=== PATIENT | female | born 1945 | race Caucasian/White ===

== ENCOUNTER 2019-10-30 11:49 | Outpatient (CLI) | payer MEDICARE, OTHER, SELFPAY ==
--- NOTE | 2019-10-30 11:59 | CT_ITS ---
WS: [id number] CT CHEST WITHOUT INTRAVENOUS CONTRAST HISTORY: MASS, LUNG TECHNIQUE: Contiguous 5 mm axial imaging performed on the thorax. Coronal and sagittal reformats are submitted. All CT scans at [facility] use at least one of these dose optimization techniq ues: automated exposure control; mA and/or kV adjustment per patient size (includes targeted exams wh ere dose is matched to clinical indication); or iterative reconstruction. CONTRAST: None DLP: 623.52 mGycm COMPARISON: 08/28/2018 and 01/02/2018 Lungs and central airway: Hyperinflated lungs with emphysema. Benign scattered calcified granulomata. Spiculated nodule in the LEFT lower lobe seen on the prior examination has resolved. No new pulmonar y nodules. No pneumonia. Pleura: Pleural-based smooth nodule with obtuse angles along the RIGHT lateral chest wall measures 2. 5 cm in diameter and is stable. Heart and pericardium: Normal size heart. No pericardial effusion. Mediastinum and lore: Benign, stable mediastinal and hilar lymph nodes. The largest lymph nodes measu re 1 cm. Vessels: Atherosclerosis aorta with no aneurysmal dilatation. No coronary artery calcifications are i dentified. Chest wall and lower neck: Bilateral breast implants. Upper abdomen: Noncontrast evaluation of the upper abdominal organs is negative for any acute process . Osseous structures: New since 08/28/2018 is an osteoporotic compression fracture involving T11 by 40% . Stable L1 compression fracture. Mild concave deformity of T8. CT/CT chest wo con [id number] IMPRESSION: 1. Chronic emphysema with stable benign pleural based nodule RIGHT thorax. 2. Previously described spiculated nodule in the LEFT lower lobe has resolved. 3. Stable osteoporotic compression fractures at T12 and L1.
[2019-10-30 12:27] LABS: Blood Urea Nitrogen 10 mg/dL (8-23)
== END 2019-10-30 11:50 | disposition home or self-care (01) ==
LOC: RADWPI 11:59
PROVIDERS: Family Provider Family Medicine; PCP Family Medicine; Visit Provider Family Medicine
DX: J43.9 Emphysema, unspecified (principal); M48.54XA Collapsed vertebra, not elsewhere classified, thoracic region, initial encounter for fracture; M48.56XA Collapsed vertebra, not elsewhere classified, lumbar region, initial encounter for fracture; R91.8 Other nonspecific abnormal finding of lung field; R91.1 Solitary pulmonary nodule
CPT/HCPCS: 71250; 82565; 84520

== ENCOUNTER 2021-04-19 10:06 | Outpatient (CLI) | payer MEDICARE, OTHER, SELFPAY ==
--- NOTE | 2021-04-19 10:18 | XR_ITS ---
WS: [id number] LUMBAR SPINE TECHNIQUE: 3 views of the lumbar spine CLINICAL INFORMATION: BACK PAIN, MUSCLE SPASM COMPARISON: FINDINGS: Five inu-dfy-hejtniy lumbar vertebral bodies. Osteopenia. Disc space narrowing worse L5-S1. Slight re trolisthesis L2 on L3. Chronic anterior wedging at T11-L1 with focal kyphosis at this level. Aortic c alcification. Advanced facet arthropathy L5-S1. IMPRESSION: 1. Osteopenia with disc space narrowing worse L5-S1. 2. Slight retrolisthesis L2 on L3. 3. Chronic compression deformities T11-L1 with focal kyphosis at this level.
--- NOTE | 2021-04-19 10:18 | XR_ITS ---
WS: [id number] THORACIC SPINE TECHNIQUE: 3 views of the thoracic spine CLINICAL INFORMATION: BACK PAIN, MUSCLE SPASM COMPARISON: CT chest October 30, 2019 FINDINGS: Osteopenia. Thoracolumbar curve convex left in the thoracic spine. Advanced thoracolumbar kyphosis wi th chronic compression deformities at the thoracolumbar junction. This is slightly progressed at T12 compared to the CT October 30, 2019. Stable appearing chronic compression with anterior wedging at T1 1 and L1. Hyperinflation with chronic emphysematous changes. XR/XR thoracic spine 3V* [id number] IMPRESSION: 1. Thoracolumbar scoliosis and kyphosis. 2. Osteopenia. 3. Focal kyphosis with chronic compression deformities at T11-L1. T12 compress ion has progressed since October 30, 2019 with approximately 30-40% compression . 4. No other significant changes.
== END 2021-04-19 10:07 | disposition home or self-care (01) ==
PROVIDERS: PCP Family Medicine; Visit Provider Family Medicine
DX: M62.838 Other muscle spasm (principal); M40.295 Other kyphosis, thoracolumbar region; M85.88 Other specified disorders of bone density and structure, other site; S22.089A Unspecified fracture of T11-T12 vertebra, initial encounter for closed fracture; X58.XXXA Exposure to other specified factors, initial encounter
CPT/HCPCS: 72072; 72100

== ENCOUNTER 2021-06-30 11:27 | Outpatient (CLI) | payer MEDICARE, OTHER, SELFPAY ==
[2021-06-30 12:00] VITALS: BP 150/76; PULSE 75; RESP 16; TEMP 36.5; O2SAT 95; BMI 20.3
[2021-06-30 13:07] VITALS: BP 152/78; PULSE 68; RESP 18; O2SAT 97
[2021-06-30 14:07] VITALS: BP 159/86; PULSE 68; RESP 18; TEMP 36.7; O2SAT 98
--- NOTE | 2021-07-05 18:59 | PC.SOCIAL ---
10-1, 1500 antibody infusion follow up call: symptoms prior to infusion: body aches, tired, couldn't hardly move patient reports she is much better now.
== END 2021-06-30 11:28 | disposition home or self-care (01) ==
LOC: OPS 11:35
PROVIDERS: PCP Family Medicine; Visit Provider Family Medicine
DX: U07.1 COVID-19 (principal)
CPT/HCPCS: 96365

== ENCOUNTER 2021-07-05 14:05 | Emergency (ER) | payer MEDICARE, OTHER, SELFPAY ==
[2021-07-05 14:58] VITALS: BP 145/84; PULSE 79; RESP 18; TEMP 36.8; O2SAT 95; BMI 21.4
--- NOTE | 2021-07-05 15:12 | ED_ITS ---
HPI - General Adult General: Chief complaint: General Medical Stated complaint: HERE FOR IV FLUIDS P/DR DUCKWORTH Time Seen by Provider: 07/05/21 15:12 History of Present Illness: HPI narrative: Ms. Miller is a 75-year-old lady with history of hypertension who presents to the emergency department after being referred for IV fluids. The patient is alert and oriented however does not specify much and history other than not feeling good . Per report patient tested positive for COVID-19. Symptom onset was approximately 7 or 8 days prior. She received outpatient monoclonal antibody infusion. Her symptoms have continued to worsen. She denies specific focality of symptoms however just as now moderate to severe intensity generalized malaise. It is unclear if there are any specific exacerbating or relieving factors. History is otherwise limited by patient participation. Review of Systems General: Reports: 10 or more systems reviewed and unremarkable except in HPI and below [facility] ED PFSH: Medical History (Updated 07/07/21 @ 02:56 by Taisha Frias MD) DVT (deep venous thrombosis) Hypertension Social History Smoking and tobacco status: former smoker Physical Exam Narrative: EXAM NARRATIVE: GENERAL/CONSTITUTIONAL -mildly ill-appearing. No acute distress. Eyes - no conjunctival injection or scleral icterus ENMT - Atraumatic external nose and ears. Dry mucous membranes NECK - supple. trachea midline CARDIOVASCULAR - regular rate and rhythm. RESPIRATORY -clear to auscultation bilaterally. No retractions or accessory muscle use. ABDOMEN/GI - Nontender. Nondistended. MSK - Extremities without obvious deformity or tenderness to palpation SKIN - Warm, Dry NEURO - alert and appropriately oriented. Moves all extremities equally. Course ED course: - Patient was seen and evaluated by me at bedside - Patient placed on cardiac monitors, IV access obtained - Initial evaluation notable for limited history, nontoxic appearance. - Labs and imaging were ordered - Prior to completion of ED evaluation the patient left AGAINST MEDICAL ADVICE - She declined to remain for discussion of laboratory or imaging studies up to this point. - For review of labs and imaging after patient departure: Mild leukopenia, evidence of dehydration with hyponatremia, hyper chloride EMEA, and hypokalemia, minimally elevated anion gap. Renal function is preserved. Procalcitonin negative. Initial rapid Covid negative however PCR sent given symptom onset date. Chest x-ray without lobar consolidation or evidence of superimposed bacterial process. CT scan with age indeterminate findings, as best as I can tell based on provided history there is no acute neurologic changes appreciated by the patient nor was there obvious change noted on physical exam. Vital Signs: Vital signs: Vital Signs Temperature 98.3 F 07/05/21 14:58 Pulse Rate 85 07/05/21 15:44 Respiratory Rate 16 07/05/21 15:44 Blood Pressure 153/77 07/05/21 15:44 Pulse Oximetry 91 07/05/21 15:44 [facility] - General Adult Medical Records: Attestation: I reviewed the patient's medical records. Lab Data: Attestation: I reviewed the patient's lab results. Labs: Lab Results 07/05/21 07/05/21 07/05/21 16:10 16:10 16:16 WBC 3.4 10^3/uL L 10^ 3/uL (4.0-10.0) RBC 4.39 10^6/uL 10^6 /uL (4.1-5.3) Hgb 13.6 g/dL g/dL (11.5-15.3) Hct 39.5 % % (37.0-47.0) MCV 90.0 fl fl (81-99) MCH 31.0 pg pg (28.0-34.0) MCHC 34.4 g/dL g/dL (30.0-36.0) RDW 12.8 % % (12.1-15.1) Plt Count 348 10^3/cmm 10^3 /cmm (130-400) MPV 8.8 fL fL (7.4-10.4) Neut % (Auto) 53.7 % % Lymph % (Auto) 33.6 % % [place] % (Auto) 11.8 % % Eos % (Auto) 0.3 % % Baso % (Auto) 0.3 % % Neut # (Auto) 1.82 10^3/uL 10^3 /uL (1.8-7.7) Lymph # (Auto) 1.1 10^3/uL 10^3/ uL (0.8-4.8) [place] # (Auto) 0.4 10^3/uL 10^3/ uL (0.2-0.9) Eos # (Auto) 0.0 10^3/uL 10^3/ uL (0.0-0.8) Baso # (Auto) 0.0 10^3/uL 10^3/ uL (0.0-0.1) Nucleated RBC % (a uto) 0 % % Nucleated RBCs # 0.0 /100WBC /100W BC Specimen Type Sample Site ABG pH ABG pCO2 ABG pO2 ABG HCO3 ABG Base Excess Panda Test Hematocrit O2 Delivery Device FiO2 [employer] Infrastructure Consultant ID Sodium Potassium Chloride Carbon Dioxide Anion Gap BUN Creatinine GFR Calculation Glucose Calculated Osmolal ity Lactic Acid Calcium Total Bilirubin AST ALT Alkaline Phosphata se Troponin T Baselin e C-Reactive Protein NT-Pro-B Natriuret Pep Total Protein Albumin Globulin Procalcitonin Nasal/Oral COVID-1 9 PCR Detected H SARS-CoV-2 Ag (Rap id) Negative (Negative) 07/05/21 07/05/21 07/05/21 16:16 16:16 16:16 WBC RBC Hgb Hct MCV MCH MCHC RDW Plt Count MPV Neut % (Auto) Lymph % (Auto) [place] % (Auto) Eos % (Auto) Baso % (Auto) Neut # (Auto) Lymph # (Auto) [place] # (Auto) Eos # (Auto) Baso # (Auto) Nucleated RBC % (a uto) Nucleated RBCs # Specimen Type Sample Site ABG pH ABG pCO2 ABG pO2 ABG HCO3 ABG Base Excess Panda Test Hematocrit O2 Delivery Device FiO2 [employer] Infrastructure Consultant ID Sodium 124 mmol/L L mmol /L (136-145) Potassium 3.2 mmol/L L mmol /L (3.5-5.1) Chloride 82 mmol/L L mmol/ L (98-107) Carbon Dioxide 26 mmol/L mmol/L (22-29) Anion Gap 19.2 H (5-19) BUN 11 mg/dL mg/dL (8-23) Creatinine 0.5 mg/dL mg/dL (0.5-0.9) GFR Calculation Not Reportable Glucose 99 mg/dL mg/dL (65-115) Calculated Osmolal ity 257 mOsm/kg L mOs m/kg (285-295) Lactic Acid 1.1 mmol/L mmol/L (0.5-2.2) Calcium 9.0 mg/dL mg/dL (8.5-10.5) Total Bilirubin 0.3 mg/dL mg/dL (0.15-1.2) AST 16 U/L U/L (0-32) ALT 12 U/L U/L (0-33) Alkaline Phosphata se 60 IU/L IU/L (35-105) Troponin T Baselin e 37 ng/L H ng/L (0-10) C-Reactive Protein 5.4 mg/L H mg/L (0.0-4.9) NT-Pro-B Natriuret Pep 435 pg/mL pg/mL (0-450) Total Protein 6.7 g/dL g/dL (6.6-8.7) Albumin 3.9 g/dL g/dL (3.5-5.2) Globulin 2.8 g/dL g/dL (1.3-4.6) Procalcitonin 0.09 ng/mL ng/mL (0-0.5) Nasal/Oral COVID-1 9 PCR SARS-CoV-2 Ag (Rap id) 07/05/21 16:20 WBC RBC Hgb Hct MCV MCH MCHC RDW Plt Count MPV Neut % (Auto) Lymph % (Auto) [place] % (Auto) Eos % (Auto) Baso % (Auto) Neut # (Auto) Lymph # (Auto) [place] # (Auto) Eos # (Auto) Baso # (Auto) Nucleated RBC % (a uto) Nucleated RBCs # Specimen Type Arterial Sample Site Brachial, left ABG pH 7.46 H (7.35-7.45) ABG pCO2 42.5 mmHg mmHg (35-45) ABG pO2 37.9 mmHg L* mmHg (80.0-100.0) ABG HCO3 29.9 mmol/L H mmo l/L (22-26) ABG Base Excess 5.4 mmol/L H mmol /L (-2.0-2.0) Panda Test Pos Hematocrit 38.9 % % (37-47) O2 Delivery Device Room air FiO2 21.0 % % Microsoft Infrastructure Consultant ID Cak Sodium Potassium Chloride Carbon Dioxide Anion Gap BUN Creatinine GFR Calculation Glucose Calculated Osmolal ity Lactic Acid Calcium Total Bilirubin AST ALT Alkaline Phosphata se Troponin T Baselin e C-Reactive Protein NT-Pro-B Natriuret Pep Total Protein Albumin Globulin Procalcitonin Nasal/Oral COVID-1 9 PCR SARS-CoV-2 Ag (Rap id) EKG Data^: EKG 1: Attestation: I personally reviewed and interpreted this EKG as follows: EKG interpretation date: 07/05/21 EKG interpretation time: 16:43 Interpretation: Twelve-lead EKG shows a regular rhythm at a rate of 87. ME interval 166, QRS duration 101, QTc 485. Normal axis. Interpretation: Sinus rhythm. Frequent PVCs. Computer generated interpretation: Chest X-Ray 07/05/21 15:48 IMPRESSION: No acute chest abnormality identified. Head CT 07/05/21 15:48 IMPRESSION: 1. Small age-indeterminate lacunar infarcts within/adjacent to the right basal ganglia. Consider MRI to assess acuity if clinically warranted. 2. Msfn-lh-daacsmmg senescent changes as above. 3. No acute intracranial hemorrhage. Radiation Dose CTDIVOL = (mGy): DLP = 869.04 (mGy-cm) Discharge Plan Discharge Patient Disposition: Left Against Medical Advice Prescriptions: No Action Anoro Ellipta 62.5-25 mcg/actuation Blister With Device 1 inh INHALATION QAM RF: 0 hydrocodone-acetaminophen [[place]] 5-325 mg Tablet 1 tab PO Q4H MDD 4 tabs PRN (Reason: Pain) RF: 0 diltiazem HCl 120 mg Capsule,Extended Release 24 Hr 120 mg PO QAM RF: 0 lisinopril 5 mg Tablet 5 mg PO QAM RF: 0 sertraline 50 mg Tablet 50 mg PO QAM RF: 0 nortriptyline 50 mg Capsule 50 - 150 mg PO BEDTIME PRN (Reason: Sleep) RF: 0 Eliquis 5 mg Tablet 5 mg PO BID RF: 0 Combivent Respimat 20-100 mcg/actuation Mist 1 puff INHALATION QID RF: 0 baclofen 5 mg Tablet 5 mg PO TID PRN (Reason: Pain) RF: 0 Tylenol Ex Str Rapid Release 500 mg Tablet 500 mg PO Q4H PRN (Reason: Pain) RF: 0 albuterol sulfate 90 mcg/actuation HFA aerosol inhaler 4 - 6 puff INHALATION Q4H PRN (Reason: Shortness Of Breath) RF: 0 Referrals: Jeffrey Duckworth, [Primary Care Provider] - Coding Level of Care Code ED Sales Counselor for Chg Patrick
[2021-07-05 15:44] VITALS: BP 153/77; PULSE 85; RESP 16; O2SAT 91
--- NOTE | 2021-07-05 15:48 | ECG_ITS ---
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: : 1945 Requested By: Cipriano Vazquez Order Number: [id number] Reading MD: ANTONIETA PADILLA Measurements Intervals [place] Rate: 87 P: 61 NV: 166 QRS: 43 QRSD: 101 T: 55 QT: 401 QTc: 485 Interpretive Statements SINUS RHYTHM WITH FREQUENT VENTRICULAR PREMATURE COMPLEXES POSSIBLE LEFT ATRIAL ENLARGEMENT [-0.1mV P-WAVE IN V1/V2] ABNORMAL RHYTHM ECG Compared to ECG 09/30/2018 10:53:40 Ventricular premature complex(es) now present Electronically Signed On 07-05-2021 20:19:06 CDT by ANTONIETA PADILLA [email or web address]
--- NOTE | 2021-07-05 15:48 | XR_ITS ---
WS: [id number] XR chest 1V portable [id number] REASON FOR EXAM: covid FINDINGS: The chest is unchanged compared to the previous examination of 05/23/2019. Moderate tortuosity and ectasia of the thoracic aorta. Normal heart size. Extrapleural mass projecting over the right upper lung laterally again noted. Calcified granulomatous disease in both hemithoraces. No acute pulmonary parenchymal or pleural disease noted. XR/XR chest 1V portable [id number] IMPRESSION: No acute chest abnormality identified.
--- NOTE | 2021-07-05 15:48 | CTR_ITS ---
PROCEDURE INFORMATION: Exam: CT Head Without Contrast Exam date and time: 07/05/2021 3:48 PM Age: 75 years old Clinical indication: Altered mental status/memory loss. TECHNIQUE: Imaging protocol: Computed tomography of the head without contrast. Radiation optimization: All CT scans at this facility use at least one of these dose optimization techniques: automated exposure control; mA and/or kV adjustment per patient size (includes targeted exams where dose is matched to clinical indication); or iterative reconstruction. COMPARISON: CT head wo con* [id number] 08/13/2018 1:20 PM RADIATION DOSE METRICS: Total DLP (mGy-cm): 869.04 FINDINGS: Brain: No acute intracranial hemorrhage. No mass, mass effect or midline shift.. There is no evidence of acute large vessel infarct.. There is moderate patchy subcortical and periventricular hypodensity, most commonly associated with small vessel ischemic disease of indeterminate age. Small age-indeterminate lacunar infarcts within/adjacent to the right basal ganglia. The posterior fossa is grossly unremarkable; however, it is partially obscurred by beam hardening artifact. Cerebral ventricles: The ventricles are prominent, compatible with mild parenchymal volume loss. Paranasal sinuses: The visualized paranasal sinuses are clear. Mastoid air cells: No mastoid effusion. Orbital cavity: The visualized orbits are unremarkable. Bones/joints: No acute fracture is seen. CT/CT head wo con* [id number] IMPRESSION: 1. Small age-indeterminate lacunar infarcts within/adjacent to the right basal ganglia. Consider MRI to assess acuity if clinically warranted. 2. Jgts-fl-vkivkufb senescent changes as above. 3. No acute intracranial hemorrhage. Radiation Dose CTDIVOL = (mGy): DLP = 869.04 (mGy-cm)
[2021-07-05 16:30] LABS: Basophils % 0.3 %; Eosinophils % 0.3 %; Hematocrit 39.5 % (37.0-47.0); Hemoglobin 13.6 g/dL (11.5-15.3); Lymphocytes # 1.1 10^3/uL (0.8-4.8); Lymphocytes % 33.6 %; Mean Corpuscular HGB Conc 34.4 g/dL (30.0-36.0); Mean Platelet Volume 8.8 fL (7.4-10.4); Monocytes # 0.4 10^3/uL (0.2-0.9); Monocytes % 11.8 %; Neutrophils # 1.82 10^3/uL (1.8-7.7); Neutrophils % 53.7 %; Nucleated Red Blood Cells % 0 %; Platelet Count 348 10^3/cmm (130-400); Red Blood Count 4.39 10^6/uL (4.1-5.3); Red Cell Distribution Width 12.8 % (12.1-15.1); White Blood Count 3.4 10^3/uL (4.0-10.0)
[2021-07-05 16:31] LABS: ABG PCO2 42.5 mmHg (35-45); ABG PH Result 7.46 (7.35-7.45); Arterial Blood Gas Hematocrit 38.9 % (37-47); Base Excess ABG 5.4 mmol/L (-2.0-2.0); Blood Gas Allen Test Pos; Blood Gas Operator Identificat CAK; Blood Gas Sample Site Brachial, left; Blood Gas Sample Type Arterial; HCO3 ABG 29.9 mmol/L (22-26); Oxygen Device ROOM AIR; PO2 ABG 37.9 mmHg (80.0-100.0)
[2021-07-05 17:02] LABS: Lactic Sepsis W/Reflex 1.1 mmol/L (0.5-2.2)
[2021-07-05 17:11] LABS: Troponin(5th) Baseline 37 ng/L (0-10)
[2021-07-05 17:12] LABS: NT Pro B Type Natriuretic Pept 435 pg/mL (0-450); Procalcitonin 0.09 ng/mL (0-0.5)
[2021-07-05 17:26] LABS: Alanine Aminotransferase 12 U/L (0-33); Albumin Level 3.9 g/dL (3.5-5.2); Alkaline Phosphatase 60 IU/L (35-105); Anion Gap 19.2 (5-19); Aspartate Amino Transferase 16 U/L (0-32); Blood Urea Nitrogen 11 mg/dL (8-23); C Reactive Protein 5.4 mg/L (0.0-4.9); Carbon Dioxide 26 mmol/L (22-29); Chloride 82 mmol/L (98-107); Globulin 2.8 g/dL (1.3-4.6); Glucose 99 mg/dL (65-115); Osmolality Calculated 257 mOsm/kg (285-295); Potassium 3.2 mmol/L (3.5-5.1); Sodium 124 mmol/L (136-145); Total Bilirubin 0.3 mg/dL (0.15-1.2); Total Protein 6.7 g/dL (6.6-8.7)
[2021-07-05 20:56] LABS: SARS Covid-2 Antigen Negative (Negative)
[2021-07-06 20:07] LABS: Coronavirus Test Green County Detected
== END 2021-07-05 17:48 | disposition left against medical advice (07) ==
PROVIDERS: Emergency Medicine; Emergency Provider Emergency Medicine; PCP Family Medicine
DX: U07.1 COVID-19 (principal); Z53.21 Procedure and treatment not carried out due to patient leaving prior to being seen by health care provider; Z79.01 Long term (current) use of anticoagulants
CPT/HCPCS: 36600; 70450; 71045; 80053; 82803; 83605; 83880; 84145; 84484; 85025; 86140; 87426; 87635; 93005; 99283

== ENCOUNTER 2021-07-06 16:02 | Inpatient (IN) | payer MEDICARE, OTHER, SELFPAY ==
[2021-07-06 17:06] VITALS: BP 129/64; PULSE 91; RESP 16; TEMP 36.7; O2SAT 95; BMI 21.4
[2021-07-06 18:00] VITALS: BP 144/81; PULSE 80; RESP 18; O2SAT 96
--- NOTE | 2021-07-06 18:00 | PC.NURSE ---
pt talking with family on phone and stated feeling much better, just getting checked out . Pt smiling
--- NOTE | 2021-07-06 20:03 | XRR_ITS ---
PROCEDURE INFORMATION: Exam: XR Chest Exam date and time: 07/06/2021 8:03 PM Age: 75 years old Clinical indication: Other: Weak; Prior surgery; Surgery type: Breast aug; Patient HX: Covid+; Additional info: [place] TECHNIQUE: Imaging protocol: XR of the chest. Views: 1 view. COMPARISON: 1. CR XR chest 1V portable [id number] 07/05/2021 4:[address] chest wo con [id number] 10/30/2019 12:21:[address] chest wo con [id number] 08/28/2018 3:33:48 PM FINDINGS: Lungs: Emphysema. Hyperinflated lungs. Negative for airspace consolidation. Redemonstration of a smoothly marginated nodule in the lateral right upper lobe with no convincing changes from comparison imaging. Pleural spaces: Unremarkable. No pleural effusion. No pneumothorax. Heart/Mediastinum: Unremarkable. No cardiomegaly. Bones/joints: Unremarkable. XR/XR chest 1V portable [id number] IMPRESSION: No focal acute pulmonary disease. Radiation Dose CTDIVOL = (mGy): DLP = (mGy-cm)
--- NOTE | 2021-07-06 20:04 | ED_ITS ---
Documented by User: CONNER Cheung 07/06/21 23:38 HPI - COVID General: Chief Complaint: COVID symptoms Stated Complaint: COVID +: GEN MALAISE Time Seen by Provider: 07/06/21 19:59 Triage information: No fever, cough or shortness of breath . Exposure to COVID + person last 14 days History of Present Illness: HPI Narrative: 75-year-old female comes in for weakness and feeling of malaise. Patient reports being ill since last Monday, approximately 7 to 8 days. Patient appears mildly unwell. Patient appears in no acute distress. Patient is quiet and responds appropriately to questions. Family had been concerned due to patient's increasing weakness and confusion for the last 2 days. COVID Results: SARS-CoV-2 Antigen (Rapid) Negative (Negative) 07/05/21 16:10 07/05/21 Nasal/Oral Coronavirus 2019 PCR Detected H 07/05/21 16:10 07/05/21 Review of Systems General: Reports: 10 or more systems reviewed and unremarkable except in HPI and below Const: Reports: malaise [facility] ED PFSH: Medical History (Updated 07/07/21 @ 02:56 by Taisha Frias MD) DVT (deep venous thrombosis) Hypertension Social History Smoking and tobacco status: former smoker Physical Exam Const: COMMON NORMALS: no acute distress and patient oriented x3 GENERAL APPEARANCE: cooperative HENMT: COMMON NORMALS: normocephalic and Normal external nose present HEAD & SCALP: normal to inspection and normocephalic NOSE: Normal external nose present MOUTH: Normal oral and palatal mucosa present Eye: GENERAL EYE: appearance normal, both eyes and all related structures Neck/C-Spine: COMMON NORMALS: full ROM Lymph: LYMPHATIC: no lymphadenopathy noted Chest: COMMONS NORMALS: normal inspection of the chest Resp: COMMON NORMALS: normal respiratory effort EFFORT & INSPECTION: Yes able to speak in complete sentences AUSCULTATION: diminished lung sounds Cardio: COMMON NORMALS: regular rate and regular rhythm RATE: regular rate RHYTHM: regular rhythm GI: COMMON NORMALS: non-tender Back/Pelvis: COMMON NORMALS: thoracic and lumbar spine normal to inspection Extremity: COMMON NORMALS: normal to inspection Neuro: COMMON NORMALS: patient oriented x3 and moves all extremities Psych: COMMON NORMALS: mental status grossly normal and cooperative Skin: COMMON NORMALS: no rashes or lesions noted GENERAL SKIN EXAM: no rashes or lesions noted Course ED course: 1909, discussed patient with Dr. Burt who had seen her last night. Patient had wanted to go home before labs were completed. He recommended we recheck labs and consider IV fluids. 1929, talk with patient's daughter who reports that patient got monoclonal antibodies 1 week ago. She was evaluated in the ER yesterday due to some confusion. Patient did not want to stay and requested to go home early. Labs from yesterday noted some irregularities in her chemistries and they recommended that she come back today for further evaluation. Patient's daughter states that she seems to be better today. We will continue with the repeat labs give her 1 L of IV fluids and plan for further evaluation and treatment after labs. 2319, discussed with Dr. Ann regarding patient's decline and sodium to 122. He recommended we talk to the hospitalist Dr. Frias for admission for dehydration and hyponatremia. After discussion with Dr. Frias she agreed to plan at this time for observation status for IV fluids and repeat labs. Vital Signs: Vital signs: Vital Signs Temperature 97.6 F 07/09/21 07:59 Pulse Rate 84 07/09/21 13:59 Respiratory Rate 18 07/09/21 13:59 Blood Pressure 175/84 07/09/21 08:40 Pulse Oximetry 91 07/09/21 13:59 MDM - COVID MDM Narrative: Medical decision making narrative: Patient was brought in by family for concerns increased weakness. Patient had been evaluated in the ER yesterday with labs and x-rays. Patient has been ill with COVID-19 since Monday of last week. Patient did receive monoclonal antibodies last week. Family was concerned due to her increased weakness yesterday. Labs showed that patient had a decline in her sodium to 124 and their physician recommended that she return to the ER for further evaluation. Patient's labs today showed that her sodium had dropped 122 and her chloride 0.84. Chest x-ray did not show any abnormality. Appears mildly unwell. Differential diagnosis includes dehydration, hyponatremia, COVID-19 infection. Concern for dehydration and hyponatremia patient needs admission for IV fluid replacement and repeat labs. Lab Data: Labs: Lab Results 07/06/21 07/06/2107/06/21 21:30 21:30 22:45 WBC 4.1 10^3/uL 10^3/ uL (4.0-10.0) RBC 3.64 10^6/uL L 10 ^6/uL (4.1-5.3) Hgb 11.5 g/dL g/dL (11.5-15.3) Hct 33.5 % L % (37.0-47.0) MCV 92.0 fl fl (81-99) MCH 31.6 pg pg (28.0-34.0) MCHC 34.3 g/dL g/dL (30.0-36.0) RDW 12.9 % % (12.1-15.1) Plt Count 274 10^3/cmm 10^3 /cmm (130-400) MPV 10.3 fL fL (7.4-10.4) Neut % (Auto) 44.0 % % Lymph % (Auto) 44.3 % % [place] % (Auto) 10.0 % % Eos % (Auto) 0.5 % % Baso % (Auto) 0.2 % % Neut # (Auto) 1.81 10^3/uL 10^3 /uL (1.8-7.7) Lymph # (Auto) 1.8 10^3/uL 10^3/ uL (0.8-4.8) [place] # (Auto) 0.4 10^3/uL 10^3/ uL (0.2-0.9) Eos # (Auto) 0.0 10^3/uL 10^3/ uL (0.0-0.8) Baso # (Auto) 0.0 10^3/uL 10^3/ uL (0.0-0.1) Nucleated RBC % (a uto) 0 % % Nucleated RBCs # 0.0 /100WBC /100W BC D-Dimer Sodium Cancelled 122 mmol/L L mmol /L (136-145) Potassium Cancelled 3.4 mmol/L L mmol /L (3.5-5.1) Chloride Cancelled 84 mmol/L L mmol/ L (98-107) Carbon Dioxide Cancelled 29 mmol/L mmol/L (22-29) Anion Gap Cancelled 12.4 (5-19) BUN Cancelled 10 mg/dL mg/dL (8-23) Creatinine Cancelled 0.4 mg/dL L mg/dL (0.5-0.9) GFR Calculation Cancelled Not Reportable Glucose Cancelled 91 mg/dL mg/dL (65-115) Calculated Osmolal ity Cancelled 253 mOsm/kg L mOs m/kg (285-295) Calcium Cancelled 8.8 mg/dL mg/dL (8.5-10.5) Total Bilirubin Cancelled 0.4 mg/dL mg/dL (0.15-1.2) AST Cancelled 17 U/L U/L (0-32) ALT Cancelled 11 U/L U/L (0-33) Alkaline Phosphata se Cancelled 50 IU/L IU/L (35-105) Troponin T Gen 5 n g/L C-Reactive Protein Cancelled 2.6 mg/L mg/L (0.0-4.9) NT-Pro-B Natriuret Pep Total Protein Cancelled 6.2 g/dL L g/dL (6.6-8.7) Albumin Cancelled 3.6 g/dL g/dL (3.5-5.2) Globulin Cancelled 2.6 g/dL g/dL (1.3-4.6) Triglycerides Cholesterol LDL Cholesterol, C alc Total VLDL Cholest jeanmarie HDL Cholesterol Cholesterol/HDL Ra karin TSH Random Cortisol Urine Color Urine Appearance Urine pH Ur Specific Gravit y Urine Protein Urine Glucose (UA) Urine Ketones Urine Blood Urine Nitrate Urine Bilirubin Urine Urobilinogen Ur Leukocyte Amy ase Urine RBC Urine WBC Ur Squamous Epith Cells Amorphous Sediment Urine Bacteria Urine Osmolality Ur Random Sodium Ur Random Potassiu m Ur Random Chloride 3 07/06/21 07/06/21 07/07/21 22:45 22:45 00:07 WBC RBC Hgb Hct MCV MCH MCHC RDW Plt Count MPV Neut % (Auto) Lymph % (Auto) [place] % (Auto) Eos % (Auto) Baso % (Auto) Neut # (Auto) Lymph # (Auto) [place] # (Auto) Eos # (Auto) Baso # (Auto) Nucleated RBC % (a uto) Nucleated RBCs # D-Dimer <= 0.27 ug/mIFEU ug/mIFEU (0-0.59) Sodium Potassium Chloride Carbon Dioxide Anion Gap BUN Creatinine GFR Calculation Glucose Calculated Osmolal ity Calcium Total Bilirubin AST ALT Alkaline Phosphata se Troponin T Gen 5 n g/L 33 ng/L H ng/L (0-10) C-Reactive Protein NT-Pro-B Natriuret Pep Total Protein Albumin Globulin Triglycerides Cholesterol LDL Cholesterol, C alc Total VLDL Cholest jeanmarie HDL Cholesterol Cholesterol/HDL Ra karin TSH Random Cortisol Urine Color Straw (Yellow) Urine Appearance Clear (CLEAR) Urine pH 6 (5-7) Ur Specific Gravit y 1.005 (1.005-1.030) Urine Protein Neg (Negative) Urine Glucose (UA) Norm (Normal) Urine Ketones Negative (Negative) Urine Blood Neg (Negative) Urine Nitrate Negative (Negative) Urine Bilirubin Neg (Negative) Urine Urobilinogen Norm mg/dL mg/dL (Negative) Ur Leukocyte Amy ase 1+ H (Negative) Urine RBC None /hpf /hpf (0-2) Urine WBC 25-40 /hpf H /hpf (0-5) Ur Squamous Epith Cells 0-4 /hpf H /hpf (0-5) Amorphous Sediment Not Reportable Urine Bacteria 2+ /hpf H /hpf (NONE) Urine Osmolality Ur Random Sodium Ur Random Potassiu m Ur Random Chloride 07/07/21 07/07/21 07/07/21 05:30 05:30 05:30 WBC RBC Hgb Hct MCV MCH MCHC RDW Plt Count MPV Neut % (Auto) Lymph % (Auto) [place] % (Auto) Eos % (Auto) Baso % (Auto) Neut # (Auto) Lymph # (Auto) [place] # (Auto) Eos # (Auto) Baso # (Auto) Nucleated RBC % (a uto) Nucleated RBCs # D-Dimer Sodium 123 mmol/L L mmol /L Cancelled (136-145) Potassium 3.1 mmol/L L mmol /L Cancelled (3.5-5.1) Chloride 88 mmol/L L mmol/ L Cancelled (98-107) Carbon Dioxide 27 mmol/L mmol/L Cancelled (22-29) Anion Gap 11.1 Cancelled (5-19) BUN 8 mg/dL mg/dL Cancelled (8-23) Creatinine 0.4 mg/dL L mg/dL Cancelled (0.5-0.9) GFR Calculation Not Reportable Cancelled Glucose 89 mg/dL mg/dL Cancelled (65-115) Calculated Osmolal ity 254 mOsm/kg L mOs m/kg Cancelled (285-295) Calcium 8.1 mg/dL L mg/dL Cancelled (8.5-10.5) Total Bilirubin 0.4 mg/dL mg/dL (0.15-1.2) AST 13 U/L U/L (0-32) ALT 10 U/L U/L (0-33) Alkaline Phosphata se 46 IU/L IU/L (35-105) Troponin T Gen 5 n g/L C-Reactive Protein 2.0 mg/L mg/L (0.0-4.9) NT-Pro-B Natriuret Pep 470 pg/mL H pg/mL (0-450) Total Protein 5.4 g/dL L g/dL (6.6-8.7) Albumin 3.2 g/dL L g/dL (3.5-5.2) Globulin 2.2 g/dL g/dL (1.3-4.6) Triglycerides 82 mg/dL mg/dL (0-150) Cholesterol 210 mg/dL H mg/dL (0-200) LDL Cholesterol, C alc 129 mg/dL mg/dL (50-129) Total VLDL Cholest jeanmarie 16 mg/dL mg/dL (0-30) HDL Cholesterol 65 mg/dL mg/dL (60-100) Cholesterol/HDL Ra karin 3.23 mg/dL mg/dL (0.0-4.40) TSH 3.96 uIU/mL uIU/m L (0.27-4.20) Random Cortisol 9.24 ug/dL ug/dL (2.47-19.5) Urine Color Urine Appearance Urine pH Ur Specific Gravit y Urine Protein Urine Glucose (UA) Urine Ketones Urine Blood Urine Nitrate Urine Bilirubin Urine Urobilinogen Ur Leukocyte Amy ase Urine RBC Urine WBC Ur Squamous Epith Cells Amorphous Sediment Urine Bacteria Urine Osmolality Ur Random Sodium Ur Random Potassiu m Ur Random Chloride 07/07/21 07/07/21 08:11 08:11 WBC RBC Hgb Hct MCV MCH MCHC RDW Plt Count MPV Neut % (Auto) Lymph % (Auto) [place] % (Auto) Eos % (Auto) Baso % (Auto) Neut # (Auto) Lymph # (Auto) [place] # (Auto) Eos # (Auto) Baso # (Auto) Nucleated RBC % (a uto) Nucleated RBCs # D-Dimer Sodium Potassium Chloride Carbon Dioxide Anion Gap BUN Creatinine GFR Calculation Glucose Calculated Osmolal ity Calcium Total Bilirubin AST ALT Alkaline Phosphata se Troponin T Gen 5 n g/L C-Reactive Protein NT-Pro-B Natriuret Pep Total Protein Albumin Globulin Triglycerides Cholesterol LDL Cholesterol, C alc Total VLDL Cholest jeanmarie HDL Cholesterol Cholesterol/HDL Ra karin TSH Random Cortisol Urine Color Urine Appearance Urine pH Ur Specific Gravit y Urine Protein Urine Glucose (UA) Urine Ketones Urine Blood Urine Nitrate Urine Bilirubin Urine Urobilinogen Ur Leukocyte Amy ase Urine RBC Urine WBC Ur Squamous Epith Cells Amorphous Sediment Urine Bacteria Urine Osmolality 211 mOsm/kg mOsm/ kg (50-1200) Ur Random Sodium 53 mmol/L mmol/L Ur Random Potassiu m 13 mmol/L mmol/L Ur Random Chloride 51 mmol/L mmol/L COVID Results: SARS-CoV-2 Antigen (Rapid) Negative (Negative) 07/05/21 16:10 07/05/21 Nasal/Oral Coronavirus 2019 PCR Detected H 07/05/21 16:10 07/05/21 Discharge Plan Discharge Patient Disposition: Placed in Observation Admit Provider: Taisha Frias Clinical Impression: Acute hyponatremia, Dehydration Discharge Diet: Regular Discharge Activity: Resume usual activity Coding Level of Care Code ED Guest Attendant for Chg Fwd Exam Comprehensive Documented by User: Phil Ann MD 07/09/21 20:23 HPI - COVID General: Chief Complaint: COVID symptoms Stated Complaint: COVID +: GEN MALAISE Time Seen by Provider: 07/06/21 19:59 COVID Results: SARS-CoV-2 Antigen (Rapid) Negative (Negative) 07/05/21 16:10 07/05/21 Nasal/Oral Coronavirus 2019 PCR Detected H 07/05/21 16:10 07/05/21 [facility] ED PFSH: Medical History (Updated 07/07/21 @ 02:56 by Taisha Frias MD) DVT (deep venous thrombosis) Hypertension Social History Smoking and tobacco status: former smoker Course Vital Signs: Vital signs: Vital Signs Temperature 97.6 F 07/09/21 07:59 Pulse Rate 84 07/09/21 13:59 Respiratory Rate 18 07/09/21 13:59 Blood Pressure 175/84 07/09/21 08:40 Pulse Oximetry 91 07/09/21 13:59 MDM - COVID Lab Data: Labs: Lab Results 07/06/21 07/06/21 07/06/21 21:30 21:30 22:45 WBC 4.1 10^3/uL 10^3/ uL (4.0-10.0) RBC 3.64 10^6/uL L 10 ^6/uL (4.1-5.3) Hgb 11.5 g/dL g/dL (11.5-15.3) Hct 33.5 % L % (37.0-47.0) MCV 92.0 fl fl (81-99) MCH 31.6 pg pg (28.0-34.0) MCHC 34.3 g/dL g/dL (30.0-36.0) RDW 12.9 % % (12.1-15.1) Plt Count 274 10^3/cmm 10^3 /cmm (130-400) MPV 10.3 fL fL (7.4-10.4) Neut % (Auto) 44.0 % % Lymph % (Auto) 44.3 % % [place] % (Auto) 10.0 % % Eos % (Auto) 0.5 % % Baso % (Auto) 0.2 % % Neut # (Auto) 1.81 10^3/uL 10^3 /uL (1.8-7.7) Lymph # (Auto) 1.8 10^3/uL 10^3/ uL (0.8-4.8) [place] # (Auto) 0.4 10^3/uL 10^3/ uL (0.2-0.9) Eos # (Auto) 0.0 10^3/uL 10^3/ uL (0.0-0.8) Baso # (Auto) 0.0 10^3/uL 10^3/ uL (0.0-0.1) Nucleated RBC % (a uto) 0 % % Nucleated RBCs # 0.0 /100WBC /100W BC D-Dimer Sodium Cancelled 122 mmol/L L mmol /L (136-145) Potassium Cancelled 3.4 mmol/L L mmol /L (3.5-5.1) Chloride Cancelled 84 mmol/L L mmol/ L (98-107) Carbon Dioxide Cancelled 29 mmol/L mmol/L (22-29) Anion Gap Cancelled 12.4 (5-19) BUN Cancelled 10 mg/dL mg/dL (8-23) Creatinine Cancelled 0.4 mg/dL L mg/dL (0.5-0.9) GFR Calculation Cancelled Not Reportable Glucose Cancelled 91 mg/dL mg/dL (65-115) Calculated Osmolal ity Cancelled 253 mOsm/kg L mOs m/kg (285-295) Calcium Cancelled 8.8 mg/dL mg/dL (8.5-10.5) Total Bilirubin Cancelled 0.4 mg/dL mg/dL (0.15-1.2) AST Cancelled 17 U/L U/L (0-32) ALT Cancelled 11 U/L U/L (0-33) Alkaline Phosphata se Cancelled 50 IU/L IU/L (35-105) Troponin T Gen 5 n g/L C-Reactive Protein Cancelled 2.6 mg/L mg/L (0.0-4.9) NT-Pro-B Natriuret Pep Total Protein Cancelled 6.2 g/dL L g/dL (6.6-8.7) Albumin Cancelled 3.6 g/dL g/dL (3.5-5.2) Globulin Cancelled 2.6 g/dL g/dL (1.3-4.6) Triglycerides Cholesterol LDL Cholesterol, C alc Total VLDL Cholest jeanmarie HDL Cholesterol Cholesterol/HDL Ra karin TSH Random Cortisol Urine Color Urine Appearance Urine pH Ur Specific Gravit y Urine Protein Urine Glucose (UA) Urine Ketones Urine Blood Urine Nitrate Urine Bilirubin Urine Urobilinogen Ur Leukocyte Amy ase Urine RBC Urine WBC Ur Squamous Epith Cells Amorphous Sediment Urine Bacteria Urine Osmolality Ur Random Sodium Ur Random Potass[place] m Ur Random Chloride 07/06/21 07/06/21 07/07/21 22:45 22:45 00:07 WBC RBC Hgb Hct MCV MCH MCHC RDW Plt Count MPV Neut % (Auto) Lymph % (Auto) [place] % (Auto) Eos % (Auto) Baso % (Auto) Neut # (Auto) Lymph # (Auto) [place] # (Auto) Eos # (Auto) Baso # (Auto) Nucleated RBC % (a uto) Nucleated RBCs # D-Dimer <= 0.27 ug/mIFEU ug/mIFEU (0-0.59) Sodium Potassium Chloride Carbon Dioxide Anion Gap BUN Creatinine GFR Calculation Glucose Calculated Osmolal ity Calcium Total Bilirubin AST ALT Alkaline Phosphata se Troponin T Gen 5 n g/L 33 ng/L H ng/L (0-10) C-Reactive Protein NT-Pro-B Natriuret Pep Total Protein Albumin Globulin Triglycerides Cholesterol LDL Cholesterol, C alc Total VLDL Cholest jeanmarie HDL Cholesterol Cholesterol/HDL Ra karin TSH Random Cortisol Urine Color Straw (Yellow) Urine Appearance Clear (CLEAR) Urine pH 6 (5-7) Ur Specific Gravit y 1.005 (1.005-1.030) Urine Protein Neg (Negative) Urine Glucose (UA) Norm (Normal) Urine Ketones Negative (Negative) Urine Blood Neg (Negative) Urine Nitrate Negative (Negative) Urine Bilirubin Neg (Negative) Urine Urobilinogen Norm mg/dL mg/dL (Negative) Ur Leukocyte Amy ase 1+ H (Negative) Urine RBC None /hpf /hpf (0-2) Urine WBC 25-40 /hpf H /hpf (0-5) Ur Squamous Epith Cells 0-4 /hpf H /hpf (0-5) Amorphous Sediment Not Reportable Urine Bacteria 2+ /hpf H /hpf (NONE) Urine Osmolality Ur Random Sodium Ur Random Potass[place] m Ur Random Chloride 07/07/21 07/07/21 07/07/21 05:30 05:30 05:30 WBC RBC Hgb Hct MCV MCH MCHC RDW Plt Count MPV Neut % (Auto) Lymph % (Auto) [place] % (Auto) Eos % (Auto) Baso % (Auto) Neut # (Auto) Lymph # (Auto) [place] # (Auto) Eos # (Auto) Baso # (Auto) Nucleated RBC % (a uto) Nucleated RBCs # D-Dimer Sodium 123 mmol/L L mmol /L Cancelled (136-145) Potassium 3.1 mmol/L L mmol /L Cancelled (3.5-5.1) Chloride 88 mmol/L L mmol/ L Cancelled (98-107) Carbon Dioxide 27 mmol/L mmol/L Cancelled (22-29) Anion Gap 11.1 Cancelled (5-19) BUN 8 mg/dL mg/dL Cancelled (8-23) Creatinine 0.4 mg/dL L mg/dL Cancelled (0.5-0.9) GFR Calculation Not Reportable Cancelled Glucose 89 mg/dL mg/dL Cancelled (65-115) Calculated Osmolal ity 254 mOsm/kg L mOs m/kg Cancelled (285-295) Calcium 8.1 mg/dL L mg/dL Cancelled (8.5-10.5) Total Bilirubin 0.4 mg/dL mg/dL (0.15-1.2) AST 13 U/L U/L (0-32) ALT 10 U/L U/L (0-33) Alkaline Phosphata se 46 IU/L IU/L (35-105) Troponin T Gen 5 n g/L C-Reactive Protein 2.0 mg/L mg/L (0.0-4.9) NT-Pro-B Natriuret Pep 470 pg/mL H pg/mL (0-450) Total Protein 5.4 g/dL L g/dL (6.6-8.7) Albumin 3.2 g/dL L g/dL (3.5-5.2) Globulin 2.2 g/dL g/dL (1.3-4.6) Triglycerides 82 mg/dL mg/dL (0-150) Cholesterol 210 mg/dL H mg/dL (0-200) LDL Cholesterol, C alc 129 mg/dL mg/dL (50-129) Total VLDL Cholest jeanmarie 16 mg/dL mg/dL (0-30) HDL Cholesterol 65 mg/dL mg/dL (60-100) Cholesterol/HDL Ra karin 3.23 mg/dL mg/dL (0.0-4.40) TSH 3.96 uIU/mL uIU/m L (0.27-4.20) Random Cortisol 9.24 ug/dL ug/dL (2.47-19.5) Urine Color Urine Appearance Urine pH Ur Specific Gravit y Urine Protein Urine Glucose (UA) Urine Ketones Urine Blood Urine Nitrate Urine Bilirubin Urine Urobilinogen Ur Leukocyte Amy ase Urine RBC Urine WBC Ur Squamous Epith Cells Amorphous Sediment Urine Bacteria Urine Osmolality Ur Random Sodium Ur Random Potass[place] m Ur Random Chloride 07/07/21 07/07/21 08:11 08:11 WBC RBC Hgb Hct MCV MCH MCHC RDW Plt Count MPV Neut % (Auto) Lymph % (Auto) [place] % (Auto) Eos % (Auto) Baso % (Auto) Neut # (Auto) Lymph # (Auto) [place] # (Auto) Eos # (Auto) Baso # (Auto) Nucleated RBC % (a uto) Nucleated RBCs # D-Dimer Sodium Potassium Chloride Carbon Dioxide Anion Gap BUN Creatinine GFR Calculation Glucose Calculated Osmolal ity Calcium Total Bilirubin AST ALT Alkaline Phosphata se Troponin T Gen 5 n g/L C-Reactive Protein NT-Pro-B Natriuret Pep Total Protein Albumin Globulin Triglycerides Cholesterol LDL Cholesterol, C alc Total VLDL Cholest jeanmarie HDL Cholesterol Cholesterol/HDL Ra karin TSH Random Cortisol Urine Color Urine Appearance Urine pH Ur Specific Gravit y Urine Protein Urine Glucose (UA) Urine Ketones Urine Blood Urine Nitrate Urine Bilirubin Urine Urobilinogen Ur Leukocyte Amy ase Urine RBC Urine WBC Ur Squamous Epith Cells Amorphous Sediment Urine Bacteria Urine Osmolality 211 mOsm/kg mOsm/ kg (50-1200) Ur Random Sodium 53 mmol/L mmol/L Ur Random Potassiu m 13 mmol/L mmol/L Ur Random Chloride 51 mmol/L mmol/L COVID Results: SARS-CoV-2 Antigen (Rapid) Negative (Negative) 07/05/21 16:10 07/05/21 Nasal/Oral Coronavirus 2019 PCR Detected H 07/05/21 16:10 07/05/21 Discharge Plan Discharge Patient Disposition: Placed in Observation Admit Provider: Taisha Frias Clinical Impression: Acute hyponatremia, Dehydration Discharge Diet: Regular Discharge Activity: Resume usual activity Coding Level of Care Code ED Guest Attendant for Chg Fwd Exam Comprehensive
[2021-07-06] MEDS: sodium chloride 0.9% 1,000 ML 999 ML IV (21:30)
[2021-07-06 21:36] VITALS: O2SAT 96
[2021-07-06 21:42] VITALS: BP 135/75; PULSE 82; RESP 16; O2SAT 96
--- NOTE | 2021-07-06 21:44 | PC.NURSE ---
Unable to provide urine specimen; will retry after fluids infuse.
[2021-07-06 22:08] LABS: Basophils % 0.2 %; Eosinophils % 0.5 %; Hematocrit 33.5 % (37.0-47.0); Hemoglobin 11.5 g/dL (11.5-15.3); Lymphocytes # 1.8 10^3/uL (0.8-4.8); Lymphocytes % 44.3 %; Mean Corpuscular HGB Conc 34.3 g/dL (30.0-36.0); Mean Corpuscular Hemoglobin 31.6 pg (28.0-34.0); Mean Platelet Volume 10.3 fL (7.4-10.4); Monocytes # 0.4 10^3/uL (0.2-0.9); Neutrophils # 1.81 10^3/uL (1.8-7.7); Nucleated Red Blood Cells % 0 %; Red Blood Count 3.64 10^6/uL (4.1-5.3); Red Cell Distribution Width 12.9 % (12.1-15.1); White Blood Count 4.1 10^3/uL (4.0-10.0)
[2021-07-06 22:10] LABS: Platelet Count 274 10^3/cmm (130-400)
[2021-07-06] MEDS: ondansetron 4 MG Tablet PO (22:33)
--- NOTE | 2021-07-06 22:48 | PC.NURSE ---
Given ice cream, crackers and cheese; ok per provider Ese. Repositioned for comfort.
--- NOTE | 2021-07-06 22:53 | PC.NURSE ---
Pt's brought her heating pad from home; this RN gave it to pt and assisted with placing it across her belly for comfort. Pt asking for sleeping pills, states I left mine at home, so I need something to help me sleep. Provider notified.
[2021-07-06 23:17] LABS: Alanine Aminotransferase 11 U/L (0-33); Albumin Level 3.6 g/dL (3.5-5.2); Alkaline Phosphatase 50 IU/L (35-105); Anion Gap 12.4 (5-19); Aspartate Amino Transferase 17 U/L (0-32); Blood Urea Nitrogen 10 mg/dL (8-23); C Reactive Protein 2.6 mg/L (0.0-4.9); Calcium 8.8 mg/dL (8.5-10.5); Carbon Dioxide 29 mmol/L (22-29); Chloride 84 mmol/L (98-107); Globulin 2.6 g/dL (1.3-4.6); Glucose 91 mg/dL (65-115); Osmolality Calculated 253 mOsm/kg (285-295); Potassium 3.4 mmol/L (3.5-5.1); Sodium 122 mmol/L (136-145); Total Bilirubin 0.4 mg/dL (0.15-1.2); Total Protein 6.2 g/dL (6.6-8.7)
[2021-07-06 23:18] VITALS: BP 159/78; PULSE 88; RESP 16; O2SAT 96
--- NOTE | 2021-07-06 23:59 | PC.NURSE ---
Called daughter Ariella at pt's request to update on plan to admit pt overnight.
[2021-07-07] VITALS (13 sets, daily range): BP systolic 118–178; BP diastolic 68–83; PULSE 81–99; RESP 14–18; TEMP 36.4–37.1; O2SAT 90–95; BMI 21.4
[2021-07-07 00:08] LABS: Troponin T (5th) Once 33 ng/L (0-10)
[2021-07-07 00:27] LABS: Add Urine Microscopic? YES; Bilirubin Urine Neg (Negative); Blood Urine Neg (Negative); Glucose Urine UA Norm (Normal); Ketones Urine Negative (Negative); Leukocyte Esterase Urine 1+ (Negative); Nitrate Urine Negative (Negative); Protein Urine Neg (Negative); Specific Gravity, Urine 1.005 (1.005-1.030); Urine Appearance Clear (CLEAR); Urine Color Straw (Yellow); Urobilinogen Urine Norm (Negative); pH Urine 6 (5-7)
[2021-07-07 00:33] LABS: Add Urine Culture? Yes; Bacteria Urine 2+ /hpf; Squamous Epithelial Cell Urine 0-4 /hpf (0-5); WBC Urine 25-40 /hpf (0-5)
--- NOTE | 2021-07-07 01:05 | PC.NURSE ---
Repositioned for comfort; denies further needs at this time.
--- NOTE | 2021-07-07 01:26 | ECG_ITS ---
[facility] Test Date: 2021-07-07 Pat Name: Eleni Miller Department: Room: 268 Gender: Female Delivery Consultant: : [id number] Requested By: Taisha Frias Order Number: [id number] Reading MD: Gloria Keenan M.D. Measurements Intervals [place] Rate: 85 P: 88 [place]: 167 QRS: 80 QRSD: 93 T: 81 QT: 367 QTc: 437 Interpretive Statements SINUS RHYTHM WITH OCCASIONAL VENTRICULAR PREMATURE COMPLEXES Compared to ECG 07/05/2021 16:41:44 No significant changes Electronically Signed On 07-07-2021 23:01:02 CDT by Gloria Keenan M.D. [email or web address]
[2021-07-07 01:43] LABS: D Dimer <= 0.27 ug/mIFEU (0-0.59)
[2021-07-07] MEDS: nortriptyline 10 mg Capsule PO (01:54)
--- NOTE | 2021-07-07 02:39 | PM.HP ---
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 Patient has been stable from a respiratory standpoint, states that her cough appears to be improving at this point, denies any dyspnea, saturation has been ranging between 96 to 99% at home. Chest x-ray today does not show any infiltrates. CRP is at 5. She presents to the ER today because of generalized weakness which was progressive over the past week, states she feels somewhat better over the last 24 hours. She had originally presented to the ER on July 05, 2021 but elected to return home. Was brought by family today due to noted concerns of weakness and some confusion at home. At the time of my assessment right now patient is alert awake and oriented x3. Her sodium was noted to be 122, down from 124 yesterday. Review of prior numbers dating back to 2014 show patient has had previous episode of hyponatremia with sodium down to 118 at that time. However in 2018 and 2019, sodium numbers noted to be 1 33-1 37. 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 These were changed to seroquel and nortryptylline. Keppra is no longer noted on her medication list. Review of Systems General: Reports: 10 or more systems reviewed and unremarkable except in HPI and below Const: Denies: fever(s), chills or body aches Eyes: Denies: change in vision, blurry vision or photophobia ENMT: Reports: hoarseness; Denies: throat pain, enlarged tonsils, odynophagia or nasal congestion Card: Denies: chest pain, palpitations, irregular heart rhythm, edema, swelling of feet/ankles, lightheadedness, pre-syncope, dyspnea on exertion or orthopnea Resp: Denies: dyspnea, productive cough, non-productive cough, wheezing, stridor, pain on inspiration, change in phlegm color, hemoptysis or chest congestion GI: Denies: abdominal pain, nausea, vomiting, hematemesis, coffee ground emesis, dysphagia, heartburn, diarrhea, constipation, GI cramping, change in stool character, hematochezia or melena : Denies: flank pain, difficulty voiding, dysuria, urinary frequency, urinary urgency, urinary hesitancy or hematuria Musc: Denies: neck pain, back pain, extremity pain, joint swelling, joint warmth or deformity Neuro: Denies: headache(s), numbness in extremities, weakness in extremities, sensory changes, difficulty walking, frequent falls, dizziness, vertigo, behavioral changes, Slurred speech present or seizure-like activity Psych: Denies: anxiety, depression, suicidal ideation or homicidal ideation Endo: Denies: polyuria, polydipsia, tired all the time, cold intolerance or hot flashes Fabian/Lymph: Denies: easy bruising or easy bleeding Medications/Allergies Home Medications Medication Instructions Recorded Confirmed Last Taken Type azithromycin 250 mg tablet See Rx Instructions PO .COMPLEX #6 06/12/20 06/12/20 Unknown Rx tab prednisone 20 mg tablet See Rx Instructions PO DAILY #10 06/12/20 06/12/20 Unknown Rx tab albuterol See Rx Instructions .ROUTE 07/06/21 07/06/21 Unknown History .COMPLEX PRN apixaban [Eliquis] 5 mg PO BID 07/06/21 07/06/21 Unknown History baclofen 5 mg PO TID PRN 07/06/21 07/06/21 Unknown History diltiazem HCl 120 mg PO DAILY 07/06/21 07/06/21 Unknown History hydrocodone-acetaminophen [[place]] 1 tab PO Q6H PRN 07/06/21 07/06/21 Unknown History ipratropium-albuterol [Combivent 1 puff INHALATION Q6H 07/06/21 07/06/21 Unknown History Respimat] lisinopril 5 mg PO DAILY 07/06/21 07/06/21 Unknown History nortriptyline 50 mg PO DAILY 07/06/21 07/06/21 Unknown History sertraline 50 mg PO DAILY 07/06/21 07/06/21 Unknown History umeclidinium-vilanterol [Anoro 1 inh INHALATION DAILY 07/06/21 07/06/21 Unknown History Ellipta] Allergies Allergy/AdvReac Type Severity Reaction Status Date / Time No Known Allergies Allergy Verified 06/12/20 16:55 PFSH Acute PFSH: Medical History (Updated 07/07/21 @ 02:56 by Taisha Frias MD) DVT (deep venous thrombosis) Hypertension Social History Smoking and tobacco status: former smoker Vitals/I&O/Wt Last Vital Signs Temp 97.7 F 07/07/21 02:30 Pulse 99 07/07/21 02:30 Resp 18 07/07/21 02:30 BP 173/73 07/07/21 02:30 Pulse Ox 93 07/07/21 02:30 07/06/21 07/06/21 07/07/21 14:59 22:59 06:59 Intake Total 1000 / 1000 Balance 1000 / 1000 Weight last 48 hrs Weight 58.513 kg Physical Exam Narrative: EXAM NARRATIVE: General: No acute distress, AO x3 HEENT: PERRLA, pupils bilaterally equal and reactive Chest: Normal vesicular breath sounds, no added sounds, equal good air entry bilaterally CVS: S1-S2 regular, no murmurs, no tachycardia, no gallops, no rubs Abdomen: Soft, nontender, no organomegaly, bowel sounds present Neuro: No focal deficits, no facial deformity, AO x3 Extremities: no edema, clubbing or cyanosis Data : 07/06/21 21:30 07/06/21 22:45 A&P Assessment and plan (1) Acute hyponatremia: Patient reports poor po intake over the past week along with associated nausea, likely related to her acute viral illness. Status: Acute (2) Dehydration: Status: Acute (3) COVID-19: Status: Acute (4) Hypertension: Status: Acute Qualifiers: Hypertension type: primary hypertension Qualified Code(s): I10 - Essential (primary) hypertension Additional A&P Information Patient reports poor po intake over the past week along with associated nausea, likely related to her acute viral illness. This is likely contributing to dehydration and hyponatremia check urine lytes, urine osm, serum osm IVF NS @ 75cc/hr, recheck Na at 4 am Alternate possibilities include SIADH which may be related to SSRI. 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
[2021-07-07] MEDS: acetaminophen 325 mg Tablet 650 MG PO ×2 (03:01→20:00)
[2021-07-07] MEDS: ondansetron 2 mg/ML SDV 2 mL 4 MG IVP ×2 (03:02→11:02)
[2021-07-07] MEDS: lisinopril 5 mg Tablet PO ×2 (03:21→08:07)
[2021-07-07] MEDS: sodium chloride 0.9% 1,000 ML 75 ML IV ×2 (03:21→14:58)
[2021-07-07 06:07] LABS: Alanine Aminotransferase 10 U/L (0-33); Albumin Level 3.2 g/dL (3.5-5.2); Alkaline Phosphatase 46 IU/L (35-105); Anion Gap 11.1 (5-19); Aspartate Amino Transferase 13 U/L (0-32); Blood Urea Nitrogen 8 mg/dL (8-23); Calcium 8.1 mg/dL (8.5-10.5); Carbon Dioxide 27 mmol/L (22-29); Chloride 88 mmol/L (98-107); Globulin 2.2 g/dL (1.3-4.6); Glucose 89 mg/dL (65-115); Osmolality Calculated 254 mOsm/kg (285-295); Potassium 3.1 mmol/L (3.5-5.1); Sodium 123 mmol/L (136-145); Total Bilirubin 0.4 mg/dL (0.15-1.2); Total Protein 5.4 g/dL (6.6-8.7)
[2021-07-07 06:24] LABS: Cortisol Random 9.24 ug/dL (2.47-19.5); Thyroid Stimulating Hormone 3.96 uIU/mL (0.27-4.20)
[2021-07-07] MEDS: dilTIAZem ER (24HR) 120 mg Capsule PO (08:07)
[2021-07-07] MEDS: pantoprazole DR 40 mg Tablet PO (08:07)
[2021-07-07] MEDS: apixaban 5 mg Tablet PO ×2 (08:07→18:05)
[2021-07-07 08:41] LABS: Potassium, Radom Urine 13 mmol/L; Urine Random Chloride 51 mmol/L; Urine Random Sodium 53 mmol/L
[2021-07-07] MEDS: ipratropium-albuterol 3 mL Neb INHALATION (09:25)
[2021-07-07] MEDS: potassium chloride ER 20 mEq Tablet 80 MEQ PO (10:13)
--- NOTE | 2021-07-07 10:54 | PC.PHAR ---
pt states she takes care of her own medications-pt states the medications entered are the only medications she is taking
[2021-07-07] MEDS: losartan 50 mg Tablet PO (12:31)
[2021-07-07] MEDS: sodium chloride 1 gm Tablet PO ×2 (12:31→14:56)
[2021-07-07 12:41] LABS: Chol HDL Ratio 3.23 mg/dL (0.0-4.40); HDL Cholesterol 65 mg/dL (60-100); LDL Cholesterol Calculated 129 mg/dL (50-129); Triglycerides 82 mg/dL (0-150); VLDL Cholestrol Calculation 16 mg/dL (0-30)
[2021-07-07 13:04] LABS: NT Pro B Type Natriuretic Pept 470 pg/mL (0-450)
[2021-07-07 13:05] LABS: Cholesterol 210 mg/dL (0-200)
--- NOTE | 2021-07-07 13:54 | P.PN_ITS ---
Subjective Subjective: Interval history: Admitted overnight. On examination sitting comfortably in bed, drowsy but able to have complete conversation, AO x3. Complaining of mild nausea but no vomiting. Denies any shortness of breath or headache or myalgias currently. Has remained hemodynamically stable and on room air. Vitals/I&O/Wt Last Vital Signs Temp 97.9 F 07/07/21 12:00 Pulse 95 07/07/21 12:00 Resp 18 07/07/21 12:00 BP 118/68 07/07/21 12:31 Pulse Ox 93 07/07/21 12:00 07/06/21 07/07/21 07/07/21 22:59 06:59 14:59 Intake Total 1000 / 1000 120 / 120 Output Total 450 / 450 Balance 1000 / 1000 -330 / -330 Weight last 48 hrs Weight 58.513 kg Weight 58.513 kg Physical Exam Narrative: EXAM NARRATIVE: General: No acute distress, AO x3, dehydrated, drowsy HEENT: PERRLA, pupils bilaterally equal and reactive Chest: Normal vesicular breath sounds, no added sounds, equal good air entry bilaterally CVS: S1-S2 regular, no murmurs, no tachycardia, no gallops, no rubs Abdomen: Soft, nontender, no organomegaly, bowel sounds present Neuro: No focal deficits, no facial deformity, AO x3, power 5/5 in all limbs Data : 07/06/21 21:30 07/07/21 05:30 A&P Assessment and plan (1) Acute hyponatremia: Patient reports poor po intake over the past week along with associated nausea, likely related to her acute viral illness. 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 Continue sertraline at 25 mg daily, nortriptyline at 75 mg at bedtime. Urine studies appreciated. Plasma osmolality low, urine sodium 53, urine osmolality pending. Continue with IV hydration at 75 cc/h. Start on salt tablets 1 g 3 times daily. BMP every 6 hours. TSH, cortisol levels appreciated. Check lipid panel, A1c. Check urine Legionella. COVID-19: Mild disease. Post monoclonal antibody infusion 1 week ago. Currently on room air. No need for remdesivir or dexamethasone. Monitor inflammatory markers including CRP. UTI: UA positive leukoesterase with mildly elevated WBC. No dysuria. Continue with IV ceftriaxone. Will de-escalate as per culture results. Hypertension: Goal blood pressure less than 140/90 mmHg. Blood pressure elevated. Continue with home dose of Cardizem. Change lisinopril to losartan 50 mg daily for better blood pressure control. Hyperkalemia: 80 mg oral potassium. We will monitor potassium levels. History of pulmonary embolism: Continue with Eliquis. Currently on room air. Full code. Regular diet. Protonix for PUD prophylaxis. Eliquis will help with DVT prophylaxis. Attestations Medical Necessity Statement*: Eleni Miller is being changed to inpatient status as stay will now exceed 2 midnights. Ongoing hospital care is necessary for acute hyponatremia requiring IV hydration, UTI, COVID-19 Time Spent in Patient Care: Greater than 35 minutes (>than 50% of time spent in counselling and/or direct pt care on unit) . 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
[2021-07-07] MEDS: cefTRIAXone 1,000 MG in sodium chloride 0.9% (plus) 50 ML 100 MG IV (14:56)
[2021-07-07] MEDS: ferrous gluconate 324 mg Tablet PO (18:05)
[2021-07-07 18:17] LABS: Anion Gap 11.5 (5-19); Blood Urea Nitrogen 8 mg/dL (8-23); Calcium 8.1 mg/dL (8.5-10.5); Carbon Dioxide 27 mmol/L (22-29); Chloride 96 mmol/L (98-107); Glucose 84 mg/dL (65-115); Osmolality Calculated 268 mOsm/kg (285-295); Potassium 4.5 mmol/L (3.5-5.1); Sodium 130 mmol/L (136-145)
[2021-07-07] MEDS: nortriptyline 25 mg Capsule 50 MG PO (20:00)
[2021-07-07 23:41] LABS: Anion Gap 13.9 (5-19); Blood Urea Nitrogen 9 mg/dL (8-23); Calcium 8.3 mg/dL (8.5-10.5); Carbon Dioxide 23 mmol/L (22-29); Chloride 93 mmol/L (98-107); Glucose 85 mg/dL (65-115); Osmolality Calculated 260 mOsm/kg (285-295); Potassium 3.9 mmol/L (3.5-5.1); Sodium 126 mmol/L (136-145)
--- NOTE | 2021-07-08 00:35 | PC.NURSE ---
Patients lab results showed that the patients sodium levels had dropped from 130 down to 126. Notified physician of the lab values and that the patients fluids and Salt tab had been discontinued. Physician said to do a CMP with morning labs and if the sodium came back any lower than 126 to restart the salt tab. Patient is resting in bed. JOSE Caballero
[2021-07-08 03:48] LABS: Basophils % 0.5 %; Eosinophils % 0.5 %; Hematocrit 34.1 % (37.0-47.0); Hemoglobin 10.7 g/dL (11.5-15.3); Mean Corpuscular HGB Conc 31.4 g/dL (30.0-36.0); Mean Corpuscular Hemoglobin 31.5 pg (28.0-34.0); Mean Corpuscular Volume 100.3 fl (81-99); Mean Platelet Volume 8.6 fL (7.4-10.4); Monocytes # 0.6 10^3/uL (0.2-0.9); Monocytes % 13.2 %; Neutrophils # 1.72 10^3/uL (1.8-7.7); Neutrophils % 39.1 %; Nucleated Red Blood Cells % 0 %; Platelet Count 295 10^3/cmm (130-400); Red Cell Distribution Width 13.2 % (12.1-15.1); White Blood Count 4.4 10^3/uL (4.0-10.0)
[2021-07-08 04:00] VITALS: BP 149/78; PULSE 84; RESP 18; TEMP 36.6; O2SAT 98
[2021-07-08 04:16] LABS: Alanine Aminotransferase 7 U/L (0-33); Alkaline Phosphatase 43 IU/L (35-105); Anion Gap 13.8 (5-19); Aspartate Amino Transferase 14 U/L (0-32); Blood Urea Nitrogen 8 mg/dL (8-23); Calcium 8.3 mg/dL (8.5-10.5); Carbon Dioxide 21 mmol/L (22-29); Chloride 95 mmol/L (98-107); Globulin 2.2 g/dL (1.3-4.6); Glucose 71 mg/dL (65-115); Osmolality Calculated 259 mOsm/kg (285-295); Potassium 3.8 mmol/L (3.5-5.1); Sodium 126 mmol/L (136-145); Total Bilirubin 0.3 mg/dL (0.15-1.2); Total Protein 5.2 g/dL (6.6-8.7)
[2021-07-08 04:30] LABS: C Reactive Protein 1.5 mg/L (0.0-4.9)
[2021-07-08] MEDS: sertraline 50 mg Tablet 25 MG PO (06:16)
[2021-07-08 07:35] VITALS: BP 155/79; PULSE 84; RESP 18; TEMP 36.4; O2SAT 99
[2021-07-08] MEDS: sodium chloride 1 gm Tablet PO ×3 (07:56→20:02)
[2021-07-08] MEDS: ferrous gluconate 324 mg Tablet PO ×2 (07:56→17:15)
[2021-07-08 08:00] VITALS: BP 155/79
[2021-07-08] MEDS: apixaban 5 mg Tablet PO ×2 (08:00→17:15)
[2021-07-08] MEDS: pantoprazole DR 40 mg Tablet PO (08:00)
[2021-07-08] MEDS: losartan 50 mg Tablet PO (08:00)
[2021-07-08] MEDS: dilTIAZem ER (24HR) 120 mg Capsule PO (08:00)
[2021-07-08 10:51] LABS: Blood Urea Nitrogen 7 mg/dL (8-23); Calcium 8.4 mg/dL (8.5-10.5); Carbon Dioxide 21 mmol/L (22-29); Chloride 92 mmol/L (98-107); Glucose 91 mg/dL (65-115); Osmolality Calculated 256 mOsm/kg (285-295); Sodium 124 mmol/L (136-145)
[2021-07-08 10:54] LABS: Anion Gap 15.2 (5-19); Potassium 4.2 mmol/L (3.5-5.1)
[2021-07-08 12:00] VITALS: BP 163/87; PULSE 92; RESP 18; TEMP 36.9; O2SAT 94
[2021-07-08] MEDS: cefTRIAXone 1,000 MG in sodium chloride 0.9% (plus) 50 ML 100 MG IV (14:21)
[2021-07-08 14:46] LABS: Osmolality Urine 211 mOsm/kg (50-1200)
[2021-07-08 15:11] VITALS: BP 162/87; PULSE 93; RESP 18; TEMP 36.8; O2SAT 97
--- NOTE | 2021-07-08 15:12 | P.PN_ITS ---
Subjective Subjective: Interval history: In last 24 hours patient sodium level had improved to 130 yesterday evening at which fluid was discontinued and salt tablets were decreased to twice daily. Overnight sodium has remained at 126 and currently today morning 124. Patient states he is feeling a lot better. Denies nausea vomiting, headache. States no more dizziness. States weakness has im proved. Wondering when can go home. Vitals/I&O/Wt Last Vital Signs Temp 98.5 F 07/08/21 12:00 Pulse 92 07/08/21 12:00 Resp 18 07/08/21 12:00 BP 163/87 07/08/21 12:00 Pulse Ox 94 07/08/21 12:00 07/08/21 07/08/21 07/08/21 06:59 14:59 22:59 Intake Total 50 / 2551.25 480 / 480 Output Total 250 / 1050 Balance -200 / 1501.25 480 / 480 Weight last 48 hrs Weight 58.513 kg Weight 58.513 kg Physical Exam Narrative: EXAM NARRATIVE: General: No acute distress, AO x3, dehydrated, HEENT: PERRLA, pupils bilaterally equal and reactive Chest: Normal vesicular breath sounds, no added sounds, equal good air entry bilaterally CVS: S1-S2 regular, no murmurs, no tachycardia, no gallops, no rubs Abdomen: Soft, nontender, no organomegaly, bowel sounds present Neuro: No focal deficits, no facial deformity, AO x3, power 5/5 in all limbs Data : 07/08/21 03:24 07/08/21 10:05 Micro: Microbiology 07/07/21 00:07 Urine Culture - Preliminary Urine,Clean Catch Gram Negative Rods 07/07/21 11:33 Legionella Urinary Antigen - Final Unknown Source A&P Assessment and plan (1) Acute hyponatremia: Patient reports poor po intake over the past week along with associated nausea, likely related to her acute viral illness. 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 Continue sertraline at 25 mg daily, nortriptyline at 75 mg at bedtime. Urine studies appreciated. Plasma osmolality low, urine sodium 53, urine osmolality pending. Normal saline at 50 cc/h. Salt tablets 1 g 3 times a day. Repeat BMP in evening. COVID-19: Mild disease. Post monoclonal antibody infusion 1 week ago. Currently on room air. No need for remdesivir or dexamethasone. Monitor inflammatory markers including CRP. UTI: Urine culture positive for gram-negative rods. Continue with IV ceftriaxone. Will de-escalate as per culture results. Hypertension: Goal blood pressure less than 140/90 mmHg. Blood pressure elevated. Continue with home dose of Cardizem. Increase losartan to 100 mg daily. Hypokalemia: Resolved History of pulmonary embolism: Continue with Eliquis. Currently on room air. Full code. Regular diet. Protonix for PUD prophylaxis. Eliquis will help with DVT prophylaxis. Discharge planning: Discussed in detail with patient and patient's daughter over the phone. Discussed if the sodium levels improve or is stable tomorrow can plan to discharge. Patient's daughter agreeable. Attestations Medical Necessity Statement*: Requires further hospitalization for management of hyponatremia secondary to SIADH, COVID-19, UTI Time Spent in Patient Care: Greater than 35 minutes (>than 50% of time spent in counselling and/or direct pt care on unit) . 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
[2021-07-08 20:00] VITALS: BP 145/70; PULSE 89; RESP 16; TEMP 36.6; O2SAT 93
[2021-07-08] MEDS: nortriptyline 25 mg Capsule 50 MG PO (20:02)
[2021-07-08 20:40] LABS: Blood Urea Nitrogen 7 mg/dL (8-23); Calcium 8.1 mg/dL (8.5-10.5); Carbon Dioxide 23 mmol/L (22-29); Chloride 91 mmol/L (98-107); Glucose 78 mg/dL (65-115); Osmolality Calculated 257 mOsm/kg (285-295); Sodium 125 mmol/L (136-145)
[2021-07-08 20:42] LABS: Anion Gap 14.5 (5-19); Potassium 3.5 mmol/L (3.5-5.1)
[2021-07-09] VITALS (7 sets, daily range): BP systolic 160–187; BP diastolic 77–89; PULSE 79–96; RESP 14–18; TEMP 36.4–36.8; O2SAT 91–92
[2021-07-09] MEDS: acetaminophen 325 mg Tablet 650 MG PO (05:44)
[2021-07-09] MEDS: sertraline 50 mg Tablet 25 MG PO (05:45)
[2021-07-09 06:50] LABS: Basophils % 0.3 %; Eosinophils # 0.1 10^3/uL (0.0-0.8); Hematocrit 35.2 % (37.0-47.0); Lymphocytes # 1.6 10^3/uL (0.8-4.8); Mean Corpuscular HGB Conc 34.1 g/dL (30.0-36.0); Mean Corpuscular Hemoglobin 31.4 pg (28.0-34.0); Mean Corpuscular Volume 92.1 fl (81-99); Mean Platelet Volume 8.8 fL (7.4-10.4); Monocytes # 0.6 10^3/uL (0.2-0.9); Monocytes % 14.5 %; Neutrophils # 1.76 10^3/uL (1.8-7.7); Neutrophils % 43.9 %; Nucleated Red Blood Cells % 0 %; Platelet Count 352 10^3/cmm (130-400); Red Blood Count 3.82 10^6/uL (4.1-5.3); Red Cell Distribution Width 13.1 % (12.1-15.1)
[2021-07-09 07:09] LABS: Alanine Aminotransferase 12 U/L (0-33); Albumin Level 3.7 g/dL (3.5-5.2); Alkaline Phosphatase 51 IU/L (35-105); Anion Gap 11.5 (5-19); Aspartate Amino Transferase 19 U/L (0-32); Blood Urea Nitrogen 6 mg/dL (8-23); Calcium 8.2 mg/dL (8.5-10.5); Carbon Dioxide 28 mmol/L (22-29); Chloride 92 mmol/L (98-107); Globulin 2.2 g/dL (1.3-4.6); Glucose 87 mg/dL (65-115); Osmolality Calculated 263 mOsm/kg (285-295); Potassium 3.5 mmol/L (3.5-5.1); Sodium 128 mmol/L (136-145); Total Bilirubin 0.3 mg/dL (0.15-1.2); Total Protein 5.9 g/dL (6.6-8.7)
[2021-07-09] MEDS: pantoprazole DR 40 mg Tablet PO (08:39)
[2021-07-09] MEDS: sodium chloride 1 gm Tablet PO (08:39)
[2021-07-09] MEDS: dilTIAZem ER (24HR) 120 mg Capsule PO (08:39)
[2021-07-09] MEDS: ferrous gluconate 324 mg Tablet PO (08:39)
[2021-07-09] MEDS: losartan 50 mg Tablet 100 MG PO (08:40)
[2021-07-09] MEDS: apixaban 5 mg Tablet PO (08:40)
[2021-07-09] MEDS: sodium chloride 0.9% 1,000 ML 50 ML IV (08:40)
--- NOTE | 2021-07-09 11:53 | PM.DCS ---
Discharge Providers Date of Admission: 07/07/21 16:00 Date of Discharge: July 09, 2021 Attending Provider at Admission: Taisha Frias MD Attending Provider at Discharge: Glenn Muñoz MD Primary Care Provider: Jeffrey Waite DO Diagnoses at Discharge Discharge Diagnosis (1) Acute hyponatremia: Status: Acute (2) Dehydration: Status: Acute (3) COVID-19: Status: Acute (4) Hypertension: Status: Acute Qualifiers: Hypertension type: primary hypertension Qualified Code(s): I10 - Essential (primary) hypertension Reason for Visit Reason for Visit: COVID +: [facility] Hospital Course Eleni Miller is a 75 year old female with a 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 Patient has been stable from a respiratory standpoint, states that her cough appears to be improving at this point, denies any dyspnea, saturation has been ranging between 96 to 99% at home. Chest x-ray today does not show any infiltrates. CRP is at 5. She presents to the ER today because of generalized weakness which was progressive over the past week, states she feels somewhat better over the last 24 hours. She had originally presented to the ER on July 05, 2021 but elected to return home. Was brought by family today due to noted concerns of weakness and some confusion at home. At the time of my assessment right now patient is alert awake and oriented x3. Her sodium was noted to be 122, down from 124 yesterday. Review of prior numbers dating back to 2014 show patient has had previous episode of hyponatremia with sodium down to 118 at that time. However in 2018 and 2018, sodium numbers noted to be 1 33-1 37. 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 These were changed to seroquel and nortryptylline. Keppra is no longer noted on her medication list. Patient was admitted to the hospital for further management of hyponatremia. On admission patient was dehydrated he was started on IV fluid hydration. Sodium correction on admission was lagging so was started on oral salt supplements. Patient responded well to the treatment. She has remained on room air without any difficulty with breathing during hospitalization. Her mentation improved. During hospitalization she was found to have elevated blood pressure for which her antihypertensives were adjusted. She is been discharged in hemodynamically stable condition with advised to follow-up with her primary care provider in 3 days for repeat BMP. She is advised to take at least 1500 cc of liquid daily out of which one third should be Gatorade. She has been discharged on oral salt tablets twice daily. She is advised to take regular diet. Physical Exam Narrative: EXAM NARRATIVE: General: No acute distress, AO x3 HEENT: PERRLA, pupils bilaterally equal and reactive Chest: Normal vesicular breath sounds, no added sounds, equal good air entry bilaterally CVS: S1-S2 regular, no murmurs, no tachycardia, no gallops, no rubs Abdomen: Soft, nontender, no organomegaly, bowel sounds present Neuro: No focal deficits, no facial deformity, AO x3, power 5/5 in all limbs Discharge Data Data Completed and Pending: Completed Studies During Hospitalization Category Date Time Status XR chest 1V yeimy ble [id number] Stat Exams 07/06/21 20:03 Completed Pending at discharge Category Date Time Status C Reactive Protei n Q48H Lab 07/10/21 04:00 Ordered Urine Culture Sta t Lab 07/07/21 00:07 Results Labs from last 24 hours 07/09/21 07/09/21 07/08/21 06:30 06:30 20:01 WBC 4.0 RBC 3.82 L Hgb 12.0 Hct 35.2 L MCV 92.1 D MCH 31.4 MCHC 34.1 D RDW 13.1 Plt Count 352 MPV 8.8 Neut % (Auto) 43.9 Lymph % (Auto) 39.0 [place] % (Auto) 14.5 Eos % (Auto) 2.0 Baso % (Auto) 0.3 Neut # (Auto) 1.76 L Lymph # (Auto) 1.6 [place] # (Auto) 0.6 Eos # (Auto) 0.1 Baso # (Auto) 0.0 Nucleated RBC % (a uto) 0 Nucleated RBCs # 0.0 Sodium 128 L 125 L Potassium 3.5 3.5 Chloride 92 L 91 L Carbon Dioxide 28 23 Anion Gap 11.5 14.5 BUN 6 L 7 L Creatinine 0.4 L 0.4 L GFR Calculation Not Reportable Not Reportable Glucose 87 78 Calculated Osmolal ity 263 L 257 L Calcium 8.2 L 8.1 L Total Bilirubin 0.3 AST 19 ALT 12 Alkaline Phosphata se 51 Total Protein 5.9 L Albumin 3.7 Globulin 2.2 Urine Osmolality 07/07/21 08:11 WBC RBC Hgb Hct MCV MCH MCHC RDW Plt Count MPV Neut % (Auto) Lymph % (Auto) [place] % (Auto) Eos % (Auto) Baso % (Auto) Neut # (Auto) Lymph # (Auto) [place] # (Auto) Eos # (Auto) Baso # (Auto) Nucleated RBC % (a uto) Nucleated RBCs # Sodium Potassium Chloride Carbon Dioxide Anion Gap BUN Creatinine GFR Calculation Glucose Calculated Osmolal ity Calcium Total Bilirubin AST ALT Alkaline Phosphata se Total Protein Albumin Globulin Urine Osmolality 211 Addt'l Data from Hospital Stay: Laboratory Results WBC 4.0 10^3/uL (4.0- 10.0) 07/09/21 06:30 RBC 3.82 10^6/uL (4.1 -5.3) L 07/09/21 06:30 Hgb 12.0 g/dL (11.5-1 5.3) 07/09/21 06:30 Hct 35.2 % (37.0-47.0 ) L 07/09/21 06:30 MCV 92.1 fl (81-99) D 07/09/21 06:30 MCH 31.4 pg (28.0-34. 0) 07/09/21 06:30 MCHC 34.1 g/dL (30.0-3 6.0) D 07/09/21 06:30 RDW 13.1 % (12.1-15.1 ) 07/09/21 06:30 Plt Count 352 10^3/cmm (130 -400) 07/09/21 06:30 MPV 8.8 fL (7.4-10.4) 07/09/21 06:30 Neut % (Auto) 43.9 % 07/09/21 06:30 Lymph % (Auto) 39.0 % 07/09/21 06:30 [place] % (Auto) 14.5 % 07/09/21 06:30 Eos % (Auto) 2.0 % 07/09/21 06:30 Baso % (Auto) 0.3 % 07/09/21 06:30 Neut # (Auto) 1.76 10^3/uL (1.8 -7.7) L 07/09/21 06:30 Lymph # (Auto) 1.6 10^3/uL (0.8- 4.8) 07/09/21 06:30 [place] # (Auto) 0.6 10^3/uL (0.2- 0.9) 07/09/21 06:30 Eos # (Auto) 0.1 10^3/uL (0.0- 0.8) 07/09/21 06:30 Baso # (Auto) 0.0 10^3/uL (0.0- 0.1) 07/09/21 06:30 Nucleated RBC % (a uto) 0 % 07/09/21 06:30 Nucleated RBCs # 0.0 /100WBC 07/09/21 06:30 D-Dimer <= 0.27 ug/mIFEU (0-0.59) 07/06/21 22:45 Sodium 128 mmol/L (136-1 45) L 07/09/21 06:30 Potassium 3.5 mmol/L (3.5-5 .1) 07/09/21 06:30 Chloride 92 mmol/L (98-107 ) L 07/09/21 06:30 Carbon Dioxide 28 mmol/L (22-29) 07/09/21 06:30 Anion Gap 11.5 (5-19) 07/09/21 06:30 BUN 6 mg/dL (8-23) L 07/09/21 06:30 Creatinine 0.4 mg/dL (0.5-0. 9) L 07/09/21 06:30 GFR Calculation Not Reportable 07/09/21 06:30 Glucose 87 mg/dL (65-115) 07/09/21 06:30 Calculated Osmolal ity 263 mOsm/kg (285- 295) L 07/09/21 06:30 Calcium 8.2 mg/dL (8.5-10 .5) L 07/09/21 06:30 Total Bilirubin 0.3 mg/dL (0.15-1 .2) 07/09/21 06:30 AST 19 U/L (0-32) 07/09/21 06:30 ALT 12 U/L (0-33) 07/09/21 06:30 Alkaline Phosphata se 51 IU/L (35-105) 07/09/21 06:30 Troponin T Gen 5 n g/L 33 ng/L (0-10) H 07/06/21 22:45 C-Reactive Protein 1.5 mg/L (0.0-4.9 ) 07/08/21 03:24 NT-Pro-B Natriuret Pep 470 pg/mL (0-450) H 07/07/21 05:30 Total Protein 5.9 g/dL (6.6-8.7 ) L 07/09/21 06:30 Albumin 3.7 g/dL (3.5-5.2 ) 07/09/21 06:30 Globulin 2.2 g/dL (1.3-4.6 ) 07/09/21 06:30 Triglycerides 82 mg/dL (0-150) 07/07/21 05:30 Cholesterol 210 mg/dL (0-200) H 07/07/21 05:30 LDL Cholesterol, C alc 129 mg/dL (50-129 ) 07/07/21 05:30 Total VLDL Cholest jeanmarie 16 mg/dL (0-30) 07/07/21 05:30 HDL Cholesterol 65 mg/dL (60-100) 07/07/21 05:30 Cholesterol/HDL Ra karin 3.23 mg/dL (0.0-4 .40) 07/07/21 05:30 TSH 3.96 uIU/mL (0.27 -4.20) 07/07/21 05:30 Random Cortisol 9.24 ug/dL (2.47- 19.5) 07/07/21 05:30 Urine Color Straw (Yellow) 07/07/21 00:07 Urine Appearance Clear (CLEAR) 07/07/21 00:07 Urine pH 6 (5-7) 07/07/21 00:07 Ur Specific Gravit y 1.005 (1.005-1.0 30) 07/07/21 00:07 Urine Protein Neg (Negative) 07/07/21 00:07 Urine Glucose (UA) Norm (Normal) 07/07/21 00:07 Urine Ketones Negative (Negati ve) 07/07/21 00:07 Urine Blood Neg (Negative) 07/07/21 00:07 Urine Nitrate Negative (Negati ve) 07/07/21 00:07 Urine Bilirubin Neg (Negative) 07/07/21 00:07 Urine Urobilinogen Norm mg/dL (Negat jorge) 07/07/21 00:07 Ur Leukocyte Amy ase 1+ (Negative) H 07/07/21 00:07 Urine RBC None /hpf (0-2) 07/07/21 00:07 Urine WBC 25-40 /hpf (0-5) H 07/07/21 00:07 Ur Squamous Epith Cells 0-4 /hpf (0-5) H 07/07/21 00:07 Amorphous Sediment Not Reportable 07/07/21 00:07 Urine Bacteria 2+ /hpf (NONE) H 07/07/21 00:07 Urine Osmolality 211 mOsm/kg (50-1 200) 07/07/21 08:11 Ur Random Sodium 53 mmol/L 07/07/21 08:11 Ur Random Potassiu m 13 mmol/L 07/07/21 08:11 Ur Random Chloride 51 mmol/L 07/07/21 08:11 Impressions Chest X-Ray 07/06/21 20:03 IMPRESSION: No focal acute pulmonary disease. Radiation Dose CTDIVOL = (mGy): DLP = (mGy-cm) Microbiology 07/07/21 00:07 Urine,Clean Catch Urine Culture - Preliminary Gram Negative Rods 07/07/21 11:33 Unknown Source Legionella Urinary Antigen - Final Vitals: Last Vital Signs Temp 97.6 F 07/09/21 07:59 Pulse 84 07/09/21 09:20 Resp 18 07/09/21 09:20 BP 175/84 07/09/21 08:40 Pulse Ox 91 07/09/21 09:20 Discharge Plan Discharge Patient Disposition: Home Condition: Stable Prescriptions: New ferrous gluconate 324 mg (37.5 mg iron) Tablet 324 mg PO BIDWM Qty: 60 RF: 0 losartan 50 mg Tablet 100 mg PO DAILY 30 Days Qty: 60 RF: 0 sodium chloride 1 gram Tablet 1 g PO BID Qty: 30 RF: 0 levofloxacin 500 mg tablet 500 mg PO Q24H 3 Days Qty: 3 RF: 0 Continued Anoro Ellipta 62.5-25 mcg/actuation Blister With Device 1 inh INHALATION QAM RF: 0 hydrocodone-acetaminophen [[place]] 5-325 mg Tablet 1 tab PO Q4H MDD 4 tabs PRN (Reason: Pain) RF: 0 diltiazem HCl 120 mg Capsule,Extended Release 24 Hr 120 mg PO QAM RF: 0 Eliquis 5 mg Tablet 5 mg PO BID RF: 0 Combivent Respimat 20-100 mcg/actuation Mist 1 puff INHALATION QID RF: 0 baclofen 5 mg Tablet 5 mg PO TID PRN (Reason: Pain) RF: 0 Tylenol Ex Str Rapid Release 500 mg Tablet 500 mg PO Q4H PRN (Reason: Pain) RF: 0 albuterol sulfate 90 mcg/actuation HFA aerosol inhaler 4 - 6 puff INHALATION Q4H PRN (Reason: Shortness Of Breath) RF: 0 Changed nortriptyline 50 mg Capsule 50 mg PO BEDTIME PRN (Reason: Sleep) Qty: 0 RF: 0 sertraline 50 mg Tablet 25 mg PO QAM Qty: 0 RF: 0 Discontinued lisinopril 5 mg Tablet 5 mg PO QAM RF: 0 Discharge Orders: Discharge Order (Routine); Ordered 07/09/21 Ordered By: Glenn Muñoz Referrals: Jeffrey Waite DO [Primary Care Provider] - 1-3 days Discharge Diet: Regular Discharge Activity: Resume usual activity Patient Instructions: Opioid Safety Activity Restrictions/Additional Instructions: Please take regular diet. Please take up to 1500 cc of liquid daily out of which at least one third should be Gatorade to replace sodium. Intake salt tablets 1 g twice daily. Please follow-up with your primary care provider on coming Monday for repeat BMP. Dose of nortriptyline has been changed to 50 mg at bedtime, sertraline has been changed to 25 mg daily. Lisinopril has been stopped and changed to losartan. Please take levofloxacin for 3 more days to finish a course of antibiotics for UTI. Discharge Attestations Time Spent in Discharge Care*: greater than 30 min Specific Discharge Activities: educating patient, educating and/or supporting family/caregiver, discussing with family caseworker/social workers/dc planners, documenting/other paperwork and evaluating patient/reviewing data Status at Discharge: Cognitive status at discharge: cognitively intact, Behavioral status at discharge: cooperative, Functional status at discharge: independent ambulation Overall status at discharge: patient is back to baseline Quality Metrics Clinical Quality Measures During this hospital stay, did patient experience: None Coding Level of Care Code Acute Chg FW DC note Diagnoses Acute hyponatremia E87.1 Dehydration E86.0 COVID-19 U07.1 Hypertension I10 Hypertension type: primary hypertension
--- NOTE | 2021-07-14 10:55 | PC.SOCIAL ---
discharge follow up call made, spoke with patient. patient c/o fatigue but feeling much better. patient is taking new medications as prescribed. patient is following a regular diet and taking in 1500 ml of fluids with 1/3 being gatorade for sodium replacement. patient had follow up appointment with pcp on 07-12 with labs drawn at this time. patient finished her course of levofloxacin yesterday. patient is aware of lisinopril being discontinued and nortriptyline and sertraline changes. discussed with patient her quarantine end date would be 07-20.
== END 2021-07-09 13:45 | disposition home or self-care (01) | DRG 643 ==
LOC: ER 07-07 00:25 → MEDSURG 07-07 01:24
PROVIDERS: Admitting Provider Student in an Organized Health Care Education/Training Program; Emergency Provider Nurse Practitioner Family; PCP Family Medicine; Visit Provider Student in an Organized Health Care Education/Training Program
DX: E22.2 Syndrome of inappropriate secretion of antidiuretic hormone (principal); U07.1 COVID-19; N39.0 Urinary tract infection, site not specified; Z86.718 Personal history of other venous thrombosis and embolism; I10 Essential (primary) hypertension; Z87.891 Personal history of nicotine dependence; E86.0 Dehydration; T43.015A Adverse effect of tricyclic antidepressants, initial encounter; T43.3X5A Adverse effect of phenothiazine antipsychotics and neuroleptics, initial encounter; E87.5 Hyperkalemia; Z79.891 Long term (current) use of opiate analgesic; Z79.01 Long term (current) use of anticoagulants
CPT/HCPCS: 36415; 36600; 70450; 71045; 80048; 80053; 80061; 81001; 82436; 82533; 82803; 83605; 83880; 83935; 84133; 84145; 84300; 84443; 84484; 85025; 85378; 86140; 87077; 87086; 87186; 87426; 87449; 87635; 93005; 94640; 96360; 99283; 99285; G0378; J0696; J2405; J7030; Q0162

== ENCOUNTER 2021-10-04 14:42 | Outpatient (CLI) | payer MEDICARE, OTHER, SELFPAY ==
--- NOTE | 2021-10-04 14:47 | XR_ITS ---
WS: [id number] PROCEDURE: XR chest 2V* [id number] CLINICAL INFORMATION: COPD,ACUTE EXACERBATION COMPARISON: July 06, 2021 FINDINGS: Heart: Normal cardiac silhouette. Lungs: Lungs are clear. No consolidation or pleural fluid. No acute pulmonary infiltrates. Hyperinfla tion. Pleural based nodule right upper lobe measuring 2.6 cm is unchanged. Bones: Thoracolumbar scoliosis with focal kyphosis in the lower lumbar spine. Chronic appearing compr ession deformity with vertebral plana configuration at the thoracolumbar junction. Compression fractu res at the thoracolumbar junction appear progressed compared to the CT October 30, 2019. This can be further evaluated with thoracic and lumbar CT. XR/XR chest 2V* [id number] IMPRESSION: 1. Hyperinflation with chronic emphysematous changes. No acute pulmonary infil trates. 2. Stable pleural-based nodule right upper lobe measuring 2.6 cm. 3. Chronic appearing compression deformities with vertebral plana configuratio n at the thoracolumbar junction. Compression fractures at the thoracolumbar john ction appear progressed compared to the CT October 30, 2019. Recommend correlat ion with back pain. This can be further evaluated with thoracic and lumbar CT.
== END 2021-10-04 14:43 | disposition home or self-care (01) ==
PROVIDERS: PCP Family Medicine; Visit Provider Clinical Nurse Specialist Adult Health
DX: J44.9 Chronic obstructive pulmonary disease, unspecified (principal); R91.1 Solitary pulmonary nodule; S22.009A Unspecified fracture of unspecified thoracic vertebra, initial encounter for closed fracture; X58.XXXA Exposure to other specified factors, initial encounter
CPT/HCPCS: 71046

== ENCOUNTER → 2022-02-23 13:59 | Outpatient (BNVA) | payer MEDICARE, OTHER, SELFPAY | PROVIDERS: PCP Family Medicine; Visit Provider Clinical Nurse Specialist Adult Health | DX: R42 Dizziness and giddiness (principal) | CPT/HCPCS: 80048; 83735 ==

== ENCOUNTER 2022-02-24 11:48 | Emergency (ER) | payer MEDICARE, OTHER, SELFPAY ==
[2022-02-24 11:55] VITALS: BP 129/75; PULSE 76; RESP 18; TEMP 36.4; O2SAT 97
--- NOTE | 2022-02-24 12:02 | ECG_ITS ---
[facility] Test Date: 2022-02-24 Pat Name: Eleni Miller Department: Room: Gender: Female [employer]: : [id number] Requested By: Vikash Salas Order Number: [id number] Espinoza MD: Juan Henderson M.D. Measurements Intervals [place] Rate: 73 P: 72 AK: 191 QRS: 56 QRSD: 109 T: 67 QT: 392 QTc: 432 Interpretive Statements SINUS RHYTHM Compared to ECG 07/07/2021 02:27:15 Ventricular premature complex(es) no longer present Electronically Signed On 02-24-2022 22:25:00 CDT by Juan Henderson M.D. [id number]
--- NOTE | 2022-02-24 12:02 | XR_ITS ---
WS: [id number] Exam: XR chest 1V portable [id number] Date/Time of Exam: 02/24/2022 12:16 PM Reason For Exam: dizziness Comparison 10/04/2021. The lungs are hyperinflated and clear. Again noted is a pleural-based nodule in the upper lobe of the right lung stable in appearance since last exam. Normal cardiomediastinal silhouette. Bony structure s are intact. Monitoring leads superimpose the chest. No pleural effusions. XR/XR chest 1V portable [id number] IMPRESSION: 1. Pulmonary hyperinflation which may represent obstructive lung disease. No ac herman cardiopulmonary process noted. 2. Pleural-based density seen in the upper lobe of the right lung unchanged sin ce the prior study.
[2022-02-24 12:23] LABS: Basophils % 0.3 %; Eosinophils % 0.6 %; Hematocrit 41.6 % (37.0-47.0); Hemoglobin 13.8 g/dL (11.5-15.3); Lymphocytes # 1.1 10^3/uL (0.8-4.8); Mean Corpuscular HGB Conc 33.2 g/dL (30.0-36.0); Mean Corpuscular Hemoglobin 30.6 pg (28.0-34.0); Mean Corpuscular Volume 92.2 fl (81-99); Mean Platelet Volume 8.7 fL (7.4-10.4); Monocytes # 0.5 10^3/uL (0.2-0.9); Neutrophils # 1.63 10^3/uL (1.8-7.7); Neutrophils % 50.8 %; Nucleated Red Blood Cells % 0 %; Platelet Count 308 10^3/cmm (130-400); Red Blood Count 4.51 10^6/uL (4.1-5.3); Red Cell Distribution Width 12.1 % (12.1-15.1); White Blood Count 3.2 10^3/uL (4.0-10.0)
--- NOTE | 2022-02-24 12:26 | ED_ITS ---
HPI - General Adult General: Chief complaint: General Medical Stated complaint: Dr. Donahue sent for an evaluation/ Low sodium Time Seen by Provider: 02/24/22 12:02 History of Present Illness: Patient is a 76-year-old female comes to the ED for evaluation of low sodium. Patient was sent by Dr. Fine because she had labs done yesterday and they came back showing hyponatremia. He told her to come to the ED to be evaluated today. Patient's only complaint is feeling a little bit of dizziness when she is up and moving around. She says over the past couple days she was taking a laxative which could be the cause of her sodium levels and dizziness. She has had low sodium in the past and says when that occurred last time she was on a laxative as well. Denies any fevers, shortness of breath, chest pain, abdominal pain, nausea/vomiting, bladder or bowel symptoms. Associated symptoms: Deny chest pain, dyspnea, headache(s), nausea, rash, palp itations or vomiting Review of Systems Const: Denies: fever(s), chills or fatigue Eyes: Denies: change in vision or eye discomfort ENMT: Denies: throat pain, odynophagia, nasal discharge or nasal congestion Card: Denies: chest pain, palpitations, edema, swelling of feet/ankles, dyspnea on exertion or orthopnea Resp: Denies: dyspnea, productive cough or non-productive cough GI: Denies: abdominal pain, nausea, vomiting, diarrhea, constipation or hematochezia : Denies: flank pain, dysuria or hematuria Musc: Denies: neck pain, back pain or extremity swelling Skin/Breast: Denies: rash or new lesions Neuro: Reports: dizziness (Mild dizziness); Denies: headache(s), numbness in extremities or weakness in extremities PFSH ED PFSH: Medical History DVT (deep venous thrombosis) Hypertension No pertinent family history Social History Smoking and tobacco status: former smoker Physical Exam Const: COMMON NORMALS: patient oriented x3 and alert GENERAL APPEARANCE: cooperative HENMT: COMMON NORMALS: normocephalic HEAD & SCALP: normocephalic MOUTH: Normal oral and palatal mucosa present THROAT: posterior oropharynx normal and uvula midline Neck/C-Spine: COMMON NORMALS: supple GENERAL: Yes normal visual inspection Resp: COMMON NORMALS: normal respiratory effort, No retractions, No use of accessory muscles and clear to auscultation bilaterally AUSCULTATION: clear to auscultation bilaterally Cardio: COMMON NORMALS: regular rate, regular rhythm, S1 normal heart sound present, S2 normal heart sound present, No gallops present (Cardio), No clicks present (Cardio), No murmurs present (Cardio) and Peripheral pulses 2+ throughout RATE: regular rate RHYTHM: regular rhythm HEART SOUNDS: S1 normal heart sound present and S2 normal heart sound present PERIPHERAL PULSES: Peripheral pulses 2+ throughout GI: COMMON NORMALS: Normal to inspection, nondistended, normoactive bowel sounds present, Soft to palpation, non-tender and no masses PALPATION: Yes Soft to palpation : COMMON NORMALS: Yes no CVA tenderness BLADDER/KIDNEY EXAM: Yes no CVA tenderness Back/Pelvis: COMMON NORMALS: no CVA tenderness Extremity: COMMON NORMALS: normal to inspection and no pedal edema Neuro: COMMON NORMALS: patient oriented x3 and moves all extremities SENSORIUM/ORIENTATION: Yes alert Skin: GENERAL SKIN EXAM: dry skin Course Vital Signs: Vital signs: Vital Signs Temperature 97.6 F 02/24/22 11:55 Pulse Rate 73 02/24/22 15:15 Respiratory Rate 16 02/24/22 15:15 Blood Pressure 154/72 02/24/22 15:15 Pulse Oximetry 94 02/24/22 15:15 [facility] General Adult Medical Decision Making Patient is a 76-year-old female that is sent here to the ED by her primary care physician for evaluation after low sodium lab yesterday. Patient says her doctor told her her sodium was 124. She reports having a little bit of dizziness when she gets up and moves around but denies any other symptoms. Patient did take some laxatives over the past couple days to help with bowel movements. Vitals are stable and patient appears nontoxic in no acute distress or pain. The rest of exam is benign. Her sodium level here in the ED was 124 which after looking back on her history over the past 7 months appears to be about her baseline sodium level. Rest of her labs were unremarkable. Troponin negative. EKG showed normal sinus rhythm with no ST segment elevation or depression seen. Chest x-ray showed no acute findings. Patient was given half a liter of IV normal saline while here in the ED. I discussed this case with Dr. Mason here in the ED and he did not think she needed admission to the hospital and thought she was stable for discharge home given this seems to be her baseline sodium level. Patient was diagnosed with hyponatremia and was discharged home. She was told to follow-up with her PCP within the next 3 days for reevaluation and to recheck sodium lab. Return to ED precautions given. Patient understood and agreed with plan. Lab Data I reviewed the patient's lab results. : 02/24/22 12:12 02/24/22 12:12 Radiology Impressions Chest X-Ray 02/24/22 12:02 IMPRESSION: 1. Pulmonary hyperinflation which may represent obstructive lung disease. No acute cardiopulmonary process noted. 2. Pleural-based density seen in the upper lobe of the right lung unchanged since the prior study. Laboratory Results WBC 3.2 10^3/uL (4.0-10.0) L 02/24/22 12:12 RBC 4.51 10^6/uL (4.1-5.3) 02/24/22 12:12 Hgb 13.8 g/dL (11.5-15.3) 02/24/22 12:12 Hct 41.6 % (37.0-47.0) 02/24/22 12:12 MCV 92.2 fl (81-99) 02/24/22 12:12 MCH 30.6 pg (28.0-34.0) 02/24/22 12:12 MCHC 33.2 g/dL (30.0-36.0) 02/24/22 12:12 RDW 12.1 % (12.1-15.1) 02/24/22 12:12 Plt Count 308 10^3/cmm (130-400) 02/24/22 12:12 MPV 8.7 fL (7.4-10.4) 02/24/22 12:12 Neut % (Auto) 50.8 % 02/24/22 12:12 Lymph % (Auto) 34.0 % 02/24/22 12:12 Campbell % (Auto) 14.0 % 02/24/22 12:12 Eos % (Auto) 0.6 % 02/24/22 12:12 Baso % (Auto) 0.3 % 02/24/22 12:12 Neut # (Auto) 1.63 10^3/uL (1.8-7.7) L 02/24/22 12:12 Lymph # (Auto) 1.1 10^3/uL (0.8-4.8) 02/24/22 12:12 Campbell # (Auto) 0.5 10^3/uL (0.2-0.9) 02/24/22 12:12 Eos # (Auto) 0.0 10^3/uL (0.0-0.8) 02/24/22 12:12 Baso # (Auto) 0.0 10^3/uL (0.0-0.1) 02/24/22 12:12 Nucleated RBC % (auto) 0 % 02/24/22 12:12 Nucleated RBCs # 0.0 /100WBC 02/24/22 12:12 PT 14.10 SECONDS (12.1-14.9) 02/24/22 13:10 INR 1.06 (0.8-1.2) 02/24/22 13:10 APTT 35.2 SECONDS (23.9-36.7) 02/24/22 13:10 Sodium 124 mmol/L (136-145) L 02/24/22 12:12 Potassium 4.5 mmol/L (3.5-5.1) 02/24/22 12:12 Chloride 85 mmol/L (98-107) L 02/24/22 12:12 Carbon Dioxide 25 mmol/L (22-29) 02/24/22 12:12 Anion Gap 18.5 (5-19) 02/24/22 12:12 BUN 17 mg/dL (8-23) 02/24/22 12:12 Creatinine 1.0 mg/dL (0.5-0.9) H 02/24/22 12:12 GFR Calculation Not Reportable 02/24/22 12:12 Glucose 87 mg/dL (65-115) 02/24/22 12:12 Calculated Osmolality 259 mOsm/kg (285-295) L 02/24/22 12:12 Calcium 9.3 mg/dL (8.5-10.5) 02/24/22 12:12 Total Bilirubin 0.3 mg/dL (0.15-1.2) 02/24/22 12:12 AST 23 U/L (0-32) 02/24/22 12:12 ALT 12 U/L (0-33) 02/24/22 12:12 Alkaline Phosphatase 67 IU/L (35-105) 02/24/22 12:12 Troponin T Baseline 37 ng/L (0-10) H 02/24/22 12:12 Troponin T 120 Minute 26.83 ng/L (0-10) H 02/24/22 14:32 Delta Troponin T -10.17 ABS# (0-10) L 02/24/22 14:32 Total Protein 7.8 g/dL (6.6-8.7) 02/24/22 12:12 Albumin 4.8 g/dL (3.5-5.2) 02/24/22 12:12 Globulin 3.0 g/dL (1.3-4.6) 02/24/22 12:12 EKG Data EKG 1: EKG interpretation date: 02/24/22 Interpretation: Normal sinus rhythm, 73 bpm, no ST segment elevation or depression seen. Computer generated interpretation: Chest X-Ray 02/24/22 12:02 IMPRESSION: 1. Pulmonary hyperinflation which may represent obstructive lung disease. No acute cardiopulmonary process noted. 2. Pleural-based density seen in the upper lobe of the right lung unchanged since the prior study. Discharge Plan Discharge Patient Disposition: Home Clinical Impression: Hyponatremia Condition: Stable Prescriptions: No Action Anoro Ellipta 62.5-25 mcg/actuation Blister With Device 1 inh INHALATION QAM 0RF hydrocodone-acetaminophen 5-325 mg Tablet 1 tab PO Q4H MDD 4 tabs PRN (Reason: Pain) 0RF diltiazem HCl 120 mg Capsule,Extended Release 24 Hr 120 mg PO QAM 0RF Eliquis 5 mg Tablet 5 mg PO BID 0RF Combivent Respimat 20-100 mcg/actuation Mist 1 puff INHALATION QID 0RF baclofen 5 mg Tablet 5 mg PO TID PRN (Reason: Pain) 0RF acetaminophen 500 mg Tablet 500 mg PO Q4H PRN (Reason: Pain) 0RF albuterol sulfate 90 mcg/actuation HFA aerosol inhaler 1 - 2 puff INHALATION Q4H PRN (Reason: Shortness Of Breath) 0RF ferrous gluconate 324 mg (37.5 mg iron) Tablet 324 mg PO BIDWM Qty: 60 0RF sertraline 50 mg Tablet 25 mg PO QAM Qty: 0 0RF nortriptyline 50 mg Capsule 50 mg PO BEDTIME PRN (Reason: Sleep) Qty: 0 0RF losartan 100 mg Tablet 100 mg PO DAILY 0RF Discharge Orders: Discharge ED (Routine); Ordered 02/24/22 Ordered By: Vikash Salas Referrals: Jeffrey Waite, [Primary Care Provider] - Discharge Diet: Regular Discharge Activity: Increase activity as tolerated Activity Restrictions/Additional Instructions: Follow-up with medical provider as directed in the next 2 to 3 days for reevaluation and to have your sodium levels rechecked. Continue taking all home medications as previously prescribed. Return to the ER or your medical provider if condition worsens. Please read and understand discharge instructions. Thank you for choosing [facility] for your healthcare needs today. Please realize this is an emergency room and that we are providing you with a medical screening exam and this may not be complete and all inclusive of all the testing and or work up that you may need to determine your ailment or severity of your illness. It is very important that you follow up as instructed or that you return to the Emergency Department should you have concerns or if your condition changes or worsens in any way. Coding Level of Care Code ED Blending Operator for Jami Nguyen Exam Comprehensive
[2022-02-24 12:29] VITALS: BP 131/67; PULSE 74; RESP 16; O2SAT 98
[2022-02-24 12:46] LABS: Troponin(5th) Baseline 37 ng/L (0-10)
[2022-02-24 13:11] LABS: Albumin Level 4.8 g/dL (3.5-5.2); Alkaline Phosphatase 67 IU/L (35-105); Blood Urea Nitrogen 17 mg/dL (8-23); Calcium 9.3 mg/dL (8.5-10.5); Carbon Dioxide 25 mmol/L (22-29); Chloride 85 mmol/L (98-107); Glucose 87 mg/dL (65-115); Osmolality Calculated 259 mOsm/kg (285-295); Sodium 124 mmol/L (136-145); Total Protein 7.8 g/dL (6.6-8.7)
[2022-02-24 13:12] LABS: Alanine Aminotransferase 12 U/L (0-33); Anion Gap 18.5 (5-19); Potassium 4.5 mmol/L (3.5-5.1); Total Bilirubin 0.3 mg/dL (0.15-1.2)
[2022-02-24 13:13] LABS: Aspartate Amino Transferase 23 U/L (0-32)
[2022-02-24 13:26] LABS: INR 1.06 (0.8-1.2); Partial Thromboplastin Time 35.2 SECONDS (23.9-36.7)
[2022-02-24] MEDS: sodium chloride 0.9% 500 ML 999 ML IV (14:00)
--- NOTE | 2022-02-24 14:02 | ECG_ITS ---
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 Measurements Intervals [place] Rate: 71 P: 71 TX: 183 QRS: 49 QRSD: 108 T: 64 QT: 400 QTc: 437 Interpretive Statements SINUS RHYTHM Compared to ECG 02/24/2022 12:16:54 No significant changes Electronically Signed On 02-24-2022 22:27:29 CDT by Juan Henderson M.D. [id number]
[2022-02-24 14:29] VITALS: PULSE 74; RESP 19; O2SAT 92
--- NOTE | 2022-02-24 15:12 | PC.NURSE ---
PT placed on continuous NIBP, SpO2, and CM
[2022-02-24 15:15] VITALS: BP 154/72; PULSE 73; RESP 16; O2SAT 94
[2022-02-24 15:34] LABS: Troponin 5 2HR 26.83 ng/L (0-10)
== END 2022-02-24 16:00 | disposition home or self-care (01) ==
PROVIDERS: Emergency Provider Physician Assistant; PCP Family Medicine
DX: E87.1 Hypo-osmolality and hyponatremia (principal); I10 Essential (primary) hypertension; Z86.718 Personal history of other venous thrombosis and embolism; Z79.01 Long term (current) use of anticoagulants
CPT/HCPCS: 71045; 80053; 84484; 85025; 85610; 85730; 93005; 99284; J7040

== ENCOUNTER → 2022-03-01 12:18 | Outpatient (BNVA) | payer MEDICARE, OTHER, SELFPAY | PROVIDERS: PCP Family Medicine; Visit Provider Family Medicine | DX: E87.1 Hypo-osmolality and hyponatremia (principal) | CPT/HCPCS: 80048 ==

== ENCOUNTER 2022-03-10 17:32 | Outpatient (CLI) | payer MEDICARE, OTHER, SELFPAY | END 2022-03-10 17:33 | disposition home or self-care (01) | LOC: LAB 17:36 | PROVIDERS: PCP Family Medicine; Visit Provider Family Medicine | DX: E87.1 Hypo-osmolality and hyponatremia (principal) | CPT/HCPCS: 80048 ==

== ENCOUNTER → 2022-03-24 16:40 | Outpatient (BNVA) | payer MEDICARE, OTHER, SELFPAY | PROVIDERS: PCP Family Medicine; Visit Provider Nurse Practitioner Family | DX: E87.1 Hypo-osmolality and hyponatremia (principal); M54.9 Dorsalgia, unspecified | CPT/HCPCS: 80048 ==

== ENCOUNTER → 2022-04-25 13:43 | Outpatient (BNVA) | payer MEDICARE, OTHER, SELFPAY | PROVIDERS: PCP Family Medicine; Visit Provider Family Medicine | DX: E87.1 Hypo-osmolality and hyponatremia (principal) | CPT/HCPCS: 80048 ==

== ENCOUNTER 2022-06-09 15:35 | Outpatient (CLI) | payer MEDICARE, OTHER, SELFPAY ==
--- NOTE | 2022-06-09 15:59 | XR_ITS ---
WS: [id number] Right ankle, 2 views, 06/09/2022 Clinical Data: ankle pain Comparison: Left ankle, 05/05/2022. Findings: There is soft tissue swelling over the lateral malleolus. No fractures or dislocations are seen. The ankle mortise is intact. The talus and calcaneus are unremarkable. There is minimal vascular calcific ation. XR/XR ankle RT 2V [id number] Impression: Soft tissue swelling over lateral malleolus.
== END 2022-06-09 15:36 | disposition home or self-care (01) ==
LOC: RAD 15:36
PROVIDERS: PCP Family Medicine; Visit Provider Family Medicine
DX: M25.571 Pain in right ankle and joints of right foot (principal); M79.89 Other specified soft tissue disorders
CPT/HCPCS: 73600

== ENCOUNTER 2023-01-30 11:28 | Inpatient (IN) | payer MEDICARE, OTHER, SELFPAY ==
[2023-01-30] VITALS (115 sets, daily range): BP systolic 89–138; BP diastolic 45–91; PULSE 61–94; RESP 12–31; TEMP 36.6–37.3; O2SAT 87–100
--- NOTE | 2023-01-30 11:55 | ECG_ITS ---
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 Measurements Intervals [place] Rate: 92 P: 63 NV: 186 QRS: 54 QRSD: 106 T: 58 QT: 342 QTc: 423 Interpretive Statements SINUS RHYTHM WITH OCCASIONAL VENTRICULAR PREMATURE COMPLEXES POSSIBLE LEFT ATRIAL ENLARGEMENT [-0.1mV P-WAVE IN V1/V2] Compared to ECG 02/24/2022 14:10:32 Ventricular premature complex(es) now present Electronically Signed On 01-31-2023 7:03:12 CDT by Gloria Keenan M.D. [id number]
--- NOTE | 2023-01-30 11:55 | XRR_ITS ---
PROCEDURE INFORMATION: Exam: XR Chest Exam date and time: 01/30/2023 1:30 PM Age: 77 years old Clinical indication: Device placement; Ett placement (vent status); Cough and dyspnea; Patient HX: Dyspnea ett placement central line placement; Additional info: Dyspnea/cough TECHNIQUE: Imaging protocol: Radiologic exam of the chest. Views: 1 view. COMPARISON: OT XR chest 1V portable [id number] 02/24/2022 12:19 PM FINDINGS: Tubes, catheters and devices: Endotracheal catheter is seen, with tip of the catheter just below the level of the heads of the clavicle and approximally 6 cm above the level of the gera appearing in good position. A right subclavian central venous catheter is seen with tip of the catheter at the expected level of the cavoatrial junction. Overlying external densities, otherwise. Lungs: Chronic pleural-based density upper right lung unchanged with prior exam. Interval new patchy infiltrate with atelectasis mid to lower right lung in relation to prior exam. Small amount of vascular crowding versus atelectasis lower left lung. Pleural spaces: Unremarkable. No pleural effusion. No pneumothorax. Heart/Mediastinum: Normal sized cardiac silhouette. Bones/joints: Chronic bony changes within the spine. XR/XR chest 1V portable [id number] IMPRESSION: 1. Endotracheal catheter and right subclavian central venous catheter appear in good position as noted above. 2. Chronic pleural-based density upper right lung with prior exam. 3. Interval new mild patchy infiltrate with atelectasis mid to lower right lung from previous exam, likely pneumonia and for follow-up. Small amount of vascular crowding versus atelectasis lower left lung. 4. No pneumothorax is seen.
--- NOTE | 2023-01-30 11:57 | W.ED.SOB ---
HPI - SOB/Dyspnea General: Chief Complaint: Shortness of Breath/Dyspnea Stated Complaint: SOB Time Seen by Provider: 01/30/23 11:54 Source: patient Mode of arrival: ambulatory History of Present Illness: HPI Narrative: 77-year-old female presents emergency room lethargic with respiratory distress. She states she has not been feeling well for the last 3 days progressively worsening she was on a course of prednisone and spot not been helped. She has some chest discomfort and tightness moderately productive cough she has been using inhalers with no relief. He denies fever sweats or chills. MD elicited complaint: shortness of breath and cough Pertinent past history: COPD Onset (ago): day(s) (3) Timing: constant Severity: moderate Exacerbating factors: nothing Relieving factors: nothing Known history of: COPD Associated symptoms: Deny abdominal pain, chest congestion, chest pain, cough, diaphoresis, dizziness, extremity pain, fever(s), hemoptysis, lightheadedness, myalgias, nausea, orthopnea, palpitations, paresthesias, polydipsia, polyuria, rash, sense of impending doom, syncope or vomiting Treatment prior to arrival: none Review of Systems Const: Denies: fever(s), chills, fatigue, malaise or diaphoresis ENMT: Denies: throat pain, ear or mastoid pain, nasal discharge or nasal congestion Card: Denies: chest pain, palpitations, lightheadedness, syncope or orthopnea Resp: Reports: dyspnea, non-productive cough and wheezing; Denies: hemoptysis or chest congestion GI: Denies: abdominal pain, nausea or vomiting : Denies: flank pain, difficulty voiding, dysuria, urinary frequency or urinary urgency Musc: Denies: extremity pain Skin/Breast: Denies: rash or pruritus Neuro: Denies: dizziness Endo: Denies: polyuria or polydipsia PFSH ED PFSH: Medical History (Updated 01/30/23 @ 16:20 by Megan Tom MD) Chronic back pain Compressed spine fracture COPD (chronic obstructive pulmonary disease) COVID-19 07/2021 DVT (deep venous thrombosis) on eliquis History of meningitis 2006, hospitalized ~2 months, had pneumonia. staph infection, intubated Hypertension SIADH (syndrome of inappropriate ADH production) Surgical History (Updated 05/01/23 @ 14:34 by Megan Tom MD) History of breast augmentation History of facelift History of tonsillectomy History of total abdominal hysterectomy and bilateral salpingo-oophorectomy Family History (Updated 01/30/23 @ 14:34 by Megan Tom MD) Father Cancer lung cancer Other Stroke Social History (Updated 01/30/23 @ 16:03 by Megan Tom MD) Smoking and tobacco status: former smoker Alcohol intake: current Alcohol intake frequency: holidays/special occasions only Household members: spouse Marital status: Physical Exam Const: GENERAL APPEARANCE: cooperative, comfortable and lethargic ORIENTATION/CONSCIOUSNESS: Yes awake and Yes lethargic HENMT: COMMON NORMALS: normocephalic, atraumatic and hearing grossly normal bilaterally HEAD & SCALP: normocephalic and atraumatic Resp: AUSCULTATION: wheezes and diminished lung sounds Cardio: COMMON NORMALS: regular rate, regular rhythm and No murmurs present (Cardio) RATE: regular rate RHYTHM: regular rhythm GI: COMMON NORMALS: Soft to palpation and No hepatosplenomegaly present AUSCULTATION: Yes normoactive bowel sounds PALPATION: Yes Soft to palpation, No Tenderness to palpation present (GI), No Guarding due to palpation present (GI) and Yes No hepatosplenomegaly present Extremity: COMMON NORMALS: normal to inspection, capillary refill normal, no clubbing, cyanosis or edema, no calf tenderness and no pedal edema Neuro: SENSORIUM/ORIENTATION: Yes lethargic Skin: COMMON NORMALS: no rashes or lesions noted GENERAL SKIN EXAM: no rashes or lesions noted Procedures Central Line Placement Right SC: Time Out Performed: Yes Patient Placed on Monitor/Pulse Ox: Yes MD Prep: mask, gown and gloves Central Line Prep: Chlorhexidine scrub Ultrasound Used for Placement: Yes Central Line Lumen Inserted: triple Post Procedure: sutured in place, good blood return, all ports aspirated, flushed, capped and sterile dressing applied Post Procedure X-Ray: tip of catheter in good position and no pneumothorax seen Patient Tolerated Procedure: well Complications: none Intubation sedative: Etomidate Mg Given: 20 paralytic: Succinylcholine Mg Given: 100 Laryngoscope: fiber optic video scope Assist Device Used: fiber optic device ET Tube Size: 8.5 ET Tube Uncuffed: No Tube Secured Depth (cm): 21 Tube Secured Location: teeth Tube Placement Confirmation: visualized tube passing through cords, equal breath sounds bilaterally, no breath sounds over epigastrium and confirmation by capnometry Patient Tolerated Procedure: well Intubation Complications: none Course Vital Signs: Vital signs: Vital Signs Temperature 97.8 F 01/30/23 15:02 Pulse Rate 76 01/30/23 16:05 Respiratory Rate 18 01/30/23 16:05 Blood Pressure 94/62 01/30/23 16:05 Pulse Oximetry 100 01/30/23 16:05 Oxygen Delivery Me thod Mechanical Ventil ation 01/30/23 15:02 Fraction of Inspir ed Oxygen 40 01/30/23 16:06 MDM - SOB/Dyspnea Medical Decision Making Shortly after arrival replacing the BiPAP patient with respiratory arrest and became apneic and pulseless she had a brief period of chest compression and had ROSC. We are able to begin bag valve mask ventilating the patient and then RSI the patient. She responded well. She was started on IV sedation. Blood pressure became hypotensive she was given fluid boluses and started on Levophed. There does appear to be a pneumonia on her chest x-ray. Central line was placed for vascular access for medications. Discussed with hospitalist orders written Medical Records I reviewed the patient's medical records. Lab Data I reviewed the patient's lab results. 01/30/23 13:15 01/30/23 13:15 Labs/Radiology: Radiology Impressions Chest X-Ray 01/30/23 13:57 IMPRESSION: OG tube appears in good position at the expected level of the mid stomach within the left abdomen. Laboratory Results WBC 12.3 10^3/uL (4.0-10.0) H 01/30/23 13:15 RBC 3.20 10^6/uL (4.1-5.3) L 01/30/23 13:15 Hgb 9.6 g/dL (11.5-15.3) L 01/30/23 13:15 Hct 30.6 % (37.0-47.0) L 01/30/23 13:15 MCV 95.6 fl (81-99) 01/30/23 13:15 MCH 30.0 pg (28.0-34.0) 01/30/23 13:15 MCHC 31.4 g/dL (30.0-36.0) 01/30/23 13:15 RDW 12.7 % (12.1-15.1) 01/30/23 13:15 Plt Count 319 10^3/cmm (130-400) 01/30/23 13:15 MPV 9.0 fL (7.4-10.4) 01/30/23 13:15 Neut % (Auto) 75.2 % 01/30/23 13:15 Lymph % (Auto) 4.4 % 01/30/23 13:15 [place] % (Auto) 17.5 % 01/30/23 13:15 Eos % (Auto) 0.2 % 01/30/23 13:15 Baso % (Auto) 0.2 % 01/30/23 13:15 Neut # (Auto) 9.22 10^3/uL (1.8-7.7) H 01/30/23 13:15 Lymph # (Auto) 0.5 10^3/uL (0.8-4.8) L 01/30/23 13:15 [place] # (Auto) 2.2 10^3/uL (0.2-0.9) H 01/30/23 13:15 Eos # (Auto) 0.0 10^3/uL (0.0-0.8) 01/30/23 13:15 Baso # (Auto) 0.0 10^3/uL (0.0-0.1) 01/30/23 13:15 Nucleated RBC % (auto) 0 % 01/30/23 13:15 Nucleated RBCs # 0.0 /100WBC 01/30/23 13:15 PT 18.80 SECONDS (12.1-14.9) H 01/30/23 13:15 INR 1.52 (0.8-1.2) H 01/30/23 13:15 APTT 34.4 SECONDS (23.9-36.7) 01/30/23 13:15 D-Dimer 2.43 ug/mIFEU (0-0.59) H 01/30/23 13:15 Specimen Type Arterial 01/30/23 15:25 Sample Site Radial, left 01/30/23 15:25 ABG pH 7.34 (7.35-7.45) L 01/30/23 15:25 ABG pCO2 42.1 mmHg (35-45) 01/30/23 15:25 ABG pO2 61.9 mmHg (80.0-100.0) L 01/30/23 15:25 ABG HCO3 22.7 mmol/L (22-26) 01/30/23 15:25 ABG O2 Saturation 92.6 01/30/23 15:25 ABG Base Excess -2.9 mmol/L (-2.0-2.0) L 01/30/23 15:25 Panda Test Pos 01/30/23 15:25 A-a O2 Gradient 12.8 mmHg (5-10) H 01/30/23 15:25 Hematocrit 30.2 % (37-47) L 01/30/23 15:25 Hgb O2 Saturation 90.5 % (95-100) L 01/30/23 15:25 Carboxyhemoglobin 1.3 %THgb (0.4-20.1) 01/30/23 15:25 Methemoglobin 0.9 % (0.4-1.5) 01/30/23 15:25 Total Hemoglobin 9.9 g/dL (12-16) L 01/30/23 15:25 Sodium 133.0 mmol/L (131-143) 01/30/23 15:25 Potassium 3.8 mmol/L (3.5-5.0) 01/30/23 15:25 Glucose 118.0 mg/dL (70-115) H 01/30/23 15:25 Ionized Calcium 1.1 mmol/L (1.1-1.4) 01/30/23 15:25 O2 Delivery Device Vent 01/30/23 15:25 O2 Liters/Min 2.0 % 01/30/23 12:14 FiO2 30.0 % 01/30/23 15:25 Tidal Volume 0.45 01/30/23 15:25 PEEP 10.0 cmH20 01/30/23 15:25 Meteorology Faculty Member ID Gd 01/30/23 15:25 Sodium 128 mmol/L (136-145) L 01/30/23 13:15 Potassium 4.1 mmol/L (3.5-5.1) 01/30/23 13:15 Chloride 93 mmol/L (98-107) L 01/30/23 13:15 Carbon Dioxide 25 mmol/L (22-29) 01/30/23 13:15 Anion Gap 14.1 (5-19) 01/30/23 13:15 BUN 22 mg/dL (8-23) 01/30/23 13:15 Creatinine 1.1 mg/dL (0.5-0.9) H 01/30/23 13:15 GFR Calculation Not Reportable 01/30/23 13:15 Glucose 115 mg/dL (65-115) 01/30/23 13:15 Calculated Osmolality 270 mOsm/kg (285-295) L 01/30/23 13:15 Calcium 8.4 mg/dL (8.5-10.5) L 01/30/23 13:15 Total Bilirubin 0.4 mg/dL (0.15-1.2) 01/30/23 13:15 AST 33 U/L (0-32) H 01/30/23 13:15 ALT 18 U/L (0-33) 01/30/23 13:15 Alkaline Phosphatase 61 U/L (35-105) 01/30/23 13:15 Troponin T Baseline 60 ng/L (0-10) H 01/30/23 13:15 Troponin T 120 Minute 42.27 ng/L (0-10) H 01/30/23 15:30 Delta Troponin T -17.73 ABS# (0-10) L 01/30/23 15:30 NT-Pro-B Natriuret Pep 1700 pg/mL (0-450) H 01/30/23 13:15 Total Protein 6.6 g/dL (6.6-8.7) 01/30/23 13:15 Albumin 3.6 g/dL (3.5-5.2) 01/30/23 13:15 Globulin 3.0 g/dL (1.3-4.6) 01/30/23 13:15 Urine Color Yellow (Yellow) 01/30/23 14:11 Urine Appearance Hazy (CLEAR) A 01/30/23 14:11 Urine pH 5 (5-7) 01/30/23 14:11 Ur Specific [place] 1.015 (1.005-1.030) 01/30/23 14:11 Urine Protein 3+ (Negative) H 01/30/23 14:11 Urine Glucose (UA) Norm (Normal) 01/30/23 14:11 Urine Ketones Negative (Negative) 01/30/23 14:11 Urine Blood 3+ (Negative) H 01/30/23 14:11 Urine Nitrate Negative (Negative) 01/30/23 14:11 Urine Bilirubin Neg (Negative) 01/30/23 14:11 Urine Urobilinogen Norm mg/dL (Negative) 01/30/23 14:11 Ur Leukocyte Esterase Negative (Negative) 01/30/23 14:11 Urine RBC 5-10 /hpf (0-2) H 01/30/23 14:11 Urine WBC 0-4 /hpf (0-5) H 01/30/23 14:11 Ur Squamous Epith Cells 0-4 /hpf (0-5) H 01/30/23 14:11 Amorphous Sediment 2+ /hpf 01/30/23 14:11 Urine Bacteria Trace /hpf (NONE) 01/30/23 14:11 Hyaline Casts 0-4 /lpf H 01/30/23 14:11 Fine Granular Casts 5-10 /lpf H 01/30/23 14:11 Coarse Granular Casts 0-4 /lpf H 01/30/23 14:11 Ur Random Sodium 42 mmol/L 01/30/23 14:11 Urine Creatinine 109 mg/dL (28-217) 01/30/23 14:11 Critical Care Time Critical Care Time: Critical Care Time: Yes Total Critical Care Time: 45 Attestation: The high probability of a clinically significant, sudden or life threatening deterioration of the patient's cardiovascular respiratory system(s) required my full and direct attention, intervention and personal management. The critical care time is as shown. This time is in addition to time spent performing any reported procedures but includes the following: [x] Data and vital sign review and interpretation [x] Patient assessment, examination and intervention [x] Documentation [x] Medication orders and management Discharge Plan Discharge Patient Disposition: Admitted As Inpatient Admit Provider: Megan Tom Clinical Impression: Acute on chronic respiratory failure with hypoxia and hypercapnia, COPD (chronic obstructive pulmonary disease), Hyponatremia, Pneumonia, COPD exacerbation Condition: Stable Coding Level of Care Code ED Pourer Bull Ladle for Jami Nguyen
[2023-01-30] MEDS: ipratropium-albuterol 3 mL Neb INHALATION ×3 (12:04→20:05)
[2023-01-30 12:25] LABS: ABG PCO2 57.2 mmHg (35-45); ABG PH Result 7.27 (7.35-7.45); Alveolar-Arterial Oxygen Gradi 3.3 mmHg (5-10); Arterial Blood Gas Hematocrit 33.7 % (37-47); Base Excess ABG -1.2 mmol/L (-2.0-2.0); Blood Gas Operator Identificat glc; Blood Gas Sample Site Brachial, right; Blood Gas Sample Type Arterial; Carboxyhemoglobin 0.9 %THgb (0.4-20.1); HCO3 ABG 26.4 mmol/L (22-26); HGB O2 Sat 96.2 % (95-100); Ionized Calcium Level - ABG 1.2 mmol/L (1.1-1.4); Methemoglobin 0.5 % (0.4-1.5); Oxygen Device NC; Oxygen Saturation ABG 97.6
--- NOTE | 2023-01-30 13:24 | ECG_ITS ---
[facility] Test Date: 2023-01-30 Pat Name: Eleni Miller Department: Room: Gender: Female Eeo Officer: : 1945 Requested By: Ramone Madrigal Order Number: [id number] Olga MD: Gloria Keenan M.D. Measurements Intervals [place] Rate: 84 P: 68 PA: 191 QRS: 73 QRSD: 109 T: 74 QT: 374 QTc: 445 Interpretive Statements SINUS RHYTHM WITH OCCASIONAL VENTRICULAR PREMATURE COMPLEXES POSSIBLE LEFT ATRIAL ENLARGEMENT [-0.1mV P-WAVE IN V1/V2] MINIMAL ST DEPRESSION [0.025+ mV ST DEPRESSION] Compared to ECG 01/30/2023 12:21:29 ST (T wave) deviation now present Electronically Signed On 01-31-2023 7:03:56 CDT by Gloria Keenan M.D. [id number] f
[2023-01-30 13:33] LABS: Basophils % 0.2 %; Eosinophils % 0.2 %; Hematocrit 30.6 % (37.0-47.0); Hemoglobin 9.6 g/dL (11.5-15.3); Lymphocytes # 0.5 10^3/uL (0.8-4.8); Lymphocytes % 4.4 %; Mean Corpuscular HGB Conc 31.4 g/dL (30.0-36.0); Mean Corpuscular Volume 95.6 fl (81-99); Monocytes # 2.2 10^3/uL (0.2-0.9); Monocytes % 17.5 %; Neutrophils # 9.22 10^3/uL (1.8-7.7); Neutrophils % 75.2 %; Nucleated Red Blood Cells % 0 %; Platelet Count 319 10^3/cmm (130-400); Red Cell Distribution Width 12.7 % (12.1-15.1); White Blood Count 12.3 10^3/uL (4.0-10.0)
[2023-01-30 13:54] LABS: ABG PCO2 58.9 mmHg (35-45); ABG PH Result 7.22 (7.35-7.45); Arterial Blood Gas Hematocrit 30.5 % (37-47); Blood Gas Allen Test Pos; Blood Gas Operator Identificat GD; Blood Gas Sample Site Radial, left; Blood Gas Sample Type Arterial; HCO3 ABG 24.1 mmol/L (22-26); Oxygen Device VENT
[2023-01-30 13:56] LABS: Alanine Aminotransferase 18 U/L (0-33); Albumin Level 3.6 g/dL (3.5-5.2); Alkaline Phosphatase 61 U/L (35-105); Anion Gap 14.1 (5-19); Aspartate Amino Transferase 33 U/L (0-32); Blood Urea Nitrogen 22 mg/dL (8-23); Calcium 8.4 mg/dL (8.5-10.5); Carbon Dioxide 25 mmol/L (22-29); Chloride 93 mmol/L (98-107); Glucose 115 mg/dL (65-115); Osmolality Calculated 270 mOsm/kg (285-295); Potassium 4.1 mmol/L (3.5-5.1); Sodium 128 mmol/L (136-145); Total Bilirubin 0.4 mg/dL (0.15-1.2); Total Protein 6.6 g/dL (6.6-8.7)
--- NOTE | 2023-01-30 13:57 | XRR_ITS ---
PROCEDURE INFORMATION: Exam: XR Chest Exam date and time: 01/30/2023 2:04 PM Age: 77 years old Clinical indication: Device placement; Other: Og tube placement TECHNIQUE: Imaging protocol: Radiologic exam of the chest. Views: 1 view. COMPARISON: CR XR chest 1V portable [id number] 01/30/2023 1:30 PM FINDINGS: Tubes, catheters and devices: Enteric tube is seen, with tip of the catheter at the expected level of the mid stomach within the left abdomen in good position. Endotracheal catheter appears in good position approximally alf between the heads of the clavicles and gera. Right subclavian central venous catheter appears in good position at the cavoatrial junction. Lungs: Mild patchy infiltrate is seen mid to lower right lung and pleural-based density upper right lung, as noted with earlier exam. Pleural spaces: Unremarkable. No pleural effusion. No pneumothorax. Heart/Mediastinum: Cardiac size is within normal limits. Bones/joints: No acute findings. XR/XR chest 1V portable [id number] IMPRESSION: OG tube appears in good position at the expected level of the mid stomach within the left abdomen.
--- NOTE | 2023-01-30 14:14 | PC.PHAR ---
REMOVED ELIQUIS 5 MG BID FROM PTS MED LIST- LAST FILLED 12/2021 30DS BY SNEHA
[2023-01-30 14:17] LABS: Troponin(5th) Baseline 60 ng/L (0-10)
--- NOTE | 2023-01-30 14:18 | P.HP_ITS ---
Providers/Chief Complaint Admitting Physician: Megan Tom MD Primary Care Provider: Jeffrey Waite DO Chief Complaint: SOB History of Present Illness Eleni Miller is a 77 year old female who presented to the emergency room with chief complaint of difficulty breathing. She has a known history of COPD. Former smoker. Not on home oxygen. She started having difficulty breathing at the end of last week with increased cough and chest congestion. On Monday she was feeling much worse and was subsequently seen at the walk-in clinic, where she was given steroids and azithromycin. On Monday she seemed to be feeling better but today she was feeling worse again like she would not be able to get through another night at home. She was brought into the emergency room for evaluation. On arrival oxygen saturations were in the mid to upper 80s and she was in significant distress. She received breathing treatment and Solu-Medrol. ABG was done showing 7.27/57/103. During the process of trying to set up BiPAP therapy, patient had respiratory arrest followed by loss of palpable peripheral pulses. CPR was initiated lasting for 2 minutes. She received 1 round of e pinephrine. ROSC was subsequently obtained and she was intubated in the ER. She has not required intubation since 2006 when she had a prolonged hospital stay with meningitis and pneumonia. No known history of coronary artery disease or arrhythmias. 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 No recent complaints of any nausea, vomiting, diarrhea per family. No reported fever. No complaints of chest pain. No report of any bleeding beyond problems with easy bruising. Daughter reported intermittent episodes of confusion which she has thought might be due to low oxygen levels. In the emergency room chest x-ray showed right mid and lower lobe opacities. Mrs. Miller received Rocephin and azithromycin. With intubation and subsequent initiation of fentanyl and Versed, she developed hypotension necessitating Levophed at 1-2 mics to maintain a MAP greater than 65. She has received 2 L of normal saline. She is being admitted to the ICU for further care. Review of Systems General: Reports: ROS unobtainable due to endotracheal tube Medications/Allergies Home Medications Medication Instructions Recorded Confirmed Last Taken Type umeclidinium 62.5 mcg-vilanterol 1 inh inhalation QAM 07/06/21 01/30/23 02/24/22 History 25 mcg/actuation powdr for inhalation (Anoro Ellipta) acetaminophen 500 mg tablet 500 mg PO Q4H PRN Pain 07/07/21 01/30/23 Unknown History ferrous gluconate 324 mg (37.5 mg 324 mg PO BIDWM #60 tabs 07/09/21 01/30/23 02/24/22 Rx iron) tablet albuterol sulfate 90 mcg/actuation 1 - 2 puff inhalation Q4H PRN 11/23/22 01/30/23 Unknown Rx aerosol inhaler Shortness Of Breath #6.7 grams diltiazem HCl 120 mg capsule,24 120 mg PO QAM #90 caps 12/08/22 01/30/23 Unknown Rx hr,extended release ipratropium 20 mcg-albuterol 100 1 puff inhalation QID #4 grams 12/08/22 01/30/23 Unknown Rx mcg/actuation mist for inhalation (Combivent Respimat) losartan 100 mg tablet 100 mg PO DAILY #90 tabs 12/08/22 01/30/23 Unknown Rx nortriptyline 50 mg capsule 50 - 150 mg PO BEDTIME PRN Sleep 12/08/22 01/30/23 Unknown Rx #90 caps sertraline 25 mg tablet 25 mg PO QAM #90 tabs 01/04/23 01/30/23 Unknown Rx hydrocodone 10 mg-acetaminophen 1 tab PO Q4H PRN breakthrough pain 01/17/23 01/30/23 Unknown Rx 325 mg tablet 15 days #90 tabs azithromycin 250 mg tablet See Rx Instructions PO .COMPLEX #6 01/28/23 01/30/23 Unknown Rx tabs prednisone 20 mg tablet 20 mg PO DAILY 5 days #5 tabs 01/28/23 01/30/23 Unknown Rx apixaban 5 mg tablet (Eliquis) 5 mg PO BID 01/30/23 01/30/23 Unknown History Allergies Allergy/AdvReac Type Severity Reaction Status Date / Time hydrochlorothiazide Allergy Severe hyponatremi Verified 01/30/23 14:14 a Additional Medication Information Patient utilizes [facility] for prescriptions. Eliquis has not been filled in either of those 2 pharmacies since December 2021. In an effort to verify home medications, in particular utilization of anticoagulation, has been brought in pillbox which I verified contain 1 tablet each day consistent with 5 mg Eliquis using pill ID in [facility]. also brought insurance prescription medication list from December which did not show Eliquis. Pillbox broad and included losartan 100 mg, diltiazem 120 mg capsule, sertraline 25 mg tablets although some days there were 2 tablets in the box while others only had one tablet. There was 1 tablet of azithromycin 250 mg in the box that was brought in. Container did not include her pain medications which are generally kept separately nor her inhalers. PFSH Acute PFSH: Medical History (Updated 01/30/23 @ 16:51 by Megan Tom MD) Chronic back pain Compressed spine fracture COPD (chronic obstructive pulmonary disease) COVID-19 07/2021 DVT (deep venous thrombosis) History of recurrent DVT, on eliquis History of meningitis 2006, hospitalized ~2 months, had pneumonia. staph infection, intubated Hypertension SIADH (syndrome of inappropriate ADH production) Surgical History (Updated 01/30/23 @ 14:34 by Megan Tom MD) History of breast augmentation History of facelift History of tonsillectomy History of total abdominal hysterectomy and bilateral salpingo-oophorectomy Family History (Updated 01/30/23 @ 14:34 by Megan Tom MD) Father Cancer lung cancer Other Stroke Social History (Updated 01/30/23 @ 16:03 by Megan Tom MD) Smoking and tobacco status: former smoker Alcohol intake: current Alcohol intake frequency: holidays/special occasions only Household members: spouse Marital status: Other PFSH information: Supplemental PFSH Information: No known history of coronary artery disease, stroke, kidney dysfunction beyond acute issues experienced during prolonged hospitalization back in 2006. Last intubation was in 2006. Vitals/I&O/Wt Last Vital Signs Temp 98.0 F 01/30/23 11:39 Pulse 94 01/30/23 12:20 Resp 16 01/30/23 14:12 BP 105/63 01/30/23 11:39 Pulse Ox 87 L 01/30/23 12:20 O2 Del Method Room Air 01/30/23 12:20 FiO2 30 01/30/23 14:12 Weight last 48 hrs Weight 54.431 kg Physical Exam Narrative: Patient is intubated and sedated. At times during examination she moves extremities appropriately in response to touch. Normocephalic. Eyelids are taped shut as they are staying open, ointment in place, pupils are equally reactive. Nasopharynx is clear. Oropharynx with good dentition, dry membranes, ET tube and OG tube in place. Neck is supple. Lungs with coarse breath sounds bilaterally. No crepitus noted in anterior chest, up into the neck and shoulders or upper part of back. Chest expansion is equal bilaterally. Breast implants are noted bilaterally. Abdomen is soft, decreased bowel sounds, mild tenderness throughout. [place] catheter is in place with normal external genitalia. No pitting edema or palpable cords. Mottling is noted to both knees but not the calves of either leg. Right foot is more mottled than left foot. Peripheral pulses are 1+ bilaterally at the feet, capillary refill is brisk bilaterally. Great toes are similar temperature bilaterally to touch. Toes are downgoing. DTRs are equal in both upper extremities. Varicosities noted to both lower extremities with chronic skin changes. No large areas of bruising or open sores noted. No posturing or abnormal movements. Data 01/30/23 13:15 01/30/23 13:15 Other Labs: Laboratory Results WBC 12.3 10^3/uL (4.0-10.0) H 01/30/23 13:15 RBC 3.20 10^6/uL (4.1-5.3) L 01/30/23 13:15 Hgb 9.6 g/dL (11.5-15.3) L 01/30/23 13:15 Hct 30.6 % (37.0-47.0) L 01/30/23 13:15 MCV 95.6 fl (81-99) 01/30/23 13:15 MCH 30.0 pg (28.0-34.0) 01/30/23 13:15 MCHC 31.4 g/dL (30.0-36.0) 01/30/23 13:15 RDW 12.7 % (12.1-15.1) 01/30/23 13:15 Plt Count 319 10^3/cmm (130-400) 01/30/23 13:15 MPV 9.0 fL (7.4-10.4) 01/30/23 13:15 Neut % (Auto) 75.2 % 01/30/23 13:15 Lymph % (Auto) 4.4 % 01/30/23 13:15 [place] % (Auto) 17.5 % 01/30/23 13:15 Eos % (Auto) 0.2 % 01/30/23 13:15 Baso % (Auto) 0.2 % 01/30/23 13:15 Neut # (Auto) 9.22 10^3/uL (1.8-7.7) H 01/30/23 13:15 Lymph # (Auto) 0.5 10^3/uL (0.8-4.8) L 01/30/23 13:15 [place] # (Auto) 2.2 10^3/uL (0.2-0.9) H 01/30/23 13:15 Eos # (Auto) 0.0 10^3/uL (0.0-0.8) 01/30/23 13:15 Baso # (Auto) 0.0 10^3/uL (0.0-0.1) 01/30/23 13:15 Nucleated RBC % (auto) 0 % 01/30/23 13:15 Nucleated RBCs # 0.0 /100WBC 01/30/23 13:15 Specimen Type Arterial 01/30/23 13:40 Sample Site Radial, left 01/30/23 13:40 ABG pH 7.22 (7.35-7.45) L 01/30/23 13:40 ABG pCO2 58.9 mmHg (35-45) H 01/30/23 13:40 ABG pO2 450.0 mmHg (80.0-100.0) H 01/30/23 13:40 ABG HCO3 24.1 mmol/L (22-26) 01/30/23 13:40 ABG O2 Saturation 97.6 01/30/23 12:14 ABG Base Excess -4.0 mmol/L (-2.0-2.0) L 01/30/23 13:40 Panda Test Pos 01/30/23 13:40 A-a O2 Gradient 3.3 mmHg (5-10) L 01/30/23 12:14 Hematocrit 30.5 % (37-47) L 01/30/23 13:40 Hgb O2 Saturation 96.2 % (95-100) 01/30/23 12:14 Carboxyhemoglobin 0.9 %THgb (0.4-20.1) 01/30/23 12:14 Methemoglobin 0.5 % (0.4-1.5) 01/30/23 12:14 Total Hemoglobin 11.0 g/dL (12-16) L 01/30/23 12:14 Sodium 132.0 mmol/L (131-143) 01/30/23 12:14 Potassium 4.0 mmol/L (3.5-5.0) 01/30/23 12:14 Glucose 94.0 mg/dL (70-115) 01/30/23 12:14 Ionized Calcium 1.2 mmol/L (1.1-1.4) 01/30/23 12:14 O2 Delivery Device Vent 01/30/23 13:40 O2 Liters/Min 2.0 % 01/30/23 12:14 FiO2 100.0 % 01/30/23 13:40 Tidal Volume 0.40 01/30/23 13:40 PEEP 10.0 cmH20 01/30/23 13:40 Lay Out And Detail Drafter ID Gd 01/30/23 13:40 Sodium 128 mmol/L (136-145) L 01/30/23 13:15 Potassium 4.1 mmol/L (3.5-5.1) 01/30/23 13:15 Chloride 93 mmol/L (98-107) L 01/30/23 13:15 Carbon Dioxide 25 mmol/L (22-29) 01/30/23 13:15 Anion Gap 14.1 (5-19) 01/30/23 13:15 BUN 22 mg/dL (8-23) 01/30/23 13:15 Creatinine 1.1 mg/dL (0.5-0.9) H 01/30/23 13:15 GFR Calculation Not Reportable 01/30/23 13:15 Glucose 115 mg/dL (65-115) 01/30/23 13:15 Calculated Osmolality 270 mOsm/kg (285-295) L 01/30/23 13:15 Calcium 8.4 mg/dL (8.5-10.5) L 01/30/23 13:15 Total Bilirubin 0.4 mg/dL (0.15-1.2) 01/30/23 13:15 AST 33 U/L (0-32) H 01/30/23 13:15 ALT 18 U/L (0-33) 01/30/23 13:15 Alkaline Phosphatase 61 U/L (35-105) 01/30/23 13:15 Troponin T Baseline 60 ng/L (0-10) H 01/30/23 13:15 Total Protein 6.6 g/dL (6.6-8.7) 01/30/23 13:15 Albumin 3.6 g/dL (3.5-5.2) 01/30/23 13:15 Globulin 3.0 g/dL (1.3-4.6) 01/30/23 13:15 Micro: Microbiology 01/30/23 13:10 Blood Culture - Preliminary Blood SPECIMEN COLLECTED 01/30/23 13:10 Blood Culture - Preliminary Blood SPECIMEN COLLECTED A&P Assessment and plan (1) Acute on chronic respiratory failure with hypoxia and hypercapnia: Secondary to acute bronchitis versus right lower lobe pneumonia present on admission, prominent fissure noted on inital CXR versus embolic event in a patient with history of recurrent DVT apparently under-treated with anticoagulation (not taking eliquis as prescribed from available information). Had respiratory arrest in ED, followed by loss of circulation. Was not tachycardic, hypotensive, nor febrile at presentation. Was hypoxic and on ABG noted to be hypercapnic with respiratory acidosis. Developed hypotension after intubation and initiation of sedation. Had been on antibiotics prior to admission. (2) History of successful cardiopulmonary resuscitation: Status post arrest in ED, received 2 minutes CPR and one dose of epi with ROSC No known history of CAD or prior arrest (3) Normocytic anemia: Without clear history of anemia or report of known blood loss Initial hemoglobin 9.6 On iron supplement chronically (4) COPD (chronic obstructive pulmonary disease): Chronic, with acute exacerbation Not on home oxygen Uses inhalers - combivent, anoro ellipta, as needed albuterol - at home (5) SIADH (syndrome of inappropriate ADH production): With chronic hyponatremia, baseline in mid to upper 120s Initial sodium 128 Diuretics tend to exacerbate hyponatremia (6) Chronic anticoagulation: With eliquis due to history of recurrent DVT in past Appears to have only been taking 5mg once per day rather than twice per day as prescribed (7) Hypertension: Essential hypertension by history On chronic diltiazem and losartan Currently with hypotension in the setting of sedation for intubation, requiring low-dose pressor support; was not hypotensive prior to intubation and initiation of sedation (8) Chronic back pain: On chronic hydrocodone for pain control Does not like to feel any pain which can make appropriate pain control challenging Plan Intubated in ED on 01/30/2023 Central venous line placed in ED on 01/30/2023 [place] catheter placed in ED on 01/30/2023 Inpatient admission ICU care Ventilatory support per protocol, weaning as able Oral care Sedation currently with Versed and fentanyl CTA of the chest - reviewed with patient's daughter briefly risk of contrast induced kidney injury and plans for study with opportunity to ask questions; patient has already received 2 L of normal saline Check BNP, continue serial cardiac enzymes Check echocardiogram Check lactic acid and procalcitonin Blood cultures have been collected Sputum Culture collected Broad-spectrum antibiotics with Levaquin and Zosyn; received Rocephin and azithromycin in the emergency room but had already been on treatment with similar coverage for a few days Systemic and inhaled steroids Breathing treatments Follow-up pending COVID testing Check urinalysis and urine electrolytes Check uric acid Monitor overall volume status closely - does not currently appear volume overloaded Monitor renal function and electrolytes, particularly if requires diuresis Treatment dose Lovenox in place of usual Eliquis Hemoccult of stool has been ordered TIBC in the morning Twice daily PPI for now Repeat CBC in the morning Hold home diltiazem and losartan presently Hold home nortriptyline Continue home sertraline Will order liquid formulation of hydrocodone/APAP to be initiated during or a fter sedation weaning process; chronically on hydrocodone and does not like to feel pain in her back Maintain central line and Mad[place] catheter currently for critical care management Supportive care otherwise Anticipate discharge ideally home with close outpatient follow-up to primary care provider May require oxygen therapy & home health; skilled placement is also a possibility depending on clinical course Full code Attestations Medical Necessity Statement*: Anticipated stay greater than two midnights DVT in the past presenting with several days of difficulty breathing not improving after initiation of outpatient treatment. She experienced respiratory followed by cardiac arrest in the emergency room. Return of spontaneous circulation was achieved and she was intubated. She is being admitted to the ICU with care as described. and High Time for a total of 65 minutes, includes reviewing past or interval history, examining/interviewing patient, placing orders, updating patient/family/other support, discussing plan of care with staff and documenting encounter Diagnoses Acute on chronic respiratory failure with hypoxia and hypercapnia J96.21; J96.22 History of successful cardiopulmonary resuscitation Z92.89 Normocytic anemia D64.9 COPD (chronic obstructive pulmonary disease) J44.9 SIADH (syndrome of inappropriate ADH production) E22.2 Chronic anticoagulation Z79.01 Hypertension I10 Chronic back pain M54.9; G89.29
[2023-01-30] MEDS: artificial tears Op Oint 3.5 gm 1 APPLIC EYE-BOTH ×2 (14:55→21:41)
[2023-01-30 15:12] LABS: NT Pro B Type Natriuretic Pept 1700 pg/mL (0-450)
[2023-01-30 15:16] LABS: Bilirubin Urine Neg (Negative); Blood Urine 3+ (Negative); Glucose Urine UA Norm (Normal); Ketones Urine Negative (Negative); Leukocyte Esterase Urine Negative (Negative); Nitrate Urine Negative (Negative); Protein Urine 3+ (Negative); Specific Gravity, Urine 1.015 (1.005-1.030); Urine Appearance Hazy (CLEAR); Urine Color Yellow (Yellow); Urobilinogen Urine Norm (Negative); pH Urine 5 (5-7)
[2023-01-30] MEDS: sodium chloride 0.9% 1,000 ML 999 ML IV ×2 (15:16→15:18)
[2023-01-30] MEDS: cefTRIAXone 1,000 MG in sodium chloride 0.9% (plus) 50 ML 100 MG IV (15:16)
[2023-01-30 15:17] LABS: Add Urine Culture? No; Add Urine Microscopic? YES; Amorphous Sediment Urine 2+ /hpf; Bacteria Urine TRACE /hpf; Coarse Granular Casts Urine 0-4 /lpf; Squamous Epithelial Cell Urine 0-4 /hpf (0-5); Urine Creatinine 109 mg/dL (28-217); Urine Random Sodium 42 mmol/L; WBC Urine 0-4 /hpf (0-5)
[2023-01-30 15:18] LABS: Hyaline Casts Urine 0-4 /lpf
[2023-01-30 15:21] LABS: INR 1.52 (0.8-1.2)
--- NOTE | 2023-01-30 15:23 | ECG_ITS ---
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 Measurements Intervals [place] Rate: 78 P: 60 RI: 182 QRS: 59 QRSD: 99 T: 71 QT: 386 QTc: 442 Interpretive Statements SINUS RHYTHM WITH OCCASIONAL VENTRICULAR PREMATURE COMPLEXES Compared to ECG 01/30/2023 13:24:37 ST (T wave) deviation no longer present Electronically Signed On 02-01-2023 0:26:39 CDT by Gloria Keenan M.D. [id number]
[2023-01-30 15:24] LABS: D Dimer 2.43 ug/mIFEU (0-0.59)
[2023-01-30 15:28] LABS: Partial Thromboplastin Time 34.4 SECONDS (23.9-36.7)
[2023-01-30] MEDS: propofol 1,000 MG/100 ML INJ 10 MG (15:38)
[2023-01-30 15:42] LABS: Blood Gas Operator Identificat GD; Blood Gas Sample Type Arterial; Blood Gas Tidal Volume 0.45; Carboxyhemoglobin 1.3 %THgb (0.4-20.1); Ionized Calcium Level - ABG 1.1 mmol/L (1.1-1.4); Oxygen Device VENT; Potassium Level - ABG 3.8 mmol/L (3.5-5.0)
[2023-01-30] MEDS: azithromycin 500 MG in sodium chloride 0.9% 250 ML 250 MG IV (15:44)
--- NOTE | 2023-01-30 15:46 | CTR_ITS ---
PROCEDURE INFORMATION: Exam: CTA Chest With Contrast Exam date and time: 01/30/2023 4:46 PM Age: 77 years old Clinical indication: Shortness of breath; Prior surgery; Surgery date: 6+ months; Surgery type: Breast; Additional info: Reespiratory /cardiac arrest, shortness of breath, history of dvt recurrent only taking eliquis once per day, TECHNIQUE: Imaging protocol: Computed tomographic angiography of the chest with contrast. 3D rendering (Not supervised by radiologist): MIP and/or 3D reconstructed images were created by the technologist. Radiation optimization: All CT scans at this facility use at least one of these dose optimization techniques: automated exposure control; mA and/or kV adjustment per patient size (includes targeted exams where dose is matched to clinical indication); or iterative reconstruction. Contrast material: OMNI 350; Contrast volume: 100 ml; Contrast route: INTRAVENOUS (IV); REPORTING DATA: Count of CT and Cardiac NM exams in prior 12 months: This patient has received 0 known CTs and 0 known cardiac nuclear medicine studies in the 12 months prior to the current study. COMPARISON: CT chest [facility] [id number] 10/30/2019 12:21 PM RADIATION DOSE METRICS: Total DLP (mGy-cm): 385 FINDINGS: Tubes, catheters and devices: Right subclavian central venous catheter appears in good position with tip in the superior vena cava just above the right atrium. Endotracheal catheter appears in good position above the level of the gera. Enteric tube appears in good position within the stomach. Pulmonary arteries: No hypodense filling defect is seen within the pulmonary arteries to indicate pulmonary emboli. Aorta: Mild arteriosclerosis of the thoracic aorta. Lungs: Smooth margin pleural-based density about the posterolateral upper right lung is stable with prior exam 2019, suggesting benign change. Mild scattered patchy infiltrate is seen on the lung windows within the mid to lower right lung including subpleural component. Minimal infiltrate lower left lung. There may be some component of atelectasis. Minimal benign healed granulomatous disease. Pleural spaces: Nonspecific pleural thickening is seen without significant pleural effusion. Trace amount basilar effusion not completely excluded. Heart: No significant cardiomegaly or pericardial effusion. Mild coronary artery calcification. Lymph nodes: Unremarkable. No enlarged lymph nodes. Bones/joints: Chronic bony changes with old compression deformity thoracolumbar junction level. Soft tissues: Bilateral breast implants noted. CT/CT angio chest PE protcl [id number]: 1. No CT findings to indicate pulmonary embolus. 2. Lung windows demonstrate mild scattered patchy infiltrate mid to lower right lung with subpleural component and minimal infiltrate lower left lung. Findings suggest mild pneumonia. Follow-up suggested. 3. Endotracheal catheter, enteric tube, and right subclavian central venous catheter appear in good position. 4. Nonspecific pleural thickening, with possible trace basilar effusion. No significant pleural effusion, otherwise. 5. Chronic bony changes of old compression deformity thoracolumbar junction level.
[2023-01-30 15:53] LABS: ABG PCO2 42.1 mmHg (35-45); ABG PH Result 7.34 (7.35-7.45); Alveolar-Arterial Oxygen Gradi 12.8 mmHg (5-10); Arterial Blood Gas Hematocrit 30.2 % (37-47); Base Excess ABG -2.9 mmol/L (-2.0-2.0); Blood Gas Allen Test Pos; Blood Gas Sample Site Radial, left; HCO3 ABG 22.7 mmol/L (22-26); HGB O2 Sat 90.5 % (95-100); Methemoglobin 0.9 % (0.4-1.5); Oxygen Saturation ABG 92.6; PO2 ABG 61.9 mmHg (80.0-100.0); Total Hemoglobin 9.9 g/dL (12-16)
[2023-01-30 16:08] LABS: Troponin 5 2HR 42.27 ng/L (0-10)
[2023-01-30] MEDS: iohexol 350 mg/mL 500 mL Btl (per mL) IV (16:29)
[2023-01-30 17:09] LABS: Uric Acid 3.1 mg/dL (2.4-5.7)
[2023-01-30 17:13] LABS: Procalcitonin 0.39 ng/mL (0-0.5)
--- NOTE | 2023-01-30 17:24 | USCV_ITS ---
Eleni Miller Age: 77 Gender: F : 1945 Exam Date: 01/30/2023 18:15 Ordering Phys: Megan Tom MD Technologist: Isaias Sharpe [place] [facility] [place]: respiratory arrest leading to cardiac arrest. Patient on vent in ICU-7. BP: 94 / 62 HR: 66 Rhythm: Sinus Technical Quality: Adequate MEASUREMENTS (Male / Female) Normal Values 2D ECHO LV Diastolic Diameter PLAX 3.2 cm 4.2 - 5.9 / 3.9 - 5.3 cm LV Systolic Diameter PLAX 2.2 cm IVS Diastolic Thickness 1.3 cm 0.6 - 1.0 / 0.6 - 0.9 cm IVS Systolic Thickness 1.8 cm LVPW Diastolic Thickness 1.3 cm 0.6 - 1.0 / 0.6 - 0.9 cm LVPW Systolic Thickness 1.5 cm LVOT Diameter 1.7 cm LV Ejection Fraction 2D Teich 58.8 % LV Ejection Fraction MOD 2C 58.6 % LV Ejection Fraction 2C AL 57.7 % LA Diameter 3.9 cm LA Width 2.8 cm LA Height 4.6 cm RA Width 5.5 cm RA Height 5.0 cm Aorta at Sinotubular Diameter 2.9 cm IVC Diameter 1.8 cm M-MODE Aortic Annulus Diameter 2.5 cm LA Ao Ratio MM 1.5 MV E Point Septal Separation 0.2 cm DOPPLER AV Peak Velocity 129.0 cm/s LVOT Peak Velocity 88.0 cm/s AV Area Cont Eq vti 1.7 cm squared AV Area Cont Eq pk 1.5 cm squared MV Area PHT 2.5 cm squared Mitral E to A Ratio 0.8 MV E' Velocity 44.5 cm/s Mitral E to MV E' Ratio 9.8 Mitral E to LV E' Lateral Ratio 8.3 Mitral E to LV E' Septal Ratio 12.1 TR Peak Velocity 348.0 cm/s TR Peak Gradient 48.4 mmHg TV Peak E Velocity 48.0 cm/s Right Atrial Pressure 5.0 mmHg Pulmonary Artery Systolic Pressu 53.4 mmHg PV Peak Velocity 99.0 cm/s RV Acceleration Time 0.1 s RV Ejection Time 0.4 s RV AcT/ET 0.2 FINDINGS Left Ventricle Normal left ventricular size and systolic function, EF 67 %. No regional wall motion abnormalities. Mild left ventricular hypertrophy. Grade I/IV diastolic dysfunction (abnormal relaxation filling pattern), normal to mildly elevated filling pressures. Right Ventricle The right ventricle is normal in size and function. Right Atrium The right atrium is normal in size. Left Atrium The left atrium is normal in size. Mitral Valve Thickened mitral valve. Mild mitral annular calcification. Trace mitral valve regurgitation. Aortic Valve Thickened aortic valve. Tricuspid Valve Moderate tricuspid valve regurgitation. Estimated pulmonary artery peak systolic pressure 53 mmHg Pulmonic Valve Trace pulmonary valve regurgitation. Pericardium Normal pericardium without effusion. Aorta Normal ascending aorta dimension. IVC Normal inferior vena cava. CONCLUSIONS Normal left ventricular size and systolic function, EF 67 %. No regional wall motion abnormalities. Mild left ventricular hypertrophy. Grade I/IV diastolic dysfunction (abnormal relaxation filling pattern), normal to mildly elevated filling pressures. Thickened mitral valve. Mild mitral annular calcification. Trace mitral valve regurgitation. Thickened aortic valve. Moderate tricuspid valve regurgitation. Estimated pulmonary artery peak systolic pressure 53 mmHg. Trace pulmonary valve regurgitation. There is no pericardial effusion. There are no intracardiac masses. Technically difficult study because of the poor apical window Dr Gloria Keenan MD FACC (Electronically Signed) Final Date: 31 Jan 2023 14:13 S
[2023-01-30] MEDS: pantoprazole 40 mg SDV IVP (17:47)
[2023-01-30] MEDS: enoxaparin 60 mg/0.6 mL Syringe 55 MG SUBCUT (17:47)
[2023-01-30] MEDS: piperacillin-tazobactam 3.375 GM in sodium chloride 0.9% (plus) 50 ML IV (17:47)
[2023-01-30] MEDS: levofloxacin-dextrose 5 % 750 MG/150 ML PREMIX 100 MG IV (18:41)
--- NOTE | 2023-01-30 19:19 | ECG_ITS ---
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 Measurements Intervals [place] Rate: 60 P: 54 DC: 176 QRS: 57 QRSD: 114 T: 63 QT: 424 QTc: 426 Interpretive Statements SINUS RHYTHM MODERATE INTRAVENTRICULAR CONDUCTION DELAY [110+ ms QRS DURATION] Poor R wave progression Compared to ECG 01/30/2023 15:23:34 Intraventricular conduction delay now present Ventricular premature complex(es) no longer present Electronically Signed On 02-01-2023 0:28:00 CDT by Gloria Keenan M.D. [id number]
--- NOTE | 2023-01-30 19:43 | PC.NURSE ---
Patient arrived from ED with Fentanyl at 100mcg/hr. MAR to reflect titration to 125mcg/hr at 1928.
[2023-01-30 19:47] LABS: Troponin 5 6HR 27.63 ng/L (0-10)
[2023-01-30 20:02] LABS: Adenovirus Not Detected (NOT DETECT); Chlamydia Pneumoniae Not Detected (NOT DETECT); Coronavirus 229E,HKU1,NL63,OC4 Not Detected (NOT DETECT); Human Metapneumovirus Not Detected (NOT DETECT); Human Rhinovirus/Enterovirus Not Detected (NOT DETECT); Influenza A Not Detected (NOT DETECT); Influenza A H1 Not Detected (NOT DETECT); Influenza A H1-2009 Not Detected (NOT DETECT); Influenza A H3 Not Detected (NOT DETECT); Influenza B Not Detected (NOT DETECT); Mycoplasma Pneumoniae Not Detected (NOT DETECT); Parainfluenza Virus Type 1 Not Detected (NOT DETECT); Parainfluenza Virus Type 2 Not Detected (NOT DETECT); Parainfluenza Virus Type 3 Not Detected (NOT DETECT); Parainfluenza Virus Type 4 Not Detected (NOT DETECT); Respiratory Syncytial Virus A Not Detected (NOT DETECT); Respiratory Syncytial Virus B Not Detected (NOT DETECT); SARS-COV-2 Not Detected (NOT DETECT)
[2023-01-30] MEDS: budesonide 0.5 mg/2 mL Neb INHALATION (20:05)
--- NOTE | 2023-01-30 20:25 | PC.NURSE ---
Propofol Waste Approximately 60 ml of propofol wasted with GLORIA Mejía.
[2023-01-30] MEDS: dextrose 5%-ns 0.2% + KCL 20 20 MEQ/1,000 ML BAG 75 MEQ IV (21:17)
[2023-01-31] VITALS (296 sets, daily range): BP systolic 91–165; BP diastolic 47–112; PULSE 60–106; RESP 10–37; TEMP 36.7–37.2; O2SAT 88–100
[2023-01-31] MEDS: piperacillin-tazobactam 3.375 GM in sodium chloride 0.9% (plus) 50 ML IV ×3 (01:19→17:15)
[2023-01-31] MEDS: chlorhexidine gluconate 4% Btl 118 mL 1 APPLIC TOPICAL (01:20)
--- NOTE | 2023-01-31 01:24 | PC.PHAR ---
Renal Dosing for Levaquin 750mg q24h changed to q48h due to CRCL of 36.22 Thank you, Gretel Hartman RPh
--- NOTE | 2023-01-31 04:00 | XRR_ITS ---
PROCEDURE INFORMATION: Exam: XR Chest Exam date and time: 01/31/2023 4:05 AM Age: 77 years old Clinical indication: Other: Vent, resp distress TECHNIQUE: Imaging protocol: Radiologic exam of the chest. Views: 1 view. COMPARISON: CR XR chest 1V portable [id number] 01/30/2023 2:04 PM FINDINGS: Tubes, catheters and devices: Endotracheal tube position is stable. Central venous catheter in the distal SVC. Enteric tube in the stomach. Lungs: Diffuse increased interstitial lung markings redemonstrated. Patchy right lung base opacities are unchanged. Rounded opacity in the right upper lobe is redemonstrated. Pleural spaces: Unremarkable. No pleural effusion. No pneumothorax. Heart/Mediastinum: Unremarkable. No cardiomegaly. Bones/joints: Unremarkable. XR/XR chest 1V portable [id number] IMPRESSION: No significant change in exam.
[2023-01-31 04:07] LABS: Basophils % 0.3 %; Eosinophils # 0.1 10^3/uL (0.0-0.8); Eosinophils % 0.7 %; Hematocrit 32.3 % (37.0-47.0); Lymphocytes # 0.3 10^3/uL (0.8-4.8); Lymphocytes % 2.5 %; Mean Corpuscular Hemoglobin 30.6 pg (28.0-34.0); Mean Corpuscular Volume 98.8 fl (81-99); Mean Platelet Volume 9.5 fL (7.4-10.4); Monocytes # 0.6 10^3/uL (0.2-0.9); Monocytes % 4.6 %; Neutrophils # 11.74 10^3/uL (1.8-7.7); Neutrophils % 91.5 %; Nucleated Red Blood Cells % 0 %; Platelet Count 340 10^3/cmm (130-400); Red Blood Count 3.27 10^6/uL (4.1-5.3); Red Cell Distribution Width 12.9 % (12.1-15.1); White Blood Count 12.8 10^3/uL (4.0-10.0)
[2023-01-31 04:27] LABS: Alanine Aminotransferase 20 U/L (0-33); Albumin Level 3.1 g/dL (3.5-5.2); Alkaline Phosphatase 99 U/L (35-105); Chloride 98 mmol/L (98-107); Potassium 4.7 mmol/L (3.5-5.1); Sodium 129 mmol/L (136-145)
[2023-01-31 04:34] LABS: Estmated Average Glucose 114; Hemoglobin A1C 5.6 % (4.0-6.0)
[2023-01-31 04:41] LABS: Anion Gap 14.7 (5-19); Aspartate Amino Transferase 27 U/L (0-32); Blood Urea Nitrogen 19 mg/dL (8-23); Carbon Dioxide 21 mmol/L (22-29); Chol HDL Ratio 2.02 mg/dL (0.0-4.40); Cholesterol 127 mg/dL (0-200); Globulin 2.4 g/dL (1.3-4.6); Glucose 218 mg/dL (65-115); HDL Cholesterol 63 mg/dL (60-100); Iron 9 ug/dL (37-145); LDL Cholesterol Calculated 51 mg/dL (50-129); LDL HDL Ratio 0.81 RATIO (0.00-3.22); Magnesium 1.7 mg/dL (1.7-2.3); Osmolality Calculated 277 mOsm/kg (285-295); Percent Saturation 4.7 % (20-50); Phosphorus 3.3 mg/dL (2.5-4.5); Total Bilirubin 0.2 mg/dL (0.15-1.2); Total Iron Binding Capacity 188 mcg/dl; Total Protein 5.5 g/dL (6.6-8.7); Triglycerides 66 mg/dL (0-150); Unsaturated Iron Binding 179 ug/dL (112-347)
[2023-01-31 05:20] LABS: ABG PCO2 46.2 mmHg (35-45); Arterial Blood Gas Hematocrit 31.5 % (37-47); Base Excess ABG -3.5 mmol/L (-2.0-2.0); Blood Gas Allen Test Pos; Blood Gas Sample Site Radial, right; Blood Gas Sample Type Arterial; HCO3 ABG 22.9 mmol/L (22-26); Oxygen Device VENT; PO2 ABG 99.9 mmHg (80.0-100.0)
[2023-01-31] MEDS: pantoprazole 40 mg SDV IVP ×2 (06:03→17:11)
[2023-01-31] MEDS: enoxaparin 60 mg/0.6 mL Syringe 55 MG SUBCUT ×2 (06:04→17:24)
[2023-01-31] MEDS: ipratropium-albuterol 3 mL Neb INHALATION ×4 (07:27→20:10)
[2023-01-31] MEDS: budesonide 0.5 mg/2 mL Neb INHALATION ×2 (07:28→20:11)
--- NOTE | 2023-01-31 08:05 | PC.NUTR ---
Consult received for Pulmicare 1.5 beginning w/trophic feeds. Recommend starting Pulmicare 1.5 @ 10 mls/hr and increasing 10 mls Q8H as tolerated til goal rate of 30 mls/hr reached, with flushes of 120 mls Q6H or per MD discretion. Details in RD assessment.
[2023-01-31] MEDS: dexmedetomidine 400 MCG in sodium chloride 0.9% (100 ml) 100 ML IV (09:40)
[2023-01-31] MEDS: sertraline 50 mg Tablet 25 MG PO (09:47)
--- NOTE | 2023-01-31 10:15 | PC.NURSE ---
Starting weaning trial, Nurse has turned off versed and reduced fentanyl to 25. Started precedex. Nurse educated family on weaning/extubation process.
[2023-01-31] MEDS: succinylcholine 20 mg/mL SDV 10mL 100 MG IVP (10:24)
[2023-01-31] MEDS: etomidate 2 mg/mL INJ SDV 10 mL 20 MG IVP (10:24)
[2023-01-31] MEDS: propofol 10 mg/mL SDV 20 mL 50 MG IVP ×2 (10:24→10:25)
[2023-01-31] MEDS: vecuronium 10 mg SDV IVP (10:34)
[2023-01-31] MEDS: sodium chloride 0.9% 1,000 ML 75 ML IV (11:17)
--- NOTE | 2023-01-31 12:35 | P.PN_ITS ---
Subjective Subjective: Patient was successfully extubated to 2 L nasal cannula Patient is still drowsy however able to follow commands Nonfocal neuro exam No leukocytosis worsening Patient has remained afebrile, chest x-ray showing right lower lobe infiltrate Currently holding her O2 saturation on all 2 L Awaiting PT OT ST Echo report is pending In case of any worsening I will pressure will stay low for BiPAP usage No signs of PE Chronic hyponatremia sodium 129 Discontinue D5 IV fluids, troponin trending down EKG showing sinus rhythm, telemetry showing multiple PVCs Vitals/I&O/Wt Last Vital Signs Temp 98.3 F 01/31/23 12:10 Pulse 89 01/31/23 12:20 Resp 16 01/31/23 12:10 BP 123/56 01/31/23 12:20 Pulse Ox 95 01/31/23 12:20 O2 Del Method Nasal Cannula 01/31/23 12:10 O2 Flow Rate 2 01/31/23 12:10 FiO2 30 01/31/23 11:24 01/30/23 01/31/23 01/31/23 22:59 06:59 14:59 Intake Total 2440.269 / 2440.269 348.585 / 2788.854 78.547 / 78.547 Output Total 400 / 400 Balance 2440.269 / 2440.269 348.585 / 2788.854 -321.453 / -321.453 Weight last 48 hrs Weight 54.431 kg Weight 54.431 kg Weight 54.431 kg Physical Exam Narrative: Patient looks euvolemic Currently on 2 L Nonfocal neuro exam Drowsy but able to follow commands Lower extremity no swelling Feet are warm bilaterally Good pulses Abdomen soft sluggish bowel sounds Family is at the bedside Urinary Catheter Management: [place]: Cath Placed During This Visit: yes Reason for Continuing Indwelling Catheter: Accurate Measurement of Urinary Output in Critically Ill Patients Urinary Catheter Date of Insertion: 01/30/23 Urinary Catheter Time of Insertion: 14:37 Data 01/31/23 02:20 01/31/23 02:20 Micro: Microbiology 01/30/23 12:55 Gram Stain - Final Sputum - Endotracheal Tube Aspirate Sputum Culture - Preliminary 01/30/23 13:10 Blood Culture - Preliminary Blood SPECIMEN COLLECTED 01/30/23 13:10 Blood Culture - Preliminary Blood SPECIMEN COLLECTED A&P Assessment and plan (1) Hypertension: (2) SIADH (syndrome of inappropriate ADH production): (3) Hyponatremia: (4) Chronic back pain: (5) Compressed spine fracture: (6) Narcotic dependence: (7) COPD (chronic obstructive pulmonary disease): (8) Normocytic anemia: (9) History of successful cardiopulmonary resuscitation: (10) Acute on chronic respiratory failure with hypoxia and hypercapnia: (11) Chronic anticoagulation: Plan Acute respiratory failure requiring mechanical ventilation Patient was intubated 01/30 Extubated 01/31 Extubated to 2 L nasal cannula Will need home O2 eval before discharge Will need PT OT ST Nonfocal neuro exam CTA chest did not show PE Not sure whether she aspirated related to opiate overdose? Right lower lobe infiltrate evident Continue antibiotic Right lower lobe infiltrate consistent with pneumonia currently on antibiotics Doing well on 2 L nasal cannula If patient stays stable by tomorrow we will remove central line and remove [place] catheter SIADH Sodium 129 Discontinue D5 IV fluids I will continue her normal saline for now Normocytic anemia: Stable Successful cardiopulmonary resuscitation, 2 minutes of CPR conducted in the ER, patient had movement of her extremities, this morning we do not appreciate any focal deficits COPD, patient does not use oxygen at home currently on 2 L Back pain with compression fracture, judicious use of opioids Family meeting conducted twice this morning Patient was evaluated multiple times 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 ICU nurse updated Now focuses to start PT OT ST, get her out of ICU remove central line [place] catheter Echo is pending Troponin trending down Attestations Medical Necessity Statement*: Continue ICU management Diagnoses Hypertension I10 SIADH (syndrome of inappropriate ADH production) E22.2 Hyponatremia E87.1 Chronic back pain M54.9; G89.29 Compressed spine fracture M48.50XA Narcotic dependence F11.20 COPD (chronic obstructive pulmonary disease) J44.9 Normocytic anemia D64.9 History of successful cardiopulmonary resuscitation Z92.89 Acute on chronic respiratory failure with hypoxia and hypercapnia J96.21; J96.22 Chronic anticoagulation Z79.01
[2023-01-31 14:20] LABS: ABG PCO2 47.7 mmHg (35-45); ABG PH Result 7.32 (7.35-7.45); Arterial Blood Gas Hematocrit 31.1 % (37-47); Blood Gas Allen Test Pos; Blood Gas Operator Identificat BROMA; Blood Gas Sample Site Brachial, left; Blood Gas Sample Type Arterial; HCO3 ABG 24.3 mmol/L (22-26); Oxygen Device NC
[2023-01-31 14:53] LABS: Magnesium 1.7 mg/dL (1.7-2.3)
[2023-01-31] MEDS: magnesium sulfate premix 2 GM/50 ML PIGGYBACK IV (15:30)
[2023-01-31] MEDS: levofloxacin-dextrose 5 % 750 MG/150 ML PREMIX 100 MG IV (17:21)
[2023-01-31] MEDS: docusate sodium 100 mg Capsule PO (17:27)
[2023-01-31] MEDS: HYDROcodone-acetaminophen 10-325 mg Tablet 1 TAB PO ×2 (17:54→23:02)
--- NOTE | 2023-01-31 18:24 | PC.NURSE ---
SHift SUmmary:. Patient extubated at 1145. At the time of this note, patient is alert. Oriented to person, place, time, and mostly to situation though she does have some short term memory lapses. On a level 4 dysphagia diet which she tolerates well. SHe has david on bipap for most of the day after extubation, Dr Gallegos wants to keep her on bipap throughout the night. Scheduled hydrocodone started since she takes 10/ 6-8 times a day at home.
--- NOTE | 2023-01-31 21:25 | PC.NURSE ---
Diet Patient and patient's family requesting non-thickened liquid to drink. Education provided on dysphagia level 4 diet with moderately thickened liquids and pureed food; request made insistently again for thin liquids. Dr. Coppola contacted and order received for a nursing bedside swallow eval; thin liquids allowed if eval performance ok. Eval completed with no signs of aspiration.
[2023-02-01] VITALS (100 sets, daily range): BP systolic 136–187; BP diastolic 61–108; PULSE 81–115; RESP 14–36; TEMP 36.2–36.8; O2SAT 93–100
[2023-02-01] MEDS: sodium chloride 0.9% 1,000 ML 75 ML IV (00:30)
--- NOTE | 2023-02-01 01:16 | PC.NURSE ---
Frequent PVCs Patient experiencing more frequent PVCs than previously. Dr. Coppola notified; order received for troponin and EKG order set.
[2023-02-01 01:57] LABS: Basophils % 0.3 %; Hematocrit 29.2 % (37.0-47.0); Hemoglobin 9.2 g/dL (11.5-15.3); Lymphocytes # 0.5 10^3/uL (0.8-4.8); Lymphocytes % 3.9 %; Mean Corpuscular HGB Conc 31.5 g/dL (30.0-36.0); Mean Corpuscular Hemoglobin 30.7 pg (28.0-34.0); Mean Corpuscular Volume 97.3 fl (81-99); Mean Platelet Volume 8.8 fL (7.4-10.4); Monocytes # 0.6 10^3/uL (0.2-0.9); Monocytes % 4.9 %; Neutrophils # 10.41 10^3/uL (1.8-7.7); Neutrophils % 90.1 %; Nucleated Red Blood Cells % 0 %; Platelet Count 298 10^3/cmm (130-400); Red Cell Distribution Width 13.1 % (12.1-15.1); White Blood Count 11.6 10^3/uL (4.0-10.0)
[2023-02-01 02:17] LABS: Troponin(5th) Baseline 22 ng/L (0-10)
[2023-02-01 02:19] LABS: Alanine Aminotransferase 18 U/L (0-33); Alkaline Phosphatase 63 U/L (35-105); Anion Gap 11.1 (5-19); Aspartate Amino Transferase 18 U/L (0-32); Blood Urea Nitrogen 14 mg/dL (8-23); Calcium 8.2 mg/dL (8.5-10.5); Carbon Dioxide 23 mmol/L (22-29); Chloride 100 mmol/L (98-107); Globulin 2.7 g/dL (1.3-4.6); Glucose 149 mg/dL (65-115); Osmolality Calculated 273 mOsm/kg (285-295); Potassium 4.1 mmol/L (3.5-5.1); Sodium 130 mmol/L (136-145); Total Bilirubin 0.2 mg/dL (0.15-1.2); Total Protein 5.7 g/dL (6.6-8.7)
[2023-02-01] MEDS: piperacillin-tazobactam 3.375 GM in sodium chloride 0.9% (plus) 50 ML IV ×3 (02:43→17:59)
--- NOTE | 2023-02-01 03:09 | ECG_ITS ---
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 Measurements Intervals [place] Rate: 95 P: 43 CO: 187 QRS: 20 QRSD: 107 T: 50 QT: 331 QTc: 417 Interpretive Statements SINUS RHYTHM WITH OCCASIONAL VENTRICULAR PREMATURE COMPLEXES Compared to ECG 01/30/2023 23:36:40 Ventricular premature complex(es) now present Intraventricular conduction delay no longer present Poor R-wave progression no longer present Electronically Signed On 02-01-2023 14:22:27 CDT by Maico Negron M.D. [id number]
[2023-02-01 04:46] LABS: Troponin 5 2HR 22.63 ng/L (0-10)
[2023-02-01 04:56] LABS: Troponin 5 2HR Delta 0.63 ABS# (0-10)
[2023-02-01] MEDS: HYDROcodone-acetaminophen 10-325 mg Tablet 1 TAB PO ×3 (05:16→17:58)
[2023-02-01] MEDS: pantoprazole 40 mg SDV IVP ×2 (05:16→17:57)
[2023-02-01] MEDS: enoxaparin 60 mg/0.6 mL Syringe 55 MG SUBCUT ×2 (05:16→17:58)
--- NOTE | 2023-02-01 07:09 | ECG_ITS ---
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 Measurements Intervals [place] Rate: 95 P: 77 IN: 151 QRS: 59 QRSD: 93 T: 72 QT: 325 QTc: 409 Interpretive Statements SINUS RHYTHM WITH FREQUENT VENTRICULAR PREMATURE COMPLEXES POSSIBLE ANTERIOR MYOCARDIAL INFARCTION , OF INDETERMINATE AGE [30 ms Q WAVE IN V3/V4, OR R < 0.2 mV IN V4] Compared to ECG 02/01/2023 01:41:57 Myocardial infarct finding now present Electronically Signed On 02-01-2023 14:24:44 CDT by Maico Negron M.D. [id number]
[2023-02-01] MEDS: ipratropium-albuterol 3 mL Neb INHALATION ×3 (07:48→21:34)
[2023-02-01] MEDS: budesonide 0.5 mg/2 mL Neb INHALATION ×2 (07:49→21:33)
[2023-02-01 08:17] LABS: Troponin 5 6HR 21.48 ng/L (0-10)
[2023-02-01 08:24] LABS: Troponin 5 6HR Delta -0.52 ng/L (0-12)
[2023-02-01] MEDS: losartan 50 mg Tablet 100 MG PO (09:21)
[2023-02-01] MEDS: sertraline 50 mg Tablet 25 MG PO (09:21)
[2023-02-01] MEDS: dilTIAZem ER (24HR) 120 mg Capsule PO (09:22)
[2023-02-01] MEDS: docusate sodium 100 mg Capsule PO ×2 (09:22→17:57)
--- NOTE | 2023-02-01 13:42 | PM.PN ---
Subjective Subjective: No worsening leukocytosis Afebrile Haemophilus influenzae and sputum culture De-escalate antibiotics Afebrile Normal kidney function Echo unremarkable Can be transferred out of ICU Had 1 bowel movement today Tolerating diet Family meeting conducted Patient examined twice this morning Patient is hypertensive, discontinued IV fluids, added home antihypertensive regimen Vitals/I&O/Wt Last Vital Signs Temp 98.2 F 02/01/23 08:00 Pulse 103 H 02/01/23 11:54 Resp 16 02/01/23 11:50 BP 179/81 02/01/23 09:21 Pulse Ox 96 02/01/23 11:50 O2 Del Method Nasal Cannula 02/01/23 11:50 O2 Flow Rate 2 02/01/23 11:50 FiO2 30 02/01/23 07:00 01/31/23 02/01/23 02/01/23 22:59 06:59 14:59 Intake Total 1219.883 / 1300.347 991.25 / 2291.597 950 / 950 Output Total 250 / 650 600 / 1250 150 / 150 Balance 969.883 / 650.347 391.25 / 1041.597 800 / 800 Weight last 48 hrs Weight 57.153 kg Weight 54.431 kg Weight 54.431 kg Physical Exam Narrative: Awake and alert Able to move her extremities GCS 15 Nonfocal neuro exam Tolerating diet Currently on 2 L nasal cannula Abdomen soft S1, S2 Family is at the bedside Urinary Catheter Management: [place]: Cath Placed During This Visit: yes Reason for Continuing Indwelling Catheter: Accurate Measurement of Urinary Output in Critically Ill Patients Urinary Catheter Date of Insertion: 01/30/23 Urinary Catheter Time of Insertion: 14:37 Data 02/01/23 01:35 02/01/23 01:35 Micro: Microbiology 01/30/23 12:55 Gram Stain - Final Sputum - Endotracheal Tube Aspirate Sputum Culture - Final Haemophilus Influenzae 01/30/23 13:10 Blood Culture - Preliminary Blood NEGATIVE TO DATE 01/30/23 13:10 Blood Culture - Preliminary Blood NEGATIVE TO DATE A&P Assessment and plan (1) Hypertension: (2) SIADH (syndrome of inappropriate ADH production): (3) Hyponatremia: (4) Chronic back pain: (5) Narcotic dependence: (6) COPD (chronic obstructive pulmonary disease): (7) Normocytic anemia: (8) History of successful cardiopulmonary resuscitation: (9) Acute on chronic respiratory failure with hypoxia and hypercapnia: (10) Chronic anticoagulation: Plan This morning patient is hypertensive Add chlorthalidone, resume losartan and Cardizem Discontinue IV fluids Respiratory failure requiring mechanical ventilation patient when extubated to room air as currently doing well on 2 L nasal cannula Sputum culture showing haemophilus influenza I will switch her antibiotics to cephalosporins Afebrile no worsening of leukocytosis Cardiac arrest with 2 minutes of CPR with successful resuscitation Nonfocal focal neurological exam Patient is able to participate PT continue PT OT, did well with ST currently tolerating diet No signs of PE she takes anticoagulating agent currently on therapeutic Lovenox which I will resume until the day of discharge then she will continue her Eliquis Patient was given magnesium yesterday PVCs slightly better unifocal PVCs noted on telemetry as well Echo unremarkable with no signs of wall motion abnormality No active chest pain Troponin trending down I do not think we need angiogram at this point Cardiac arrest was related to respiratory compromise/hypoxia Most likely patient will be able to go home with home health services I will transfer out of ICU Constipation: Had 1 bowel movement today SIADH sodium improving Anemia: Stable Acute hypoxia requiring 2 L, will do home O2 eval before discharge Attestations Medical Necessity Statement*: Transfer out of ICU Diagnoses Hypertension I10 SIADH (syndrome of inappropriate ADH production) E22.2 Hyponatremia E87.1 Chronic back pain M54.9; G89.29 Narcotic dependence F11.20 COPD (chronic obstructive pulmonary disease) J44.9 Normocytic anemia D64.9 History of successful cardiopulmonary resuscitation Z92.89 Acute on chronic respiratory failure with hypoxia and hypercapnia J96.21; J96.22 Chronic anticoagulation Z79.01
--- NOTE | 2023-02-01 15:15 | PC.OT ---
OT Eval Attempted - Patient requested therapist come back at a later time secondary to daughter being there for visiting. Quiet hours in place so eval will be attempted later.
[2023-02-01] MEDS: hyDRALAzine 25 mg Tablet PO ×2 (15:55→20:08)
--- NOTE | 2023-02-01 16:05 | PC.NURSE ---
Report called to [facility], for room 252-2. Report given to Deonna.
--- NOTE | 2023-02-01 17:05 | PC.NURSE ---
Pt finished in restroom. Transferred to room 252-2. via W/C. All belonings with patient and . Update given to GLORIA Ying
[2023-02-01] MEDS: levoFLOXacin 750 mg Tablet PO (17:57)
[2023-02-01] MEDS: magnesium oxide 400 mg tablet PO (17:57)
[2023-02-01] MEDS: chlorthalidone 25 mg Tablet PO (17:57)
[2023-02-01] MEDS: artificial tears Op Oint 3.5 gm 1 APPLIC EYE-BOTH (20:09)
[2023-02-01] MEDS: lanolin oint 7 gm 1 APPLIC TOPICAL (20:56)
--- NOTE | 2023-02-01 21:38 | ECG_ITS ---
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 Measurements Intervals [place] Rate: 114 P: 79 IN: 162 QRS: 56 QRSD: 97 T: 73 QT: 304 QTc: 420 Interpretive Statements SINUS TACHYCARDIA WITH FREQUENT VENTRICULAR PREMATURE COMPLEXES POSSIBLE LEFT ATRIAL ENLARGEMENT [-0.1mV P-WAVE IN V1/V2] ABNORMAL RHYTHM ECG Compared to ECG 02/01/2023 07:53:43 Sinus rhythm no longer present Myocardial infarct finding no longer present Electronically Signed On 02-02-2023 21:18:59 CDT by Gloria Keenan M.D. [id number]
[2023-02-01 22:39] LABS: Troponin T (5th) Once 27 ng/L (0-10)
[2023-02-02] VITALS (17 sets, daily range): BP systolic 140–186; BP diastolic 62–80; PULSE 85–111; RESP 15–22; TEMP 36.6–37; O2SAT 98–100
[2023-02-02] MEDS: HYDROcodone-acetaminophen 10-325 mg Tablet 1 TAB PO ×4 (00:01→17:40)
[2023-02-02] MEDS: piperacillin-tazobactam 3.375 GM in sodium chloride 0.9% (plus) 50 ML IV (02:50)
[2023-02-02 05:48] LABS: Basophils % 0.2 %; Hematocrit 36.7 % (37.0-47.0); Hemoglobin 11.8 g/dL (11.5-15.3); Lymphocytes # 1.5 10^3/uL (0.8-4.8); Lymphocytes % 9.4 %; Mean Corpuscular HGB Conc 32.2 g/dL (30.0-36.0); Mean Corpuscular Hemoglobin 29.9 pg (28.0-34.0); Mean Corpuscular Volume 93.1 fl (81-99); Mean Platelet Volume 8.9 fL (7.4-10.4); Monocytes # 1.7 10^3/uL (0.2-0.9); Monocytes % 10.6 %; Neutrophils # 12.41 10^3/uL (1.8-7.7); Neutrophils % 77.1 %; Nucleated Red Blood Cells % 0.2 %; Platelet Count 431 10^3/cmm (130-400); Red Blood Count 3.94 10^6/uL (4.1-5.3); Red Cell Distribution Width 12.9 % (12.1-15.1); White Blood Count 16.1 10^3/uL (4.0-10.0)
[2023-02-02 06:07] LABS: Anion Gap 14.4 (5-19); Blood Urea Nitrogen 11 mg/dL (8-23); Carbon Dioxide 28 mmol/L (22-29); Chloride 93 mmol/L (98-107); Glucose 81 mg/dL (65-115); Osmolality Calculated 272 mOsm/kg (285-295); Potassium 3.4 mmol/L (3.5-5.1); Sodium 132 mmol/L (136-145)
[2023-02-02] MEDS: enoxaparin 60 mg/0.6 mL Syringe 55 MG SUBCUT ×2 (06:29→17:41)
[2023-02-02] MEDS: sertraline 50 mg Tablet 25 MG PO ×2 (06:29→09:16)
[2023-02-02] MEDS: pantoprazole 40 mg SDV IVP (06:35)
[2023-02-02] MEDS: ipratropium-albuterol 3 mL Neb INHALATION (07:34)
[2023-02-02] MEDS: budesonide 0.5 mg/2 mL Neb INHALATION ×2 (07:34→21:43)
--- NOTE | 2023-02-02 08:18 | ECG_ITS ---
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 Interpretive Statements NAME OF STUDY: LEXISCAN SESTAMIBI STRESS TEST INDICATION: [Chest Pain] Procedure: At the baseline, the blood pressure was 150/81 mmHg with a heart rate of 102 bpm. The electrocardiogram showed normal sinus rhythm, normal axis with normal ST and T's and PVCs. The Lexiscan was infused over a period of 20 seconds. A total of 0.4 mg of Lexiscan was infused. The stress phase was continued for a total of 5 minutes. Heart rate was at the end of stress phase was 107 bpm and a blood pressure of 139/91 mmHg. The EKG at the peak infusion revealed normal sinus rhythm with no significant ST-T wave changes and PVCs. Sestamibi was injected 20 seconds after the Lexiscan infusion. Blood pressure at the end of recovery phase was 157/112 mmHg with a heart rate of 110 bpm. Conclusion: 1. Normal EKG response to Lexiscan infusion 2. No Lexiscan induced chest pain or cardiac arrhythmia. 3. Normal blood pressure and heart rate response. 4. Sestamibi/sestamibi perfusion scan pending; see separate report. Electronically Signed On 02-18-2023 21:11:02 CDT by Juan Henderson M.D. [email or web address]/[id number]
--- NOTE | 2023-02-02 08:19 | PM.PN ---
Subjective Subjective: PVCs noted overnight Slightly more frequent asking but yesterday Potassium repleted this morning She is already getting mag Patient not complaining of active chest pain or shortness of breath, slightly anxious could not sleep well last night, overnight events noted Troponin negative delta I have requested stress test for tomorrow Continue physical therapy today Daughter at the bedside We did talk about compression fractures and signs of cauda equina, she does not have any typical signs No active chest pain shortness of breath patient is tachycardic sinus tachycardia noted heart rate fluctuating between 1 10-1 15 . Antihypertensive regimen adjusted blood pressure 186/80 mmHg Vitals/I&O/Wt Last Vital Signs Temp 98.6 F 02/02/23 04:10 Pulse 103 H 02/02/23 07:57 Resp 17 02/02/23 07:57 BP 186/80 02/02/23 07:57 Pulse Ox 100 02/02/23 07:57 O2 Del Method BiPAP 02/02/23 07:35 O2 Flow Rate 2 02/01/23 20:00 FiO2 30 02/02/23 07:39 02/01/23 02/02/23 02/02/23 22:59 06:59 14:59 Intake Total 1640 / 2640 240 / 2880 50 / 50 Balance 1640 / 2490 240 / 2730 50 / 50 Weight last 48 hrs Weight 57.153 kg Physical Exam Narrative: Patient was slightly dehydrated Abdomen soft Sinus tachycardia Currently on 2 L Off BiPAP Awake and alert Anxious. No active chest pain S1, S2 Abdomen soft Nonfocal neuro exam Daughter is at the bedside Urinary Catheter Management: [place]: Cath Placed During This Visit: yes, but has since been removed by the nurse Reason for Continuing Indwelling Catheter: Accurate Measurement of Urinary Output in Critically Ill Patients Urinary Catheter Date of Insertion: 01/30/23 Urinary Catheter Time of Insertion: 14:37 Date Urinary Catheter Removed: 02/01/23 Time Urinary Catheter Discontinued: 11:00 Data 02/02/23 05:03 02/02/23 05:03 Micro: Microbiology 01/31/23 14:00 MRSA Culture - Final Nose 01/30/23 12:55 Gram Stain - Final Sputum - Endotracheal Tube Aspirate Sputum Culture - Final Haemophilus Influenzae A&P Assessment and plan (1) Hypertension: (2) SIADH (syndrome of inappropriate ADH production): (3) Hyponatremia: (4) Chronic back pain: (5) Compressed spine fracture: (6) Narcotic dependence: (7) COPD (chronic obstructive pulmonary disease): (8) Normocytic anemia: (9) History of successful cardiopulmonary resuscitation: (10) Acute on chronic respiratory failure with hypoxia and hypercapnia: (11) Chronic anticoagulation: (12) PVC (premature ventricular contraction): Plan Multiple PVCs Requesting stress test for tomorrow Echo unremarkable After chest pain Potassium repleted Continue mag Cardiac arrest with successful resuscitation: Plan for stress test tomorrow Acute chest pain Troponin with negative delta Hemodynamically stable Resp failure require mechanical ventilation: Extubated to room air within 24 hours, patient doing well, Might need to change albuterol to Xopenex because of her tachycardia Community-acquired pneumonia with haemophilus influenza Currently on ceftriaxone Currently requiring 2 L Acute hypoxia, will need home O2 eval before discharge Constipation: Relieved Compression fracture, chronic back pain continue hydrocodone Patient and family counseled on signs of opiate overdose Hypertensive urgency I have added chlorthalidone, amlodipine, discontinued Cardizem and added metoprolol along with losartan Monitor blood pressure closely today Sinus tachycardia with PVCs: Add low-dose metoprolol No active chest pain or shortness of breath SIADH sodium improving Full code Anemia stable Continue physical therapy, patient might build to go home after stress test tomorrow if that is negative she will benefit from home health program Attestations Medical Necessity Statement*: Continue medical management Diagnoses Hypertension I10 SIADH (syndrome of inappropriate ADH production) E22.2 Hyponatremia E87.1 Chronic back pain M54.9; G89.29 Compressed spine fracture M48.50XA Narcotic dependence F11.20 COPD (chronic obstructive pulmonary disease) J44.9 Normocytic anemia D64.9 History of successful cardiopulmonary resuscitation Z92.89 Acute on chronic respiratory failure with hypoxia and hypercapnia J96.21; J96.22 Chronic anticoagulation Z79.01 PVC (premature ventricular contraction) I49.3
[2023-02-02] MEDS: chlorthalidone 25 mg Tablet PO (09:11)
[2023-02-02] MEDS: magnesium oxide 400 mg tablet PO ×2 (09:11→17:40)
[2023-02-02] MEDS: amlodipine 10 mg Tablet PO (09:12)
[2023-02-02] MEDS: potassium chloride ER 20 mEq Tablet 40 MEQ PO (09:12)
[2023-02-02] MEDS: docusate sodium 100 mg Capsule PO (09:15)
[2023-02-02] MEDS: hyDRALAzine 25 mg Tablet 50 MG PO ×3 (09:16→20:24)
[2023-02-02] MEDS: losartan 50 mg Tablet 100 MG PO (09:26)
[2023-02-02] MEDS: metoprolol tartrate 25 mg Tablet PO ×2 (09:30→20:24)
[2023-02-02] MEDS: ALPRAZolam 0.5 mg Tablet PO ×2 (10:15→22:00)
--- NOTE | 2023-02-02 10:31 | PC.SOCIAL ---
Pg 2 IMM Explained to pt & her daughter on Pg 2 IMM. No questions voiced. Provided pt a copy. Initialed, dated, & timed a copy & placed in chart.
[2023-02-02] MEDS: levoFLOXacin 750 mg Tablet PO (17:40)
[2023-02-02] MEDS: temazepam 15 mg Capsule PO (22:00)
[2023-02-03] VITALS (11 sets, daily range): BP systolic 132–152; BP diastolic 68–96; PULSE 82–106; RESP 18–21; TEMP 35.9–36.5; O2SAT 93–100
[2023-02-03] MEDS: HYDROcodone-acetaminophen 10-325 mg Tablet 1 TAB PO ×3 (01:02→10:22)
[2023-02-03 05:26] LABS: Basophils % 0.2 %; Eosinophils # 0.1 10^3/uL (0.0-0.8); Eosinophils % 0.5 %; Hematocrit 34.9 % (37.0-47.0); Hemoglobin 11.7 g/dL (11.5-15.3); Lymphocytes # 1.3 10^3/uL (0.8-4.8); Lymphocytes % 11.9 %; Mean Corpuscular HGB Conc 33.5 g/dL (30.0-36.0); Mean Corpuscular Hemoglobin 30.5 pg (28.0-34.0); Mean Corpuscular Volume 91.1 fl (81-99); Mean Platelet Volume 8.4 fL (7.4-10.4); Monocytes # 1.4 10^3/uL (0.2-0.9); Monocytes % 12.3 %; Neutrophils % 70.2 %; Nucleated Red Blood Cells % 0 %; Platelet Count 337 10^3/cmm (130-400); Red Blood Count 3.83 10^6/uL (4.1-5.3); Red Cell Distribution Width 12.6 % (12.1-15.1); White Blood Count 11.1 10^3/uL (4.0-10.0)
[2023-02-03 05:56] LABS: Anion Gap 14.2 (5-19); Blood Urea Nitrogen 9 mg/dL (8-23); Calcium 8.3 mg/dL (8.5-10.5); Carbon Dioxide 32 mmol/L (22-29); Chloride 83 mmol/L (98-107); Glucose 99 mg/dL (65-115); Osmolality Calculated 261 mOsm/kg (285-295); Potassium 3.2 mmol/L (3.5-5.1); Sodium 126 mmol/L (136-145)
[2023-02-03] MEDS: enoxaparin 60 mg/0.6 mL Syringe 55 MG SUBCUT (06:27)
[2023-02-03] MEDS: regadenoson 0.4 Mg/5 ml Syringe IVP (07:46)
--- NOTE | 2023-02-03 08:00 | NMCV_ITS ---
NM justina perf SPECT r/s* [id number] Eleni Miller Age: 77 Gender: F : 1945 Exam Date: 02/03/2023 06:03 Ordering Phys: Marquise Gallegos MD Technologist: DALIA Trejo Exam Location: [facility] Indications: CHEST PAIN STRESS TEST [facility] IMAGE PROTOCOL Rest/Stress 1 Lexiscan Day Radiopharmaceutical Dose (mCi) Administration Site Administered by Rest: Tc-99m 10.9 IV Armand Gonzales, MANAGER [employer] Sestamibi Stress:Tc-99m 32.9 IV Armand Gonzales, MANAGER [employer] Sestamibi Rest: 03-Feb-2023 60 Discovery 630 Stress: 03-Feb-2023 30 Discovery 630 0.4mg Lexiscan. Supine position only as patient was unable to lay prone. SPECT RESULTS Technical Quality: Excellent Raw Data Analysis: Normal Image Corrections: No attenuation or motion correction applied Summed Stress Score: 0 Summed Rest Score: 0 Summed Difference Score: 0 PERFUSION FINDINGS SPECT images demonstrate homogeneous tracer distribution throughout the myocardium. FUNCTIONAL RESULTS (calculated via Gated SPECT) Stress Image LV EF (%): 86 Stress EDV (mL):51 TID: 1.38 Stress ESV (mL):7 FUNCTIONAL FINDINGS: There is normal left ventricular systolic function. IMPRESSIONS 1. Normal myocardial perfusion imaging with no evidence of ischemia 2. LV systolic function is normal 3. TID ratio is elevated. Juan Henderson MD (Electronically Signed) Final Date: 03 Feb 2023 11:48 S
--- NOTE | 2023-02-03 09:57 | P.DS_ITS ---
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 (3) Hyponatremia: Status: Acute (4) Chronic back pain: Status: Chronic (5) Compressed spine fracture: Status: Chronic (6) Narcotic dependence: Status: Chronic Permanent problem details: on hydrocodone for back pain (7) COPD (chronic obstructive pulmonary disease): Status: Chronic (8) Normocytic anemia: Status: Acute (9) History of successful cardiopulmonary resuscitation: Status: Acute (10) Acute on chronic respiratory failure with hypoxia and hypercapnia: Status: Acute (11) Chronic anticoagulation: Status: Chronic (12) PVC (premature ventricular contraction): Status: Acute Reason for Visit Reason for Visit: SOB Brief History: Please see detailed history given by Dr. Tom Hospital Course Hospital Course 77-year female with history of chronic compression fracture, opiate dependent, not oxygen dependent COPD, former smoker, anxious, presented to hospital for acute hypoxic respite failure went into cardiac arrest secondary to hypoxia when in the ER they were trying to put on BiPAP mask, patient had CPR for about 2 minutes before ROSC, she was able to move her extremities, patient kept intubated overnight, she was successfully extubated to 2 L of nasal cannula in the morning(extubation in less than 24 hours), patient was able to follow commands, speech therapy cleared her for regular diet, CTA chest rule out PE, patient sputum culture showed haemophilus influenza for which she required ceftriaxone, broad-spectrum antibiotics were discontinued, leukocytosis improved, she remained afebrile, rest of the cultures are negative, troponin with negative delta, echo unremarkable, patient was complaining of soreness at the CPR site, stress test was requested to make sure patient was not experiencing unstable angina, EKG unremarkable other than PVCs, please note patient remained hypertensive, I added chlorthalidone, hydralazine 50 mg 3 times daily to her Cardizem and losartan 100 mg, because of multiple PVCs I discontinued Cardizem and added metoprolol that improved her PVCs and heart rate to some extent, electrolytes were replenished. Patient gets anxious and required Xanax on and off. She has history of SIADH, sodium remained stable, she takes Eliquis for her DVT which I will resume at the time of discharge throughout hospitalization and she required therapeutic Lovenox. I have counseled extensively to the family that she is experiencing polypharmacy, she is also taking anxiolytics opioids which can put her at risk of respirate depression they should keep Narcan at home, I have also counseled them to monitor her blood pressure on daily basis and cut back on her medications in case she would experience hypotension I am pretty sure once she achieved good serum concentration of all the antihypertensive regimen her blood pressure will start dropping this was explained to the family and they were appreciated that I am giving them a heads up, we have arranged home health services for the patient Physical Exam Narrative: Abdomen soft Sinus tachycardia improved Currently on 2 L Off BiPAP Awake and alert Anxious. No active chest pain S1, S2 Abdomen soft Nonfocal neuro exam Daughter is at the bedside Urinary Catheter Management: [place]: Cath Placed During This Visit: yes, but has since been removed by the nurse Reason for Continuing Indwelling Catheter: Accurate Measurement of Urinary Output in Critically Ill Patients Urinary Catheter Date of Insertion: 01/30/23 Urinary Catheter Time of Insertion: 14:37 Date Urinary Catheter Removed: 02/01/23 Time Urinary Catheter Discontinued: 11:00 Discharge Data Studies Completed and Pending Completed Studies During Hospitalization Category Date Time Status CTA chest [CT angio chest PE protcl [id number]] Stat Cat Scan 01/30/23 15:46 Completed CXRP [XR chest 1V portable [id number]] AM LABS Exams 01/31/23 04:00 Completed Sestamibi Stress Test Request Routine Exams 02/02/23 08:18 Draft XR chest 1V portable [id number] Stat Exams 01/30/23 11:55 Completed XR chest 1V portable [id number] Stat Exams 01/30/23 13:57 Completed CV. echo complete* [id number] Routine Ultrasound 01/30/23 17:24 Completed Pending at discharge Category Date Time Status Blood Culture Stat Lab 01/30/23 13:10 Results Occult Blood Stool [Immunochemical Fecal OCB] Routine Lab 01/30/23 13:39 Uncollected NM justina perf SPECT r/s* [id number] Routine Nuc Med 02/03/23 08:00 Ordered Radiology Impressions Chest CTA 01/30/23 15:46 IMPRESSION: 1. No CT findings to indicate pulmonary embolus. 2. Lung windows demonstrate mild scattered patchy infiltrate mid to lower right lung with subpleural component and minimal infiltrate lower left lung. Findings suggest mild pneumonia. Follow-up suggested. 3. Endotracheal catheter, enteric tube, and right subclavian central venous catheter appear in good position. 4. Nonspecific pleural thickening, with possible trace basilar effusion. No significant pleural effusion, otherwise. 5. Chronic bony changes of old compression deformity thoracolumbar junction level. Chest X-Ray 01/31/23 04:00 IMPRESSION: No significant change in exam. Laboratory Results WBC 11.1 10^3/uL (4.0-10.0) H 02/03/23 05:16 RBC 3.83 10^6/uL (4.1-5.3) L 02/03/23 05:16 Hgb 11.7 g/dL (11.5-15.3) 02/03/23 05:16 Hct 34.9 % (37.0-47.0) L 02/03/23 05:16 MCV 91.1 fl (81-99) 02/03/23 05:16 MCH 30.5 pg (28.0-34.0) 02/03/23 05:16 MCHC 33.5 g/dL (30.0-36.0) 02/03/23 05:16 RDW 12.6 % (12.1-15.1) 02/03/23 05:16 Plt Count 337 10^3/cmm (130-400) 02/03/23 05:16 MPV 8.4 fL (7.4-10.4) 02/03/23 05:16 Neut % (Auto) 70.2 % 02/03/23 05:16 Lymph % (Auto) 11.9 % 02/03/23 05:16 [place] % (Auto) 12.3 % 02/03/23 05:16 Eos % (Auto) 0.5 % 02/03/23 05:16 Baso % (Auto) 0.2 % 02/03/23 05:16 Neut # (Auto) 7.80 10^3/uL (1.8-7.7) H 02/03/23 05:16 Lymph # (Auto) 1.3 10^3/uL (0.8-4.8) 02/03/23 05:16 [place] # (Auto) 1.4 10^3/uL (0.2-0.9) H 02/03/23 05:16 Eos # (Auto) 0.1 10^3/uL (0.0-0.8) 02/03/23 05:16 Baso # (Auto) 0.0 10^3/uL (0.0-0.1) 02/03/23 05:16 Nucleated RBC % (auto) 0 % 02/03/23 05:16 Nucleated RBCs # 0.0 /100WBC 02/03/23 05:16 PT 18.80 SECONDS (12.1-14.9) H 01/30/23 13:15 INR 1.52 (0.8-1.2) H 01/30/23 13:15 APTT 34.4 SECONDS (23.9-36.7) 01/30/23 13:15 D-Dimer 2.43 ug/mIFEU (0-0.59) H 01/30/23 13:15 Specimen Type Arterial 01/31/23 14:00 Sample Site Brachial, left 01/31/23 14:00 ABG pH 7.32 (7.35-7.45) L 01/31/23 14:00 ABG pCO2 47.7 mmHg (35-45) H 01/31/23 14:00 ABG pO2 62.0 mmHg (80.0-100.0) L 01/31/23 14:00 ABG HCO3 24.3 mmol/L (22-26) 01/31/23 14:00 ABG O2 Saturation 92.6 01/30/23 15:25 ABG Base Excess -2.0 mmol/L (-2.0-2.0) 01/31/23 14:00 Panda Test Pos 01/31/23 14:00 A-a O2 Gradient 12.8 mmHg (5-10) H 01/30/23 15:25 Hematocrit 31.1 % (37-47) L 01/31/23 14:00 Hgb O2 Saturation 90.5 % (95-100) L 01/30/23 15:25 Carboxyhemoglobin 1.3 %THgb (0.4-20.1) 01/30/23 15:25 Methemoglobin 0.9 % (0.4-1.5) 01/30/23 15:25 Total Hemoglobin 9.9 g/dL (12-16) L 01/30/23 15:25 Sodium 133.0 mmol/L (131-143) 01/30/23 15:25 Potassium 3.8 mmol/L (3.5-5.0) 01/30/23 15:25 Glucose 118.0 mg/dL (70-115) H 01/30/23 15:25 Ionized Calcium 1.1 mmol/L (1.1-1.4) 01/30/23 15:25 O2 Delivery Device Nc 01/31/23 14:00 O2 Liters/Min 1.0 % 01/31/23 14:00 FiO2 40.0 % 01/31/23 05:08 Tidal Volume 0.45 01/30/23 15:25 PEEP 10.0 cmH20 01/31/23 05:08 Tribal Council Member ID Broma 01/31/23 14:00 Sodium 126 mmol/L (136-145) L 02/03/23 05:16 Potassium 3.2 mmol/L (3.5-5.1) L 02/03/23 05:16 Chloride 83 mmol/L (98-107) L 02/03/23 05:16 Carbon Dioxide 32 mmol/L (22-29) H 02/03/23 05:16 Anion Gap 14.2 (5-19) 02/03/23 05:16 BUN 9 mg/dL (8-23) 02/03/23 05:16 Creatinine 0.3 mg/dL (0.5-0.9) L 02/03/23 05:16 GFR Calculation Not Reportable 02/03/23 05:16 Glucose 99 mg/dL (65-115) 02/03/23 05:16 Estimat Average Glucose 114 01/31/23 02:20 Hemoglobin A1c 5.6 % (4.0-6.0) 01/31/23 02:20 Calculated Osmolality 261 mOsm/kg (285-295) L 02/03/23 05:16 Lactic Acid 1.0 mmol/L (0.5-2.2) 01/30/23 15:31 Uric Acid 3.1 mg/dL (2.4-5.7) 01/30/23 15:30 Calcium 8.3 mg/dL (8.5-10.5) L 02/03/23 05:16 Phosphorus 3.3 mg/dL (2.5-4.5) 01/31/23 02:20 Magnesium 1.7 mg/dL (1.7-2.3) 01/31/23 14:00 Iron 9 ug/dL (37-145) L 01/31/23 02:20 TIBC 188 mcg/dl 01/31/23 02:20 % Saturation 4.7 % (20-50) L 01/31/23 02:20 Unsat Iron Binding 179 ug/dL (112-347) 01/31/23 02:20 Total Bilirubin 0.2 mg/dL (0.15-1.2) 02/01/23 01:35 AST 18 U/L (0-32) 02/01/23 01:35 ALT 18 U/L (0-33) 02/01/23 01:35 Alkaline Phosphatase 63 U/L (35-105) 02/01/23 01:35 Troponin T Gen 5 ng/L 27 ng/L (0-10) H 02/01/23 22:06 Troponin T Baseline 22 ng/L (0-10) H 02/01/23 01:35 Troponin T 120 Minute 22.63 ng/L (0-10) H 02/01/23 03:20 Delta Troponin T 0.63 ABS# (0-10) 02/01/23 03:20 Troponin T Hi Sens 6Hr 21.48 ng/L (0-10) H 02/01/23 07:23 Troponin T Hi Sens 6Hr Delta -0.52 ng/L (0-12) L 02/01/23 07:23 NT-Pro-B Natriuret Pep 1700 pg/mL (0-450) H 01/30/23 13:15 Total Protein 5.7 g/dL (6.6-8.7) L 02/01/23 01:35 Albumin 3.0 g/dL (3.5-5.2) L 02/01/23 01:35 Globulin 2.7 g/dL (1.3-4.6) 02/01/23 01:35 Triglycerides 66 mg/dL (0-150) 01/31/23 02:20 Cholesterol 127 mg/dL (0-200) 01/31/23 02:20 LDL Cholesterol, Calc 51 mg/dL (50-129) 01/31/23 02:20 HDL Cholesterol 63 mg/dL (60-100) 01/31/23 02:20 LDL/HDL Ratio 0.81 RATIO (0.00-3.22) 01/31/23 02:20 Cholesterol/HDL Ratio 2.02 mg/dL (0.0-4.40) 01/31/23 02:20 Procalcitonin 0.39 ng/mL (0-0.5) 01/30/23 15:30 Urine Color Yellow (Yellow) 01/30/23 14:11 Urine Appearance Hazy (CLEAR) A 01/30/23 14:11 Urine pH 5 (5-7) 01/30/23 14:11 Ur Specific [place] 1.015 (1.005-1.030) 01/30/23 14:11 Urine Protein 3+ (Negative) H 01/30/23 14:11 Urine Glucose (UA) Norm (Normal) 01/30/23 14:11 Urine Ketones Negative (Negative) 01/30/23 14:11 Urine Blood 3+ (Negative) H 01/30/23 14:11 Urine Nitrate Negative (Negative) 01/30/23 14:11 Urine Bilirubin Neg (Negative) 01/30/23 14:11 Urine Urobilinogen Norm mg/dL (Negative) 01/30/23 14:11 Ur Leukocyte Esterase Negative (Negative) 01/30/23 14:11 Urine RBC 5-10 /hpf (0-2) H 01/30/23 14:11 Urine WBC 0-4 /hpf (0-5) H 01/30/23 14:11 Ur Squamous Epith Cells 0-4 /hpf (0-5) H 01/30/23 14:11 Amorphous Sediment 2+ /hpf 01/30/23 14:11 Urine Bacteria Trace /hpf (NONE) 01/30/23 14:11 Hyaline Casts 0-4 /lpf H 01/30/23 14:11 Fine Granular Casts 5-10 /lpf H 01/30/23 14:11 Coarse Granular Casts 0-4 /lpf H 01/30/23 14:11 Ur Random Sodium 42 mmol/L 01/30/23 14:11 Urine Creatinine 109 mg/dL (28-217) 01/30/23 14:11 Coronavirus 229E (PCR) Not detected (NOT DETECT) 01/30/23 18:06 SARS-CoV-2 (PCR) Not detected (NOT DETECT) 01/30/23 18:06 Vitals Last Vital Signs Temp 97.7 F 02/03/23 08:00 Pulse 82 02/03/23 08:08 Resp 18 02/03/23 08:00 BP 152/96 02/03/23 08:08 Pulse Ox 98 02/03/23 08:00 O2 Del Method Nasal Cannula 02/03/23 08:00 O2 Flow Rate 2 02/02/23 21:43 FiO2 30 02/03/23 03:41 Discharge Plan Discharge Patient Disposition: Home Health Service Condition: Stable Prescriptions: New alprazolam 0.5 mg Tablet 0.5 mg PO BID PRN (Reason: Anxiety) Qty: 4 0RF sertraline 50 mg Tablet 25 mg PO DAILY Qty: 60 0RF magnesium oxide 400 mg (241.3 mg magnesium) Tablet 400 mg PO BID Qty: 6 0RF amlodipine 10 mg Tablet 10 mg PO DAILY Qty: 60 2RF naloxone [Narcan] 4 mg/actuation spray,non-aerosol 4 mg intranasal Q2M PRN (Reason: opioid overdose) Qty: 2 0RF Rx Instructions: spray 1 dose into ONE nostril; alternate nostrils w each dose until help arrives chlorthalidone 25 mg Tablet 25 mg PO DAILY Qty: 60 3RF levofloxacin 750 mg Tablet 750 mg PO Q24H Qty: 5 0RF metoprolol tartrate 25 mg Tablet 25 mg PO BID@0900,2100 Qty: 60 2RF hydralazine 25 mg Tablet 50 mg PO TID Qty: 90 3RF Continued albuterol sulfate 90 mcg/actuation HFA aerosol inhaler 1 - 2 puff INHALATION Q4H PRN (Reason: Shortness Of Breath) Qty: 6.7 11RF losartan 100 mg tablet 100 mg PO DAILY Qty: 90 3RF nortriptyline 50 mg capsule 50 - 150 mg PO BEDTIME PRN (Reason: Sleep) Qty: 90 5RF Combivent Respimat 20-100 mcg/actuation mist 1 puff INHALATION QID Qty: 4 11RF Rx Instructions: may take up to 2 additonal inhalations per day for a max of 6 inhalations/day sertraline 25 mg tablet 25 mg PO QAM Qty: 90 1RF hydrocodone-acetaminophen 10-325 mg tablet 1 tab PO Q4H PRN (Reason: breakthrough pain) 15 Days Qty: 90 0RF Rx Instructions: max of 6 tabs per day Anoro Ellipta 62.5-25 mcg/actuation Blister With Device 1 inh INHALATION QAM acetaminophen 500 mg Tablet 500 mg PO Q4H PRN (Reason: Pain) ferrous gluconate 324 mg (37.5 mg iron) Tablet 324 mg PO BIDWM Qty: 60 0RF Eliquis 5 mg Tablet 5 mg PO BID Qty: 60 3RF Discontinued azithromycin 250 mg tablet See Rx Instructions PO .COMPLEX Qty: 6 0RF Rx Instructions: take 500 mg today (day 1), then 250 mg for 4 days (days 2-5) PO prednisone 20 mg tablet 20 mg PO DAILY 5 Days Qty: 5 0RF diltiazem HCl 120 mg capsule,extended release 24 hr 120 mg PO QAM Qty: 90 3RF Discharge Orders: Discharge Order (Routine); Ordered 02/03/23 Ordered By: Marquise Gallegos Other Ambulatory Orders: DME: Frank (Order) Location: None Selected Ordered By: Marquise Gallegos Referrals: Armani Hooker DO [Physician] - 03/07/23 8:30 am Jeffrey Waite DO [Primary Care Provider] - (Promise will speak to Dr Waite to see who he would recommend to follow Mrs. Miller for her care. ) Discharge Diet: Cardiac Discharge Activity: Increase activity as tolerated Patient Instructions: Opioid Safety Activity Restrictions/Additional Instructions: Please make sure you monitor your blood pressure twice a day You are taking hydralazine, amlodipine, metoprolol, chlorthalidone for blood pressure which is considered very high dose to control some of his blood pressure If your blood pressure is staying below 140 you can stop taking hydralazine and amlodipine If it stays above 150 you can continue all of her antihypertensive medications Discharge Attestations Time Spent in Discharge Care*: greater than 30 min Status at Discharge: Cognitive status at discharge: cognitively intact , Behavioral status at discharge: cooperative , Quality Metrics Clinical Quality Measures [ No reported AMI, CVA or VTE this stay] Coding Level of Care Code Acute Code for Chg Fwd Diagnoses Hypertension I10 SIADH (syndrome of inappropriate ADH production) E22.2 Hyponatremia E87.1 Chronic back pain M54.9; G89.29 Compressed spine fracture M48.50XA Narcotic dependence F11.20 COPD (chronic obstructive pulmonary disease) J44.9 Normocytic anemia D64.9 History of successful cardiopulmonary resuscitation Z92.89 Acute on chronic respiratory failure with hypoxia and hypercapnia J96.21; J96.22 Chronic anticoagulation Z79.01 PVC (premature ventricular contraction) I49.3
--- NOTE | 2023-02-03 10:07 | PC.CHAP ---
Pastoral Care Encounter/Spiritual Assessment Type of Contact [] Declined field operations manager visit [] Patient/Family/Request visit [] Outpatient visit [] Follow-up visit [] Physician referral [] Code/Alert [x] Routine visit [] Staff referral [] Actively dying [] Patient sleeping [x] Family support [] [] Out of room [] Palliative care [] [] Receiving care in room [] Pre-surgical visit [] Trauma [] Long length of stay [] ICU visit [] Other: Relational/Emotional Strength [x] Patient feels connected with others/family/visitors/staff [] Distress [] Loneliness/isolation [] Abandonment Spirituality of Patient [x] Person of Shefali [] Attends Yazidi of their Shefali [x] Believes in Prayer [] Reads Bible or Jainism materials [] There are Spiritual issues to be addressed Sawmill Supervisor Interventions [x] Prayer [] Active listening [] Non-anxious presence [] Spiritual/emotional support [] Crisis/trauma care [] Spiritual counseling [] Bereavement support [] Provided bereavement packet [] Provided Bible/devotional materials [] Provided toy/stuffed animal, coloring book to patient or family member [] Provided Communion [] Anointing/[place] [] Salvation [x] Completed spiritual assessment [] Other: Impact on Illness or Injury [] Angry [] Fearful [] Anxious [] Often cries [] Exhaustion [] Unable to work [] Unable to attend restorationism [] Unable to walk/stand [] Unable to read [] Unable to drive [] Unable to eat/drink [] Unable to sleep [] Unable to be with family [] Patient intubated [] Other: Summary Time spent with patient 5 min
[2023-02-03] MEDS: magnesium oxide 400 mg tablet PO (10:20)
[2023-02-03] MEDS: losartan 50 mg Tablet 100 MG PO (10:20)
[2023-02-03] MEDS: amlodipine 10 mg Tablet PO (10:21)
[2023-02-03] MEDS: sertraline 50 mg Tablet 25 MG PO (10:22)
[2023-02-03] MEDS: hyDRALAzine 25 mg Tablet 50 MG PO (10:23)
[2023-02-03] MEDS: metoprolol tartrate 25 mg Tablet PO (10:28)
[2023-02-03] MEDS: chlorthalidone 25 mg Tablet PO (10:30)
[2023-02-03] MEDS: potassium chloride ER 20 mEq Tablet 40 MEQ PO (11:07)
--- NOTE | 2023-02-03 11:16 | PC.NURSE ---
PER SCHEDULING FIRST AVAILABLE APPOINTMENT IS MARCH 07, 2023.
== END 2023-02-03 15:10 | disposition home health service (06) | DRG 208 ==
LOC: ER 13:20 → ICU 16:04 → MEDSURG 02-01 17:06
PROVIDERS: Family Medicine; Admitting Provider Hospitalist; Emergency Provider Family Medicine; PCP Family Medicine; Visit Provider Internal Medicine
DX: J96.22 Acute and chronic respiratory failure with hypercapnia (principal); I46.9 Cardiac arrest, cause unspecified; J44.1 Chronic obstructive pulmonary disease with (acute) exacerbation; E22.2 Syndrome of inappropriate secretion of antidiuretic hormone; J96.21 Acute and chronic respiratory failure with hypoxia; Z79.891 Long term (current) use of opiate analgesic; Z87.891 Personal history of nicotine dependence; F41.9 Anxiety disorder, unspecified; B96.3 Hemophilus influenzae [H. influenzae] as the cause of diseases classified elsewhere; I10 Essential (primary) hypertension; Z86.718 Personal history of other venous thrombosis and embolism; Z79.51 Long term (current) use of inhaled steroids; I49.3 Ventricular premature depolarization; E86.0 Dehydration; Z98.82 Breast implant status; Z86.16 Personal history of COVID-19; G89.29 Other chronic pain; M54.9 Dorsalgia, unspecified; D64.9 Anemia, unspecified; Z79.01 Long term (current) use of anticoagulants
CPT/HCPCS: 12345; 31500; 36415; 36556; 36569; 36592; 36600; 51702; 70450; 71045; 71275; 72128; 72131; 72146; 72148; 78452; 80048; 80051; 80053; 80061; 81001; 82330; 82570; 82607; 82803; 82805; 83036; 83516; 83519; 83540; 83550; 83605; 83735; 83880; 83935; 84100; 84145; 84300; 84484; 84550; 85025; 85362; 85378; 85384; 85610; 85730; 87040; 87070; 87077; 87086; 87205; 87426; 87486; 87581; 87633; 87635; 87641; 92610; 93005; 93017; 93306; 94002; 94003; 94640; 94660; 94664; 94760; 94762; 94799; 96365; 96366; 96367; 96372; 96374; 96375; 96376; 97110; 97116; 97161; 97162; 97165; 97530; 97760; 99285; 99291; 99292; A9500; C1751; C9113; J0330; J0456; J0696; J1100; J1650; J1956; J2250; J2270; J2405; J2543; J2704; J2785; J2930; J3010; J3475; J3480; J3490; J7030; J7050; J7060; J7131; J7626; L0456; P9046; Q3014; Q9967

== ENCOUNTER 2023-02-04 06:01 | Inpatient (IN) | payer MEDICARE, OTHER, SELFPAY ==
[2023-02-04] VITALS (62 sets, daily range): BP systolic 114–177; BP diastolic 59–141; PULSE 103–122; RESP 15–38; TEMP 36.8–36.9; O2SAT 88–100; BMI 22.4
--- NOTE | 2023-02-04 06:08 | XRR_ITS ---
PROCEDURE INFORMATION: Exam: XR Chest Exam date and time: 02/04/2023 6:15 AM Age: 77 years old Clinical indication: Shortness of breath; TECHNIQUE: Imaging protocol: Radiologic exam of the chest. Views: 1 view. COMPARISON: CR (CHEST, ) 01/31/2023 4:05 AM FINDINGS: Lungs: Normal lung volumes. Unchanged right mid lung zone nodular 2.4 x 2.3 cm opacity is seen, which correlated with a pleural based mass on the recent chest CT. Decreased right mid lung zone and right basilar reticulonodular opacities are seen, which may represent improved pneumonia. Pleural spaces: No pleural effusion. No pneumothorax. Heart/Mediastinum: Normal heart size. There is a mildly tortuous thoracic aorta. Midline trachea. Bones/joints: No acute abnormalities. Soft tissues: Multiple external leads are seen overlying the chest, limiting assessment. XR/XR chest 1V portable [id number] IMPRESSION: 1. Decreased right mid lung zone and right basilar reticulonodular opacities, which may represent improved pneumonia. 2. Unchanged right mid lung zone nodular opacity, as noted above.
--- NOTE | 2023-02-04 06:11 | ECG_ITS ---
[facility] Test Date: 2023-02-04 Pat Name: Eleni Miller Department: Room: Gender: Female Director Of Patient Safety: : 1945 Requested By: Benjy Suh Order Number: [id number] Olga MD: Maico Negron M.D. Measurements Intervals [place] Rate: 108 P: 71 [place]: 136 QRS: 64 QRSD: 96 T: 68 QT: 387 QTc: 519 Interpretive Statements SINUS TACHYCARDIA WITH FREQUENT VENTRICULAR PREMATURE COMPLEXES POSSIBLE LEFT ATRIAL ENLARGEMENT [-0.1mV P-WAVE IN V1/V2] ABNORMAL RHYTHM ECG Compared to ECG 02/01/2023 21:51:47 No significant changes Electronically Signed On 02-04-2023 9:56:04 CDT by Maico Negron M.D. [email or web address]
[2023-02-04 06:19] LABS: ABG PCO2 44.4 mmHg (35-45); ABG PH Result 7.51 (7.35-7.45); Arterial Blood Gas Hematocrit 40.2 % (37-47); Base Excess ABG 11.3 mmol/L (-2.0-2.0); Blood Gas Allen Test Pos; Blood Gas Sample Site Radial, right; Blood Gas Sample Type Arterial; HCO3 ABG 35.6 mmol/L (22-26); HGB O2 Sat 99.2 % (95-100); Methemoglobin 0.3 % (0.4-1.5); Oxygen Device BIPAP; Total Hemoglobin 13.1 g/dL (12-16)
[2023-02-04] MEDS: dexamethasone 10 mg/mL INJ IVP (06:22)
[2023-02-04 06:25] LABS: Basophils # 0.1 10^3/uL (0.0-0.1); Basophils % 0.4 %; Eosinophils % 0.2 %; Hematocrit 42.1 % (37.0-47.0); Hemoglobin 14.3 g/dL (11.5-15.3); Lymphocytes # 1.1 10^3/uL (0.8-4.8); Lymphocytes % 8.2 %; Mean Corpuscular Hemoglobin 29.7 pg (28.0-34.0); Mean Corpuscular Volume 87.3 fl (81-99); Mean Platelet Volume 8.5 fL (7.4-10.4); Monocytes # 1.2 10^3/uL (0.2-0.9); Neutrophils # 10.02 10^3/uL (1.8-7.7); Nucleated Red Blood Cells % 0 %; Platelet Count 452 10^3/cmm (130-400); Red Blood Count 4.82 10^6/uL (4.1-5.3); Red Cell Distribution Width 11.9 % (12.1-15.1); White Blood Count 13.1 10^3/uL (4.0-10.0)
[2023-02-04] MEDS: ipratropium-albuterol 3 mL Neb INHALATION ×3 (06:27→17:15)
[2023-02-04 06:33] LABS: INR 1.02 (0.8-1.2)
--- NOTE | 2023-02-04 06:34 | ED_ITS ---
HPI - SOB/Dyspnea General: Chief Complaint: Shortness of Breath/Dyspnea Stated Complaint: RESP. DISTRESS Time Seen by Provider: 02/04/23 06:05 Source: patient Mode of arrival: ambulatory History of Present Illness: HPI Narrative: 77-year-old female presents to the emergency room with complaints of shortness of breath and nonproductive cough. Home health splint evaluated this morning and found her in respiratory distress she was discharged home on oxygen earlier this week after being intubated shortly after arrival in the emergency room on January 30. She gone into respiratory arrest had a brief episode of pulselessness achieved ROSC and then was admitted to the ICU. She was discharged yesterday on home oxygen. EMS reports that when home health care arrived she did not have the oxygen. They applied BiPAP on arrival here she is lethargic. MD elicited complaint: shortness of breath and cough Pertinent past history: COPD Onset (ago): hour(s) Severity: moderate Exacerbating factors: nothing Relieving factors: nothing Known history of: COPD Associated symptoms: Reports cough; Deny abdominal pain, chest congestion, chest pain, diaphoresis, extremity pain, fever(s), hemoptysis, myalgias, nausea, palpitations, paresthesias, rash, sense of impending doom or vomiting Treatment prior to arrival: none Review of Systems Const: Denies: fever(s), chills or diaphoresis Card: Reports: dyspnea on exertion; Denies: chest pain, palpitations, irregular heart rhythm, edema or swelling of feet/ankles Resp: Reports: dyspnea, non-productive cough and wheezing; Denies: hemoptysis or chest congestion GI: Denies: abdominal pain, nausea or vomiting : Denies: flank pain, difficulty voiding, dysuria, urinary frequency or urinary urgency Musc: Denies: extremity pain Skin/Breast: Denies: rash or pruritus PFSH ED PFSH: Medical History Acute on chronic respiratory failure with hypoxia and hypercapnia Chronic anticoagulation Chronic back pain Compressed spine fracture COPD (chronic obstructive pulmonary disease) COVID-19 07/2021 DVT (deep venous thrombosis) History of recurrent DVT, on eliquis History of meningitis 2006, hospitalized ~2 months, had pneumonia. staph infection, intubated History of successful cardiopulmonary resuscitation Hypertension Hyponatremia Narcotic dependence on hydrocodone for back pain Normocytic anemia PVC (premature ventricular contraction) SIADH (syndrome of inappropriate ADH production) Surgical History History of breast augmentation History of facelift History of tonsillectomy History of total abdominal hysterectomy and bilateral salpingo-oophorectomy Family History Father Cancer lung cancer Other Stroke Social History Smoking and tobacco status: former smoker Alcohol intake: current Alcohol intake frequency: holidays/special occasions only Household members: spouse Marital status: Physical Exam Const: GENERAL APPEARANCE: cooperative ORIENTATION/CONSCIOUSNESS: Yes awake HENMT: COMMON NORMALS: normocephalic, atraumatic and hearing grossly normal bilaterally HEAD & SCALP: normocephalic and atraumatic Resp: AUSCULTATION: rhonchi and wheezes Cardio: COMMON NORMALS: regular rhythm and No murmurs present (Cardio) RATE: tachycardic RHYTHM: regular rhythm GI: COMMON NORMALS: Soft to palpation and No hepatosplenomegaly present AUSCULTATION: Yes normoactive bowel sounds PALPATION: Yes Soft to palpation, No Tenderness to palpation present (GI), No Guarding due to palpation present (GI) and Yes No hepatosplenomegaly present Extremity: COMMON NORMALS: normal to inspection, capillary refill normal, no clubbing, cyanosis or edema, no calf tenderness and no pedal edema Skin: COMMON NORMALS: no rashes or lesions noted GENERAL SKIN EXAM: no rashes or lesions noted Course Vital Signs: Vital signs: Vital Signs Temperature 98.3 F 02/04/23 06:03 Pulse Rate 113 H 02/04/23 09:18 Respiratory Rate 18 02/04/23 09:18 Blood Pressure 114/81 02/04/23 06:46 Pulse Oximetry 98 02/04/23 09:18 Oxygen Delivery Me thod Nasal Cannula 02/04/23 09:18 Oxygen Flow Rate 2 02/04/23 09:18 Fraction of Inspir ed Oxygen 100 02/04/23 06:30 MDM - SOB/Dyspnea Medical Decision Making Significant delay in getting labs patient is a very difficult draw blood sample is hemolyzed multiple times. Once we were finally able to get her chemistries her sodium is 115 potassium 2.8 normal saline started as well as potassium supplement. Daughter did mention she had some diarrhea since she returned home yesterday. She is now requiring 2 L oxygen then taken it off recently and she desatted into the 86 to 88% range improved to 100% with replacement of oxygen at 2 L/min by nasal cannula.She also has some mild hypomagnesemia with a magnesium of 1.5. Her troponins do not show any significant change no EKG changes. Will admit to ICU for hyponatremia normal saline started as well as potassium supplement. Also give her 2 g of magnesium. Lab Data 02/04/23 06:15 02/04/23 09:00 Labs/Radiology: Radiology Impressions Chest X-Ray 02/04/23 06:08 IMPRESSION: 1. Decreased right mid lung zone and right basilar reticulonodular opacities, which may represent improved pneumonia. 2. Unchanged right mid lung zone nodular opacity, as noted above. Laboratory Results WBC 13.1 10^3/uL (4.0-10.0) H 02/04/23 06:15 RBC 4.82 10^6/uL (4.1-5.3) 02/04/23 06:15 Hgb 14.3 g/dL (11.5-15.3) 02/04/23 06:15 Hct 42.1 % (37.0-47.0) 02/04/23 06:15 MCV 87.3 fl (81-99) 02/04/23 06:15 MCH 29.7 pg (28.0-34.0) 02/04/23 06:15 MCHC 34.0 g/dL (30.0-36.0) 02/04/23 06:15 RDW 11.9 % (12.1-15.1) L 02/04/23 06:15 Plt Count 452 10^3/cmm (130-400) H D 02/04/23 06:15 MPV 8.5 fL (7.4-10.4) 02/04/23 06:15 Neut % (Auto) 82.2 % 02/04/23 06:15 Lymph % (Auto) 8.2 % 02/04/23 06:15 [place] % (Auto) 9.0 % 02/04/23 06:15 Eos % (Auto) 0.2 % 02/04/23 06:15 Baso % (Auto) 0.4 % 02/04/23 06:15 Neut # (Auto) 10.02 10^3/uL (1.8-7.7) H 02/04/23 06:15 Lymph # (Auto) 1.1 10^3/uL (0.8-4.8) 02/04/23 06:15 [place] # (Auto) 1.2 10^3/uL (0.2-0.9) H 02/04/23 06:15 Eos # (Auto) 0.0 10^3/uL (0.0-0.8) 02/04/23 06:15 Baso # (Auto) 0.1 10^3/uL (0.0-0.1) 02/04/23 06:15 Nucleated RBC % (auto) 0 % 02/04/23 06:15 Nucleated RBCs # 0.0 /100WBC 02/04/23 06:15 PT 13.70 SECONDS (12.1-14.9) 02/04/23 06:15 INR 1.02 (0.8-1.2) 02/04/23 06:15 Specimen Type Arterial 02/04/23 06:07 Sample Site Radial, right 02/04/23 06:07 ABG pH 7.51 (7.35-7.45) H 02/04/23 06:07 ABG pCO2 44.4 mmHg (35-45) 02/04/23 06:07 ABG pO2 412.0 mmHg (80.0-100.0) H 02/04/23 06:07 ABG HCO3 35.6 mmol/L (22-26) H 02/04/23 06:07 ABG Base Excess 11.3 mmol/L (-2.0-2.0) H 02/04/23 06:07 Panda Test Pos 02/04/23 06:07 Hematocrit 40.2 % (37-47) 02/04/23 06:07 Hgb O2 Saturation 99.2 % (95-100) 02/04/23 06:07 Carboxyhemoglobin 1.0 %THgb (0.4-20.1) 02/04/23 06:07 Methemoglobin 0.3 % (0.4-1.5) L 02/04/23 06:07 Total Hemoglobin 13.1 g/dL (12-16) 02/04/23 06:07 O2 Delivery Device Bipap 02/04/23 06:07 FiO2 100.0 % 02/04/23 06:07 Spear Fisher ID [email or web address] 02/04/23 06:07 Sodium 115 mmol/L (136-145) L* 02/04/23 09:00 Potassium 2.8 mmol/L (3.5-5.1) L* 02/04/23 09:00 Chloride 69 mmol/L (98-107) L 02/04/23 09:00 Carbon Dioxide 30 mmol/L (22-29) H 02/04/23 09:00 Anion Gap 18.8 (5-19) 02/04/23 09:00 BUN 10 mg/dL (8-23) 02/04/23 09:00 Creatinine 0.4 mg/dL (0.5-0.9) L 02/04/23 09:00 GFR Calculation Not Reportable 02/04/23 09:00 Glucose 105 mg/dL (65-115) 02/04/23 09:00 Calculated Osmolality 239 mOsm/kg (285-295) L 02/04/23 09:00 Lactic Acid 1.4 mmol/L (0.5-2.2) 02/04/23 06:15 Calcium 8.7 mg/dL (8.5-10.5) 02/04/23 09:00 Magnesium 1.5 mg/dL (1.7-2.3) L 02/04/23 09:00 Total Bilirubin 0.5 mg/dL (0.15-1.2) 02/04/23 09:00 AST 25 U/L (0-32) 02/04/23 09:00 ALT 22 U/L (0-33) 02/04/23 09:00 Alkaline Phosphatase 59 U/L (35-105) 02/04/23 09:00 Troponin T Baseline 21 ng/L (0-10) H 02/04/23 06:15 Troponin T 120 Minute 22.74 ng/L (0-10) H 02/04/23 09:00 Delta Troponin T 1.74 ABS# (0-10) 02/04/23 09:00 NT-Pro-B Natriuret Pep 3938 pg/mL (0-450) H 02/04/23 09:00 Total Protein 6.9 g/dL (6.6-8.7) 02/04/23 09:00 Albumin 3.7 g/dL (3.5-5.2) 02/04/23 09:00 Globulin 3.2 g/dL (1.3-4.6) 02/04/23 09:00 Nasal Influ A H1 2009 PCR Not detected (NOT DETECT) 02/04/23 06:45 Adenovirus (PCR) Not detected (NOT DETECT) 02/04/23 06:45 C. pneumoniae DNA (PCR) Not detected (NOT DETECT) 02/04/23 06:45 Coronavirus 229E (PCR) Not detected (NOT DETECT) 02/04/23 06:45 Human Metapneumovir PCR Not detected (NOT DETECT) 02/04/23 06:45 Influenza A (H1) PCR Not detected (NOT DETECT) 02/04/23 06:45 Influenza A (H3) PCR Not detected (NOT DETECT) 02/04/23 06:45 Influenza Type A (PCR) Not detected (NOT DETECT) 02/04/23 06:45 Influenza Type B (PCR) Not detected (NOT DETECT) 02/04/23 06:45 M. pneumoniae (PCR) Not detected (NOT DETECT) 02/04/23 06:45 Parainfluenza 1 (PCR) Not detected (NOT DETECT) 02/04/23 06:45 Parainfluenza 2 (PCR) Not detected (NOT DETECT) 02/04/23 06:45 Parainfluenza 3 (PCR) Not detected (NOT DETECT) 02/04/23 06:45 Parainfluenza 4 (PCR) Not detected (NOT DETECT) 02/04/23 06:45 RSV Type A (PCR) Not detected (NOT DETECT) 02/04/23 06:45 RSV Type B (PCR) Not detected (NOT DETECT) 02/04/23 06:45 Entero/Rhino (PCR) Not detected (NOT DETECT) 02/04/23 06:45 SARS-CoV-2 (PCR) Not detected (NOT DETECT) 02/04/23 06:45 Discharge Plan Discharge Patient Disposition: Admitted As Inpatient Admit Provider: Chivo Julio Clinical Impression: Hyponatremia, Acute exacerbation of chronic obstructive airways disease, [place] lemia, Hypomagnesemia Condition: Stable Coding Level of Care Code ED [employer] Work[employer] for Jami Nguyen
[2023-02-04 06:38] LABS: Lactic Sepsis W/Reflex 1.4 mmol/L (0.5-2.2)
[2023-02-04 06:40] LABS: Troponin(5th) Baseline 21 ng/L (0-10)
[2023-02-04 07:11] LABS: Neutrophils % 82.2 %
[2023-02-04 07:12] LABS: Slide Review Slide Review Perform
--- NOTE | 2023-02-04 08:18 | ECG_ITS ---
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 Measurements Intervals [place] Rate: 108 P: 54 [place]: 157 QRS: 11 QRSD: 104 T: 54 QT: 373 QTc: 502 Interpretive Statements SINUS TACHYCARDIA with frequent PVCs. POSSIBLE LEFT ATRIAL ENLARGEMENT [-0.1mV P-WAVE IN V1/V2] POSSIBLE LATERAL MYOCARDIAL INFARCTION , PROBABLY OLD [30 ms Q WAVE IN I/aVL/V5/V6] POSSIBLE INFERIOR MYOCARDIAL INFARCTION , PROBABLY OLD [30 ms Q WAVE IN II/aVF] CRITICAL TEST RESULT Compared to ECG 02/04/2023 06:38:23 Myocardial infarct finding now present Electronically Signed On 02-04-2023 9:59:05 CDT by Maico Negron M.D. [id number]
[2023-02-04 09:08] LABS: Adenovirus Not Detected (NOT DETECT); Chlamydia Pneumoniae Not Detected (NOT DETECT); Coronavirus 229E,HKU1,NL63,OC4 Not Detected (NOT DETECT); Human Metapneumovirus Not Detected (NOT DETECT); Human Rhinovirus/Enterovirus Not Detected (NOT DETECT); Influenza A Not Detected (NOT DETECT); Influenza A H1 Not Detected (NOT DETECT); Influenza A H1-2009 Not Detected (NOT DETECT); Influenza A H3 Not Detected (NOT DETECT); Influenza B Not Detected (NOT DETECT); Mycoplasma Pneumoniae Not Detected (NOT DETECT); Parainfluenza Virus Type 1 Not Detected (NOT DETECT); Parainfluenza Virus Type 2 Not Detected (NOT DETECT); Parainfluenza Virus Type 3 Not Detected (NOT DETECT); Parainfluenza Virus Type 4 Not Detected (NOT DETECT); Respiratory Syncytial Virus A Not Detected (NOT DETECT); Respiratory Syncytial Virus B Not Detected (NOT DETECT); SARS-COV-2 Not Detected (NOT DETECT)
[2023-02-04 09:37] LABS: Troponin 5 2HR 22.74 ng/L (0-10)
[2023-02-04 09:42] LABS: Alanine Aminotransferase 22 U/L (0-33); Albumin Level 3.7 g/dL (3.5-5.2); Alkaline Phosphatase 59 U/L (35-105); Anion Gap 18.8 (5-19); Aspartate Amino Transferase 25 U/L (0-32); Blood Urea Nitrogen 10 mg/dL (8-23); Calcium 8.7 mg/dL (8.5-10.5); Carbon Dioxide 30 mmol/L (22-29); Chloride 69 mmol/L (98-107); Globulin 3.2 g/dL (1.3-4.6); Glucose 105 mg/dL (65-115); Magnesium 1.5 mg/dL (1.7-2.3); NT Pro B Type Natriuretic Pept 3938 pg/mL (0-450); Osmolality Calculated 239 mOsm/kg (285-295); Total Bilirubin 0.5 mg/dL (0.15-1.2); Total Protein 6.9 g/dL (6.6-8.7)
[2023-02-04] MEDS: HYDROcodone-acetaminophen 5-325 mg Tablet 1 TAB PO (09:53)
[2023-02-04 10:08] LABS: Troponin 5 2HR Delta 1.74 ABS# (0-10)
[2023-02-04 10:10] LABS: Potassium 2.8 mmol/L (3.5-5.1); Sodium 115 mmol/L (136-145)
--- NOTE | 2023-02-04 11:43 | ECG_ITS ---
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 Measurements Intervals [place] Rate: 106 P: 68 [place]: 151 QRS: 49 QRSD: 102 T: 74 QT: 372 QTc: 496 Interpretive Statements SINUS TACHYCARDIA with frequent PVCs POSSIBLE LEFT ATRIAL ENLARGEMENT [-0.1mV P-WAVE IN V1/V2] CRITICAL TEST RESULT Compared to ECG 02/04/2023 08:18:52 Ventricular premature complex(es) still present Myocardial infarct finding no longer present Electronically Signed On 02-05-2023 10:27:24 CDT by Maico Negron M.D. [id number]
--- NOTE | 2023-02-04 11:57 | P.HP_ITS ---
Providers/Chief Complaint Admitting Physician: Chivo Julio MD Primary Care Provider: Jeffrey Waite DO Chief Complaint: RESP. DISTRESS History of Present Illness Eleni Miller is a 77 year old female with Hx of compression fracture, opioid dependence, COPD, anxiety and recent discharge from [facility] for acute hypoxic repiratory with cardiac arrest presents with SOB. patient states she was coughing and having SOB. Home health found her this AM in respiratory distress, notified daughter at 04:30. Brought to ED. Pt was admitted from 01/30 through 02/03 with respiratory distress, brief episode of pulselessness achieved ROSC with ICU stay for PNA tx and cardiac monitoring. was discharged on chlorthalidone, hydralazine and losartan. Cardizem was discontinued and replaced with metoprolol which improved PVC's and HR. Pt has Hx of SIADH and recent hospitalization showed variance in Na levels. Presented today to ED with SOB. Per EMS report she was given BIPAP due to lethargy. In ED pt required 2L oxygen. Pt appears confused at bedside, not oriented to place or time. Per family this is not normal. In ED pt was found to have Na of 115 and K of 2.8. pt was given NS and K suppliment. Daughter mentioned diarrhea since discharge. requiring 2L NC. mild hypomagnesemia. Negative troponins and no EKG changes. admitted to ICU for hyponatremia monitoring. Medications/Allergies Home Medications Medication Instructions Recorded Confirmed Last Taken Type umeclidinium 62.5 mcg-vilanterol 1 inh inhalation QAM 07/06/21 02/04/23 02/24/22 History 25 mcg/actuation powdr for inhalation (Anoro Ellipta) acetaminophen 500 mg tablet 500 mg PO Q4H PRN Pain 07/07/21 02/04/23 Unknown History ferrous gluconate 324 mg (37.5 mg 324 mg PO BIDWM #60 tabs 07/09/21 02/04/23 02/24/22 Rx iron) tablet albuterol sulfate 90 mcg/actuation 1 - 2 puff inhalation Q4H PRN 11/23/22 02/04/23 Unknown Rx aerosol inhaler Shortness Of Breath #6.7 grams ipratropium 20 mcg-albuterol 100 1 puff inhalation QID #4 grams 12/08/22 02/04/23 Unknown Rx mcg/actuation mist for inhalation (Combivent Respimat) losartan 100 mg tablet 100 mg PO DAILY #90 tabs 12/08/22 02/04/23 Unknown Rx nortriptyline 50 mg capsule 50 - 150 mg PO BEDTIME PRN Sleep 12/08/22 02/04/23 Unknown Rx #90 caps hydrocodone 10 mg-acetaminophen 1 tab PO Q4H PRN breakthrough pain 01/17/23 02/04/23 Unknown Rx 325 mg tablet 15 days #90 tabs amlodipine 10 mg tablet 10 mg PO DAILY #60 tabs 02/03/23 02/04/23 Unknown Rx apixaban 5 mg tablet (Eliquis) 5 mg PO BID #60 tabs 02/03/23 02/04/23 Unknown Rx chlorthalidone 25 mg tablet 25 mg PO DAILY #60 tabs 02/03/23 02/04/23 Unknown Rx hydralazine 25 mg tablet 50 mg PO TID #90 tabs 02/03/23 02/04/23 Unknown Rx levofloxacin 750 mg tablet 750 mg PO Q24H #5 tabs 02/03/23 02/04/23 Unknown Rx lorazepam 0.5 mg tablet (Ativan) 0.5 mg PO BID PRN anxiety #6 tabs 02/03/23 02/04/23 Unknown Rx magnesium oxide 400 mg (241.3 mg 400 mg PO BID #6 tabs 02/03/23 02/04/23 Unknown Rx magnesium) tablet metoprolol tartrate 25 mg tablet 25 mg PO BID@0900,2100 #60 tabs 02/03/23 02/04/23 Unknown Rx naloxone 4 mg/actuation nasal 4 mg intranasal Q2M PRN opioid 02/03/23 02/04/23 Unknown Rx spray (Narcan) overdose #2 ea sertraline 50 mg tablet 25 mg PO DAILY #60 tabs 02/03/23 02/04/23 Unknown Rx Allergies Allergy/AdvReac Type Severity Reaction Status Date / Time hydrochlorothiazide Allergy Severe hyponatremi Verified 01/30/23 14:14 a PFSH Acute PFSH: Medical History (Updated 02/04/23 @ 12:46 by Chivo Julio MD) Acute on chronic respiratory failure with hypoxia and hypercapnia Chronic anticoagulation Chronic back pain Compressed spine fracture COPD (chronic obstructive pulmonary disease) COVID-19 07/2021 DVT (deep venous thrombosis) History of recurrent DVT, on eliquis History of meningitis 2006, hospitalized ~2 months, had pneumonia. staph infection, intubated History of successful cardiopulmonary resuscitation Hypertension Hyponatremia Narcotic dependence on hydrocodone for back pain Normocytic anemia PVC (premature ventricular contraction) SIADH (syndrome of inappropriate ADH production) Surgical History History of breast augmentation History of facelift History of tonsillectomy History of total abdominal hysterectomy and bilateral salpingo-oophorectomy Family History Father Cancer lung cancer Other Stroke Social History Smoking and tobacco status: former smoker Alcohol intake: current Alcohol intake frequency: holidays/special occasions only Household members: spouse Marital status: Vitals/I&O/Wt Last Vital Signs Temp 98.3 F 02/04/23 06:03 Pulse 104 H 02/04/23 11:47 Resp 18 02/04/23 09:18 BP 114/81 02/04/23 06:46 Pulse Ox 99 02/04/23 11:47 O2 Del Method Nasal Cannula 02/04/23 11:47 O2 Flow Rate 2.5 02/04/23 11:47 FiO2 100 02/04/23 06:30 Weight last 48 hrs Weight 135 lb Physical Exam Narrative: General: alert but not oriented to name, place, location. no acute distress, anxious apearing. Head: atraumatic, normocephalic, no mass/lesions Eyes: conjunctiva clear w/o exudate or hemorrhage. non-icteric, EOM intact, PERRLA. no signs of nystagmus Nose: nasal mucosa pink, septum midline Oropharynx: good dentition, pink moist mucosa, non-deviated tongue, no buccal nodules/lesions. no pharyngeal exudate Neck: FROM, Chest: atraumatic, symmetrical CVD: RRR, normal S1 and S2, no M/R/G. 2+ pulse x 4 extremities, no JVD, no carotid bruit. Lungs: clear lung sounds in all guzmán, no rhonchi, wheezing, rales. Abdomen: NT, ND, soft, NABS. No hepatosplenomegaly, no mass. umbilicus midline w/o herniation Spine: no visible deformities, FROM, 5/5 strength Extremities: FROM and 5/5 strength in BUE and BLE. no visible joint abnormalities on active and passive ROM. Neuro: CNII-XII grossly intact. No atrophy, weakness, tremors or clonus.? 2+ DTR, no sensory abnormalities. Skin:? no rash, vesicles, lesions. Data 02/04/23 06:15 02/04/23 09:00 Micro: Microbiology 02/04/23 07:41 Blood Culture - Preliminary Blood SPECIMEN COLLECTED A&P Assessment and plan (1) Hyponatremia: (2) Acute exacerbation of chronic obstructive airways disease: (3) Hypokalemia: (4) Hypomagnesemia: (5) SIADH (syndrome of inappropriate ADH production): (6) Leukocytosis: (7) Volume overload: (8) Narcotic dependence: (9) COPD (chronic obstructive pulmonary disease): (10) Chronic anticoagulation: Hx of recurrent DVT's (11) Diarrhea: (12) Altered mental status: Plan Hyponatremia -Hx of SIADH and recent diarrhea -Diuretics tend to exacerbate hyponatremia. -will HOLD NS. Fluid restriction at this time. -will hold Chlorthalidone 2/2 Na levels -q4hrs BMP -will consult nephrology AMS -possible 2/2 low oxygen, sepsis, hyponatremia? -pending blood Cx, Ucx -has been on Levofloxacin. CXR show improving PNA Hypokalemia -KCL 40meq q4hrs x 3 -re-eval in Am hypomganesemia -given 2g Mg in ED -repeat Mg in AM Volume overload -BNP 3938 -ECHO 01/30/23 showed EF 67% G1 diastolic dysfunction. thickened MV. PASP 53 -will hold diuretic as it tends to worsen hyponatremia. re-eval once Na impro latisha. Leukocytosis -elevated WBC -will place on broas spec Abx -swabnegative Acute COPD exacerbation vs recovering PNA -continue levoquin -no concern for worsening PNA on CXR HTN -continue lopressor 25mg BID -holding diuretic 2/2 low Na Restart all home medications continue eliquis for DVT prophylaxis and Attestations Medical Necessity Statement*: ICU admission for hyponatremia Coding Level of Care Code 72184 Diagnoses Hyponatremia E87.1 Acute exacerbation of chronic obstructive airways disease J44.1 Hypokalemia E87.6 Hypomagnesemia E83.42 SIADH (syndrome of inappropriate ADH production) E22.2 Leukocytosis D72.829 Volume overload E87.70 Narcotic dependence F11.20 COPD (chronic obstructive pulmonary disease) J44.9 Chronic anticoagulation Z79.01 Diarrhea R19.7 Altered mental status R41.82
[2023-02-04] MEDS: magnesium sulfate premix 2 GM/50 ML PIGGYBACK IV (12:46)
[2023-02-04] MEDS: potassium chloride premix 100 ML 25 MEQ IV ×2 (12:47→17:17)
[2023-02-04] MEDS: hyDRALAzine 25 mg Tablet 50 MG PO ×2 (14:21→20:55)
[2023-02-04] MEDS: levoFLOXacin 750 mg Tablet PO (14:21)
--- NOTE | 2023-02-04 15:53 | XRR_ITS ---
PROCEDURE INFORMATION: Exam: XR Chest Exam date and time: 02/04/2023 3:56 PM Age: 77 years old Clinical indication: Device placement; Picc; Additional info: Picc line TECHNIQUE: Imaging protocol: Radiologic exam of the chest. Views: 1 view. COMPARISON: CR (CHEST, ) 02/04/2023 6:15 AM FINDINGS: Tubes, catheters and devices: Patient has undergone placement of a right-sided PICC line whose tip terminates within the SVC at the cavoatrial junction. Lungs: See Pleural spaces finding. Pleural spaces: There is a circumscribed, pleural based masslike density projecting peripherally over the right mid lung zone better demonstrated on recent CT exam and reportedly stable from 2019. Remaining lung guzmán are clear. Heart/Mediastinum: Unremarkable. No cardiomegaly. Bones/joints: Unremarkable for age. XR/XR chest 1V portable [id number] IMPRESSION: 1. Interval placement of right-sided PICC line in satisfactory position. 2. Stable pleural based masslike density right mid lung zone. Please refer to prior CT discussions.
[2023-02-04] MEDS: ferrous gluconate 324 mg Tablet PO (17:17)
[2023-02-04] MEDS: apixaban 5 mg Tablet PO (17:17)
--- NOTE | 2023-02-04 17:24 | PC.NURSE ---
Consulted for placement of PICC for a pt in ICU with no access who has hyponatremia and needs access for medications and labs. Upon arrival noted pt is disoriented and explained procedure to her, her spouse, and her son. Answered questions and consent signed by the spouse. Assessed RUE and noted the brachial vein is 4 mm in diameter and no s/s of thrombus or stenosis. Using US guidance, MST, and sterile technique the R brachial vein was accessed x 1 stick. Device fed easily. Device ports aspirate and flush easily. Device secured and dressed. EBL 10 ml. Pt tolerated well. Device 40 cm long. RUE is 22 cm in circumference at 10 cm above the AC fossa. Report to primary nurse. Chest xrary ordered and performed.
--- NOTE | 2023-02-04 18:13 | CTR_ITS ---
PROCEDURE INFORMATION: Exam: CT Head Without Contrast Exam date and time: 02/04/2023 7:33 PM Age: 77 years old Clinical indication: Altered mental status/memory loss TECHNIQUE: Imaging protocol: Computed tomography of the head without contrast. Radiation optimization: All CT scans at this facility use at least one of these dose optimization techniques: automated exposure control; mA and/or kV adjustment per patient size (includes targeted exams where dose is matched to clinical indication); or iterative reconstruction. REPORTING DATA: Count of CT and Cardiac NM exams in prior 12 months: This patient has received 2 known CTs and 0 known cardiac nuclear medicine studies in the 12 months prior to the current study. COMPARISON: CT head wo con* [id number] 07/05/2021 3:53 PM RADIATION DOSE METRICS: Total DLP (mGy-cm): 1164.89 FINDINGS: Brain: No intracranial hemorrhage. No mass effect, edema or midline shift. There are vague areas of decreased attenuation within the periventricular white matter likely secondary to chronic microvascular changes. Mild age related cerebral volume loss resulting in prominence of cortical sulci. Cerebral ventricles: Unremarkable for age and degree of cerebral volume loss. Paranasal sinuses: Visualized sinuses are unremarkable. No fluid levels. Mastoid air cells: Visualized mastoid air cells are well aerated. Bones/joints: Unremarkable. No acute fracture. Soft tissues: Unremarkable. CT/CT head wo con* [id number] IMPRESSION: No acute intracranial abnormality.
[2023-02-04] MEDS: acetaminophen 500 mg Tablet PO (18:19)
--- NOTE | 2023-02-04 18:34 | PC.NURSE ---
Pt was admitted to ICU via bed at 1140 on 2L NC with family at bedside. Pt is A&O to self only with no skin issues. IV in right arm not patent so it was removed and order for PICC line was placed.
[2023-02-04 19:15] LABS: Troponin 5 6HR 29.51 ng/L (0-10); Troponin 5 6HR Delta 8.51 ng/L (0-12)
[2023-02-04 20:50] LABS: Protein Urine 1+ (Negative); Urine Appearance Hazy (CLEAR); Urine Color Yellow (Yellow); pH Urine 6 (5-7)
[2023-02-04 20:51] LABS: Add Urine Microscopic? YES; Bilirubin Urine Neg (Negative); Glucose Urine UA Norm (Normal); Ketones Urine 3+ (Negative); Leukocyte Esterase Urine Negative (Negative); Nitrate Urine Negative (Negative); Urobilinogen Urine Norm (Negative)
[2023-02-04 20:52] LABS: Blood Urine 2+ (Negative)
[2023-02-04 20:53] LABS: Add Urine Culture? Yes; Bacteria Urine 3+ /hpf; Squamous Epithelial Cell Urine 0-4 /hpf (0-5); WBC Urine 0-4 /hpf (0-5)
[2023-02-04] MEDS: LORazepam 0.5 mg Tablet PO (20:55)
[2023-02-04] MEDS: metoprolol tartrate 25 mg Tablet PO (20:55)
[2023-02-04 21:40] LABS: Blood Urea Nitrogen 11 mg/dL (8-23); Calcium 8.1 mg/dL (8.5-10.5); Carbon Dioxide 26 mmol/L (22-29); Chloride 71 mmol/L (98-107); Glucose 91 mg/dL (65-115); Osmolality Calculated 237 mOsm/kg (285-295)
[2023-02-04 21:44] LABS: Anion Gap 20.4 (5-19); Sodium 114 mmol/L (136-145)
[2023-02-04 21:45] LABS: Potassium 3.4 mmol/L (3.5-5.1)
--- NOTE | 2023-02-04 21:56 | PC.NURSE ---
Na 114: New order from Dr. Coppola to report critical sodium to Dr. Villarreal. Called Dr. Villarreal @[phone]. New order to start 3% saline @20ml/hr, Q4HR BMP, and obtain urine osmolarity and random urine sodium.
[2023-02-04] MEDS: sodium chloride 3% 500 ML 20 ML IV (22:16)
[2023-02-04 22:39] LABS: Urine Random Sodium 53 mmol/L
[2023-02-04] MEDS: morphine 4 mg/mL SDV 1 mL 1 MG IVP (23:34)
--- NOTE | 2023-02-04 23:41 | PC.NURSE ---
Pain 10/10: Pt reporting pain 10/10 generalized, increased BP. Dr. Coppola contacted. New order for Morphine Q4HR 1mg IVP PRN. Family requesting that pt be put on the BIPAP mask for pt comfort. Dr. Coppola made aware. No order for BIPAP. Pt placed on oxymask 2L for comfort.
[2023-02-05] VITALS (34 sets, daily range): BP systolic 113–198; BP diastolic 42–122; PULSE 82–108; RESP 13–32; TEMP 36.6–36.7; O2SAT 91–100
[2023-02-05] MEDS: amlodipine 10 mg Tablet PO ×2 (00:52→09:49)
[2023-02-05 01:10] LABS: Anion Gap 16.3 (5-19); Blood Urea Nitrogen 11 mg/dL (8-23); Carbon Dioxide 30 mmol/L (22-29); Chloride 72 mmol/L (98-107); Glucose 85 mg/dL (65-115); Osmolality Calculated 239 mOsm/kg (285-295); Potassium 3.3 mmol/L (3.5-5.1)
[2023-02-05 01:32] LABS: Sodium 115 mmol/L (136-145)
--- NOTE | 2023-02-05 02:56 | PC.NURSE ---
Early dose Morphine: Pain 07/11. Contacted Dr. Coppola, new order to give PRN Morphine dose early, now.
[2023-02-05] MEDS: morphine 4 mg/mL SDV 1 mL 1 MG IVP ×5 (03:00→23:58)
[2023-02-05 03:04] LABS: ABG PCO2 41.3 mmHg (35-45); ABG PH Result 7.53 (7.35-7.45); Arterial Blood Gas Hematocrit 37.9 % (37-47); Base Excess ABG 10.7 mmol/L (-2.0-2.0); Blood Gas Allen Test Pos; Blood Gas Sample Site Radial, left; Blood Gas Sample Type Arterial; HCO3 ABG 34.4 mmol/L (22-26); Oxygen Device OXY MASK
[2023-02-05] MEDS: acetaminophen 500 mg Tablet PO ×2 (03:56→09:51)
[2023-02-05] MEDS: ondansetron 2 mg/ML SDV 2 mL 4 MG IVP ×2 (04:05→20:05)
[2023-02-05 04:37] LABS: Basophils % 0.1 %; Eosinophils % 0.1 %; Hematocrit 35.2 % (37.0-47.0); Lymphocytes # 0.8 10^3/uL (0.8-4.8); Lymphocytes % 5.2 %; Mean Corpuscular HGB Conc 34.1 g/dL (30.0-36.0); Mean Corpuscular Hemoglobin 29.3 pg (28.0-34.0); Mean Corpuscular Volume 86.1 fl (81-99); Mean Platelet Volume 8.5 fL (7.4-10.4); Monocytes # 2.9 10^3/uL (0.2-0.9); Neutrophils # 11.68 10^3/uL (1.8-7.7); Neutrophils % 72.4 %; Nucleated Red Blood Cells % 0 %; Platelet Count 327 10^3/cmm (130-400); Red Blood Count 4.09 10^6/uL (4.1-5.3); Red Cell Distribution Width 11.9 % (12.1-15.1); White Blood Count 16.1 10^3/uL (4.0-10.0)
[2023-02-05 05:01] LABS: Alanine Aminotransferase 25 U/L (0-33); Albumin Level 3.4 g/dL (3.5-5.2); Alkaline Phosphatase 50 U/L (35-105); Anion Gap 14.2 (5-19); Aspartate Amino Transferase 38 U/L (0-32); Blood Urea Nitrogen 11 mg/dL (8-23); Calcium 7.9 mg/dL (8.5-10.5); Carbon Dioxide 30 mmol/L (22-29); Chloride 75 mmol/L (98-107); Globulin 2.7 g/dL (1.3-4.6); Glucose 95 mg/dL (65-115); Magnesium 1.9 mg/dL (1.7-2.3); Osmolality Calculated 241 mOsm/kg (285-295); Potassium 3.2 mmol/L (3.5-5.1); Total Bilirubin 0.4 mg/dL (0.15-1.2); Total Protein 6.1 g/dL (6.6-8.7)
[2023-02-05 05:05] LABS: Sodium 116 mmol/L (136-145)
[2023-02-05] MEDS: ipratropium-albuterol 3 mL Neb INHALATION ×3 (08:44→20:12)
[2023-02-05] MEDS: apixaban 5 mg Tablet PO ×2 (09:49→17:53)
[2023-02-05] MEDS: potassium chloride oral liq 20 mEq/15 mL UDC 40 MEQ PO (09:49)
[2023-02-05] MEDS: pantoprazole DR 40 mg Tablet PO (09:50)
[2023-02-05] MEDS: hyDRALAzine 25 mg Tablet 50 MG PO ×3 (09:50→20:11)
[2023-02-05] MEDS: ferrous gluconate 324 mg Tablet PO ×2 (09:50→17:53)
[2023-02-05] MEDS: sertraline 50 mg Tablet 25 MG PO (09:50)
[2023-02-05] MEDS: metoprolol tartrate 25 mg Tablet PO ×2 (09:52→20:11)
--- NOTE | 2023-02-05 10:19 | XRR_ITS ---
PROCEDURE INFORMATION: Exam: XR Chest Exam date and time: 02/05/2023 10:56 AM Age: 77 years old Clinical indication: Shortness of breath TECHNIQUE: Imaging protocol: Radiologic exam of the chest. Views: 1 view. COMPARISON: 1. CR (CHEST, ) 02/04/2023 3:[address] angio chest PE protcl [id number] 01/30/2023 4:46 PM FINDINGS: Tubes, catheters and devices: There is a peripherally inserted central catheter on the right with the tip appropriately positioned in the SVC near the cavoatrial junction. Lungs: There is no consolidation. Pleural spaces: There is no pleural effusion or pneumothorax. There is a pleural based mass in the lateral right upper thorax corresponding to chest CT findings from 01/30/2023. Heart/Mediastinum: Cardiomediastinal contours are unremarkable. Bones/joints: Bones are unremarkable. XR/XR chest 1V portable [id number] IMPRESSION: 1. No change since 02/04/2023. 2. Satisfactory right PICC line position.
[2023-02-05] MEDS: temazepam 15 mg Capsule PO ×2 (10:31→20:11)
--- NOTE | 2023-02-05 11:14 | P.CONIM_ITS ---
Providers/Reason For Consult Consulting Physician/Specialty*: [facility]/Nephrology Reason for Consult*: Hyponatremia Attending Physician: Marquise Gallegos MD Primary Care Provider: Jeffrey Waite DO History of Present Illness History of Present Illness Eleni Miller is a 77 year old female Patient is a 77-year-old male with past medical history of COPD anxiety and opioid dependence,History of compression fractures, history of chronic hyponatremia presented with cough and shortness of breath. Patient's baseline sodium levels were in the high 120s to low 130s range. Patient was recently discharged with acute respiratory distress cardiac arrest and ROSC. Was discharged on chlorthalidone. In ED patient found to have sodium of 115 potassium was 2.8. Patient's daughter reports decreased p.o. intake at home since her discharge. Medications/Allergies Home Medications Medication Instructions Recorded Confirmed Last Taken Type umeclidinium 62.5 mcg-vilanterol 1 inh inhalation QAM 07/06/21 02/04/23 02/24/22 History 25 mcg/actuation powdr for inhalation (Anoro Ellipta) acetaminophen 500 mg tablet 500 mg PO Q4H PRN Pain 07/07/21 02/04/23 Unknown History ferrous gluconate 324 mg (37.5 mg 324 mg PO BIDWM #60 tabs 07/09/21 02/04/23 02/24/22 Rx iron) tablet albuterol sulfate 90 mcg/actuation 1 - 2 puff inhalation Q4H PRN 11/23/22 02/04/23 Unknown Rx aerosol inhaler Shortness Of Breath #6.7 grams ipratropium 20 mcg-albuterol 100 1 puff inhalation QID #4 grams 12/08/22 02/04/23 Unknown Rx mcg/actuation mist for inhalation (Combivent Respimat) losartan 100 mg tablet 100 mg PO DAILY #90 tabs 12/08/22 02/04/23 Unknown Rx nortriptyline 50 mg capsule 50 - 150 mg PO BEDTIME PRN Sleep 12/08/22 02/04/23 Unknown Rx #90 caps hydrocodone 10 mg-acetaminophen 1 tab PO Q4H PRN breakthrough pain 01/17/23 02/04/23 Unknown Rx 325 mg tablet 15 days #90 tabs amlodipine 10 mg tablet 10 mg PO DAILY #60 tabs 02/03/23 02/04/23 Unknown Rx apixaban 5 mg tablet (Eliquis) 5 mg PO BID #60 tabs 02/03/23 02/04/23 Unknown Rx chlorthalidone 25 mg tablet 25 mg PO DAILY #60 tabs 02/03/23 02/04/23 Unknown Rx hydralazine 25 mg tablet 50 mg PO TID #90 tabs 02/03/23 02/04/23 Unknown Rx levofloxacin 750 mg tablet 750 mg PO Q24H #5 tabs 02/03/23 02/04/23 Unknown Rx lorazepam 0.5 mg tablet (Ativan) 0.5 mg PO BID PRN anxiety #6 tabs 02/03/23 02/04/23 Unknown Rx magnesium oxide 400 mg (241.3 mg 400 mg PO BID #6 tabs 02/03/23 02/04/23 Unknown Rx magnesium) tablet metoprolol tartrate 25 mg tablet 25 mg PO BID@0900,2100 #60 tabs 02/03/23 02/04/23 Unknown Rx naloxone 4 mg/actuation nasal 4 mg intranasal Q2M PRN opioid 02/03/23 02/04/23 Unknown Rx spray (Narcan) overdose #2 ea sertraline 50 mg tablet 25 mg PO DAILY #60 tabs 02/03/23 02/04/23 Unknown Rx Allergies Allergy/AdvReac Type Severity Reaction Status Date / Time hydrochlorothiazide Allergy Severe hyponatremi Verified 01/30/23 14:14 a Current Medications Generic Name Dose Route Start Last Admin Trade Name Freq PRN Reason Stop Dose Admin Acetaminophen 500 mg 02/04/23 12:30 02/05/23 09:51 Acetaminophen 500 Mg Tablet PO 500 mg Q4H PRN Administration Pain Albuterol/Ipratropium 3 ml 02/04/23 13:30 02/05/23 08:44 Ipratropium-Albuterol 3 Ml Neb INHALATION 3 ml QID.RESPIRATORY SIMONA Administration Amlodipine Besylate 10 mg 02/05/23 01:45 02/05/23 09:49 Amlodipine 10 Mg Tablet PO 10 mg DAILY SIMONA Administration Apixaban 5 mg 02/04/23 18:00 02/05/23 09:49 Apixaban 5 Mg Tablet PO 5 mg BID SIMONA Administration Ferrous Gluconate 324 mg 02/04/23 18:00 02/05/23 09:50 Ferrous Gluconate 324 Mg Tablet PO 324 mg BIDWM SIMONA Administration Hydralazine HCl 50 mg 02/04/23 15:00 02/05/23 09:50 Hydralazine 25 Mg Tablet PO 50 mg TID SIMONA Administration Sodium Chloride 500 mls @ 25 mls/hr 02/04/23 22:00 02/05/23 09:47 Sodium Chloride 3% IV 25 mls/hr .Q20H SIMONA Infusion Levofloxacin 750 mg 02/04/23 13:00 02/04/23 14:21 Levofloxacin 750 Mg Tablet PO 750 mg Q24H SIMONA Administration Protocol Lorazepam 0.5 mg 02/04/23 12:30 02/04/23 20:55 Lorazepam 0.5 Mg Tablet PO 0.5 mg BID PRN Administration anxiety Metoprolol Tartrate 25 mg 02/04/23 21:00 02/05/23 09:52 Metoprolol Tartrate 25 Mg Tablet PO 25 mg BID@0900,2100 SIMONA Administration Morphine Sulfate 1 mg 02/04/23 23:19 02/05/23 07:19 Morphine 4 Mg/Ml Sdv 1 Ml IVP 1 mg Q4H PRN Administration SEVERE PAIN Ondansetron HCl 4 mg 02/04/23 12:29 02/05/23 04:05 Ondansetron 2 Mg/Ml Sdv 2 Ml IVP 4 mg Q6H PRN Administration NAUSEA AND VOMITING Pantoprazole Sodium 40 mg 02/05/23 09:00 02/05/23 09:[address] 40 Mg Tablet PO 40 mg DAILY SIMONA Administration Sertraline HCl 25 mg 02/05/23 09:00 02/05/23 09:50 Sertraline 50 Mg Tablet PO 25 mg DAILY SIMONA Administration PFSH Acute PFSH: Medical History (Updated 02/05/23 @ 11:16 by Ellie Jason MD) Acute on chronic respiratory failure with hypoxia and hypercapnia Chronic anticoagulation Chronic back pain Compressed spine fracture COPD (chronic obstructive pulmonary disease) COVID-19 07/2021 DVT (deep venous thrombosis) History of recurrent DVT, on eliquis History of meningitis 2006, hospitalized ~2 months, had pneumonia. staph infection, intubated History of successful cardiopulmonary resuscitation Hypertension Hyponatremia Narcotic dependence on hydrocodone for back pain Normocytic anemia PVC (premature ventricular contraction) SIADH (syndrome of inappropriate ADH production) Surgical History History of breast augmentation History of facelift History of tonsillectomy History of total abdominal hysterectomy and bilateral salpingo-oophorectomy Family History Father Cancer lung cancer Other Stroke Social History Smoking and tobacco status: former smoker Alcohol intake: current Alcohol intake frequency: holidays/special occasions only Household members: spouse Marital status: Vitals/I&O/Wt Last Vital Signs Temp 98.4 F 02/04/23 20:45 Pulse 108 H 02/05/23 10:00 Resp 25 H 02/05/23 10:00 BP 132/63 02/05/23 10:00 Pulse Ox 99 02/05/23 10:00 O2 Del Method Nasal Cannula 02/05/23 10:00 O2 Flow Rate 2 02/05/23 10:00 FiO2 100 02/04/23 06:30 02/04/23 02/05/23 02/05/23 22:59 06:59 14:59 Intake Total 150 / 150 464.667 / 614.667 355.667 / 355.667 Output Total 200 / 200 Balance -50 / -50 464.667 / 414.667 355.667 / 355.667 Weight last 48 hrs Weight 62.777 kg Weight 61.235 kg Physical Exam Narrative: awake , alert , nodistress HEENT , LUIS S1S2 RRR Lungs clear per report no edema Data 02/05/23 04:28 02/05/23 04:28 Micro: Microbiology 02/04/23 07:41 Blood Culture - Preliminary Blood NEGATIVE TO DATE 02/04/23 17:49 Blood Culture - Preliminary Blood SPECIMEN COLLECTED A&P Assessment and plan (1) Hyponatremia: Plan 1. Acute on chronic hyponatremia: Baseline in the high 120s to low 130s range, sodium was 115 on presentation-likely hypovolemia with underlying history of SIADH. Also contributed from recent use of chlorthalidone. -Placed on the 3% percent saline until sodium above 120s. -Continue fluid restriction-1200 cc/day -Replete potassium 40 mg KCl ordered -Started on IV albumin 25 g every 8 hours - added urea tabs -Repeat urine sodium and urine osmolality- -continue to hold chlorthalidone and do not restart at discharge 2. Hypokalemia: Repletion as above 3. Acute on chronic respiratory respiratory failure Discussed with patient daughter at bedside. Patient evaluated using audiovisual cart. Time spent 40 minutes. Consult Attestations Medical Necessity Statement: per medicine Coding Level of Care Code Acute Code for [facility] Diagnoses Hyponatremia E87.1
[2023-02-05] MEDS: urea 15 gm Powder 30 GM PO (11:53)
[2023-02-05] MEDS: albumin 25 G/100 ML BAG 60 G IV ×2 (11:54→20:05)
[2023-02-05] MEDS: levoFLOXacin 750 mg Tablet PO (12:34)
[2023-02-05 13:12] LABS: ABG PCO2 51.4 mmHg (35-45); ABG PH Result 7.44 (7.35-7.45); Arterial Blood Gas Hematocrit 33.4 % (37-47); Base Excess ABG 9.3 mmol/L (-2.0-2.0); Blood Gas Allen Test Pos; Blood Gas Sample Type Arterial; Carboxyhemoglobin 1.1 %THgb (0.4-20.1); HCO3 ABG 34.8 mmol/L (22-26); HGB O2 Sat 95.5 % (95-100); Ionized Calcium Level - ABG 1.1 mmol/L (1.1-1.4); Methemoglobin 0.9 % (0.4-1.5); Oxygen Saturation ABG 97.5; PO2 ABG 85.4 mmHg (80.0-100.0); Potassium Level - ABG 3.4 mmol/L (3.5-5.0); Total Hemoglobin 10.9 g/dL (12-16)
[2023-02-05 13:13] LABS: Alveolar-Arterial Oxygen Gradi 6.6 mmHg (5-10); Blood Gas Operator Identificat MONRO; Blood Gas Sample Site Brachial, left; Oxygen Device NC
--- NOTE | 2023-02-05 14:00 | PM.PN ---
Subjective Subjective: Her venous sample has been hemolyzing I requested ABG which showed sodium 121 Stop 3% hypertonic saline Spoke with Dr. Figueroa wrapping machine helper 1520 minutes spent in explaining all the findings to the family, patient is fatigued and lethargic stating that she is hurting all over As per the daughter she was having diarrhea at home She has been afebrile, Currently on 1.5 L nasal cannula Blood pressure 142/66 mmHg overnight blood pressure was ranging between 155-160s systolic I have told the family that we need to be careful with opioids and might need to consult orthopedic surgeon on Monday to see if we can do trigger injections to decrease the dose of opioids There is also concern for opioid withdrawal because her pupils are dilated, she gets tachycardic, hypertensive Patient keeps stating that she is hurting all over Her SIADH is related to use of chronic opioids and anxiolytics Potassium repleted Magnesium p.o. added Vitals/I&O/Wt Last Vital Signs Temp 97.9 F 02/05/23 11:00 Pulse 90 02/05/23 13:00 Resp 25 H 02/05/23 13:00 BP 142/66 02/05/23 13:00 Pulse Ox 91 02/05/23 13:00 O2 Del Method Nasal Cannula 02/05/23 13:00 O2 Flow Rate 2 02/05/23 13:00 FiO2 100 02/04/23 06:30 02/04/23 02/05/23 02/05/23 22:59 06:59 14:59 Intake Total 150 / 150 464.667 / 627.481 7066.917 / 1036.917 Output Total 200 / 200 Balance -50 / -50 464.667 / 511.940 6836.917 / 1036.917 Weight last 48 hrs Weight 62.777 kg Weight 61.235 kg Physical Exam Narrative: Patient is fatigued and lethargic Able to follow commands She is communicative Talking with the family Ptosis of eyelid Able to follow commands Currently on 1.5 L nasal cannula Mild rhonchi noted on lung auscultation No respiratory distress S1, S2 Blood pressure stable Thin extremities Muscle mass loss Kyphosis with hyperemia no active skin ulcer, mild erythema noted with skin blanching Daughter at the bedside Data 02/05/23 04:28 02/05/23 04:28 Micro: Microbiology 02/04/23 07:41 Blood Culture - Preliminary Blood NEGATIVE TO DATE 02/04/23 17:49 Blood Culture - Preliminary Blood SPECIMEN COLLECTED A&P Assessment and plan (1) Hyponatremia: (2) Altered mental status: (3) Diarrhea: (4) Chronic anticoagulation: (5) COPD (chronic obstructive pulmonary disease): (6) Narcotic dependence: (7) Volume overload: (8) SIADH (syndrome of inappropriate ADH production): (9) Hyponatremia: (10) Acute exacerbation of chronic obstructive airways disease: (11) Hypokalemia: (12) Hypomagnesemia: (13) Ptosis: (14) Compression fracture: Plan Euvolemic hyponatremia History of SIADH Patient has been experiencing diarrhea she was also taking chlorthalidone Hypertonic saline discontinued sodium 121 today Appreciate nephro recommendations Patient will be on fluid restriction now onwards BMP every 4 hours, her sample has been hemolyzing since this morning Arterial stick was done for sodium evaluation Compression fracture complaining of hurting all over and back pain Repeat lumbar and thoracic x-ray, I am not sure if she will be able to lay flat for CT scan We will consult Dr. Luke tomorrow for trigger injections to see if he can cut back on her opioids Concern for opioid withdrawal Pseudoptosis Tachycardia, hypertension, pupils dilated, I certainly do not want her to go to withdrawal, I would add hydrocodone every 4 hours on as needed basis Diarrhea: If more than 3 episodes we will rule out C. difficile Recent diagnosis of Haemophilus influenzae left lower lobe pneumonia: Continue levofloxacin for now Generalized weakness and fatigue, might start physical therapy for tomorrow Acute hypoxia requiring 1.5 liters oxygen, she did not qualify for oxygen during recent admission Hypokalemia: Repleted Hypomagnesemia: Added p.o. mag Mild signs of fluid overload BNP elevated, preserved ejection fraction Judicious use of diuretics Hypertensive urgency: Opioid withdrawal? Hold chlorthalidone We will treat her with amlodipine, hydralazine, metoprolol, losartan History of DVT, continue Eliquis for now PICC line has been placed which is malfunctioning at this point Will request another PICC line tomorrow Full code Fluid restriction 1200 mL Recent episode of cardiac arrest patient was intubated, extubated to room air, trigger with hypoxia due to pneumonia, echo unremarkable, troponin was trending down, stress test unremarkable Detailed family meeting conducted at the bedside Attestations Medical Necessity Statement*: Continue ICU manage Diagnoses Hyponatremia E87.1 Altered mental status R41.82 Diarrhea R19.7 Chronic anticoagulation Z79.01 COPD (chronic obstructive pulmonary disease) J44.9 Narcotic dependence F11.20 Volume overload E87.70 SIADH (syndrome of inappropriate ADH production) E22.2 Acute exacerbation of chronic obstructive airways disease J44.1 Hypokalemia E87.6 Hypomagnesemia E83.42 Ptosis H02.409 Compression fracture
[2023-02-05 15:43] LABS: Adenovirus Not Detected (NOT DETECT); Chlamydia Pneumoniae Not Detected (NOT DETECT); Coronavirus 229E,HKU1,NL63,OC4 Not Detected (NOT DETECT); Human Metapneumovirus Not Detected (NOT DETECT); Human Rhinovirus/Enterovirus Not Detected (NOT DETECT); Influenza A Not Detected (NOT DETECT); Influenza A H1 Not Detected (NOT DETECT); Influenza A H1-2009 Not Detected (NOT DETECT); Influenza A H3 Not Detected (NOT DETECT); Influenza B Not Detected (NOT DETECT); Mycoplasma Pneumoniae Not Detected (NOT DETECT); Parainfluenza Virus Type 1 Not Detected (NOT DETECT); Parainfluenza Virus Type 2 Not Detected (NOT DETECT); Parainfluenza Virus Type 3 Not Detected (NOT DETECT); Parainfluenza Virus Type 4 Not Detected (NOT DETECT); Respiratory Syncytial Virus A Not Detected (NOT DETECT); Respiratory Syncytial Virus B Not Detected (NOT DETECT); SARS-COV-2 Not Detected (NOT DETECT)
[2023-02-05 16:50] LABS: Blood Urea Nitrogen 43 mg/dL (8-23); Calcium 8.2 mg/dL (8.5-10.5); Carbon Dioxide 33 mmol/L (22-29); Chloride 81 mmol/L (98-107); Glucose 183 mg/dL (65-115); Osmolality Calculated 270 mOsm/kg (285-295); Sodium 122 mmol/L (136-145)
[2023-02-05 16:54] LABS: Anion Gap 11.8 (5-19); Potassium 3.8 mmol/L (3.5-5.1)
[2023-02-05] MEDS: HYDROcodone-acetaminophen 7.5-325 mg Tablet 1 TAB PO ×2 (18:17→22:15)
--- NOTE | 2023-02-05 20:42 | PC.NURSE ---
Blood drawn form PICC line, hemolysis noted in lab, unable to run chemistry. New blood drawn from PICC line.
[2023-02-05] MEDS: ALPRAZolam 0.5 mg Tablet PO (21:08)
--- NOTE | 2023-02-05 21:37 | PC.NURSE ---
Blood hemolysis noted by lab again. Blood redraw per phlebotomy.
--- NOTE | 2023-02-05 21:48 | PC.NURSE ---
Notified Fly, RT that O2 saturations were staying down around 83-85% with occasional increases to 89-90%. Placed on 1L NC per RT.
[2023-02-05 22:03] LABS: Blood Urea Nitrogen 48 mg/dL (8-23); Calcium 8.3 mg/dL (8.5-10.5); Carbon Dioxide 28 mmol/L (22-29); Chloride 80 mmol/L (98-107); Glucose 116 mg/dL (65-115); Osmolality Calculated 268 mOsm/kg (285-295); Sodium 122 mmol/L (136-145)
[2023-02-05 22:07] LABS: Anion Gap 17.7 (5-19); Potassium 3.7 mmol/L (3.5-5.1)
[2023-02-06] VITALS (26 sets, daily range): BP systolic 104–154; BP diastolic 43–70; PULSE 79–93; RESP 12–27; TEMP 36.2–37.1; O2SAT 92–100
[2023-02-06] MEDS: LORazepam 0.5 mg Tablet PO ×3 (01:36→20:49)
[2023-02-06] MEDS: HYDROcodone-acetaminophen 7.5-325 mg Tablet 1 TAB PO ×4 (02:13→16:08)
[2023-02-06 02:34] LABS: Anion Gap 17.3 (5-19); Blood Urea Nitrogen 47 mg/dL (8-23); Calcium 8.1 mg/dL (8.5-10.5); Carbon Dioxide 27 mmol/L (22-29); Chloride 82 mmol/L (98-107); Glucose 112 mg/dL (65-115); Osmolality Calculated 269 mOsm/kg (285-295); Potassium 3.3 mmol/L (3.5-5.1); Sodium 123 mmol/L (136-145)
[2023-02-06] MEDS: potassium chloride ER 20 mEq Tablet 40 MEQ PO (02:50)
[2023-02-06] MEDS: albumin 25 G/100 ML BAG 60 G IV ×2 (03:09→11:36)
[2023-02-06 06:36] LABS: Basophils % 0.2 %; Eosinophils # 0.1 10^3/uL (0.0-0.8); Eosinophils % 0.7 %; Hematocrit 29.3 % (37.0-47.0); Hemoglobin 9.4 g/dL (11.5-15.3); Lymphocytes # 1.3 10^3/uL (0.8-4.8); Lymphocytes % 10.5 %; Mean Corpuscular HGB Conc 32.1 g/dL (30.0-36.0); Mean Corpuscular Hemoglobin 29.4 pg (28.0-34.0); Mean Corpuscular Volume 91.6 fl (81-99); Mean Platelet Volume 8.8 fL (7.4-10.4); Monocytes # 2.4 10^3/uL (0.2-0.9); Monocytes % 19.3 %; Neutrophils % 64.9 %; Nucleated Red Blood Cells % 0 %; Platelet Count 278 10^3/cmm (130-400); Red Cell Distribution Width 12.4 % (12.1-15.1); White Blood Count 12.3 10^3/uL (4.0-10.0)
[2023-02-06 06:55] LABS: INR 1.35 (0.8-1.2)
[2023-02-06 07:06] LABS: Fibrinogen 200 mg/dL (174-498)
[2023-02-06 07:08] LABS: D Dimer 0.97 ug/mIFEU (0-0.59)
[2023-02-06 07:20] LABS: Phosphorus 2.2 mg/dL (2.5-4.5)
[2023-02-06] MEDS: ferrous gluconate 324 mg Tablet PO ×2 (07:46→18:50)
[2023-02-06] MEDS: ipratropium-albuterol 3 mL Neb INHALATION ×4 (07:52→20:10)
[2023-02-06 08:02] LABS: Vitamin B12 448 pg/mL (232-1245)
[2023-02-06 08:15] LABS: Urine Random Sodium < 10 mmol/L
[2023-02-06] MEDS: hyDRALAzine 25 mg Tablet 50 MG PO ×3 (09:05→20:34)
[2023-02-06] MEDS: pantoprazole DR 40 mg Tablet PO (09:05)
[2023-02-06] MEDS: sertraline 50 mg Tablet 25 MG PO (09:06)
[2023-02-06] MEDS: apixaban 5 mg Tablet PO ×2 (09:06→18:50)
[2023-02-06] MEDS: amlodipine 10 mg Tablet PO (09:06)
[2023-02-06] MEDS: urea 15 gm Powder 30 GM PO (09:07)
[2023-02-06] MEDS: metoprolol tartrate 25 mg Tablet PO ×2 (09:08→20:33)
[2023-02-06] MEDS: morphine 4 mg/mL SDV 1 mL 1 MG IVP ×2 (11:36→16:50)
--- NOTE | 2023-02-06 11:41 | MR_ITS ---
WS: [id number] MRI LUMBAR SPINE NONCONTRAST HISTORY: Compression fracture COMPARISON: CT lumbar spine 02/06/2023 TECHNIQUE: Sagittal and axial multisequence imaging is submitted. Severe focal kyphosis centered at the T12 vertebral body. Compression fractures anterior wedging of T 11, T12 and L1. Retropulsion of inferior endplate of T11 and superior endplate of T12 by 7 mm. 3 mm r etropulsion superior endplate L1. Large nerve root sleeve diverticulum noted bilateral at T11-12 and T12-L1. L2 retrolisthesis by 2 mm. No acute vertebral body fractures are identified. Schmorl's node inferior endplate of L2. Disc spaces are desiccated and narrowed throughout the lumbar spine. Conus terminates normally at L1-2 disc level. T12-L1: Mild diffuse annular disc bulging encroaching upon the ventral thecal sac and subarticular re cesses. Mild facet and ligamentum flavum hypertrophy. Mild encroachment and narrowing of the foramina . L1-L2: Mild annular disc bulging. Mild bilateral foraminal stenosis. L2-L3: Diffuse annular disc bulging with osteophytic ridging. Moderate facet joint arthritis and liga mentum flavum hypertrophy. Mild central stenosis with moderate bilateral subarticular recess and fora cory stenosis. Most significant encroachment upon the traversing L3 nerve roots. L3-L4: Mild annular disc bulge with moderate facet arthropathy. Small amount of fluid in the facet robert ints. Moderate bilateral foraminal stenosis. L4-L5: Mild annular disc bulge with facet joint arthropathy. Moderate bilateral foraminal stenosis, L EFT greater than RIGHT. L5-S1: Diffuse annular disc bulging and facet arthropathy. Minimal encroachment upon the S1 nerve hernan ts but no high-grade subarticular stenosis. Mild bilateral foraminal stenosis. Paravertebral soft tissues are negative. MR/MR lumbar spine wo con* [id number] IMPRESSION: 1. No acute lumbar spine fracture. 2. Marked, severe focal kyphosis centered at T12. Patient has known remote com pression fractures at T11, T12 and L1. Most significant at T12 by at least 80%. Retropulsion of the posterior T11, T12 and L1 vertebral bodies encroaching upo n the thecal sac. 3. L2 retrolisthesis by 2 mm. 4. Multilevel diffuse disc bulging with osteophytosis and facet arthropathy. 5. Mild foraminal narrowing at T12-L1 and L1-2. 6. Mild central stenosis with moderate bilateral subarticular recess and maru inal stenosis at L2-3. 7. Moderate bilateral foraminal stenosis at L3-4 and L5-S1. 8. Moderate bilateral foraminal stenosis at L4-5, LEFT greater than RIGHT.
--- NOTE | 2023-02-06 11:42 | MR_ITS ---
WS: [id number] MRI THORACIC SPINE noncontrast. HISTORY: compression fracture COMPARISON: CT thoracic spine 02/06/2023 TECHNIQUE: Multiplanar sequences are performed in sagittal and axial planes. Severe focal kyphosis centered at T12. Mild anterior wedging of L1 and T11. Severe vertebral planar c ompression of T12. Retropulsion of the posterior vertebral body of L1 and the superior endplates of T 12 and L1. Retropulsion of T11 and T12 contact the thoracic cord and displaces it posteriorly. There is a small amount very minimal increased T2 signal within the conus at this level. The remaining thoracic vertebral bodies are straightened but normally aligned. Very minimal remote fr acture involving the superior endplate of T8. No acute fracture or marrow edema. Bilateral nerve root sleeve diverticulum at T10-11, T11-12 and T12-L1. T9-10: Bilateral moderate facet joint arthritis and mild foraminal narrowing. T10-11: Moderate facet joint arthritis and mild foraminal narrowing. T11-12: Osteophyte and disc encroachment upon the thoracic cord with severe central and bilateral álvarez barticular recess and foraminal stenosis. Marked facet joint hypertrophy. Thoracic cord is being disp laced posteriorly. Marked trefoil stenosis of the central canal. T12-L1: Mild foraminal narrowing. MR/MR thoracic spin wo con* [id number] IMPRESSION: 1. Severe focal kyphosis centered at T12. Vertebral body anterior compression fractures with retropulsion involving T11, T12 and L1. 2. Severe central, bilateral subarticular recess and foraminal stenosis at T11 -12. 3. Disc and vertebral body retropulsion contacts the thoracic cord with displa cement and probable very early changes of myelomalacia at T11-12. 4. No acute fractures. 5. Very mild anterior wedging of T8 is remote.
--- NOTE | 2023-02-06 12:03 | P.PN_ITS ---
Subjective Subjective: This morning patient is doing much better as compared to yesterday Blood pressure has been between 1 30-1 40s 2 bowel movements which were semisolid Sodium 123 Potassium 3.3 She can be transferred out of ICU Dr. Luke has been consulted I have sent myasthenia gravis antibodies COVID-negative Potassium, phosphorus, calcium low Leukocytosis trending down Afebrile Patient is endorsing anorexia She does have sleep apnea nocturnal hypoxemia Vitals/I&O/Wt Last Vital Signs Temp 98.8 F 02/06/23 09:00 Pulse 88 02/06/23 11:44 Resp 20 H 02/06/23 11:44 BP 154/61 02/06/23 10:00 Pulse Ox 97 02/06/23 11:44 O2 Del Method Nasal Cannula 02/06/23 11:44 O2 Flow Rate 1 02/06/23 11:44 FiO2 100 02/04/23 06:30 02/05/23 02/06/23 02/06/23 22:59 06:59 14:59 Intake Total 590 / 1626.917 100 / 1726.917 220 / 220 Output Total 950 / 950 900 / 1850 200 / 200 Balance -360 / 676.917 -800 / -123.083 20 / 20 Weight last 48 hrs Weight 67.993 kg Weight 62.777 kg Physical Exam Narrative: Mentation better today but significant improvement as compared to yesterday Ptosis of eyelids improved Currently on 1 L nasal cannula Abdomen soft, bowel sounds very active Lower extremity no edema No audible stridor or wheezing S1, S2 Blood pressure 154/61 mmHg Nonfocal neuro exam Data 02/06/23 06:21 02/06/23 01:37 Micro: Microbiology 02/04/23 20:20 Urine Culture - Final Urine,Clean Catch 02/04/23 17:49 Blood Culture - Preliminary Blood NEGATIVE TO DATE 02/04/23 07:41 Blood Culture - Preliminary Blood NEGATIVE TO DATE A&P Assessment and plan (1) Compression fracture: (2) Ptosis: (3) Hyponatremia: (4) Altered mental status: (5) Diarrhea: (6) Chronic anticoagulation: (7) COPD (chronic obstructive pulmonary disease): (8) SIADH (syndrome of inappropriate ADH production): (9) Hypokalemia: (10) Hypomagnesemia: (11) Hypophosphatemia: (12) Refeeding syndrome: Plan Euvolemic hyponatremia SIADH related hyponatremia Currently on fluid restriction Sodium 123 Hypertonic saline discontinued She can be transferred out of ICU We will do physical therapy Family still wants home health services once sodium is stable Left lower lobe pneumonia I will discontinue her antibiotics as she has finished 7 days of antibiotics so far Sleep apnea: Patient will need outpatient sleep study, nocturnal hypoxemia noted Currently on 1 to 1.5 L nasal cannula Compression fracture with kyphosis, requested Dr. Luke to see her to see if we can do trigger injection to reduce her opioid dosages No active signs of withdrawal Hypokalemia hypophosphatemia hypomagnesimia: Replenished History of DVT: Continue Eliquis PICC line right arm Patient requires hydrocodone every 4 hours which is her home dose Experiencing semisolid stool will rule out C. difficile Attestations Medical Necessity Statement*: Anticipating discharge home in next 20 we will discharge likely next 48 hours Coding Level of Care Code 57530 Moderate MDM includes number and complexity of problems actively addressed during encounter, amount and/or complexity of data reviewed/ordered and described risk of complication, morbidity or mortality of management as d ocumented Diagnoses Compression fracture Ptosis H02.409 Hyponatremia E87.1 Altered mental status R41.82 Diarrhea R19.7 Chronic anticoagulation Z79.01 COPD (chronic obstructive pulmonary disease) J44.9 SIADH (syndrome of inappropriate ADH production) E22.2 Hypokalemia E87.6 Hypomagnesemia E83.42 Hypophosphatemia E83.39 Refeeding syndrome E87.8
[2023-02-06] MEDS: sodium chloride 0.9% 1,000 ML 75 ML IV (14:42)
--- NOTE | 2023-02-06 14:56 | CT_ITS ---
WS: [id number] CT THORACIC SPINE TECHNIQUE: Noncontrast CT of the thoracic spine with coronal and sagittal reformatted images. CLINICAL INFORMATION: once able to bear pain COMPARISON: None. DLP: 854.[address] scans at [facility] use at least one of these dose optimization techniques: automated e xposure control; mA and/or kV adjustment per patient size (includes targeted exams where dose is matc hed to clinical indication); or iterative reconstruction. FINDINGS: Moderate thoracic kyphosis. Chronic compression with anterior wedging at T11, T12 and L1 worse at T12 with loss of approximately 75% vertebral body height anteriorly. This is unchanged since January 30 3. Moderate to severe central canal stenosis T11-T12. This appears stable since January 30, 2023. No new compression fractures. Mild chronic compression superior endplate T8. Slight bibasilar atelect asis. A few patchy opacities in the RIGHT lower lobe laterally partially visualized. Calcified granul omas LEFT upper lobe. Moderate facet arthropathy lower thoracic spine. Normal visualized thoracic aor ta. Mild bilateral bony foraminal narrowing at T7-T8, T8-T9, T9-T10, and T10-T11. CT/CT thoracic spin wo con* [id number] IMPRESSION: 1. Moderate thoracic kyphosis centered at the thoracolumbar junction. 2. Stable compression fractures T11-L1 worse at T12. Moderate to severe centra l canal stenosis T11-T12 with indentation and mild flattening of the thoracic c ord. 3. Mild bony foraminal narrowing lower thoracic spine. 4. Mild compression superior endplate T8 unchanged. 5. No other acute findings.
--- NOTE | 2023-02-06 14:56 | CT_ITS ---
WS: [id number] CT LUMBAR SPINE TECHNIQUE: Noncontrast CT of the lumbar spine with coronal and sagittal reformatted images. CLINICAL INFORMATION: once pt awake and able to flat COMPARISON: None. DLP: 854.[address] scans at [facility] [place] use at least one of these dose optimization techniques: automated e xposure control; mA and/or kV adjustment per patient size (includes targeted exams where dose is matc hed to clinical indication); or iterative reconstruction. FINDINGS: Focal kyphosis at the T12 level with compression and anterior wedging. Loss of approximately 75% vert ebral body height anteriorly. Compression superior endplate L1 with loss of approximately 50% vertebr al body height. Minimal retropulsion of the posterior superior cortex at these levels. Mild central c anal stenosis. Moderate central canal stenosis at T11-T12. Vacuum disc phenomenon T12-L1 and L5-S1. S light retrolisthesis L2 on L3. Slight atelectasis in the lung bases. Adrenal glands are normal.Progression of anterior wedging at th e thoracolumbar junction compared to April 19, 2021 radiograph. Compression fractures are stable since January 30, 2023. L1-L2: Normal. L2-L3: Mild annular bulging with slight retrolisthesis. Mild central canal stenosis. Narrowing of the subarticular recess. Mild RIGHT greater than LEFT foraminal narrowing. Moderate facet arthropathy. L3-L4: Mild annular bulging. Spinal canal and foramen are patent. Moderate facet arthropathy. L4-L5: Mild annular bulging. Slight effacement of ventral thecal sac. Moderate facet arthropathy. Spi nal canal and foramen are patent. L5-S1: Mild disc bulging with vacuum disc phenomenon. Mild bilateral foraminal narrowing. Moderate fa cet arthropathy. Slight effacement of ventral thecal sac. Visualized pelvic bony structures: Normal. Paravertebral soft tissues: Normal. CT/CT lumbar spine wo con* [id number] IMPRESSION: 1. Focal kyphosis at the T12 and L1 level. Chronic compression fractures at T1 2 and L1 unchanged since January 30, 2023. This is worse at T12 described above. 2. No high-grade central canal stenosis. 3. Mild to moderate central canal stenosis T11-T12 and mild central canal sten osis T12-L1. 4. Mild central canal stenosis L2-L3 with slight retrolisthesis.
--- NOTE | 2023-02-06 15:05 | PC.NURSE ---
Patient requested to wear wedding rings, square genesis colored stones, left and right hand, rings are loose on fingers.
[2023-02-06 15:19] LABS: Osmolality Urine 434 mOsm/kg (50-1200)
--- NOTE | 2023-02-06 16:26 | PM.PN ---
Subjective Subjective: pt in MRI Medications: Reviewed: Yes Vitals/I&O/Wt Last Vital Signs Temp 98.8 F 02/06/23 09:00 Pulse 83 02/06/23 15:26 Resp 20 H 02/06/23 15:22 BP 125/64 02/06/23 15:00 Pulse Ox 98 02/06/23 15:22 O2 Del Method Nasal Cannula 02/06/23 15:22 O2 Flow Rate 1 02/06/23 15:22 FiO2 100 02/04/23 06:30 02/06/23 02/06/23 02/06/23 06:59 14:59 22:59 Intake Total 100 / 1726.917 420 / 420 Output Total 900 / 1850 450 / 450 Balance -800 / -123.083 -30 / -30 Weight last 48 hrs Weight 67.993 kg Weight 62.777 kg Physical Exam Narrative: deferred Data 02/06/23 06:21 02/06/23 01:37 Micro: Microbiology 02/04/23 20:20 Urine Culture - Final Urine,Clean Catch 02/04/23 17:49 Blood Culture - Preliminary Blood NEGATIVE TO DATE A&P Assessment and plan (1) Hyponatremia: Plan 1. Acute on chronic hyponatremia: Baseline in the high 120s to low 130s range, sodium was 115 on presentation-likely hypovolemia with underlying history of SIADH. Also contributed from recent use of chlorthalidone. -s/p 3% saline , Na improved to 123 , Noted U na < 15 , started IVFs -Continue fluid restriction-1200 cc/day -Started on IV albumin 25 g every 8 hours - added urea tabs -continue to hold chlorthalidone and do not restart at discharge 2. Hypokalemia: Repletion as above 3. Acute on chronic respiratory respiratory failure Discussed with patient daughter at bedside. Patient evaluated using audiovisual cart. Time spent 40 minutes. Attestations Medical Necessity Statement*: per medicine Coding Level of Care Code Acute Code for Chg Fwd Diagnoses Hyponatremia E87.1
--- NOTE | 2023-02-06 17:17 | P.CONIM_ITS ---
Providers/Reason For Consult Consulting Physician/Specialty*: hospitalist Reason for Consult*: compression fracture Attending Physician: Marquise Gallegos MD Primary Care Provider: Jeffrey Waite DO History of Present Illness History of Present Illness Eleni Miller is a 77 year old female who was recently admitted for respiratory arrest. He is currently in the ICU but likely will get out of the ICU tonight. Patient has an old compression fracture which has significant k yphotic deformity of her spine. With 80% compression into the spinal cord. I was consulted for back pain. Pain occasionally radiates into her legs. She is not complaining about any bowel or bladder issues or any weakness in her legs. Review of Systems Const: Denies: fever(s), chills or diaphoresis Card: Reports: dyspnea on exertion; Denies: chest pain, palpitations, irregular heart rhythm, edema or swelling of feet/ankles Resp: Reports: dyspnea, non-productive cough and wheezing; Denies: hemoptysis or chest congestion GI: Denies: abdominal pain, nausea or vomiting : Denies: flank pain, difficulty voiding, dysuria, urinary frequency or urinary urgency Musc: Denies: extremity pain Skin/Breast: Denies: rash or pruritus Medications/Allergies Home Medications Medication Instructions Recorded Confirmed Last Taken Type umeclidinium 62.5 mcg-vilanterol 1 inh inhalation QAM 07/06/21 02/04/23 02/24/22 History 25 mcg/actuation powdr for inhalation (Anoro Ellipta) acetaminophen 500 mg tablet 500 mg PO Q4H PRN Pain 07/07/21 02/04/23 Unknown History ferrous gluconate 324 mg (37.5 mg 324 mg PO BIDWM #60 tabs 07/09/21 02/04/23 02/24/22 Rx iron) tablet albuterol sulfate 90 mcg/actuation 1 - 2 puff inhalation Q4H PRN 11/23/22 02/04/23 Unknown Rx aerosol inhaler Shortness Of Breath #6.7 grams ipratropium 20 mcg-albuterol 100 1 puff inhalation QID #4 grams 12/08/22 02/04/23 Unknown Rx mcg/actuation mist for inhalation (Combivent Respimat) losartan 100 mg tablet 100 mg PO DAILY #90 tabs 12/08/22 02/04/23 Unknown Rx nortriptyline 50 mg capsule 50 - 150 mg PO BEDTIME PRN Sleep 12/08/22 02/04/23 Unknown Rx #90 caps hydrocodone 10 mg-acetaminophen 1 tab PO Q4H PRN breakthrough pain 01/17/23 02/04/23 Unknown Rx 325 mg tablet 15 days #90 tabs amlodipine 10 mg tablet 10 mg PO DAILY #60 tabs 02/03/23 02/04/23 Unknown Rx apixaban 5 mg tablet (Eliquis) 5 mg PO BID #60 tabs 02/03/23 02/04/23 Unknown Rx chlorthalidone 25 mg tablet 25 mg PO DAILY #60 tabs 02/03/23 02/04/23 Unknown Rx hydralazine 25 mg tablet 50 mg PO TID #90 tabs 02/03/23 02/04/23 Unknown Rx levofloxacin 750 mg tablet 750 mg PO Q24H #5 tabs 02/03/23 02/04/23 Unknown Rx lorazepam 0.5 mg tablet (Ativan) 0.5 mg PO BID PRN anxiety #6 tabs 02/03/23 02/04/23 Unknown Rx magnesium oxide 400 mg (241.3 mg 400 mg PO BID #6 tabs 02/03/23 02/04/23 Unknown Rx magnesium) tablet metoprolol tartrate 25 mg tablet 25 mg PO BID@0900,2100 #60 tabs 02/03/23 02/04/23 Unknown Rx naloxone 4 mg/actuation nasal 4 mg intranasal Q2M PRN opioid 02/03/23 02/04/23 Unknown Rx spray (Narcan) overdose #2 ea sertraline 50 mg tablet 25 mg PO DAILY #60 tabs 02/03/23 02/04/23 Unknown Rx Allergies Allergy/AdvReac Type Severity Reaction Status Date / Time hydrochlorothiazide Allergy Severe hyponatremi Verified 01/30/23 14:14 a Current Medications Generic Name Dose Route Start Last Admin Trade Name Freq PRN Reason Stop Dose Admin Acetaminophen 500 mg 02/04/23 12:30 02/05/23 09:51 Acetaminophen 500 Mg Tablet PO 500 mg Q4H PRN Administration Pain Hydrocodone Bitart/Acetaminophen 1 tab 02/05/23 10:18 02/06/23 16:08 Hydrocodone-Acetaminophen 7.5-325 Mg Tablet PO 1 tab Q4H PRN Administration MODERATE PAIN Albuterol/Ipratropium 3 ml 02/04/23 13:30 02/06/23 15:22 Ipratropium-Albuterol 3 Ml Neb INHALATION 3 ml QID.RESPIRATORY SIMONA Administration Alprazolam 0.5 mg 02/05/23 14:15 02/05/23 21:08 Alprazolam 0.5 Mg Tablet PO 0.5 mg BID PRN Administration ANXIETY Amlodipine Besylate 10 mg 02/05/23 01:45 02/06/23 09:06 Amlodipine 10 Mg Tablet PO 10 mg DAILY SIMONA Administration Apixaban 5 mg 02/04/23 18:00 02/06/23 09:06 Apixaban 5 Mg Tablet PO 5 mg BID SIMONA Administration Ferrous Gluconate 324 mg 02/04/23 18:00 02/06/23 07:46 Ferrous Gluconate 324 Mg Tablet PO 324 mg BIDWM SIMONA Administration Hydralazine HCl 50 mg 02/04/23 15:00 02/06/23 16:09 Hydralazine 25 Mg Tablet PO 50 mg TID SIMONA Administration Sodium Chloride 1,000 mls @ 75 mls/hr 02/06/23 14:15 02/06/23 14:42 Sodium Chloride 0.9% IV 02/07/23 06:00 75 mls/hr .[id number] SIMONA Administration Lorazepam 0.5 mg 02/04/23 12:30 02/06/23 12:43 Lorazepam 0.5 Mg Tablet PO 0.5 mg BID PRN Administration anxiety Metoprolol Tartrate 25 mg 02/04/23 21:00 02/06/23 09:08 Metoprolol Tartrate 25 Mg Tablet PO 25 mg BID@0900,2100 SIMONA Administration Morphine Sulfate 1 mg 02/04/23 23:19 02/06/23 16:50 Morphine 4 Mg/Ml Sdv 1 Ml IVP 1 mg Q4H PRN Administration SEVERE PAIN Ondansetron HCl 4 mg 02/04/23 12:29 02/05/23 20:05 Ondansetron 2 Mg/Ml Sdv 2 Ml IVP 4 mg Q6H PRN Administration NAUSEA AND VOMITING Pantoprazole Sodium 40 mg 02/05/23 09:00 02/06/23 09:[address] 40 Mg Tablet PO 40 mg DAILY SIMONA Administration Sertraline HCl 25 mg 02/05/23 09:00 02/06/23 09:06 Sertraline 50 Mg Tablet PO 25 mg DAILY SIMONA Administration Temazepam 15 mg 02/05/23 21:00 02/05/23 20:11 Temazepam 15 Mg Capsule PO 15 mg BEDTIME SIMONA Administration Urea 30 gm 02/06/23 09:00 02/06/23 09:07 Urea 15 Gm Powder PO 30 gm DAILY SIMONA Administration PFSH Acute PFSH: Medical History (Updated 02/06/23 @ 12:08 by Marquise Gallegos MD) Acute on chronic respiratory failure with hypoxia and hypercapnia Chronic anticoagulation Chronic back pain Compressed spine fracture COPD (chronic obstructive pulmonary disease) COVID-19 07/2021 DVT (deep venous thrombosis) History of recurrent DVT, on eliquis History of meningitis 2006, hospitalized ~2 months, had pneumonia. staph infection, intubated History of successful cardiopulmonary resuscitation Hypertension Hyponatremia Narcotic dependence on hydrocodone for back pain Normocytic anemia PVC (premature ventricular contraction) SIADH (syndrome of inappropriate ADH production) Surgical History History of breast augmentation History of facelift History of tonsillectomy History of total abdominal hysterectomy and bilateral salpingo-oophorectomy Family History Father Cancer lung cancer Other Stroke Social History Smoking and tobacco status: former smoker Alcohol intake: current Alcohol intake frequency: holidays/special occasions only Household members: spouse Marital status: Vitals/I&O/Wt Last Vital Signs Temp 97.8 F 02/06/23 16:55 Pulse 87 02/06/23 16:55 Resp 12 02/06/23 16:50 BP 143/65 02/06/23 16:00 Pulse Ox 100 02/06/23 16:50 O2 Del Method Nasal Cannula 02/06/23 16:00 O2 Flow Rate 1 02/06/23 16:00 FiO2 100 02/04/23 06:30 02/06/23 02/06/23 02/06/23 06:59 14:59 22:59 Intake Total 100 / 1726.917 420 / 420 105 / 525 Output Total 900 / 1850 450 / 450 Balance -800 / -123.083 -30 / -30 105 / 75 Weight last 48 hrs Weight 149 lb 14.4 oz Weight 138 lb 6.4 oz Physical Exam Narrative: Patient has 5-5 strength in bilateral lower extremities. Sensation is intact bilaterally. She does not have any evidence of any clonus. Data 02/06/23 06:21 02/06/23 01:37 Micro: Microbiology 02/04/23 20:20 Urine Culture - Final Urine,Clean Catch 02/04/23 17:49 Blood Culture - Preliminary Blood NEGATIVE TO DATE A&P Assessment and plan (1) Compression fracture: patient has severe focal stenosis at T12 level with compression of the spinal cord. This point I discussed with the family nonoperative options which include bracing. At this point we will start with this to see if this gives her some relief of her back pain. Did discuss with him the concern about spinal cord compression. However does not appear that she is symptomatic from the spinal cord. Did discuss with her surgical options which include fusion with decompression. As well as fusion with decompression and kyphotic deformity correction. Both these would be larger surgeries. And given her medical history I would be concerned to do these larger procedures. The compression fractures do not appear to be acute so a kyphoplasty would not be an option. Coding Level of Care Code Acute Code for [facility] Diagnoses Compression fracture
--- NOTE | 2023-02-06 18:15 | PC.NURSE ---
Shift Note Frequent safety and comfort rounds continue. Orders and/or nursing care completed as indicated. Patient monitored for response to intervention and treatment(s). Education provided includes importance of turning to prevent pressure injury, CT, MRI, all medications at time of administration, oxygen safety, fall risk and use of call light, nutrition, and PT. Patient and/or technology sales representative(daughter at bedside) verbalized understanding of all teachings. Otherwise, uneventful shift. Patient Resting in bed with family at bedside. Patient chief complaint is of back pain and generalized pain throughout shift. Frequent turning and positioning with many pillows for patient comfort. Dr. Luke consulted, see assessment note. See MAR for pain medication administration. Patient to [facility] for toileting needs with one assist.
[2023-02-06] MEDS: ALPRAZolam 0.5 mg Tablet PO (18:52)
[2023-02-06] MEDS: lanolin oint 7 gm 1 APPLIC TOPICAL (19:12)
[2023-02-06] MEDS: temazepam 15 mg Capsule PO (20:34)
[2023-02-07] VITALS (27 sets, daily range): BP systolic 108–158; BP diastolic 41–107; PULSE 77–107; RESP 13–30; TEMP 36.1–36.9; O2SAT 89–100
[2023-02-07] MEDS: HYDROcodone-acetaminophen 7.5-325 mg Tablet 1 TAB PO ×5 (00:14→17:56)
[2023-02-07 03:11] LABS: Basophils % 0.2 %; Eosinophils # 0.1 10^3/uL (0.0-0.8); Eosinophils % 0.8 %; Hematocrit 30.6 % (37.0-47.0); Hemoglobin 9.9 g/dL (11.5-15.3); Lymphocytes % 7.9 %; Mean Corpuscular HGB Conc 32.4 g/dL (30.0-36.0); Mean Corpuscular Hemoglobin 29.6 pg (28.0-34.0); Mean Corpuscular Volume 91.6 fl (81-99); Mean Platelet Volume 8.5 fL (7.4-10.4); Monocytes # 2.3 10^3/uL (0.2-0.9); Monocytes % 17.9 %; Neutrophils # 9.12 10^3/uL (1.8-7.7); Nucleated Red Blood Cells % 0 %; Platelet Count 289 10^3/cmm (130-400); Red Blood Count 3.34 10^6/uL (4.1-5.3); Red Cell Distribution Width 12.6 % (12.1-15.1); White Blood Count 12.8 10^3/uL (4.0-10.0)
[2023-02-07] MEDS: sodium chloride 0.9% 1,000 ML 75 ML IV (03:37)
[2023-02-07 03:38] LABS: Anion Gap 9.3 (5-19); Blood Urea Nitrogen 41 mg/dL (8-23); Calcium 8.3 mg/dL (8.5-10.5); Carbon Dioxide 34 mmol/L (22-29); Chloride 89 mmol/L (98-107); Glucose 102 mg/dL (65-115); Osmolality Calculated 276 mOsm/kg (285-295); Potassium 4.3 mmol/L (3.5-5.1); Sodium 128 mmol/L (136-145)
[2023-02-07] MEDS: morphine 4 mg/mL SDV 1 mL 1 MG IVP (04:58)
[2023-02-07] MEDS: ALPRAZolam 0.5 mg Tablet PO ×2 (07:53→20:10)
[2023-02-07] MEDS: apixaban 5 mg Tablet PO ×2 (08:42→17:17)
[2023-02-07] MEDS: pantoprazole DR 40 mg Tablet PO (08:43)
[2023-02-07] MEDS: sertraline 50 mg Tablet 25 MG PO (08:43)
[2023-02-07] MEDS: amlodipine 10 mg Tablet PO (08:44)
[2023-02-07] MEDS: ferrous gluconate 324 mg Tablet PO ×2 (08:44→17:17)
[2023-02-07] MEDS: hyDRALAzine 25 mg Tablet 50 MG PO ×3 (08:45→20:11)
[2023-02-07] MEDS: ipratropium-albuterol 3 mL Neb INHALATION ×4 (08:45→20:18)
--- NOTE | 2023-02-07 09:02 | PM.PN ---
Subjective Subjective: Patient is stating that she is hurting all over I would only continue her on hydrocodone Discontinue morphine Patient does not show any signs of withdrawal Looks comfortable in her bed For her sleep apnea she gets 2 L of oxygen overnight Sodium 128 Afebrile Hemoglobin stable She can be transferred out of ICU as well appreciate Dr. Luke's recommendations for spine brace Vitals/I&O/Wt Last Vital Signs Temp 97.6 F 02/07/23 08:00 Pulse 93 02/07/23 08:45 Resp 20 H 02/07/23 08:35 BP 144/42 02/07/23 08:00 Pulse Ox 95 02/07/23 08:35 O2 Del Method Nasal Cannula 02/07/23 08:35 O2 Flow Rate 1 02/07/23 08:35 FiO2 100 02/04/23 06:30 02/06/23 02/07/23 02/07/23 22:59 06:59 14:59 Intake Total 638 / 1058 1068.75 / 2126.75 120 / 120 Output Total 450 / 900 650 / 1550 450 / 450 Balance 188 / 158 418.75 / 576.75 -330 / -330 Weight last 48 hrs Weight 66.497 kg Weight 67.993 kg Physical Exam Narrative: Patient awake and alert Laying supine Nonfocal neuro exam Signs of dehydration improving Abdomen soft S1, S2 Currently on 1 L nasal cannula No new deficits or complaints No active chest pain Data 02/07/23 02:52 02/07/23 02:52 Micro: Microbiology 02/04/23 20:20 Urine Culture - Final Urine,Clean Catch A&P Assessment and plan (1) Hypophosphatemia: (2) Compression fracture: (3) Ptosis: (4) Hyponatremia: (5) Altered mental status: (6) Diarrhea: (7) COPD (chronic obstructive pulmonary disease): (8) Narcotic dependence: (9) Hypokalemia: (10) Hypomagnesemia: (11) Nocturnal hypoxemia: Plan Hypovolemic hyponatremia Poor p.o. intake Responding very well to IV fluids Sodium 128 today We will can transfer out of ICU We will might watch her 1 more day and then discharge her home with home health services Appreciate nephro recommendations History of DVT continue Eliquis Hypertension: Improved with current antihypertensive regimen which I will resume at the time of discharge Opioid dependence, I will discontinue IV morphine, I would only continue p.o. hydrocodone every 4 hours Diarrhea: Improved Chronic anemia: Hemoglobin stable continue iron Anxiety: Continue Xanax on as needed basis Nocturnal hypoxemia she will need sleep study outpatient Currently requires 2 L overnight Continue PT, chronic compression fracture no signs of cauda equina, Dr. Luke recommended spine brace Plan to discharge her home in next 24 hours Attestations Medical Necessity Statement*: Possible discharge home tomorrow Diagnoses Hypophosphatemia E83.39 Compression fracture Ptosis H02.409 Hyponatremia E87.1 Altered mental status R41.82 Diarrhea R19.7 COPD (chronic obstructive pulmonary disease) J44.9 Narcotic dependence F11.20 Hypokalemia E87.6 Hypomagnesemia E83.42 Nocturnal hypoxemia G47.34
[2023-02-07] MEDS: metoprolol tartrate 25 mg Tablet PO ×2 (10:05→20:11)
[2023-02-07] MEDS: urea 15 gm Powder 30 GM PO (10:14)
--- NOTE | 2023-02-07 15:22 | PC.SOCIAL ---
Pg 2 IMM Explained to pt & family Pg 2 IMM. No questions voiced. Provided pt a copy. Initialed, dated, & timed a copy & placed in chart.
[2023-02-07] MEDS: LORazepam 0.5 mg Tablet PO (17:17)
[2023-02-07] MEDS: temazepam 15 mg Capsule PO (20:11)
--- NOTE | 2023-02-07 20:55 | PC.NURSE ---
Report given to Jenise, transferred to room 263 via wheelchair. Family at bedside.
--- NOTE | 2023-02-07 21:20 | PM.PN ---
Subjective Subjective: feels better Appetite still low Medications: Reviewed: Yes Vitals/I&O/Wt Last Vital Signs Temp 97.7 F 02/07/23 20:00 Pulse 101 H 02/07/23 20:19 Resp 16 02/07/23 20:19 BP 124/56 02/07/23 20:00 Pulse Ox 100 02/07/23 20:19 O2 Del Method Nasal Cannula 02/07/23 20:19 O2 Flow Rate 1 02/07/23 20:19 FiO2 100 02/04/23 06:30 02/07/23 02/07/23 02/07/23 06:59 14:59 22:59 Intake Total 1068.75 / 2126.75 240 / 240 120 / 360 Output Total 650 / 1550 1050 / 1050 450 / 1500 Balance 418.75 / 576.75 -810 / -810 -330 / -1140 Weight last 48 hrs Weight 66.497 kg Weight 67.993 kg Physical Exam Narrative: awake , alert , no distress HEENT ,LUIS s1 s2 rrr Lungs clear nadege no edema Data 02/07/23 02:52 02/07/23 02:52 A&P Assessment and plan (1) Hyponatremia: Plan 1. Acute on chronic hyponatremia: Baseline in the high 120s to low 130s range, sodium was 115 on presentation-likely hypovolemia with underlying history of SIADH. Also contributed from recent use of chlorthalidone. -s/p 3% saline , Na improved to 123 , Noted U na < 15 , s/p IVFs -Continue fluid restriction-1200 cc/day -Started on IV albumin 25 g every 8 hours - added urea tabs- can DC at DC , once PO intake improved -continue to hold chlorthalidone and do not restart at discharge 2. Hypokalemia: Repletion as above 3. Acute on chronic respiratory respiratory failure Discussed with patient daughter at bedside. Patient evaluated using audiovisual cart. Time spent 40 minutes. Attestations Medical Necessity Statement*: per medicine Coding Level of Care Code Acute Code for Chg Fwd Diagnoses Hyponatremia E87.1
--- NOTE | 2023-02-07 21:24 | PM.PN ---
Subjective Subjective: doing well Medications: Reviewed: Yes Vitals/I&O/Wt Last Vital Signs Temp 97.7 F 02/07/23 20:00 Pulse 101 H 02/07/23 20:19 Resp 16 02/07/23 20:19 BP 124/56 02/07/23 20:00 Pulse Ox 100 02/07/23 20:19 O2 Del Method Nasal Cannula 02/07/23 20:19 O2 Flow Rate 1 02/07/23 20:19 FiO2 100 02/04/23 06:30 02/07/23 02/07/23 02/07/23 06:59 14:59 22:59 Intake Total 1068.75 / 2126.75 240 / 240 120 / 360 Output Total 650 / 1550 1050 / 1050 450 / 1500 Balance 418.75 / 576.75 -810 / -810 -330 / -1140 Weight last 48 hrs Weight 66.497 kg Weight 67.993 kg Physical Exam Narrative: awake , alert , no distress HEENT ,LUIS s1 s2 rrr Lungs clear nadege no edema Data 02/07/23 02:52 02/07/23 02:52 A&P Assessment and plan (1) Hyponatremia: Plan 1. Acute on chronic hyponatremia: Baseline in the high 120s to low 130s range, sodium was 115 on presentation-likely hypovolemia with underlying history of SIADH. Also contributed from recent use of chlorthalidone. -s/p 3% saline , Na improved to 125 , Noted U na < 15 , s/p IVFs -Continue fluid restriction-1200 cc/day -s/p IV albumin 25 g every 8 hours - add salt tbs at DC -continue to hold chlorthalidone and do not restart at discharge 2. Hypokalemia: Repletion as above 3. Acute on chronic respiratory respiratory failure Discussed with patient daughter at bedside. Patient evaluated using audiovisual cart. Time spent 40 minutes. Attestations Medical Necessity Statement*: per medicine Coding Level of Care Code Acute Code for Chg Fwd Diagnoses Hyponatremia E87.1
[2023-02-08] VITALS (8 sets, daily range): BP systolic 161–178; BP diastolic 64–74; PULSE 49–100; RESP 16–20; TEMP 36.4–36.7; O2SAT 91–98
[2023-02-08] MEDS: HYDROcodone-acetaminophen 7.5-325 mg Tablet 1 TAB PO ×3 (01:09→09:35)
--- NOTE | 2023-02-08 06:57 | PM.PN ---
Subjective Subjective: Patient is somewhat confused she thought that she may have wear the brace to straighten it did not help when she was up. But on monitor due to some confusion if she did or not. Vitals/I&O/Wt Last Vital Signs Temp 97.5 F L 02/08/23 04:00 Pulse 91 02/08/23 06:00 Resp 18 02/08/23 04:00 BP 161/71 02/08/23 04:00 Pulse Ox 91 02/08/23 04:00 O2 Del Method Nasal Cannula 02/08/23 04:00 O2 Flow Rate 1 02/07/23 20:19 FiO2 100 02/04/23 06:30 02/07/23 02/07/23 02/08/23 14:59 22:59 06:59 Intake Total 240 / 240 1240 / 1480 240 / 1720 Output Total 1050 / 1050 450 / 1500 Balance -810 / -810 790 / -20 240 / 220 Weight last 48 hrs Weight 133 lb Weight 146 lb 9.6 oz Physical Exam Narrative: Currently resting comfortably in bed with a sitter. Data 02/07/23 02:52 02/07/23 02:52 A&P Assessment and plan (1) Compression fracture: Continue current therapy with the brace. Attestations Medical Necessity Statement*: Per primary service Coding Level of Care Code Acute Code for Chg Fwd Diagnoses Compression fracture
[2023-02-08] MEDS: ipratropium-albuterol 3 mL Neb INHALATION (08:07)
[2023-02-08] MEDS: apixaban 5 mg Tablet PO (08:55)
[2023-02-08] MEDS: amlodipine 10 mg Tablet PO (08:55)
[2023-02-08] MEDS: ferrous gluconate 324 mg Tablet PO (08:55)
[2023-02-08] MEDS: ALPRAZolam 0.5 mg Tablet PO (08:55)
[2023-02-08] MEDS: hyDRALAzine 25 mg Tablet 50 MG PO (08:55)
[2023-02-08] MEDS: metoprolol tartrate 25 mg Tablet PO (08:55)
[2023-02-08] MEDS: pantoprazole DR 40 mg Tablet PO (08:55)
[2023-02-08] MEDS: LORazepam 0.5 mg Tablet PO (08:55)
[2023-02-08] MEDS: sertraline 50 mg Tablet 25 MG PO (08:56)
[2023-02-08 09:53] LABS: Basophils % 0.3 %; Eosinophils % 0.2 %; Hematocrit 36.2 % (37.0-47.0); Hemoglobin 11.4 g/dL (11.5-15.3); Lymphocytes # 0.8 10^3/uL (0.8-4.8); Lymphocytes % 6.9 %; Mean Corpuscular HGB Conc 31.5 g/dL (30.0-36.0); Mean Corpuscular Hemoglobin 30.2 pg (28.0-34.0); Mean Corpuscular Volume 95.8 fl (81-99); Mean Platelet Volume 8.7 fL (7.4-10.4); Monocytes # 1.5 10^3/uL (0.2-0.9); Monocytes % 12.6 %; Neutrophils # 9.02 10^3/uL (1.8-7.7); Neutrophils % 78.3 %; Nucleated Red Blood Cells % 0 %; Platelet Count 261 10^3/cmm (130-400); Red Blood Count 3.78 10^6/uL (4.1-5.3); Red Cell Distribution Width 12.8 % (12.1-15.1); White Blood Count 11.5 10^3/uL (4.0-10.0)
--- NOTE | 2023-02-08 09:58 | P.DS_ITS ---
Discharge Providers Date of Admission: 02/04/23 12:30 Date of Discharge: February 08, 2023 Attending Provider at Admission: Chivo Julio MD Attending Provider at Discharge: Marquise Gallegos MD Primary Care Provider: Jeffrey Waite DO Diagnoses at Discharge Discharge Diagnosis (1) Compression fracture: Status: Acute Reason for Visit Reason for Visit: RESP. DISTRESS Hospital Course Hospital Course 77-year-old female who was recently discharged from the hospital after her management of pneumonia, cardiac arrest, patient was extubated within 12hours to 2 L nasal cannula, Because of cardiac arrest was most likely opiate overdose with respiratory arrest echo was unremarkable, troponins negative, stress test negative. Patient has history of hyponatremia poor p.o. intake and a questionable diagnosis of SIADH. She was hypertensive chlorthalidone was added at the time of discharge. She presented back with worsening of hyponatremia. Nephro was consulted who started on hypertonic saline, her urine sodium was extremely low, her sodium started improving with use of IV fluids normal saline. Her p.o. intake has been very poor, appetite is inadequate. She complains of back pain and hurting all over, she does seem to be opioid dependent and goes to withdrawal with reduction in opioids. I have kept her on hydrocodone every 4 hours, she asked about pain meds every 3-4 hours, I did convey my concerns to the family very openly that she is at risk of opiate dependent, consulted Dr. Luke to see if we can do trigger injections versus any surgical intervention however she is not a good surgical candidate for her multiple compression fractures, she does not have any signs of cauda equina, she able to work with physical therapy, Dr. Krishnan recommended spine brace only, her daughter would not be to take care for her at home because she needs assistance with ambulation, getting out of bed, feeding and pain medications. This time patient and daughter both decided to go to [facility] for rehab and then probably she will need assisted living facility long-term. I have given her referral for pain management clinic I do believe she is at risk of opioid overdose I have also recommended Narcan. She does have sleep apnea with hypoxia/nocturnal: Recommended sleep study. Multiple family meetings conducted on daily basis, patient remains full code, daughter is well aware that her mother is opiate dependent and her quality of life will suffer greatly because of her consistent back pain and poor p.o. intake with underlying hyponatremia Sodium level at the time of admission 114, sodium level at the time of discharge 128 patient received hypertonic saline, IV fluid and urea sodium solution I will discontinue her antibiotics for Haemophilus influenzae pneumonia For her hypertension she is getting hydralazine, losartan, amlodipine, metoprolol Family is well aware that she is at risk of side effects from medications, she is suffering from polypharmacy Please note during hospitalization I did notice opioid withdrawal symptoms with pupillary dilation, tachycardia, hypertension, anxiety, patient required Xanax along opioids, then she becomes very drowsy during hospitalization I have not seen any signs of significant apnea or respiratory depression Patient is at high risk for readmission because of her multiple comorbid conditions. I also discussed palliative care with the daughter, palliative care was very new for her I did explain this might be needed in the near future if her quality of life worsens rapidly. Physical Exam Narrative: Patient is euvolemic Awake and alert Complains of hurting all over Currently on 2 L nasal cannula No respiratory distress Abdomen soft S1, S2 Hypertensive 175/64 mmHg Discharge Data Studies Completed and Pending Completed Studies During Hospitalization Category Date Time Status CT head wo con* [id number] Routine Cat Scan 02/04/23 18:[address] lumbar spine wo con* [id number] Routine Cat Scan 02/06/23 14:[address] thoracic spin wo con* [id number] Routine Cat Scan 02/06/23 14:56 Completed CXRP [XR chest 1V portable [id number]] Routine Exams 02/05/23 10:19 Completed CXRP [XR chest 1V portable [id number]] Stat Exams 02/04/23 15:53 Completed XR chest 1V portable [id number] Stat Exams 02/04/23 06:08 Completed MR lumbar spine wo con* [id number] Routine MRI 02/06/23 11:41 Completed MR thoracic spin wo con* [id number] Routine MRI 02/06/23 11:42 Completed Pending at discharge Category Date Time Status Acetylcholine Recept Modulatin Routine Lab 02/05/23 15:10 Received Acetylcholine Receptor Binding Routine Lab 02/05/23 15:10 Received Acetylcholine Receptor Block Routine Lab 02/05/23 15:10 Received Basic Metabolic Panel AM LABS Lab 02/08/23 09:43 Received Blood Culture Stat Lab 02/04/23 17:49 Results CDIFF [Clostridioides Difficile PCR] Routine Lab 02/05/23 19:20 Uncollected Miscellaneous Test Routine Lab 02/06/23 06:21 Received SARS Covid-2 Antigen Routine Lab 02/08/23 08:38 Uncollected Radiology Impressions Head CT 02/04/23 18:13 IMPRESSION: No acute intracranial abnormality. Chest X-Ray 02/05/23 10:19 IMPRESSION: 1. No change since 02/04/2023. 2. Satisfactory right PICC line position. Lumbar Spine MRI 02/06/23 11:41 IMPRESSION: 1. No acute lumbar spine fracture. 2. Marked, severe focal kyphosis centered at T12. Patient has known remote co mpression fractures at T11, T12 and L1. Most significant at T12 by at least 80%. Retropulsion of the posterior T11, T12 and L1 vertebral bodies encroaching upon the thecal sac. 3. L2 retrolisthesis by 2 mm. 4. Multilevel diffuse disc bulging with osteophytosis and facet arthropathy. 5. Mild foraminal narrowing at T12-L1 and L1-2. 6. Mild central stenosis with moderate bilateral subarticular recess and foraminal stenosis at L2-3. 7. Moderate bilateral foraminal stenosis at L3-4 and L5-S1. 8. Moderate bilateral foraminal stenosis at L4-5, LEFT greater than RIGHT. Thoracic Spine MRI 02/06/23 11:42 IMPRESSION: 1. Severe focal kyphosis centered at T12. Vertebral body anterior compression fractures with retropulsion involving T11, T12 and L1. 2. Severe central, bilateral subarticular recess and foraminal stenosis at T11-12. 3. Disc and vertebral body retropulsion contacts the thoracic cord with displacement and probable very early changes of myelomalacia at T11-12. 4. No acute fractures. 5. Very mild anterior wedging of T8 is remote. Lumbar Spine CT 02/06/23 14:56 IMPRESSION: 1. Focal kyphosis at the T12 and L1 level. Chronic compression fractures at T12 and L1 unchanged since January 30, 2023. This is worse at T12 described above. 2. No high-grade central canal stenosis. 3. Mild to moderate central canal stenosis T11-T12 and mild central canal stenosis T12-L1. 4. Mild central canal stenosis L2-L3 with slight retrolisthesis. ADDENDUM: 02/06/23 1124 IMPRESSION: 1. Focal kyphosis at the T12 and L1 level. Chronic compression fractures at T12 and L1 unchanged since January 30, 2023. This is worse at T12 described above. 2. No high-grade central canal stenosis. 3. Moderate to severe central canal stenosis T11-T12 and mild central canal stenosis T12-L1. 4. Mild central canal stenosis L2-L3 with slight retrolisthesis. Thoracic Spine CT 02/06/23 14:56 IMPRESSION: 1. Moderate thoracic kyphosis centered at the thoracolumbar junction. 2. Stable compression fractures T11-L1 worse at T12. Moderate to severe central canal stenosis T11-T12 with indentation and mild flattening of the thoracic cord. 3. Mild bony foraminal narrowing lower thoracic spine. 4. Mild compression superior endplate T8 unchanged. 5. No other acute findings. Laboratory Results WBC 11.5 10^3/uL (4.0-10.0) H 02/08/23 09:43 RBC 3.78 10^6/uL (4.1-5.3) L 02/08/23 09:43 Hgb 11.4 g/dL (11.5-15.3) L 02/08/23 09:43 Hct 36.2 % (37.0-47.0) L 02/08/23 09:43 MCV 95.8 fl (81-99) 02/08/23 09:43 MCH 30.2 pg (28.0-34.0) 02/08/23 09:43 MCHC 31.5 g/dL (30.0-36.0) 02/08/23 09:43 RDW 12.8 % (12.1-15.1) 02/08/23 09:43 Plt Count 261 10^3/cmm (130-400) 02/08/23 09:43 MPV 8.7 fL (7.4-10.4) 02/08/23 09:43 Neut % (Auto) 78.3 % 02/08/23 09:43 Lymph % (Auto) 6.9 % 02/08/23 09:43 [place] % (Auto) 12.6 % 02/08/23 09:43 Eos % (Auto) 0.2 % 02/08/23 09:43 Baso % (Auto) 0.3 % 02/08/23 09:43 Neut # (Auto) 9.02 10^3/uL (1.8-7.7) H 02/08/23 09:43 Lymph # (Auto) 0.8 10^3/uL (0.8-4.8) 02/08/23 09:43 [place] # (Auto) 1.5 10^3/uL (0.2-0.9) H 02/08/23 09:43 Eos # (Auto) 0.0 10^3/uL (0.0-0.8) 02/08/23 09:43 Baso # (Auto) 0.0 10^3/uL (0.0-0.1) 02/08/23 09:43 Nucleated RBC % (auto) 0 % 02/08/23 09:43 Nucleated RBCs # 0.0 /100WBC 02/08/23 09:43 PT 17.20 SECONDS (12.1-14.9) H 02/06/23 06:21 INR 1.35 (0.8-1.2) H 02/06/23 06:21 APTT 35.0 SECONDS (23.9-36.7) 02/06/23 06:21 Fibrinogen 200 mg/dL (174-498) 02/06/23 06:21 Fibrin Degrad Products ug/mL (NEG) 02/06/23 06:21 D-Dimer 0.97 ug/mIFEU (0-0.59) H 02/06/23 06:21 Specimen Type Arterial 02/05/23 13:00 Sample Site Brachial, left 02/05/23 13:00 ABG pH 7.44 (7.35-7.45) 02/05/23 13:00 ABG pCO2 51.4 mmHg (35-45) H 02/05/23 13:00 ABG pO2 85.4 mmHg (80.0-100.0) 02/05/23 13:00 ABG HCO3 34.8 mmol/L (22-26) H 02/05/23 13:00 ABG O2 Saturation 97.5 02/05/23 13:00 ABG Base Excess 9.3 mmol/L (-2.0-2.0) H 02/05/23 13:00 Panda Test Pos 02/05/23 13:00 A-a O2 Gradient 6.6 mmHg (5-10) 02/05/23 13:00 Hematocrit 33.4 % (37-47) L 02/05/23 13:00 Hgb O2 Saturation 95.5 % (95-100) 02/05/23 13:00 Carboxyhemoglobin 1.1 %THgb (0.4-20.1) 02/05/23 13:00 Methemoglobin 0.9 % (0.4-1.5) 02/05/23 13:00 Total Hemoglobin 10.9 g/dL (12-16) L 02/05/23 13:00 Sodium 121.0 mmol/L (131-143) L 02/05/23 13:00 Potassium 3.4 mmol/L (3.5-5.0) L 02/05/23 13:00 Glucose 116.0 mg/dL (70-115) H 02/05/23 13:00 Ionized Calcium 1.1 mmol/L (1.1-1.4) 02/05/23 13:00 O2 Delivery Device Nc 02/05/23 13:00 O2 Liters/Min 2.0 % 02/05/23 13:00 FiO2 28.0 % 02/05/23 13:00 Software Program Manager ID Monro 02/05/23 13:00 Sodium 128 mmol/L (136-145) L 02/07/23 02:52 Potassium 4.3 mmol/L (3.5-5.1) 02/07/23 02:52 Chloride 89 mmol/L (98-107) L 02/07/23 02:52 Carbon Dioxide 34 mmol/L (22-29) H 02/07/23 02:52 Anion Gap 9.3 (5-19) 02/07/23 02:52 BUN 41 mg/dL (8-23) H 02/07/23 02:52 Creatinine 0.4 mg/dL (0.5-0.9) L 02/07/23 02:52 GFR Calculation Not Reportable 02/07/23 02:52 Glucose 102 mg/dL (65-115) 02/07/23 02:52 Calculated Osmolality 276 mOsm/kg (285-295) L 02/07/23 02:52 Lactic Acid 1.4 mmol/L (0.5-2.2) 02/04/23 06:15 Calcium 8.3 mg/dL (8.5-10.5) L 02/07/23 02:52 Phosphorus 2.2 mg/dL (2.5-4.5) L 02/06/23 01:37 Magnesium 1.9 mg/dL (1.7-2.3) 02/05/23 04:28 Total Bilirubin 0.4 mg/dL (0.15-1.2) 02/05/23 04:28 AST 38 U/L (0-32) H 02/05/23 04:28 ALT 25 U/L (0-33) 02/05/23 04:28 Alkaline Phosphatase 50 U/L (35-105) 02/05/23 04:28 Troponin T Baseline 21 ng/L (0-10) H 02/04/23 06:15 Troponin T 120 Minute 22.74 ng/L (0-10) H 02/04/23 09:00 Delta Troponin T 1.74 ABS# (0-10) 02/04/23 09:00 Troponin T Hi Sens 6Hr 29.51 ng/L (0-10) H 02/04/23 14:42 Troponin T Hi Sens 6Hr Delta 8.51 ng/L (0-12) 02/04/23 14:42 NT-Pro-B Natriuret Pep 3938 pg/mL (0-450) H 02/04/23 09:00 Total Protein 6.1 g/dL (6.6-8.7) L 02/05/23 04:28 Albumin 3.4 g/dL (3.5-5.2) L 02/05/23 04:28 Globulin 2.7 g/dL (1.3-4.6) 02/05/23 04:28 Vitamin B12 448 pg/mL (232-1245) 02/06/23 01:37 Urine Color Yellow (Yellow) 02/04/23 20:20 Urine Appearance Hazy (CLEAR) A 02/04/23 20:20 Urine pH 6 (5-7) 02/04/23 20:20 Ur Specific [place] 1.020 (1.005-1.030) 02/04/23 20:20 Urine Protein 1+ (Negative) H 02/04/23 20:20 Urine Glucose (UA) Norm (Normal) 02/04/23 20:20 Urine Ketones 3+ (Negative) H 02/04/23 20:20 Urine Blood 2+ (Negative) H 02/04/23 20:20 Urine Nitrate Negative (Negative) 02/04/23 20:20 Urine Bilirubin Neg (Negative) 02/04/23 20:20 Urine Urobilinogen Norm mg/dL (Negative) 02/04/23 20:20 Ur Leukocyte Esterase Negative (Negative) 02/04/23 20:20 Urine RBC 5-10 /hpf (0-2) H 02/04/23 20:20 Urine WBC 0-4 /hpf (0-5) H 02/04/23 20:20 Ur Squamous Epith Cells 0-4 /hpf (0-5) H 02/04/23 20:20 Amorphous Sediment Not Reportable 02/04/23 20:20 Urine Bacteria 3+ /hpf (NONE) H 02/04/23 20:20 Urine Osmolality 434 mOsm/kg (50-1200) 02/04/23 20:20 Ur Random Sodium < 10 mmol/L 02/06/23 07:32 Nasal Influ A H1 2008 PCR Not detected (NOT DETECT) 02/04/23 06:45 Adenovirus (PCR) Not detected (NOT DETECT) 02/04/23 06:45 C. pneumoniae DNA (PCR) Not detected (NOT DETECT) 02/04/23 06:45 Coronavirus 229E (PCR) Not detected (NOT DETECT) 02/05/23 13:00 Human Metapneumovir PCR Not detected (NOT DETECT) 02/04/23 06:45 Influenza A (H1) PCR Not detected (NOT DETECT) 02/04/23 06:45 Influenza A (H3) PCR Not detected (NOT DETECT) 02/04/23 06:45 Influenza Type A (PCR) Not detected (NOT DETECT) 02/04/23 06:45 Influenza Type B (PCR) Not detected (NOT DETECT) 02/04/23 06:45 M. pneumoniae (PCR) Not detected (NOT DETECT) 02/04/23 06:45 Parainfluenza 1 (PCR) Not detected (NOT DETECT) 02/04/23 06:45 Parainfluenza 2 (PCR) Not detected (NOT DETECT) 02/04/23 06:45 Parainfluenza 3 (PCR) Not detected (NOT DETECT) 02/04/23 06:45 Parainfluenza 4 (PCR) Not detected (NOT DETECT) 02/04/23 06:45 RSV Type A (PCR) Not detected (NOT DETECT) 02/04/23 06:45 RSV Type B (PCR) Not detected (NOT DETECT) 02/04/23 06:45 Entero/Rhino (PCR) Not detected (NOT DETECT) 02/04/23 06:45 SARS-CoV-2 (PCR) Not detected (NOT DETECT) 02/05/23 13:00 Vitals Last Vital Signs Temp 98.0 F 02/08/23 07:37 Pulse 100 02/08/23 08:26 Resp 18 02/08/23 08:10 BP 175/64 02/08/23 07:37 Pulse Ox 98 02/08/23 08:10 O2 Del Method Nasal Cannula 02/08/23 08:10 O2 Flow Rate 2 02/08/23 08:10 FiO2 100 02/04/23 06:30 Discharge Plan Discharge Patient Disposition: Xfer SNF Condition: Stable Prescriptions: Continued albuterol sulfate 90 mcg/actuation HFA aerosol inhaler 1 - 2 puff INHALATION Q4H PRN (Reason: Shortness Of Breath) Qty: 6.7 11RF losartan 100 mg tablet 100 mg PO DAILY Qty: 90 3RF nortriptyline 50 mg capsule 50 - 150 mg PO BEDTIME PRN (Reason: Sleep) Qty: 90 5RF Combivent Respimat 20-100 mcg/actuation mist 1 puff INHALATION QID Qty: 4 11RF Rx Instructions: may take up to 2 additonal inhalations per day for a max of 6 inhalations/day hydrocodone-acetaminophen 10-325 mg tablet 1 tab PO Q4H PRN (Reason: breakthrough pain) 15 Days Qty: 90 0RF Rx Instructions: max of 6 tabs per day Anoro Ellipta 62.5-25 mcg/actuation Blister With Device 1 inh INHALATION QAM acetaminophen 500 mg Tablet 500 mg PO Q4H PRN (Reason: Pain) ferrous gluconate 324 mg (37.5 mg iron) Tablet 324 mg PO BIDWM Qty: 60 0RF hydralazine 25 mg Tablet 50 mg PO TID Qty: 90 3RF magnesium oxide 400 mg (241.3 mg magnesium) Tablet 400 mg PO BID Qty: 6 0RF amlodipine 10 mg Tablet 10 mg PO DAILY Qty: 60 2RF sertraline 50 mg Tablet 25 mg PO DAILY Qty: 60 0RF metoprolol tartrate 25 mg Tablet 25 mg PO BID@0900,2100 Qty: 60 2RF Eliquis 5 mg Tablet 5 mg PO BID Qty: 60 3RF naloxone [Narcan] 4 mg/actuation spray,non-aerosol 4 mg intranasal Q2M PRN (Reason: opioid overdose) Qty: 2 0RF Rx Instructions: spray 1 dose into ONE nostril; alternate nostrils w each dose until help arrives lorazepam [Ativan] 0.5 mg tablet 0.5 mg PO BID PRN (Reason: anxiety) Qty: 6 0RF Discontinued chlorthalidone 25 mg Tablet 25 mg PO DAILY Qty: 60 3RF levofloxacin 750 mg Tablet 750 mg PO Q24H Qty: 5 0RF Discharge Orders: Discharge Order (Routine); Ordered 02/08/23 Ordered By: Marquise Gallegos Other Ambulatory Orders: Sleep Study/Titration (Routine) Timeframe: 2 Weeks Facility: [facility] - Location: [facility] Ordered By: Marquise Gallegos Referrals: [facility] [Outside] [facility] Home Care ([facility]) [Outside] Chivo Downing MD [Physician] - 1-3 days Jeffrey Waite DO [Primary Care Provider] - Discharge Diet: Regular Discharge Activity: As per PT/OT instructions Patient Instructions: Opioid Safety Discharge Attestations Time Spent in Discharge Care*: greater than 30 min Status at Discharge: Cognitive status at discharge: cognitively intact , Behavioral status at discharge: cooperative , Quality Metrics Clinical Quality Measures [ No reported AMI, CVA or VTE this stay] Coding Level of Care Code Acute Code for Chg Fwd Diagnoses Compression fracture
[2023-02-08 10:15] LABS: Anion Gap 15.2 (5-19); Blood Urea Nitrogen 20 mg/dL (8-23); Calcium 8.9 mg/dL (8.5-10.5); Carbon Dioxide 28 mmol/L (22-29); Chloride 86 mmol/L (98-107); Glucose 124 mg/dL (65-115); Osmolality Calculated 264 mOsm/kg (285-295); Potassium 4.2 mmol/L (3.5-5.1); Sodium 125 mmol/L (136-145)
[2023-02-08 11:38] LABS: SARS Covid-2 Antigen negative (Negative)
--- NOTE | 2023-02-08 13:47 | PC.NURSE ---
Removed PICC line from upper right arm. 2x2 and tegaderm applied. Updated correction on new orders for repeat sodium on Monday per tele-neph. Report called to JOSE Obando and patient transported by ready transport.
[2023-02-11 11:39] LABS: Acetylcholine Receptor Block <15 (<15)
[2023-02-12 13:54] LABS: Acetylcholine Receptor Binding <0.30 nmol/L
[2023-02-15 15:40] LABS: Acetylcholine Recept Modulatin 5
== END 2023-02-08 13:50 | disposition skilled nursing facility (03) | DRG 643 ==
LOC: ER 08:35 → ICU 11:28 → MEDSURG 02-07 20:58
PROVIDERS: Emergency Medicine; Hospitalist; Admitting Provider Family Medicine; Emergency Provider Family Medicine; PCP Family Medicine; Visit Provider Internal Medicine
DX: E22.2 Syndrome of inappropriate secretion of antidiuretic hormone (principal); J18.9 Pneumonia, unspecified organism; F11.23 Opioid dependence with withdrawal; J44.1 Chronic obstructive pulmonary disease with (acute) exacerbation; J44.0 Chronic obstructive pulmonary disease with (acute) lower respiratory infection; Z87.01 Personal history of pneumonia (recurrent); Z86.74 Personal history of sudden cardiac arrest; G47.30 Sleep apnea, unspecified; T40.2X5A Adverse effect of other opioids, initial encounter; I10 Essential (primary) hypertension; F41.9 Anxiety disorder, unspecified; Z79.51 Long term (current) use of inhaled steroids; Z79.01 Long term (current) use of anticoagulants; R19.7 Diarrhea, unspecified; E83.42 Hypomagnesemia; G89.29 Other chronic pain; Z86.16 Personal history of COVID-19; Z86.718 Personal history of other venous thrombosis and embolism; Z87.891 Personal history of nicotine dependence; E87.6 Hypokalemia; E87.8 Other disorders of electrolyte and fluid balance, not elsewhere classified; M48.061 Spinal stenosis, lumbar region without neurogenic claudication; M48.07 Spinal stenosis, lumbosacral region; S22.080D Wedge compression fracture of T11-T12 vertebra, subsequent encounter for fracture with routine healing; S32.010D Wedge compression fracture of first lumbar vertebra, subsequent encounter for fracture with routine healing; X58.XXXD Exposure to other specified factors, subsequent encounter; I16.0 Hypertensive urgency; H02.409 Unspecified ptosis of unspecified eyelid; E86.1 Hypovolemia; E87.70 Fluid overload, unspecified; R41.82 Altered mental status, unspecified
CPT/HCPCS: 12345; 36415; 36569; 36592; 36600; 70450; 71045; 72128; 72131; 72146; 72148; 80048; 80051; 80053; 81001; 82330; 82607; 82803; 82805; 83516; 83519; 83605; 83735; 83880; 83935; 84100; 84300; 84484; 85025; 85362; 85378; 85384; 85610; 85730; 87040; 87086; 87426; 87486; 87581; 87633; 87635; 93005; 94640; 94762; 96365; 96375; 96376; 97116; 97162; 97530; 97760; 99285; C1751; J1100; J2270; J2405; J3475; J3480; J7030; J7131; L0456; P9046; Q3014

== ENCOUNTER 2023-02-10 04:31 | Emergency (ER) | payer MEDICARE, OTHER, SELFPAY ==
[2023-02-10 04:33] VITALS: BP 121/78; PULSE 98; RESP 26; TEMP 36.7; O2SAT 95
--- NOTE | 2023-02-10 04:37 | XRR_ITS ---
PROCEDURE INFORMATION: Exam: XR Chest Exam date and time: 02/10/2023 4:44 AM Age: 77 years old Clinical indication: Shortness of breath; Additional info: SOB TECHNIQUE: Imaging protocol: Radiologic exam of the chest. Views: 1 view. COMPARISON: CR (CHEST, ) 02/05/2023 10:56 AM FINDINGS: Tubes, catheters and devices: Previously seen right arm PICC catheter has apparently been removed in the interval. Lungs: No CHF/pulmonary edema. 2.5 cm possible pleural-based mass again seen in the right lateral mid lung. This has been better evaluated/visualized on the recent CT thorax from 01/30/2023. Visible lungs otherwise appear essentially clear. Pleural spaces: No visible pneumothorax. No definite pleural fluid. Heart/Mediastinum: Heart size is within normal limits. Bones/joints: No significant acute finding. XR/XR chest 1V portable [id number] IMPRESSION: 1. No definite CHF or pneumonia. 2. Stable right-sided mass, details above. 3. Other details/findings discussed above.
--- NOTE | 2023-02-10 04:38 | ECG_ITS ---
[facility] Test Date: 2023-02-10 Pat Name: Eleni Miller Department: Room: Gender: Female Sign Language Interpreter: : 1945 Requested By: Dustin Medley Order Number: [id number] Olga MD: Juan Henderson M.D. Measurements Intervals [place] Rate: 98 P: 79 DC: 157 QRS: 67 QRSD: 88 T: 79 QT: 336 QTc: 430 Interpretive Statements SINUS RHYTHM WITH OCCASIONAL VENTRICULAR PREMATURE COMPLEXES POSSIBLE LEFT ATRIAL ENLARGEMENT [-0.1mV P-WAVE IN V1/V2] Compared to ECG 02/04/2023 11:43:53 Sinus tachycardia no longer present Electronically Signed On 02-10-2023 11:57:12 CDT by Juan Henderson M.D. [email or web address]
--- NOTE | 2023-02-10 04:40 | ED_ITS ---
Documented by User: Dustin Medley MD 02/10/23 04:48 HPI - SOB/Dyspnea General: Chief Complaint: Altered Mental Status Stated Complaint: SOB Time Seen by Provider: 02/10/23 04:31 Source: patient and EMS Mode of arrival: EMS Limitations: no limitations History of Present Illness: HPI Narrative: 77-year-old female has history of COPD she is at [facility] currently she has been there just for 2 days and called EMS tonight because she is having some confusion with her pulse ox her pulse ox reading was in the 30s. She does have very thick fingernail burkinan on when EMS arrived she was confused did just receive [place] a few hours before they gave her Narcan she is now awake and alert answering all my questions states she does feel short of breath denies any fever her pulse ox here is in the 90s on room air I believe the readings at the half-way are false due to her fingernail burkinan. Associated symptoms: Deny abdominal pain, chest pain, fever(s), nausea or vomiting Review of Systems Const: Denies: fever(s) or chills Eyes: Denies: eye discomfort ENMT: Denies: throat pain or dental pain Card: Denies: chest pain Resp: Reports: dyspnea GI: Denies: abdominal pain, nausea, vomiting or diarrhea : Denies: dysuria Musc: Denies: neck pain or back pain Skin/Breast: Denies: rash Neuro: Reports: confusion; Denies: headache(s) PFS ED PFSH: Medical History Acute exacerbation of chronic obstructive airways disease Acute on chronic respiratory failure with hypoxia and hypercapnia Altered mental status Chronic anticoagulation Chronic back pain Compressed spine fracture Compression fracture COPD (chronic obstructive pulmonary disease) COVID-19 07/2021 Diarrhea DVT (deep venous thrombosis) History of recurrent DVT, on eliquis History of meningitis 2007, hospitalized ~2 months, had pneumonia. staph infection, intubated History of successful cardiopulmonary resuscitation Hypertension Hypokalemia Hypomagnesemia Hyponatremia Hypovolemic hyponatremia with low urine sodium responded to IV fluid, patient has poor p.o. intake Hyponatremia Hypophosphatemia Leukocytosis Narcotic dependence on hydrocodone for back pain Nocturnal hypoxemia Normocytic anemia Ptosis PVC (premature ventricular contraction) Refeeding syndrome SIADH (syndrome of inappropriate ADH production) Volume overload Surgical History History of breast augmentation History of facelift History of tonsillectomy History of total abdominal hysterectomy and bilateral salpingo-oophorectomy Family History Father Cancer lung cancer Other Stroke Social History Smoking and tobacco status: former smoker Alcohol intake: current Alcohol intake frequency: holidays/special occasions only Household members: spouse Marital status: Physical Exam Const: COMMON NORMALS: patient oriented x3 and healthy appearing HENMT: COMMON NORMALS: normocephalic and atraumatic HEAD & SCALP: normocephalic and atraumatic Eye: COMMON NORMALS: conjunctivae normal CONJUNCTIVA: Yes conjunctivae normal Neck/C-Spine: COMMON NORMALS: full ROM and supple Chest: COMMONS NORMALS: normal inspection of the chest and normal palpation of entire chest wall Resp: COMMON NORMALS: No retractions, No use of accessory muscles and clear to auscultation bilaterally AUSCULTATION: clear to auscultation bilaterally Cardio: COMMON NORMALS: regular rate, regular rhythm and No murmurs present (Cardio) RATE: regular rate RHYTHM: regular rhythm GI: COMMON NORMALS: Normal to inspection, nondistended, normoactive bowel sounds present, Soft to palpation, non-tender and no masses PALPATION: Yes Soft to palpation Extremity: COMMON NORMALS: normal to inspection and full ROM Neuro: COMMON NORMALS: patient oriented x3, moves all extremities and no focal motor deficits Psych: COMMON NORMALS: mental status grossly normal, Normal thought process present and cooperative THOUGHT PROCESS: Normal thought process present Skin: COMMON NORMALS: no rashes or lesions noted and no wounds GENERAL SKIN EXAM: no rashes or lesions noted Course Vital Signs: Vital signs: Vital Signs Temperature 98.0 F 02/10/23 04:33 Pulse Rate 95 02/10/23 06:00 Respiratory Rate 16 02/10/23 06:00 Blood Pressure 133/64 02/10/23 06:00 Pulse Oximetry 98 02/10/23 06:00 Oxygen Delivery Me thod Room Air 02/10/23 04:33 MDM - SOB/Dyspnea Medical Records I reviewed the patient's medical records. Lab Data I reviewed the patient's lab results. 02/10/23 04:41 02/10/23 04:41 Labs/Radiology: Radiology Impressions Chest X-Ray 02/10/23 04:37 IMPRESSION: 1. No definite CHF or pneumonia. 2. Stable right-sided mass, details above. 3. Other details/findings discussed above. Head CT 02/10/23 04:51 IMPRESSION: 1. No acute intracranial hemorrhage or mass effect. 2. Changes of microvascular disease. 3. No definite acute infarct by CT, see above. 4. Other findings discussed above. Laboratory Results WBC 9.9 10^3/uL (4.0-10.0) 02/10/23 04:41 RBC 3.49 10^6/uL (4.1-5.3) L 02/10/23 04:41 Hgb 10.4 g/dL (11.5-15.3) L 02/10/23 04:41 Hct 32.1 % (37.0-47.0) L 02/10/23 04:41 MCV 92.0 fl (81-99) 02/10/23 04:41 MCH 29.8 pg (28.0-34.0) 02/10/23 04:41 MCHC 32.4 g/dL (30.0-36.0) 02/10/23 04:41 RDW 12.5 % (12.1-15.1) 02/10/23 04:41 Plt Count 320 10^3/cmm (130-400) 02/10/23 04:41 MPV 8.5 fL (7.4-10.4) 02/10/23 04:41 Neut % (Auto) 63.1 % 02/10/23 04:41 Lymph % (Auto) 15.1 % 02/10/23 04:41 [place] % (Auto) 19.1 % 02/10/23 04:41 Eos % (Auto) 0.7 % 02/10/23 04:41 Baso % (Auto) 0.2 % 02/10/23 04:41 Neut # (Auto) 6.26 10^3/uL (1.8-7.7) 02/10/23 04:41 Lymph # (Auto) 1.5 10^3/uL (0.8-4.8) 02/10/23 04:41 [place] # (Auto) 1.9 10^3/uL (0.2-0.9) H 02/10/23 04:41 Eos # (Auto) 0.1 10^3/uL (0.0-0.8) 02/10/23 04:41 Baso # (Auto) 0.0 10^3/uL (0.0-0.1) 02/10/23 04:41 Nucleated RBC % (auto) 0 % 02/10/23 04:41 Nucleated RBCs # 0.0 /100WBC 02/10/23 04:41 PT 13.60 SECONDS (12.1-14.9) 02/10/23 04:41 INR 1.01 (0.8-1.2) 02/10/23 04:41 Specimen Type Arterial 02/10/23 05:23 Sample Site Radial, left 02/10/23 05:23 ABG pH 7.37 (7.35-7.45) 02/10/23 05:23 ABG pCO2 54.8 mmHg (35-45) H 02/10/23 05:23 ABG pO2 80.6 mmHg (80.0-100.0) 02/10/23 05:23 ABG HCO3 31.3 mmol/L (22-26) H 02/10/23 05:23 ABG Base Excess 4.9 mmol/L (-2.0-2.0) H 02/10/23 05:23 Panda Test Pos 02/10/23 05:23 Hematocrit 31.2 % (37-47) L 02/10/23 05:23 O2 Delivery Device Nc 02/10/23 05:23 O2 Liters/Min 1.0 % 02/10/23 05:23 Chronograph Operator ID [email or web address] 02/10/23 05:23 Sodium 122 mmol/L (136-145) L 02/10/23 04:41 Potassium 4.1 mmol/L (3.5-5.1) 02/10/23 04:41 Chloride 83 mmol/L (98-107) L 02/10/23 04:41 Carbon Dioxide 28 mmol/L (22-29) 02/10/23 04:41 Anion Gap 15.1 (5-19) 02/10/23 04:41 BUN 9 mg/dL (8-23) 02/10/23 04:41 Creatinine 0.3 mg/dL (0.5-0.9) L 02/10/23 04:41 GFR Calculation Not Reportable 02/10/23 04:41 Glucose 91 mg/dL (65-115) 02/10/23 04:41 POC Glucose 88 mg/dL (70-110) 02/10/23 04:45 Calculated Osmolality 252 mOsm/kg (285-295) L 02/10/23 04:41 Calcium 8.8 mg/dL (8.5-10.5) 02/10/23 04:41 Total Bilirubin 0.4 mg/dL (0.15-1.2) 02/10/23 04:41 AST 21 U/L (0-32) 02/10/23 04:41 ALT 11 U/L (0-33) 02/10/23 04:41 Alkaline Phosphatase 51 U/L (35-105) 02/10/23 04:41 NT-Pro-B Natriuret Pep 1487 pg/mL (0-450) H 02/10/23 04:41 Total Protein 6.8 g/dL (6.6-8.7) 02/10/23 04:41 Albumin 3.9 g/dL (3.5-5.2) 02/10/23 04:41 Globulin 2.9 g/dL (1.3-4.6) 02/10/23 04:41 EKG Data EKG 1: I personally reviewed and interpreted this EKG as follows: EKG Interpretation Date: 02/10/23 EKG interpretation time: 04:38 Interpretation: nsr hr [address] or t wave abnormalities qrs 88 qtc 392 Discharge Plan Discharge Patient Disposition: Home Clinical Impression: COPD (chronic obstructive pulmonary disease) Condition: Stable Prescriptions: No Action albuterol sulfate 90 mcg/actuation HFA aerosol inhaler 1 - 2 puff INHALATION Q4H PRN (Reason: Shortness Of Breath) Qty: 6.7 11RF losartan 100 mg tablet 100 mg PO DAILY Qty: 90 3RF nortriptyline 50 mg capsule 50 - 150 mg PO BEDTIME PRN (Reason: Sleep) Qty: 90 5RF Combivent Respimat 20-100 mcg/actuation mist 1 puff INHALATION QID Qty: 4 11RF Rx Instructions: may take up to 2 additonal inhalations per day for a max of 6 inhalations/day hydrocodone-acetaminophen 10-325 mg tablet 1 tab PO Q4H PRN (Reason: breakthrough pain) 15 Days Qty: 90 0RF Rx Instructions: max of 6 tabs per day Anoro Ellipta 62.5-25 mcg/actuation Blister With Device 1 inh INHALATION QAM acetaminophen 500 mg Tablet 500 mg PO Q4H PRN (Reason: Pain) ferrous gluconate 324 mg (37.5 mg iron) Tablet 324 mg PO BIDWM Qty: 60 0RF hydralazine 25 mg Tablet 50 mg PO TID Qty: 90 3RF magnesium oxide 400 mg (241.3 mg magnesium) Tablet 400 mg PO BID Qty: 6 0RF amlodipine 10 mg Tablet 10 mg PO DAILY Qty: 60 2RF sertraline 50 mg Tablet 25 mg PO DAILY Qty: 60 0RF metoprolol tartrate 25 mg Tablet 25 mg PO BID@0900,2100 Qty: 60 2RF Eliquis 5 mg Tablet 5 mg PO BID Qty: 60 3RF naloxone [Narcan] 4 mg/actuation spray,non-aerosol 4 mg intranasal Q2M PRN (Reason: opioid overdose) Qty: 2 0RF Rx Instructions: spray 1 dose into ONE nostril; alternate nostrils w each dose until help arrives lorazepam [Ativan] 0.5 mg tablet 0.5 mg PO BID PRN (Reason: anxiety) Qty: 6 0RF sodium chloride 1,000 mg tablet,soluble 1,000 mg PO DAILY Qty: 60 1RF Discharge Orders: Discharge ED (Routine); Ordered 02/10/23 Ordered By: Ramone Dorsey Referrals: Jeffrey Waite DO [Staff Physician] - Patient Instructions: Subarachnoid Hemorrhage (GEN), Pain Management Activity Restrictions/Additional Instructions: You are seen today for complaints of shortness of breath. Chest x-ray was unremarkable. We do recommend that oxygen at night. Overuse of oxygen can in crease carbon dioxide retention in patients with COPD which can be harmful. As discussed with the hospitalist at the previous hospitalization would be wary of use of narcotics overuse of narcotics can also suppress respiratory drive. You should use 2 L of oxygen at night. Sign Out Sign Out Data: Patient Sign Out occurred on 02/10/23 at 05:27. Patient's care was discussed, and care was transferred from to Ramone Dorsey DO. Coding Level of Care Code ED Information Assurance Engineer for Chg Fwd Documented by User: Ramone Dorsey DO 02/10/23 09:23 HPI - SOB/Dyspnea General: Chief Complaint: Altered Mental Status Stated Complaint: SOB Time Seen by Provider: 02/10/23 04:31 PFSH ED PFSH: Medical History Acute exacerbation of chronic obstructive airways disease Acute on chronic respiratory failure with hypoxia and hypercapnia Altered mental status Chronic anticoagulation Chronic back pain Compressed spine fracture Compression fracture COPD (chronic obstructive pulmonary disease) COVID-19 07/2021 Diarrhea DVT (deep venous thrombosis) History of recurrent DVT, on eliquis History of meningitis 2006, hospitalized ~2 months, had pneumonia. staph infection, intubated History of successful cardiopulmonary resuscitation Hypertension Hypokalemia Hypomagnesemia Hyponatremia Hypovolemic hyponatremia with low urine sodium responded to IV fluid, patient has poor p.o. intake Hyponatremia Hypophosphatemia Leukocytosis Narcotic dependence on hydrocodone for back pain Nocturnal hypoxemia Normocytic anemia Ptosis PVC (premature ventricular contraction) Refeeding syndrome SIADH (syndrome of inappropriate ADH production) Volume overload Surgical History History of breast augmentation History of facelift History of tonsillectomy History of total abdominal hysterectomy and bilateral salpingo-oophorectomy Family History Father Cancer lung cancer Other Stroke Social History Smoking and tobacco status: former smoker Alcohol intake: current Alcohol intake frequency: holidays/special occasions only Household members: spouse Marital status: Course Vital Signs: Vital signs: Vital Signs Temperature 98.0 F 02/10/23 04:33 Pulse Rate 95 02/10/23 06:00 Respiratory Rate 16 02/10/23 06:00 Blood Pressure 133/64 02/10/23 06:00 Pulse Oximetry 98 02/10/23 06:00 Oxygen Delivery Me thod Room Air 02/10/23 04:33 MDM - SOB/Dyspnea Medical Decision Making Labs imaging and EKG reviewed patient awake and alert and actually fairly good historian at this point. She was initially seen by Dr. Medley she remembers seeing me previously. Reviewed her previous hospitalization we had admitted her recently for hyponatremia she is still mildly hyponatremic but not symptomatic at this point she is a little bit down from where she was into his discharge. She has been getting oxygen I reviewed the previous hospitalization she does look like she requires oxygen at night but during the day she did not need oxygen when she had a home oxygen ambulation testing. Family had gotten oxygen been giving her oxygen regularly. Suspect this may be worsening her hypercapnia. There is no sign of pneumonia at this time she not having any chest pain. There also has been some concern for her narcotic use contributing to respiratory issues. She has chronic back pain from compression fractures and is not a lot of options for her but has been requiring increasing doses of narcotics which has caused respiratory depression and one time even thought to have caused the episode of respiratory failure. We will discharge patient back to the half-way 2 L of oxygen only at night continue to follow with primary care doctor. Medical Records I reviewed the patient's medical records. Lab Data I reviewed the patient's lab results. 02/10/23 04:41 02/10/23 04:41 Labs/Radiology: Radiology Impressions Chest X-Ray 02/10/23 04:37 IMPRESSION: 1. No definite CHF or pneumonia. 2. Stable right-sided mass, details above. 3. Other details/findings discussed above. Head CT 02/10/23 04:51 IMPRESSION: 1. No acute intracranial hemorrhage or mass effect. 2. Changes of microvascular disease. 3. No definite acute infarct by CT, see above. 4. Other findings discussed above. Laboratory Results WBC 9.9 10^3/uL (4.0-10.0) 02/10/23 04:41 RBC 3.49 10^6/uL (4.1-5.3) L 02/10/23 04:41 Hgb 10.4 g/dL (11.5-15.3) L 02/10/23 04:41 Hct 32.1 % (37.0-47.0) L 02/10/23 04:41 MCV 92.0 fl (81-99) 02/10/23 04:41 MCH 29.8 pg (28.0-34.0) 02/10/23 04:41 MCHC 32.4 g/dL (30.0-36.0) 02/10/23 04:41 RDW 12.5 % (12.1-15.1) 02/10/23 04:41 Plt Count 320 10^3/cmm (130-400) 02/10/23 04:41 MPV 8.5 fL (7.4-10.4) 02/10/23 04:41 Neut % (Auto) 63.1 % 02/10/23 04:41 Lymph % (Auto) 15.1 % 02/10/23 04:41 [place] % (Auto) 19.1 % 02/10/23 04:41 Eos % (Auto) 0.7 % 02/10/23 04:41 Baso % (Auto) 0.2 % 02/10/23 04:41 Neut # (Auto) 6.26 10^3/uL (1.8-7.7) 02/10/23 04:41 Lymph # (Auto) 1.5 10^3/uL (0.8-4.8) 02/10/23 04:41 [place] # (Auto) 1.9 10^3/uL (0.2-0.9) H 02/10/23 04:41 Eos # (Auto) 0.1 10^3/uL (0.0-0.8) 02/10/23 04:41 Baso # (Auto) 0.0 10^3/uL (0.0-0.1) 02/10/23 04:41 Nucleated RBC % (auto) 0 % 02/10/23 04:41 Nucleated RBCs # 0.0 /100WBC 02/10/23 04:41 PT 13.60 SECONDS (12.1-14.9) 02/10/23 04:41 INR 1.01 (0.8-1.2) 02/10/23 04:41 Specimen Type Arterial 02/10/23 05:23 Sample Site Radial, left 02/10/23 05:23 ABG pH 7.37 (7.35-7.45) 02/10/23 05: ABG pCO2 54.8 mmHg (35-45) H 02/10/23 05: ABG pO2 80.6 mmHg (80.0-100.0) 02/10/23 05: ABG HCO3 31.3 mmol/L (22-26) H 02/10/23 05: ABG Base Excess 4.9 mmol/L (-2.0-2.0) H 02/10/23 05: Panda Test Pos 02/10/23 05: Hematocrit 31.2 % (37-47) L 02/10/23 05: O2 Delivery Device Nc 02/10/23 05: O2 Liters/Min 1.0 % 02/10/23 05:23 Chronograph Operator ID [email or web address] 02/10/23 05:23 Sodium 122 mmol/L (136-145) L 02/10/23 04:41 Potassium 4.1 mmol/L (3.5-5.1) 02/10/23 04:41 Chloride 83 mmol/L (98-107) L 02/10/23 04:41 Carbon Dioxide 28 mmol/L (22-29) 02/10/23 04:41 Anion Gap 15.1 (5-19) 02/10/23 04:41 BUN 9 mg/dL (8-23) 02/10/23 04:41 Creatinine 0.3 mg/dL (0.5-0.9) L 02/10/23 04:41 GFR Calculation Not Reportable 02/10/23 04:41 Glucose 91 mg/dL (65-115) 02/10/23 04:41 POC Glucose 88 mg/dL (70-110) 02/10/23 04:45 Calculated Osmolality 252 mOsm/kg (285-295) L 02/10/23 04:41 Calcium 8.8 mg/dL (8.5-10.5) 02/10/23 04:41 Total Bilirubin 0.4 mg/dL (0.15-1.2) 02/10/23 04:41 AST 21 U/L (0-32) 02/10/23 04:41 ALT 11 U/L (0-33) 02/10/23 04:41 Alkaline Phosphatase 51 U/L (35-105) 02/10/23 04:41 NT-Pro-B Natriuret Pep 1487 pg/mL (0-450) H 02/10/23 04:41 Total Protein 6.8 g/dL (6.6-8.7) 02/10/23 04:41 Albumin 3.9 g/dL (3.5-5.2) 02/10/23 04:41 Globulin 2.9 g/dL (1.3-4.6) 02/10/23 04:41 Discharge Plan Discharge Patient Disposition: Home Clinical Impression: COPD (chronic obstructive pulmonary disease) Condition: Stable Prescriptions: No Action albuterol sulfate 90 mcg/actuation HFA aerosol inhaler 1 - 2 puff INHALATION Q4H PRN (Reason: Shortness Of Breath) Qty: 6.7 11RF losartan 100 mg tablet 100 mg PO DAILY Qty: 90 3RF nortriptyline 50 mg capsule 50 - 150 mg PO BEDTIME PRN (Reason: Sleep) Qty: 90 5RF Combivent Respimat 20-100 mcg/actuation mist 1 puff INHALATION QID Qty: 4 11RF Rx Instructions: may take up to 2 additonal inhalations per day for a max of 6 inhalations/day hydrocodone-acetaminophen 10-325 mg tablet 1 tab PO Q4H PRN (Reason: breakthrough pain) 15 Days Qty: 90 0RF Rx Instructions: max of 6 tabs per day Anoro Ellipta 62.5-25 mcg/actuation Blister With Device 1 inh INHALATION QAM acetaminophen 500 mg Tablet 500 mg PO Q4H PRN (Reason: Pain) ferrous gluconate 324 mg (37.5 mg iron) Tablet 324 mg PO BIDWM Qty: 60 0RF hydralazine 25 mg Tablet 50 mg PO TID Qty: 90 3RF magnesium oxide 400 mg (241.3 mg magnesium) Tablet 400 mg PO BID Qty: 6 0RF amlodipine 10 mg Tablet 10 mg PO DAILY Qty: 60 2RF sertraline 50 mg Tablet 25 mg PO DAILY Qty: 60 0RF metoprolol tartrate 25 mg Tablet 25 mg PO BID@0900,2100 Qty: 60 2RF Eliquis 5 mg Tablet 5 mg PO BID Qty: 60 3RF naloxone [Narcan] 4 mg/actuation spray,non-aerosol 4 mg intranasal Q2M PRN (Reason: opioid overdose) Qty: 2 0RF Rx Instructions: spray 1 dose into ONE nostril; alternate nostrils w each dose until help arrives lorazepam [Ativan] 0.5 mg tablet 0.5 mg PO BID PRN (Reason: anxiety) Qty: 6 0RF sodium chloride 1,000 mg tablet,soluble 1,000 mg PO DAILY Qty: 60 1RF Discharge Orders: Discharge ED (Routine); Ordered 02/10/23 Ordered By: Ramone Dorsey Referrals: Jeffrey Waite DO [Staff Physician] - Patient Instructions: Subarachnoid Hemorrhage (GEN), Pain Management Activity Restrictions/Additional Instructions: You are seen today for complaints of shortness of breath. Chest x-ray was unremarkable. We do recommend that oxygen at night. Overuse of oxygen can increase carbon dioxide retention in patients with COPD which can be harmful. As discussed with the hospitalist at the previous hospitalization would be wary of use of narcotics overuse of narcotics can also suppress respiratory drive. You should use 2 L of oxygen at night. Sign Out Sign Out Data: Patient Sign Out occurred on 02/10/23 at 05:27. Patient's care was discussed, and care was transferred from to Ramone Dorsey DO. Coding Level of Care Code ED Information Assurance Engineer for Jami Nguyen
[2023-02-10 04:47] LABS: Basophils % 0.2 %; Eosinophils # 0.1 10^3/uL (0.0-0.8); Eosinophils % 0.7 %; Hematocrit 32.1 % (37.0-47.0); Hemoglobin 10.4 g/dL (11.5-15.3); Lymphocytes # 1.5 10^3/uL (0.8-4.8); Lymphocytes % 15.1 %; Mean Corpuscular HGB Conc 32.4 g/dL (30.0-36.0); Mean Corpuscular Hemoglobin 29.8 pg (28.0-34.0); Mean Platelet Volume 8.5 fL (7.4-10.4); Monocytes # 1.9 10^3/uL (0.2-0.9); Monocytes % 19.1 %; Neutrophils # 6.26 10^3/uL (1.8-7.7); Neutrophils % 63.1 %; Nucleated Red Blood Cells % 0 %; Platelet Count 320 10^3/cmm (130-400); Red Blood Count 3.49 10^6/uL (4.1-5.3); Red Cell Distribution Width 12.5 % (12.1-15.1); White Blood Count 9.9 10^3/uL (4.0-10.0)
[2023-02-10 04:48] LABS: Glucose Point of Care 88 mg/dL (70-110)
--- NOTE | 2023-02-10 04:51 | CTR_ITS ---
PROCEDURE INFORMATION: Exam: CT Head Without Contrast Exam date and time: 02/10/2023 5:01 AM Age: 77 years old Clinical indication: Altered mental status/memory loss; Additional info: Confusion TECHNIQUE: Imaging protocol: Computed tomography of the head without contrast. Radiation optimization: All CT scans at this facility use at least one of these dose optimization techniques: automated exposure control; mA and/or kV adjustment per patient size (includes targeted exams where dose is matched to clinical indication); or iterative reconstruction. REPORTING DATA: Count of CT and Cardiac NM exams in prior 12 months: This patient has received 5 known CTs and 0 known cardiac nuclear medicine studies in the 12 months prior to the current study. COMPARISON: CT head wo con* [id number] 02/04/2023 7:33 PM RADIATION DOSE METRICS: Total DLP (mGy-cm): 1207.97 FINDINGS: Brain: No acute intracranial hemorrhage or mass effect. There is decreased attenuation in the periventricular white matter, likely from microvascular disease. No definite acute infarct by CT. MRI could be more sensitive/specific for detection, as clinically directed. Cerebral ventricles: Ventricle size is normal for age. Paranasal sinuses: Included paranasal sinuses are essentially clear. Mastoid air cells: No significant acute finding. Bones/joints: No definite acute skull fracture. Soft tissues: No significant acute finding. Vasculature: Vascular calcifications in the internal carotid arteries. CT/CT head wo con* [id number] IMPRESSION: 1. No acute intracranial hemorrhage or mass effect. 2. Changes of microvascular disease. 3. No definite acute infarct by CT, see above. 4. Other findings discussed above.
[2023-02-10 05:00] LABS: INR 1.01 (0.8-1.2)
[2023-02-10 05:15] LABS: Alanine Aminotransferase 11 U/L (0-33); Albumin Level 3.9 g/dL (3.5-5.2); Alkaline Phosphatase 51 U/L (35-105); Anion Gap 15.1 (5-19); Aspartate Amino Transferase 21 U/L (0-32); Blood Urea Nitrogen 9 mg/dL (8-23); Calcium 8.8 mg/dL (8.5-10.5); Carbon Dioxide 28 mmol/L (22-29); Chloride 83 mmol/L (98-107); Globulin 2.9 g/dL (1.3-4.6); Glucose 91 mg/dL (65-115); NT Pro B Type Natriuretic Pept 1487 pg/mL (0-450); Osmolality Calculated 252 mOsm/kg (285-295); Potassium 4.1 mmol/L (3.5-5.1); Sodium 122 mmol/L (136-145); Total Bilirubin 0.4 mg/dL (0.15-1.2); Total Protein 6.8 g/dL (6.6-8.7)
[2023-02-10 05:31] LABS: ABG PCO2 54.8 mmHg (35-45); ABG PH Result 7.37 (7.35-7.45); Arterial Blood Gas Hematocrit 31.2 % (37-47); Base Excess ABG 4.9 mmol/L (-2.0-2.0); Blood Gas Allen Test Pos; Blood Gas Sample Site Radial, left; Blood Gas Sample Type Arterial; HCO3 ABG 31.3 mmol/L (22-26); Oxygen Device NC; PO2 ABG 80.6 mmHg (80.0-100.0)
[2023-02-10 06:00] VITALS: BP 133/64; PULSE 95; RESP 16; O2SAT 98
[2023-02-10] MEDS: HYDROcodone-acetaminophen 10-325 mg Tablet 1 TAB PO (07:05)
== END 2023-02-10 08:49 | disposition home or self-care (01) ==
PROVIDERS: Emergency Medicine; Emergency Provider Family Medicine; PCP Family Medicine
DX: J44.9 Chronic obstructive pulmonary disease, unspecified (principal); Z79.01 Long term (current) use of anticoagulants; Z87.891 Personal history of nicotine dependence; I10 Essential (primary) hypertension
CPT/HCPCS: 36416; 36600; 70450; 71045; 80053; 82803; 82962; 83880; 85025; 85610; 93005; 99285

== ENCOUNTER 2023-02-15 18:14 | Outpatient (CLI) | payer MEDICARE, OTHER, SELFPAY ==
[2023-02-15 18:30] LABS: Basophils % 0.2 %; Eosinophils % 0.7 %; Hematocrit 30.4 % (37.0-47.0); Hemoglobin 9.7 g/dL (11.5-15.3); Lymphocytes # 1.4 10^3/uL (0.8-4.8); Lymphocytes % 23.5 %; Mean Corpuscular HGB Conc 31.9 g/dL (30.0-36.0); Mean Corpuscular Volume 94.1 fl (81-99); Mean Platelet Volume 8.6 fL (7.4-10.4); Monocytes # 1.1 10^3/uL (0.2-0.9); Monocytes % 17.5 %; Neutrophils # 3.54 10^3/uL (1.8-7.7); Neutrophils % 57.6 %; Nucleated Red Blood Cells % 0 %; Platelet Count 467 10^3/cmm (130-400); Red Blood Count 3.23 10^6/uL (4.1-5.3); Red Cell Distribution Width 12.9 % (12.1-15.1); White Blood Count 6.1 10^3/uL (4.0-10.0)
[2023-02-15 19:50] LABS: Anion Gap 12.1 (5-19); Blood Urea Nitrogen 8 mg/dL (8-23); Carbon Dioxide 27 mmol/L (22-29); Chloride 91 mmol/L (98-107); Potassium 4.1 mmol/L (3.5-5.1); Sodium 126 mmol/L (136-145)
[2023-02-15 19:51] LABS: Calcium 8.4 mg/dL (8.5-10.5); Glucose 95 mg/dL (65-115); Osmolality Calculated 260 mOsm/kg (285-295)
== END 2023-02-15 18:15 | disposition home or self-care (01) ==
PROVIDERS: PCP Family Medicine; Visit Provider Family Medicine
DX: I10 Essential (primary) hypertension (principal); D64.9 Anemia, unspecified
CPT/HCPCS: 80048; 83735; 85025

== ENCOUNTER 2023-02-24 17:43 | Outpatient (CLI) | payer MEDICARE, OTHER, SELFPAY ==
[2023-02-24 18:15] LABS: Alanine Aminotransferase 11 U/L (0-33); Albumin Level 3.7 g/dL (3.5-5.2); Alkaline Phosphatase 73 U/L (35-105); Anion Gap 13.1 (5-19); Aspartate Amino Transferase 14 U/L (0-32); Blood Urea Nitrogen 6 mg/dL (8-23); Calcium 8.5 mg/dL (8.5-10.5); Carbon Dioxide 30 mmol/L (22-29); Chloride 89 mmol/L (98-107); Globulin 2.7 g/dL (1.3-4.6); Glucose 111 mg/dL (65-115); Osmolality Calculated 264 mOsm/kg (285-295); Potassium 4.1 mmol/L (3.5-5.1); Sodium 128 mmol/L (136-145); Total Bilirubin 0.3 mg/dL (0.15-1.2); Total Protein 6.4 g/dL (6.6-8.7)
== END 2023-02-24 17:44 | disposition home or self-care (01) ==
LOC: LAB 17:46
PROVIDERS: PCP Family Medicine; Visit Provider Family Medicine
DX: E87.1 Hypo-osmolality and hyponatremia (principal)
CPT/HCPCS: 80053

== ENCOUNTER 2023-03-09 11:26 | Inpatient (IN) | payer MEDICARE, OTHER, SELFPAY ==
[2023-03-09] VITALS (95 sets, daily range): BP systolic 86–139; BP diastolic 41–94; PULSE 75–103; RESP 11–25; TEMP 36.7–36.8; O2SAT 81–100
--- NOTE | 2023-03-09 11:27 | XR_ITS ---
WS: [id number] Portable AP upright chest, 03/09/2023 Clinical Data: dyspnea/cough Comparison: Portable chest, 02/10/2023rr Findings: There is no change in the 2.5 cm peripheral density in the midportion of the right thorax. The pulmonary vascularity is not increased. No pneumonia or pneumothorax is seen. No effusions are pr esent. The aortic arch shows tortuosity. There is a slight dextroscoliosis of the thoracic spine. The re are monitor leads on the chest wall. XR/XR chest 1V portable [id number] Impression: No change in 2.5 cm peripheral density in the midportion of the right thorax.
--- NOTE | 2023-03-09 11:41 | W.ED.SOB ---
HPI - SOB/Dyspnea General: Chief Complaint: Altered Mental Status Stated Complaint: difficulty breathing Time Seen by Provider: 03/09/23 11:27 Source: patient and EMS Mode of arrival: EMS History of Present Illness: HPI Narrative: 77-year-old female with end-stage COPD presents altered mental status. Family was initially planning to bring her to the emergency room via private vehicle EMS was called due to help to get her to the car but when they arrived they realized she would probably be more appropriate if she went via EMS. She has back pain from thoracic compression fractures she is a lifelong smoker has had progressively worsening COPD especially recently. She had a couple of visits to the ER were she was oversedated from narcotics use she currently has a 25 mcg fentanyl patch she has been living at home. She has hydrocodone for breakthrough pain but has not been using any. She is poorly responsive on arrival here not really able to contribute to her history. Family reported she had not taken any extra hydrocodone. No report of recent fever or increased cough. In the past she also has had hypercapnia secondary to increased oxygen delivery. She is chronically on 2 to 3 L by nasal cannula. MD elicited complaint: shortness of breath Pertinent past history: COPD Timing: constant Severity: severe Review of Systems General: Reports: ROS unobtainable due to medical condition PFS ED PFSH: Medical History Acute exacerbation of chronic obstructive airways disease Acute on chronic respiratory failure with hypoxia and hypercapnia Altered mental status Chronic anticoagulation Chronic back pain Compressed spine fracture Compression fracture COPD (chronic obstructive pulmonary disease) COVID-19 07/2021 Diarrhea DVT (deep venous thrombosis) History of recurrent DVT, on eliquis History of meningitis 2006, hospitalized ~2 months, had pneumonia. staph infection, intubated History of successful cardiopulmonary resuscitation Hypertension Hypokalemia Hypomagnesemia Hyponatremia Hypovolemic hyponatremia with low urine sodium responded to IV fluid, patient has poor p.o. intake Hyponatremia Hypophosphatemia Leukocytosis Narcotic dependence on hydrocodone for back pain Nocturnal hypoxemia Normocytic anemia Ptosis PVC (premature ventricular contraction) Refeeding syndrome SIADH (syndrome of inappropriate ADH production) Volume overload Surgical History History of breast augmentation History of facelift History of tonsillectomy History of total abdominal hysterectomy and bilateral salpingo-oophorectomy Family History Father Cancer lung cancer Other Stroke Social History Smoking and tobacco status: former smoker Alcohol intake: current Alcohol intake frequency: holidays/special occasions only Household members: spouse Marital status: Physical Exam Const: GENERAL APPEARANCE: lethargic and ill appearing NUTRITIONAL APPEARANCE: cachectic ORIENTATION/CONSCIOUSNESS: Yes lethargic HENMT: COMMON NORMALS: normocephalic, atraumatic and hearing grossly normal bilaterally HEAD & SCALP: normocephalic and atraumatic Resp: EFFORT & INSPECTION: Yes labored AUSCULTATION: rhonchi, wheezes and diminished lung sounds Cardio: COMMON NORMALS: regular rate, regular rhythm and No murmurs present (Cardio) RATE: regular rate RHYTHM: regular rhythm GI: COMMON NORMALS: Soft to palpation and No hepatosplenomegaly present AUSCULTATION: Yes normoactive bowel sounds PALPATION: Yes Soft to palpation, No Tenderness to palpation present (GI), No Guarding due to palpation present (GI) and Yes No hepatosplenomegaly present Extremity: COMMON NORMALS: normal to inspection, capillary refill normal, no clubbing, cyanosis or edema, no calf tenderness and no pedal edema Neuro: SENSORIUM/ORIENTATION: Yes lethargic Skin: OTHER: Pressure all ulcers mid to lower thoracic spine which been present for some time no evidence of acute infection at this time. Course Vital Signs: Vital signs: Vital Signs Temperature 98.2 F 03/09/23 11:37 Pulse Rate 87 03/09/23 14:30 Respiratory Rate 18 03/09/23 13:07 Blood Pressure 118/76 03/09/23 13:07 Pulse Oximetry 100 03/09/23 14:30 Oxygen Delivery Me thod BiPAP 03/09/23 13:07 Oxygen Flow Rate 2 03/09/23 11:57 Fraction of Inspir ed Oxygen 40 03/09/23 14:30 MDM - SOB/Dyspnea Medical Decision Making Hypercapnic respiratory failure with severe COPD end-stage COPD in a patient with oxygen dependence and multiple recent ER and hospitalizations for this. She only has 1 fentanyl patch on. In the past she had episodes precipitated by narcotics use has been some concern about her benzodiazepines as well reviewing Dr. Mayes's notes have been tapering back on her benzodiazepines and she is been doing well on the single patch of fentanyl. Confirmed by exam there is only [address] at this time[address] Family has removed her access to hydrocodone so that has not been an issue family confirms is not given any extra hydrocodone. Seems to be improving slightly with BiPAP she is definitely hypercapnic on her blood gases and his respiratory acidosis. Discussed Dr. Barnett will admit discussed with the family. They are considering hospice level of care. She had recently been in assisted living they taken her home because they wanted her to be at home with them. There is a palliative care consultation on the chart but I cannot review the document. Discussed hospice with the family and they are interested in this still discuss further with Dr. Barnett. Medical Records I reviewed the patient's medical records. Lab Data I reviewed the patient's lab results. 03/09/23 11:50 03/09/23 11:50 Labs/Radiology: Radiology Impressions Chest X-Ray 03/09/23 11:27 Impression: No change in 2.5 cm peripheral density in the midportion of the right thorax. Laboratory Results WBC 6.1 10^3/uL (4.0-10.0) 03/09/23 11:50 RBC 3.90 10^6/uL (4.1-5.3) L 03/09/23 11:50 Hgb 11.1 g/dL (11.5-15.3) L 03/09/23 11:50 Hct 36.1 % (37.0-47.0) L 03/09/23 11:50 MCV 92.6 fl (81-99) 03/09/23 11:50 MCH 28.5 pg (28.0-34.0) 03/09/23 11:50 MCHC 30.7 g/dL (30.0-36.0) 03/09/23 11:50 RDW 12.8 % (12.1-15.1) 03/09/23 11:50 Plt Count 372 10^3/cmm (130-400) 03/09/23 11:50 MPV 8.8 fL (7.4-10.4) 03/09/23 11:50 Neut % (Auto) 56.2 % 03/09/23 11:50 Lymph % (Auto) 26.9 % 03/09/23 11:50 [place] % (Auto) 14.7 % 03/09/23 11:50 Eos % (Auto) 1.6 % 03/09/23 11:50 Baso % (Auto) 0.3 % 03/09/23 11:50 Neut # (Auto) 3.45 10^3/uL (1.8-7.7) 03/09/23 11:50 Lymph # (Auto) 1.7 10^3/uL (0.8-4.8) 03/09/23 11:50 [place] # (Auto) 0.9 10^3/uL (0.2-0.9) 03/09/23 11:50 Eos # (Auto) 0.1 10^3/uL (0.0-0.8) 03/09/23 11:50 Baso # (Auto) 0.0 10^3/uL (0.0-0.1) 03/09/23 11:50 Nucleated RBC % (auto) 0 % 03/09/23 11:50 Nucleated RBCs # 0.0 /100WBC 03/09/23 11:50 Specimen Type Arterial 03/09/23 11:48 Sample Site Radial, right 03/09/23 11:48 ABG pH 7.28 (7.35-7.45) L 03/09/23 11:48 ABG pCO2 78.7 mmHg (35-45) H* 03/09/23 11:48 ABG pO2 112.0 mmHg (80.0-100.0) H 03/09/23 11:48 ABG HCO3 37.3 mmol/L (22-26) H 03/09/23 11:48 ABG O2 Saturation 98.9 03/09/23 11:48 ABG Base Excess 8.5 mmol/L (-2.0-2.0) H 03/09/23 11:48 Panda Test Pos 03/09/23 11:48 A-a O2 Gradient Not Reportable 03/09/23 11:48 Hematocrit 30.9 % (37-47) L 03/09/23 11:48 Hgb O2 Saturation 97.4 % (95-100) 03/09/23 11:48 Carboxyhemoglobin 1.2 %THgb (0.4-20.1) 03/09/23 11:48 Methemoglobin 0.4 % (0.4-1.5) 03/09/23 11:48 Total Hemoglobin 10.1 g/dL (12-16) L 03/09/23 11:48 Sodium 130.0 mmol/L (131-143) L 03/09/23 11:48 Potassium 5.8 mmol/L (3.5-5.0) H 03/09/23 11:48 Glucose 95.0 mg/dL (70-115) 03/09/23 11:48 Ionized Calcium 1.2 mmol/L (1.1-1.4) 03/09/23 11:48 O2 Delivery Device Nc 03/09/23 11:48 O2 Liters/Min 3.0 % 03/09/23 11:48 Fire Control Technician ID [place] 03/09/23 11:48 Sodium 131 mmol/L (136-145) L 03/09/23 11:50 Potassium 5.4 mmol/L (3.5-5.1) H 03/09/23 11:50 Chloride 90 mmol/L (98-107) L 03/09/23 11:50 Carbon Dioxide 34 mmol/L (22-29) H 03/09/23 11:50 Anion Gap 12.4 (5-19) 03/09/23 11:50 BUN 7 mg/dL (8-23) L 03/09/23 11:50 Creatinine 0.4 mg/dL (0.5-0.9) L 03/09/23 11:50 GFR Calculation Not Reportable 03/09/23 11:50 Glucose 88 mg/dL (65-115) 03/09/23 11:50 Calculated Osmolality 269 mOsm/kg (285-295) L 03/09/23 11:50 Calcium 9.1 mg/dL (8.5-10.5) 03/09/23 11:50 Total Bilirubin 0.2 mg/dL (0.15-1.2) 03/09/23 11:50 AST 20 U/L (0-32) 03/09/23 11:50 ALT 10 U/L (0-33) 03/09/23 11:50 Alkaline Phosphatase 74 U/L (35-105) 03/09/23 11:50 Troponin T Baseline 39 ng/L (0-10) H 03/09/23 11:50 Total Protein 6.6 g/dL (6.6-8.7) 03/09/23 11:50 Albumin 3.9 g/dL (3.5-5.2) 03/09/23 11:50 Globulin 2.7 g/dL (1.3-4.6) 03/09/23 11:50 Discharge Plan Discharge Patient Disposition: Admitted As Inpatient Admit Provider: Rick Barnett Clinical Impression: Acute hypercapnic respiratory failure, Compressed spine fracture, Acute exacerbation of chronic obstructive airways disease, Pressure injury of thoracic region of back Condition: Stable Coding Level of Care Code ED Representative Phlebotomy Services for Jami Nguyen
[2023-03-09 11:58] LABS: Basophils % 0.3 %; Eosinophils # 0.1 10^3/uL (0.0-0.8); Eosinophils % 1.6 %; Hematocrit 36.1 % (37.0-47.0); Hemoglobin 11.1 g/dL (11.5-15.3); Lymphocytes # 1.7 10^3/uL (0.8-4.8); Lymphocytes % 26.9 %; Mean Corpuscular HGB Conc 30.7 g/dL (30.0-36.0); Mean Corpuscular Hemoglobin 28.5 pg (28.0-34.0); Mean Corpuscular Volume 92.6 fl (81-99); Mean Platelet Volume 8.8 fL (7.4-10.4); Monocytes # 0.9 10^3/uL (0.2-0.9); Monocytes % 14.7 %; Neutrophils # 3.45 10^3/uL (1.8-7.7); Neutrophils % 56.2 %; Nucleated Red Blood Cells % 0 %; Platelet Count 372 10^3/cmm (130-400); Red Cell Distribution Width 12.8 % (12.1-15.1); White Blood Count 6.1 10^3/uL (4.0-10.0)
[2023-03-09 11:59] LABS: ABG PH Result 7.28 (7.35-7.45); Arterial Blood Gas Hematocrit 30.9 % (37-47); Base Excess ABG 8.5 mmol/L (-2.0-2.0); Blood Gas Allen Test Pos; Blood Gas Operator Identificat WALCI; Blood Gas Sample Site Radial, right; Blood Gas Sample Type Arterial; Carboxyhemoglobin 1.2 %THgb (0.4-20.1); HCO3 ABG 37.3 mmol/L (22-26); HGB O2 Sat 97.4 % (95-100); Ionized Calcium Level - ABG 1.2 mmol/L (1.1-1.4); Methemoglobin 0.4 % (0.4-1.5); Oxygen Device NC; Oxygen Saturation ABG 98.9; Potassium Level - ABG 5.8 mmol/L (3.5-5.0); Total Hemoglobin 10.1 g/dL (12-16)
[2023-03-09 12:00] LABS: ABG PCO2 78.7 mmHg (35-45)
--- NOTE | 2023-03-09 12:10 | PC.NURSE ---
RT PLACING PATIENT ON BIPAP. FAMILY AT BEDSIDE. NO NEEDS AT THIS TIME.
--- NOTE | 2023-03-09 12:14 | ECG_ITS ---
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 Measurements Intervals [place] Rate: 75 P: 77 SD: 196 QRS: 67 QRSD: 102 T: 80 QT: 361 QTc: 405 Interpretive Statements SINUS RHYTHM MODERATE ST DEPRESSION [0.05+ mV ST DEPRESSION] Compared to ECG 02/10/2023 04:38:54 ST (T wave) deviation now present Ventricular premature complex(es) no longer present Electronically Signed On 03-09-2023 15:42:06 CDT by Juan Henderson M.D. [email or web address].[employer]/[id number]
[2023-03-09 12:15] LABS: Alanine Aminotransferase 10 U/L (0-33); Albumin Level 3.9 g/dL (3.5-5.2); Alkaline Phosphatase 74 U/L (35-105); Blood Urea Nitrogen 7 mg/dL (8-23); Calcium 9.1 mg/dL (8.5-10.5); Carbon Dioxide 34 mmol/L (22-29); Chloride 90 mmol/L (98-107); Globulin 2.7 g/dL (1.3-4.6); Glucose 88 mg/dL (65-115); Osmolality Calculated 269 mOsm/kg (285-295); Sodium 131 mmol/L (136-145); Total Bilirubin 0.2 mg/dL (0.15-1.2); Total Protein 6.6 g/dL (6.6-8.7)
[2023-03-09 12:19] LABS: Anion Gap 12.4 (5-19); Aspartate Amino Transferase 20 U/L (0-32); Potassium 5.4 mmol/L (3.5-5.1)
--- NOTE | 2023-03-09 12:35 | ECG_ITS ---
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 Measurements Intervals [place] Rate: 81 P: 74 MS: 194 QRS: 62 QRSD: 96 T: 75 QT: 344 QTc: 399 Interpretive Statements SINUS RHYTHM WITH OCCASIONAL VENTRICULAR PREMATURE COMPLEXES MODERATE ST DEPRESSION [0.05+ mV ST DEPRESSION] Compared to ECG 02/10/2023 04:38:54 ST (T wave) deviation now present Electronically Signed On 03-09-2023 15:40:12 CDT by Juan Henderson M.D. [email or web address]/[id number]
[2023-03-09 12:58] LABS: Troponin(5th) Baseline 39 ng/L (0-10)
[2023-03-09] MEDS: sodium chloride 0.9% 500 ML 999 ML IV (13:03)
[2023-03-09 14:52] LABS: Troponin 5 2HR 31.14 ng/L (0-10)
[2023-03-09 14:55] LABS: Troponin 5 2HR Delta -7.86 ABS# (0-10)
[2023-03-09 15:00] LABS: Cortisol Random 21.91 ug/dL (2.47-19.5)
--- NOTE | 2023-03-09 15:26 | PM.HP ---
Providers/Chief Complaint Admitting Physician: Rick Barnett MD Primary Care Provider: Armani Hooker DO Chief Complaint: difficulty breathing History of Present Illness Eleni Miller is a 77 year old female who presented to the hospital with history of diminished responsiveness since last night. She was recently released from [facility] on Monday. She has not had any fevers. She has an occasional cough. She does wheeze on occasion. No exposures to any illness. No vomiting or nausea. No chest discomfort. In the emergency department she was placed on BiPAP, and eventually AVAPS. Review of Systems General: Reports: 10 or more systems reviewed and unremarkable except in HPI and below and ROS unobtainable due to mental status Medications/Allergies Home Medications Medication Instructions Recorded Confirmed Last Taken Type umeclidinium 62.5 mcg-vilanterol 1 inh inhalation QAM 07/06/21 03/09/23 03/09/23 History 25 mcg/actuation powdr for inhalation (Anoro Ellipta) acetaminophen 500 mg tablet 500 mg PO Q4H PRN Pain 07/07/21 03/09/23 Unknown History ferrous gluconate 324 mg (37.5 mg 324 mg PO BIDWM #60 tabs 07/09/21 03/09/23 03/09/23 Rx iron) tablet albuterol sulfate 90 mcg/actuation 1 - 2 puff inhalation Q4H PRN 11/23/22 03/09/23 Unknown Rx aerosol inhaler Shortness Of Breath #6.7 grams ipratropium 20 mcg-albuterol 100 1 puff inhalation QID #4 grams 12/08/22 03/09/23 03/09/23 Rx mcg/actuation mist for inhalation (Combivent Respimat) losartan 100 mg tablet 100 mg PO DAILY #90 tabs 12/08/22 03/09/23 03/09/23 Rx nortriptyline 50 mg capsule 50 - 150 mg PO BEDTIME PRN Sleep 12/08/22 03/09/23 03/08/23 Rx #90 caps amlodipine 10 mg tablet 10 mg PO DAILY #60 tabs 02/03/23 03/09/23 03/09/23 Rx apixaban 5 mg tablet (Eliquis) 5 mg PO BID #60 tabs 02/03/23 03/09/23 03/09/23 Rx hydralazine 25 mg tablet 50 mg PO TID #90 tabs 02/03/23 03/09/23 03/09/23 Rx magnesium oxide 400 mg (241.3 mg 400 mg PO BID #6 tabs 02/03/23 03/09/23 03/09/23 Rx magnesium) tablet metoprolol tartrate 25 mg tablet 25 mg PO BID@0900,2100 #60 tabs 02/03/23 03/09/23 03/09/23 Rx sertraline 50 mg tablet 25 mg PO DAILY #60 tabs 02/03/23 03/09/23 03/09/23 Rx sodium chloride 1,000 mg soluble 1,000 mg PO DAILY #60 tabs 02/08/23 03/09/23 03/09/23 Rx tablet naloxone 4 mg/actuation nasal 4 mg intranasal Q2M PRN opioid 02/15/23 03/09/23 Unknown Rx spray (Narcan) overdose #2 ea fentanyl 25 mcg/hr transdermal 1 patch transdermal Q72H 30 days 03/01/23 03/09/23 Unknown Rx patch #10 ea Wound care eval and treat #1 ea 03/08/23 03/09/23 Unknown Rx bisacodyl 5 mg tablet 10 mg PO Q6H PRN Constipation 03/09/23 03/09/23 Unknown History hydrocodone 10 mg-acetaminophen 1 tab PO Q6H PRN Pain 03/09/23 03/09/23 Unknown History 325 mg tablet hydroxyzine HCl 10 mg tablet 10 mg PO Q6H PRN Anxiety 03/09/23 03/09/23 Unknown History lorazepam 0.5 mg tablet (Ativan) 0.25 mg PO Q12H PRN anxiety 03/09/23 03/09/23 Unknown History Allergies Allergy/AdvReac Type Severity Reaction Status Date / Time hydrochlorothiazide Allergy Severe hyponatremi Verified 03/09/23 13:37 a PFSH Acute PFSH: Medical History (Updated 03/09/23 @ 17:25 by Rick Barnett MD) Acute exacerbation of chronic obstructive airways disease Acute on chronic respiratory failure with hypoxia and hypercapnia Altered mental status Chronic anticoagulation Chronic back pain Compressed spine fracture Compression fracture COPD (chronic obstructive pulmonary disease) COVID-19 07/2021 Diarrhea DVT (deep venous thrombosis) History of recurrent DVT, on eliquis History of meningitis 2006, hospitalized ~2 months, had pneumonia. staph infection, intubated History of successful cardiopulmonary resuscitation Hypertension Hypokalemia Hypomagnesemia Hyponatremia Hypovolemic hyponatremia with low urine sodium responded to IV fluid, patient has poor p.o. intake Hyponatremia Hypophosphatemia Leukocytosis Narcotic dependence on hydrocodone for back pain Nocturnal hypoxemia Normocytic anemia Ptosis PVC (premature ventricular contraction) Refeeding syndrome SIADH (syndrome of inappropriate ADH production) Volume overload Surgical History History of breast augmentation History of facelift History of tonsillectomy History of total abdominal hysterectomy and bilateral salpingo-oophorectomy Family History Father Cancer lung cancer Other Stroke Social History Smoking and tobacco status: former smoker Alcohol intake: current Alcohol intake frequency: holidays/special occasions only Household members: spouse Marital status: Vitals/I&O/Wt Last Vital Signs Temp 98.2 F 03/09/23 11:37 Pulse 88 03/09/23 14:48 Resp 13 03/09/23 14:48 BP 119/80 03/09/23 14:48 Pulse Ox 96 03/09/23 14:48 O2 Del Method Room Air 03/09/23 14:48 O2 Flow Rate 2 03/09/23 11:57 FiO2 40 03/09/23 14:30 03/09/23 03/09/23 03/09/23 06:59 14:59 22:59 Intake Total 500 / 500 Balance 500 / 500 Physical Exam Narrative: General exam no distress Neck is supple Cardiovascular regular rate and rhythm without murmur Lungs clear but with diminished breath sounds bilaterally Abdomen is soft, positive bowel sounds Extremities no cyanosis clubbing or edema, cap refill brisk Data 03/09/23 11:50 03/09/23 11:50 Other Labs: ABG demonstrated pH 7.28, PCO2 79, PO2 of 112 on 3 L per nasal cannula. Calcium is 9.1. LFTs are normal. Troponin is 39 with repeat of 31 Random cortisol 21 and TSH 1.55 Chest x-ray by my read no infiltrate, density unchanged on right EKG demonstrates sinus rhythm, 1 PVC, normal axis, nonspecific ST-T wave changes. A&P Assessment and plan (1) Acute hypercapnic respiratory failure: Patient presents with hypercapnic respiratory failure She required AVAPS. This was associated with acute metabolic encephalopathy, which is improving She will need BiPAP for use at home, and as needed during the day where she will have repeated hospitalizations for hypercapnic respiratory failure. We will obtain a overnight oxygenation study tonight Consider palliative care referral Wean BiPAP as tolerated. (2) Acute exacerbation of chronic obstructive airways disease: Initiate prednisone 40 mg a day Doxycycline 100 mg twice daily DuoNeb every 4 hours Budesonide twice daily (3) Hyponatremia: Recheck sodium tomorrow Continue sodium chloride tablets Discontinue IV fluids (4) Hyperkalemia: Repeat potassium tomorrow Plan History of chronic anticoagulation. Multiple other medical problems as outlined in past medical history Full code currently Eliquis will suffice for DVT prophylaxis. Attestations Medical Necessity Statement*: Will likely require greater than 2 midnights stay secondary to severe hypercapnic respiratory failure Diagnoses Acute hypercapnic respiratory failure J96.02 Acute exacerbation of chronic obstructive airways disease J44.1 Hyponatremia E87.1 Hyperkalemia E87.5 Time Spent (min) 53
[2023-03-09 15:31] LABS: Thyroid Stimulating Hormone 1.55 uIU/mL (0.27-4.20)
[2023-03-09] MEDS: ipratropium-albuterol 3 mL Neb INHALATION ×2 (16:13→20:05)
--- NOTE | 2023-03-09 17:07 | PC.NURSE ---
Patient arrived to floor agitated, pulled off BIPAP, pulled out IV, attempted to get out of bed and push staff out of the way. Family brought back to room to attempt to calm patient. Physician in room with family now.
[2023-03-09] MEDS: doxycycline 100 mg Tablet PO (17:41)
[2023-03-09] MEDS: apixaban 5 mg Tablet PO (17:41)
[2023-03-09] MEDS: predniSONE 20 mg Tablet 40 MG PO (17:42)
--- NOTE | 2023-03-09 18:35 | ECG_ITS ---
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 Measurements Intervals [place] Rate: 99 P: 62 MI: 187 QRS: 22 QRSD: 106 T: 70 QT: 331 QTc: 425 Interpretive Statements SINUS RHYTHM Compared to ECG 03/09/2023 13:10:51 Ventricular premature complex(es) no longer present ST (T wave) deviation no longer present Electronically Signed On 03-09-2023 18:45:44 CDT by Juan Henderson M.D. [email or web address] health [facility].[employer]/store/[id number]
[2023-03-09 18:42] LABS: Troponin 5 6HR 38.94 ng/L (0-10); Troponin 5 6HR Delta -0.06 ng/L (0-12)
[2023-03-09] MEDS: budesonide 0.5 mg/2 mL Neb INHALATION (20:05)
[2023-03-09] MEDS: nortriptyline 25 mg Capsule 50 MG PO (20:43)
--- NOTE | 2023-03-09 23:02 | PC.NURSE ---
Patient was calm and cooperative upon this nurse's initial shift assessment. Patient did become upset over staying the night in the ICU. Patient stated multiple times they can just do this at my house . Patient was redirected as to why were were monitoring overnight. Family at bedside and supportive of treatment plans. Patient agreed to stay as long as sleeping medications were provided. Hospitalist notified and order for Nortriptyline received. 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 Pulse Ox study initiated and patient resting comfortably. Blood pressures noted to be soft however patient is resting on side with pressure cuff located superior to torso.
[2023-03-10] VITALS (90 sets, daily range): BP systolic 75–133; BP diastolic 37–80; PULSE 82–107; RESP 11–29; TEMP 37.1; O2SAT 65–98
[2023-03-10] MEDS: ipratropium-albuterol 3 mL Neb INHALATION ×4 (00:22→12:31)
[2023-03-10 03:12] LABS: Hematocrit 33.1 % (37.0-47.0); Lymphocytes # 0.7 10^3/uL (0.8-4.8); Lymphocytes % 19.5 %; Mean Corpuscular HGB Conc 30.2 g/dL (30.0-36.0); Mean Corpuscular Hemoglobin 28.4 pg (28.0-34.0); Mean Platelet Volume 9.1 fL (7.4-10.4); Monocytes # 0.1 10^3/uL (0.2-0.9); Monocytes % 1.9 %; Neutrophils # 2.93 10^3/uL (1.8-7.7); Neutrophils % 78.1 %; Nucleated Red Blood Cells % 0 %; Platelet Count 333 10^3/cmm (130-400); Red Blood Count 3.52 10^6/uL (4.1-5.3); Red Cell Distribution Width 12.8 % (12.1-15.1); White Blood Count 3.8 10^3/uL (4.0-10.0)
[2023-03-10 03:25] LABS: Anion Gap 15.1 (5-19); Blood Urea Nitrogen 11 mg/dL (8-23); Calcium 8.8 mg/dL (8.5-10.5); Carbon Dioxide 28 mmol/L (22-29); Chloride 94 mmol/L (98-107); Glucose 135 mg/dL (65-115); Osmolality Calculated 275 mOsm/kg (285-295); Potassium 5.1 mmol/L (3.5-5.1); Sodium 132 mmol/L (136-145)
[2023-03-10 03:28] LABS: Creatinine Clr Calc Pharmacy 41.5003
[2023-03-10] MEDS: budesonide 0.5 mg/2 mL Neb INHALATION (08:21)
[2023-03-10] MEDS: doxycycline 100 mg Tablet PO (09:57)
[2023-03-10] MEDS: sertraline 50 mg Tablet 25 MG PO (09:57)
[2023-03-10] MEDS: apixaban 5 mg Tablet PO (09:57)
[2023-03-10] MEDS: losartan 50 mg Tablet 100 MG PO (09:57)
[2023-03-10] MEDS: sodium chloride 1 gm Tablet PO (09:57)
[2023-03-10] MEDS: predniSONE 20 mg Tablet 40 MG PO (09:57)
--- NOTE | 2023-03-10 10:04 | PM.DCS ---
Discharge Providers Date of Admission: 03/09/23 14:31 Date of Discharge: March 10, 2023 Attending Provider at Admission: Rick Barnett MD Attending Provider at Discharge: Rick Barnett MD Primary Care Provider: Armani Hooker DO Diagnoses at Discharge Discharge Diagnosis (1) Acute hypercapnic respiratory failure: Status: Acute (2) Acute exacerbation of chronic obstructive airways disease: Status: Acute (3) Hyponatremia: Status: Acute (4) Hyperkalemia: Status: Acute Reason for Visit Reason for Visit: difficulty breathing Hospital Course Hospital Course Patient presented to the emergency department with decreased responsiveness. She had recently been discharged from the nursing facility. This was noted the morning of admission. She was found to have significant CO2 retention. BiPAP was used, and patient improved significantly. She was started on doxycycline, and prednisone for concern of COPD exacerbation. I have visited with her family regarding not increasing oxygen. O2 saturation should be kept around 88 to 92%. Amitriptyline was reduced to 50 mg at night. She was told to use narcotics very sparingly, at the lowest amount. She will follow-up with her primary care provider in 3 to 5 days. Hydralazine discontinued at discharge as blood pressures overall were lower during her hospital stay. She will continue on her metoprolol and Norvasc. Patient and family were able to ask questions, and agreed with the treatment. I also attempted to qualify her for BiPAP, and discharge planning is trying to arrange. Hopefully she can wear this at night, and during the day as needed. Physical Exam Narrative: General exam no distress Neck is supple Cardiovascular regular rate and rhythm Lungs diminished breath sounds bilaterally but clear Abdomen is soft, positive bowel sounds Extremities no cyanosis clubbing or edema Neuro: Alert and oriented. Discharge Data Studies Completed and Pending Completed Studies During Hospitalization Category Date Time Status XR chest 1V portable [id number] Stat Exams 03/09/23 11:27 Completed Radiology Impressions Chest X-Ray 03/09/23 11:27 Impression: No change in 2.5 cm peripheral density in the midportion of the right thorax. Laboratory Results WBC 3.8 10^3/uL (4.0-10.0) L 03/10/23 02:50 RBC 3.52 10^6/uL (4.1-5.3) L 03/10/23 02:50 Hgb 10.0 g/dL (11.5-15.3) L 03/10/23 02:50 Hct 33.1 % (37.0-47.0) L 03/10/23 02:50 MCV 94.0 fl (81-99) 03/10/23 02:50 MCH 28.4 pg (28.0-34.0) 03/10/23 02:50 MCHC 30.2 g/dL (30.0-36.0) 03/10/23 02:50 RDW 12.8 % (12.1-15.1) 03/10/23 02:50 Plt Count 333 10^3/cmm (130-400) 03/10/23 02:50 MPV 9.1 fL (7.4-10.4) 03/10/23 02:50 Neut % (Auto) 78.1 % 03/10/23 02:50 Lymph % (Auto) 19.5 % 03/10/23 02:50 [place] % (Auto) 1.9 % 03/10/23 02:50 Eos % (Auto) 0.0 % 03/10/23 02:50 Baso % (Auto) 0.0 % 03/10/23 02:50 Neut # (Auto) 2.93 10^3/uL (1.8-7.7) 03/10/23 02:50 Lymph # (Auto) 0.7 10^3/uL (0.8-4.8) L 03/10/23 02:50 [place] # (Auto) 0.1 10^3/uL (0.2-0.9) L 03/10/23 02:50 Eos # (Auto) 0.0 10^3/uL (0.0-0.8) 03/10/23 02:50 Baso # (Auto) 0.0 10^3/uL (0.0-0.1) 03/10/23 02:50 Nucleated RBC % (auto) 0 % 03/10/23 02:50 Nucleated RBCs # 0.0 /100WBC 03/10/23 02:50 Specimen Type Arterial 03/09/23 11:48 Sample Site Radial, right 03/09/23 11:48 ABG pH 7.28 (7.35-7.45) L 03/09/23 11:48 ABG pCO2 78.7 mmHg (35-45) H* 03/09/23 11:48 ABG pO2 112.0 mmHg (80.0-100.0) H 03/09/23 11:48 ABG HCO3 37.3 mmol/L (22-26) H 03/09/23 11:48 ABG O2 Saturation 98.9 03/09/23 11:48 ABG Base Excess 8.5 mmol/L (-2.0-2.0) H 03/09/23 11:48 Panda Test Pos 03/09/23 11:48 A-a O2 Gradient Not Reportable 03/09/23 11:48 Hematocrit 30.9 % (37-47) L 03/09/23 11:48 Hgb O2 Saturation 97.4 % (95-100) 03/09/23 11:48 Carboxyhemoglobin 1.2 %THgb (0.4-20.1) 03/09/23 11:48 Methemoglobin 0.4 % (0.4-1.5) 03/09/23 11:48 Total Hemoglobin 10.1 g/dL (12-16) L 03/09/23 11:48 Sodium 130.0 mmol/L (131-143) L 03/09/23 11:48 Potassium 5.8 mmol/L (3.5-5.0) H 03/09/23 11:48 Glucose 95.0 mg/dL (70-115) 03/09/23 11:48 Ionized Calcium 1.2 mmol/L (1.1-1.4) 03/09/23 11:48 O2 Delivery Device Nc 03/09/23 11:48 O2 Liters/Min 3.0 % 03/09/23 11:48 Rock Worker ID [place] 03/09/23 11:48 Sodium 132 mmol/L (136-145) L 03/10/23 02:50 Potassium 5.1 mmol/L (3.5-5.1) 03/10/23 02:50 Chloride 94 mmol/L (98-107) L 03/10/23 02:50 Carbon Dioxide 28 mmol/L (22-29) 03/10/23 02:50 Anion Gap 15.1 (5-19) 03/10/23 02:50 BUN 11 mg/dL (8-23) 03/10/23 02:50 Creatinine 0.4 mg/dL (0.5-0.9) L 03/10/23 02:50 GFR Calculation Not Reportable 03/10/23 02:50 Glucose 135 mg/dL (65-115) H 03/10/23 02:50 Calculated Osmolality 275 mOsm/kg (285-295) L 03/10/23 02:50 Calcium 8.8 mg/dL (8.5-10.5) 03/10/23 02:50 Total Bilirubin 0.2 mg/dL (0.15-1.2) 03/09/23 11:50 AST 20 U/L (0-32) 03/09/23 11:50 ALT 10 U/L (0-33) 03/09/23 11:50 Alkaline Phosphatase 74 U/L (35-105) 03/09/23 11:50 Troponin T Baseline 39 ng/L (0-10) H 03/09/23 11:50 Troponin T 120 Minute 31.14 ng/L (0-10) H 03/09/23 14:19 Delta Troponin T -7.86 ABS# (0-10) L 03/09/23 14:19 Troponin T Hi Sens 6Hr 38.94 ng/L (0-10) H 03/09/23 18:03 Troponin T Hi Sens 6Hr Delta -0.06 ng/L (0-12) L 03/09/23 18:03 Total Protein 6.6 g/dL (6.6-8.7) 03/09/23 11:50 Albumin 3.9 g/dL (3.5-5.2) 03/09/23 11:50 Globulin 2.7 g/dL (1.3-4.6) 03/09/23 11:50 TSH 1.55 uIU/mL (0.27-4.20) 03/09/23 14:19 Random Cortisol 21.91 ug/dL (2.47-19.5) H 03/09/23 14:19 Vitals Last Vital Signs Temp 98.1 F 03/09/23 20:05 Pulse 101 H 03/10/23 08:28 Resp 20 H 03/10/23 08:21 BP 114/64 03/10/23 08:00 Pulse Ox 96 03/10/23 08:21 O2 Del Method Nasal Cannula 03/10/23 08:21 O2 Flow Rate 1 03/10/23 08:21 FiO2 24 03/09/23 16:16 Discharge Plan Discharge Patient Disposition: Home Condition: Stable Prescriptions: New prednisone 20 mg Tablet 40 mg PO DAILY Qty: 8 0RF doxycycline monohydrate 100 mg Tablet 100 mg PO BID Qty: 12 0RF Continued albuterol sulfate 90 mcg/actuation HFA aerosol inhaler 1 - 2 puff INHALATION Q4H PRN (Reason: Shortness Of Breath) Qty: 6.7 11RF Combivent Respimat 20-100 mcg/actuation mist 1 puff INHALATION QID Qty: 4 11RF Rx Instructions: may take up to 2 additonal inhalations per day for a max of 6 inhalations/day naloxone [Narcan] 4 mg/actuation spray,non-aerosol 4 mg intranasal Q2M PRN (Reason: opioid overdose) Qty: 2 1RF Rx Instructions: spray 1 dose into ONE nostril; alt nostrils w ea dose until help arrives fentanyl 25 mcg/hr patch 72 hour 1 patch transdermal Q72H 30 Days Qty: 10 0RF (DME) Wound care eval and treat See Rx Instructions .Route .MEDSUPPLY Qty: 1 0RF Rx Instructions: May apply medihoney or other topical therapies as seen fit. Mepilex dressing to area until healed. Maintain pressure relief at all times. Anoro Ellipta 62.5-25 mcg/actuation Blister With Device 1 inh INHALATION QAM acetaminophen 500 mg Tablet 500 mg PO Q4H PRN (Reason: Pain) ferrous gluconate 324 mg (37.5 mg iron) Tablet 324 mg PO BIDWM Qty: 60 0RF hydrocodone-acetaminophen 10-325 mg tablet 1 tab PO Q6H PRN (Reason: Pain) Ativan 0.5 mg tablet 0.25 mg PO Q12H PRN (Reason: anxiety) hydroxyzine HCl 10 mg tablet 10 mg PO Q6H PRN (Reason: Anxiety) bisacodyl 5 mg Tablet 10 mg PO Q6H PRN (Reason: Constipation) magnesium oxide 400 mg (241.3 mg magnesium) Tablet 400 mg PO BID Qty: 6 0RF amlodipine 10 mg Tablet 10 mg PO DAILY Qty: 60 2RF sertraline 50 mg Tablet 25 mg PO DAILY Qty: 60 0RF metoprolol tartrate 25 mg Tablet 25 mg PO BID@0900,2100 Qty: 60 2RF Eliquis 5 mg Tablet 5 mg PO BID Qty: 60 3RF sodium chloride 1,000 mg tablet,soluble 1,000 mg PO DAILY Qty: 60 1RF Changed nortriptyline 50 mg capsule 50 mg PO BEDTIME PRN (Reason: Sleep) Qty: 90 5RF Discontinued losartan 100 mg tablet 100 mg PO DAILY Qty: 90 3RF hydralazine 25 mg Tablet 50 mg PO TID Qty: 90 3RF Discharge Orders: Discharge Order (Routine); Ordered 03/10/23 Ordered By: Rick Barnett Referrals: Armani Hooker DO [Primary Care Provider] - 4-7 days Discharge Diet: Regular Discharge Activity: Resume usual activity Patient Instructions: Doxycycline (By mouth) (Acticlate, Adoxa, Avidoxy, Monodox, Doryx), Prednisone (By mouth) (predniSONE Intensol, Prednicot, Deltasone, Caitlin), Hyponatremia (ED), Benzodiazepine Use Disorder (ED), Dementia (ED), Non-diabetic Hypoglycemia (ED), Hypoglycemia in a Person with Diabetes (ED), Concussion (ED), Alcohol Intoxication (ED), Subarachnoid Hemorrhage (GEN), Altered Mental Status (ED), Opioid Safety Activity Restrictions/Additional Instructions: To visit with discharge planning prior to discharge regarding BiPAP Reduce nortriptyline to 50 mg at night Use any narcotics sparingly Home health referral regarding potential for palliative care Follow-up with Dr. Hooker 3 to 5 days Discontinue losartan currently. Dr. Hooker will address on follow-up after looking at your blood pressure. Take all medicine as prescribed. Discharge Attestations Time Spent in Discharge Care*: greater than 30 min Status at Discharge: Cognitive status at discharge: cognitively intact, Behavioral status at discharge: cooperative, Quality Metrics Clinical Quality Measures [ No reported AMI, CVA or VTE this stay] Coding Level of Care Code 60616 Total time (in minutes) for Discharge: 37 Diagnoses Acute hypercapnic respiratory failure J96.02 Acute exacerbation of chronic obstructive airways disease J44.1 Hyponatremia E87.1 Hyperkalemia E87.5
[2023-03-10] MEDS: saline nasal spray 44mL Btl 1 SPRAY NASAL (10:17)
== END 2023-03-10 15:40 | disposition home or self-care (01) | DRG 189 ==
LOC: ER 13:12 → ICU 14:32
PROVIDERS: Admitting Provider Internal Medicine; Emergency Provider Family Medicine; PCP Family Medicine; Visit Provider Internal Medicine
DX: J96.02 Acute respiratory failure with hypercapnia (principal); G93.41 Metabolic encephalopathy; J44.1 Chronic obstructive pulmonary disease with (acute) exacerbation; E22.2 Syndrome of inappropriate secretion of antidiuretic hormone; Z79.51 Long term (current) use of inhaled steroids; Z79.01 Long term (current) use of anticoagulants; G89.29 Other chronic pain; M54.9 Dorsalgia, unspecified; Z86.16 Personal history of COVID-19; Z86.718 Personal history of other venous thrombosis and embolism; I10 Essential (primary) hypertension; Z87.891 Personal history of nicotine dependence; E87.5 Hyperkalemia
CPT/HCPCS: 36415; 36600; 71045; 80048; 80051; 80053; 82330; 82533; 82805; 84443; 84484; 85025; 93005; 94640; 94660; 99291; J7040; J7512; J7626

== ENCOUNTER → 2023-03-14 14:38 | Outpatient (BNVA) | payer MEDICARE, OTHER, SELFPAY | PROVIDERS: PCP Family Medicine; Visit Provider Family Medicine | DX: I10 Essential (primary) hypertension (principal); M48.50XA Collapsed vertebra, not elsewhere classified, site unspecified, initial encounter for fracture; I82.409 Acute embolism and thrombosis of unspecified deep veins of unspecified lower extremity; M54.9 Dorsalgia, unspecified; G89.29 Other chronic pain; D64.9 Anemia, unspecified; J96.21 Acute and chronic respiratory failure with hypoxia; J96.22 Acute and chronic respiratory failure with hypercapnia; J44.9 Chronic obstructive pulmonary disease, unspecified; F41.1 Generalized anxiety disorder; F41.0 Panic disorder [episodic paroxysmal anxiety]; G47.00 Insomnia, unspecified; K59.00 Constipation, unspecified; E87.1 Hypo-osmolality and hyponatremia; R50.9 Fever, unspecified | CPT/HCPCS: 80053; 83735; 85025; 86140 ==

== ENCOUNTER 2023-08-11 08:42 | Emergency (ER) | payer MEDICARE, OTHER, SELFPAY ==
[2023-08-11 08:43] VITALS: BP 149/113; PULSE 112; RESP 18; O2SAT 100; BMI 21.6
--- NOTE | 2023-08-11 08:48 | ECG_ITS ---
[facility] Test Date: 2023-08-11 Pat Name: Eleni Miller Department: Room: Gender: Female Reciprocating Drill Operator: : 1945 Requested By: Ramone Madrigal Order Number: [id number] Olga MD: Gloria Keenan M.D. Measurements Intervals [place] Rate: 110 P: 70 [place]: 148 QRS: 77 QRSD: 94 T: 81 QT: 335 QTc: 454 Interpretive Statements SINUS TACHYCARDIA WITH FREQUENT VENTRICULAR PREMATURE COMPLEXES POSSIBLE LEFT ATRIAL ENLARGEMENT [-0.1mV P-WAVE IN V1/V2] MODERATE ST DEPRESSION [0.05+ mV ST DEPRESSION] Compared to ECG 03/09/2023 18:09:40 Ventricular premature complex(es) now present ST (T wave) deviation now present Sinus rhythm no longer present Electronically Signed On 08-11-2023 20:48:06 PIPE CLEANING MACHINE OPERATOR by Gloria Keenan M.D. [id number]
--- NOTE | 2023-08-11 08:50 | ECG_ITS ---
[facility] Test Date: 2023-08-11 Pat Name: Eleni Miller Department: Room: Gender: Female Director Group Sales: : 1945 Requested By: Ramone Madrigal Order Number: [id number] Olga MD: Gloria Keenan M.D. Measurements Intervals [place] Rate: 111 P: 73 SD: 157 QRS: 81 QRSD: 94 T: 75 QT: 343 QTc: 468 Interpretive Statements SINUS TACHYCARDIA WITH FREQUENT VENTRICULAR PREMATURE COMPLEXES RIGHT ATRIAL ENLARGEMENT [0.3mV P-WAVE] LEFT ATRIAL ENLARGEMENT [-0.15mV P-WAVE IN V1/V2] MODERATE ST DEPRESSION [0.05+ mV ST DEPRESSION] Compared to ECG 03/09/2023 18:09:40 Ventricular premature complex(es) now present Atrial abnormality now present ST (T wave) deviation now present Sinus rhythm no longer present Electronically Signed On 08-11-2023 20:48:18 GENERAL UTILITY MACHINE OPERATOR by Gloria Keenan M.D. [id number]
--- NOTE | 2023-08-11 08:53 | ED_ITS ---
HPI - Chest Pain General: Chief Complaint: Chest Pain Stated Complaint: chest pain Time Seen by Provider: 08/11/23 08:44 Source: patient Mode of arrival: EMS History of Present Illness: 77-year-old female presents emergency room with right-sided substernal chest pain she refers to as pain behind the right breast. Does not radiate anywhere she has a history of chronic back pain she had 2 different fentanyl patches on her back at 1225. States the pain began this morning while she was sitting on the couch she is not exerting herself. No fevers sweats or chills no productive cough. Patient has chronic back pain for which she is on the fentanyl from Dr. Bernard. CARRERO complaint: chest pain Onset (ago): minute(s) Timing of current episode: episodic Prior episodes: Yes Onset: during rest Pain location: right chest Pain radiation: none Severity: severe Quality: sharp Relieving factors: nothing Exacerbating factors: nothing Associated symptoms: Deny abdominal pain, diaphoresis, dyspnea, fever(s), leg edema, nausea, palpitations, sense of impending doom, syncope or vomiting Treatment prior to arrival: none Review of Systems Const: Denies: fever(s), chills or diaphoresis Card: Denies: chest pain, palpitations or syncope Resp: Denies: dyspnea GI: Denies: abdominal pain, nausea or vomiting : Denies: dysuria, urinary frequency or urinary urgency Musc: Reports: back pain; Denies: neck pain Skin/Breast: Denies: rash PFSH ED PFSH: Medical History Acute exacerbation of chronic obstructive airways disease Acute on chronic respiratory failure with hypoxia and hypercapnia Altered mental status Chronic anticoagulation Chronic back pain Compressed spine fracture Compression fracture COPD (chronic obstructive pulmonary disease) COVID-19 07/2021 Diarrhea DVT (deep venous thrombosis) History of meningitis 2007, hospitalized ~2 months, had pneumonia. staph infection, intubated History of successful cardiopulmonary resuscitation Hypertension Hypokalemia Hypomagnesemia Hyponatremia Hypovolemic hyponatremia with low urine sodium responded to IV fluid, patient has poor p.o. intake Hyponatremia Hypophosphatemia Leukocytosis Narcotic dependence on hydrocodone for back pain Nocturnal hypoxemia Normocytic anemia Ptosis PVC (premature ventricular contraction) Refeeding syndrome SIADH (syndrome of inappropriate ADH production) Volume overload Surgical History History of breast augmentation History of facelift History of tonsillectomy History of total abdominal hysterectomy and bilateral salpingo-oophorectomy Family History Father Cancer lung cancer Other Stroke Social History Smoking and tobacco/nicotine status: former use of tobacco/nicotine Alcohol intake: current Alcohol intake frequency: holidays/special occasions only Household members: spouse Marital status: Physical Exam Const: GENERAL APPEARANCE: cooperative ORIENTATION/CONSCIOUSNESS: Yes awake HENMT: COMMON NORMALS: normocephalic, atraumatic and hearing grossly normal bilaterally HEAD & SCALP: normocephalic and atraumatic Resp: COMMON NORMALS: normal respiratory effort, No retractions, No use of accessory muscles and clear to auscultation bilaterally AUSCULTATION: clear to auscultation bilaterally Cardio: COMMON NORMALS: regular rate, regular rhythm and No murmurs present (Cardio) RATE: regular rate RHYTHM: regular rhythm GI: COMMON NORMALS: Soft to palpation and No hepatosplenomegaly present AUSCULTATION: Yes normoactive bowel sounds PALPATION: Yes Soft to palpation, No Tenderness to palpation present (GI), No Guarding due to palpation present (GI) and Yes No hepatosplenomegaly present Extremity: COMMON NORMALS: normal to inspection, capillary refill normal, no clubbing, cyanosis or edema, no calf tenderness and no pedal edema Skin: COMMON NORMALS: no rashes or lesions noted GENERAL SKIN EXAM: no rashes or lesions noted Course Vital Signs: Vital signs: Vital Signs Pulse Rate 108 H 08/11/23 09:01 Respiratory Rate 16 08/11/23 12:09 Blood Pressure 176/103 08/11/23 09:01 Pulse Oximetry 96 08/11/23 12:09 Oxygen Delivery Me thod Nasal Cannula 08/11/23 09:01 Oxygen Flow Rate 2 08/11/23 09:01 MDM - Chest Pain Medical Decision Making Labs and imaging reviewed no significant finding no PE no pneumonia no exacerbation of COPD patient does have compression fractures suspect that when she describes her pain there may be some nerve impingements is causing some dermatomal pain there is no evidence of zoster at this time. Pain is improved with pain medications given although did take significant amount to control pain. She is already on a fentanyl patch. We will discharge her home with hydrocodone to use for breakthrough pain and concern because patient has had problems with oversedation from narcotics in the past she has naloxone at home. Patient asked about Dilaudid orally and concerned given the fentanyl patch she is currently using about her being on Dilaudid in addition. Will use hydrocodone for now however follow-up with her primary care doctor next week return if has further problems. Medical Records I reviewed the patient's medical records. Lab Data I reviewed the patient's lab results. 08/11/23 09:20 08/11/23 09:20 Laboratory Results WBC 7.84 10^3/uL (3.29-11.43) 08/11/23 09:20 RBC 4.30 10^6/uL (3.85-5.65) 08/11/23 09:20 Hgb 12.30 g/dL (11.27-16.99) 08/11/23 09:20 Hct 38.8 % (36-47) 08/11/23 09:20 MCV 90.2 fl (85-98) 08/11/23 09:20 MCH 28.6 pg (27-33) 08/11/23 09:20 MCHC 31.7 g/dL (30-55) 08/11/23 09:20 RDW 14.1 % (12.1-15.1) 08/11/23 09:20 Plt Count 297 10^3/cmm (157-399) 08/11/23 09:20 MPV 8.9 fL (7.4-10.4) 08/11/23 09:20 Neut % (Auto) 44.5 % 08/11/23 09:20 Lymph % (Auto) 43.5 % 08/11/23 09:20 [place] % (Auto) 9.9 % 08/11/23 09:20 Eos % (Auto) 1.7 % 08/11/23 09:20 Baso % (Auto) 0.3 % 08/11/23 09:20 Neut # (Auto) 3.49 10^3/uL (1.8-7.7) 08/11/23 09:20 Lymph # (Auto) 3.4 10^3/uL (0.8-4.8) 08/11/23 09:20 [place] # (Auto) 0.8 10^3/uL (0.2-0.9) 08/11/23 09:20 Eos # (Auto) 0.1 10^3/uL (0.0-0.8) 08/11/23 09:20 Baso # (Auto) 0.0 10^3/uL (0.0-0.1) 08/11/23 09:20 Nucleated RBC % (auto) 0 % 08/11/23 09:20 Nucleated RBCs # 0.0 /100WBC 08/11/23 09:20 Sodium 137 mmol/L (136-145) 08/11/23 09:20 Potassium 3.8 mmol/L (3.5-5.1) 08/11/23 09:20 Chloride 99 mmol/L (98-107) 08/11/23 09:20 Carbon Dioxide 28 mmol/L (22-29) 08/11/23 09:20 Anion Gap 13.8 (5-19) 08/11/23 09:20 BUN 18 mg/dL (8-23) 08/11/23 09:20 Creatinine 0.4 mg/dL (0.5-0.9) L 08/11/23 09:20 GFR Calculation Not Reportable 08/11/23 09:20 Glucose 119 mg/dL (65-115) H 08/11/23 09:20 Calculated Osmolality 287 mOsm/kg (285-295) 08/11/23 09:20 Calcium 9.1 mg/dL (8.5-10.5) 08/11/23 09:20 Total Bilirubin 0.3 mg/dL (0.15-1.2) 08/11/23 09:20 AST 17 U/L (0-32) 08/11/23 09:20 ALT 12 U/L (0-33) 08/11/23 09:20 Alkaline Phosphatase 42 U/L (35-105) 08/11/23 09:20 Troponin T Baseline 30 ng/L (0-10) H 08/11/23 09:20 Troponin T 120 Minute 31.60 ng/L (0-10) H 08/11/23 11:02 Delta Troponin T 1.60 ABS# (0-10) 08/11/23 11:02 Total Protein 6.6 g/dL (6.6-8.7) 08/11/23 09:20 Albumin 4.2 g/dL (3.5-5.2) 08/11/23 09:20 Globulin 2.4 g/dL (1.3-4.6) 08/11/23 09:20 Urine Color Yellow (Yellow) 08/11/23 14:41 Urine Appearance Clear (CLEAR) 08/11/23 14:41 Urine pH 5 (5-7) 08/11/23 14:41 Ur Specific [place] 1.005 (1.005-1.030) 08/11/23 14:41 Urine Protein Trace (Negative) 08/11/23 14:41 Urine Glucose (UA) Norm (Normal) 08/11/23 14:41 Urine Ketones 1+ (Negative) H 08/11/23 14:41 Urine Blood Neg (Negative) 08/11/23 14:41 Urine Nitrate Negative (Negative) 08/11/23 14:41 Urine Bilirubin Neg (Negative) 08/11/23 14:41 Urine Urobilinogen Norm mg/dL (Negative) 08/11/23 14:41 Ur Leukocyte Esterase Negative (Negative) 08/11/23 14:41 Urine RBC None /hpf (0-2) 08/11/23 14:41 Urine WBC Rare /hpf (0-5) 08/11/23 14:41 Ur Squamous Epith Cells 0-4 /hpf (0-5) H 08/11/23 14:41 Amorphous Sediment Not Reportable 08/11/23 14:41 Urine Bacteria Trace /hpf (NONE) 08/11/23 14:41 All radiology interpretation(s) finalized by discharge Discharge Plan Discharge Patient Disposition: Home Clinical Impression: Compressed spine fracture, Chronic back pain, Pulmonary nodule Condition: Stable Prescriptions: New hydrocodone-acetaminophen 5-325 mg tablet 1 tab PO Q6H PRN (Reason: pain) Qty: 15 0RF No Action albuterol sulfate 90 mcg/actuation HFA aerosol inhaler 1 - 2 puff INHALATION Q4H PRN (Reason: Shortness Of Breath) Qty: 6.7 11RF Eliquis 5 mg tablet 5 mg PO BID Qty: 60 5RF ferrous gluconate 324 mg (37.5 mg iron) tablet 324 mg PO BIDWM Qty: 60 5RF Combivent Respimat 20-100 mcg/actuation mist 1 puff INHALATION QID Qty: 4 11RF Rx Instructions: may take up to 2 additonal inhalations per day for a max of 6 inhalations/day metoprolol tartrate 25 mg tablet 25 mg PO BID@0900,2100 Qty: 60 5RF bisacodyl 5 mg tablet 10 mg PO Q6H PRN (Reason: Constipation) Qty: 60 5RF sodium chloride 1,000 mg tablet,soluble 1,000 mg PO DAILY Qty: 60 5RF naloxone [Narcan] 4 mg/actuation spray,non-aerosol 4 mg intranasal Q2M PRN (Reason: opioid overdose) Qty: 2 1RF Rx Instructions: spray 1 dose into ONE nostril; alt nostrils w ea dose until help arrives (DME) oxygen air delivery system See Rx Instructions .Route .MEDSUPPLY Qty: 1 0RF Rx Instructions: Please issue oxygen concentrator, tanks, cannula, humidifier, etc. fentanyl 25 mcg/hr patch 72 hour 1 patch transdermal Q72H 30 Days Qty: 10 0RF acetaminophen 500 mg Tablet 500 mg PO Q4H PRN (Reason: Pain) amlodipine 10 mg tablet 10 mg PO DAILY PRN (Reason: HIGH BLOOD PRESSURE) hydroxyzine HCl 10 mg tablet 10 mg PO Q6H PRN (Reason: Anxiety) sertraline 50 mg tablet 50 mg PO QAM nortriptyline 50 mg capsule 50 - 100 mg PO DAILY PRN (Reason: Sleep) Rx Instructions: Take 1-2 tabs by mouth as needed for insomnia. Discharge Orders: Discharge ED (Routine); Ordered 08/11/23 Ordered By: Ramone Dorsey Referrals: Armani Hooker DO [Primary Care Provider] - Discharge Diet: Usual diet Discharge Activity: Increase activity as tolerated Patient Instructions: Opioid Safety, Pain Management Activity Restrictions/Additional Instructions: Thank you for choosing [facility] for your healthcare needs today. Please realize this is an emergency room and that we are providing you with a medical screening exam and this may not be complete and all inclusive of all the testing and or work up that you may need to determine your ailment or severity of your illness. It is very important that you follow up as instructed or that you return to the Emergency Department should you have concerns or if your condition changes or worsens in any way. You are seen today for worsening back pain. Imaging shows old compression fractures no new compression fractures. Suspect this may be pain emanating from an aggravation of the previous compression fracture. There is no pulmonary embo li or pneumonia. There were new pulmonary nodules noted on the scan of the lung. Recommend that you follow-up with pulmonology for these. Use the hydrocodone for breakthrough pain as needed contact Dr. Hooker next week for further management of pain control. Coding Level of Care Code ED Laborer Laboratory for Jami Nguyen
[2023-08-11 09:01] VITALS: BP 176/103; PULSE 108; RESP 18; O2SAT 94; O2SAT 97
[2023-08-11] MEDS: morphine 4 mg/mL SDV 1 mL IVP ×2 (09:01→10:23)
[2023-08-11 09:38] LABS: Basophils % 0.3 %; Eosinophils # 0.1 10^3/uL (0.0-0.8); Eosinophils % 1.7 %; Hematocrit 38.8 % (36-47); Lymphocytes # 3.4 10^3/uL (0.8-4.8); Lymphocytes % 43.5 %; Mean Corpuscular HGB Conc 31.7 g/dL (30-55); Mean Corpuscular Hemoglobin 28.6 pg (27-33); Mean Corpuscular Volume 90.2 fl (85-98); Mean Platelet Volume 8.9 fL (7.4-10.4); Monocytes # 0.8 10^3/uL (0.2-0.9); Monocytes % 9.9 %; Neutrophils # 3.49 10^3/uL (1.8-7.7); Neutrophils % 44.5 %; Nucleated Red Blood Cells % 0 %; Platelet Count 297 10^3/cmm (157-399); Red Cell Distribution Width 14.1 % (12.1-15.1); White Blood Count 7.84 10^3/uL (3.29-11.43)
[2023-08-11 09:50] LABS: Troponin(5th) Baseline 30 ng/L (0-10)
[2023-08-11 09:53] LABS: Alanine Aminotransferase 12 U/L (0-33); Albumin Level 4.2 g/dL (3.5-5.2); Alkaline Phosphatase 42 U/L (35-105); Anion Gap 13.8 (5-19); Aspartate Amino Transferase 17 U/L (0-32); Blood Urea Nitrogen 18 mg/dL (8-23); Calcium 9.1 mg/dL (8.5-10.5); Carbon Dioxide 28 mmol/L (22-29); Chloride 99 mmol/L (98-107); Globulin 2.4 g/dL (1.3-4.6); Glucose 119 mg/dL (65-115); Osmolality Calculated 287 mOsm/kg (285-295); Potassium 3.8 mmol/L (3.5-5.1); Sodium 137 mmol/L (136-145); Total Bilirubin 0.3 mg/dL (0.15-1.2); Total Protein 6.6 g/dL (6.6-8.7)
--- NOTE | 2023-08-11 10:04 | XR_ITS ---
WS: [id number] Portable AP upright chest, 08/11/2023 Clinical Data: chest pain Comparison: Portable chest, 03/09/2023 Findings: The right pleural-based density measures 3.1 cm, and it is not changed in configuration. Th e border is well-defined and smooth. The remainder of the lungs is clear. No pneumonia or pneumothora x is present. The heart is normal. The aortic arch and descending thoracic aorta show minimal calcifi cation and tortuosity. There are monitor leads on the chest wall. The patient's clothing obscures min imal detail. Impression: 1. No change in peripheral density in the lateral midportion of the right lung. 2. Atherosclerosis.
--- NOTE | 2023-08-11 10:05 | CT_ITS ---
WS: [id number] CT THORACIC SPINE HISTORY: pain TECHNIQUE: Contiguous 2.5 mm axial images are reviewed to thoracic spine. Images are reformatted in s agittal and coronal planes. All CT scans at [facility] use at least one of these dose optimiz ation techniques: automated exposure control; mA and/or kV adjustment per patient size (includes targ eted exams where dose is matched to clinical indication); or iterative reconstruction. DLP: 372.69 mGy.cm COMPARISON: 02/06/2023 Moderate thoracic kyphosis centered at the thoracolumbar junction. Otherwise mild straightening of th e normal thoracic vertebral bodies. Diffuse osteopenia. As noted on the prior CT compression fracture s at T11, T12 and L1. Severe T12 vertebral plana compression fracture. No obvious progression. Mild c ompression deformity by 20% of T8. No new fracture identified. Severe central stenosis at T11-12. There is retropulsion of the T11 and T12 endplates with significan t encroachment upon the thecal sac and the nerve roots. Moderate to severe bilateral foraminal stenos is. These findings have been previously described. The remaining thoracic spinal canal is patent. No evidence for high-grade stenosis. No new disc protr usions or fracture. Visualized paraspinal soft tissues are normal. IMPRESSION: 1. Stable compression fractures at T8, T11, T12 and L1 since 02/06/2023. 2. Severe central and foraminal stenosis at T11-12 due to retropulsion of the T11 and T12 vertebral b odies. Similar to the prior study. 3. No new compression deformities.
[2023-08-11] MEDS: ketorolac 30 mg/mL INJ IVP (10:22)
[2023-08-11 10:23] VITALS: RESP 18; O2SAT 100
--- NOTE | 2023-08-11 10:38 | CT_ITS ---
WS: [id number] CT CHEST ANGIOGRAPHY WITH REFORMATS HISTORY: chest pain/dyspnea TECHNIQUE: Contiguous axial images are obtained through the chest during arterial injection of intrav enous contrast. Images are reconstructed to evaluate the pulmonary arteries. MIP imaging also reviewe d. All CT scans at [facility] use at least one of these dose optimization techniques: automat ed exposure control; mA and/or kV adjustment per patient size (includes targeted exams where dose is matched to clinical indication); or iterative reconstruction. CONTRAST: Omnipaque 350; 100 mL IV. DLP: 240.78 mGy.cm COMPARISON: 01/30/2023 Good opacification of the pulmonary artery. There are no filling defects or pulmonary emboli. Atheros clerosis aorta. Scattered plaque. No aneurysm. No ulcerated plaque identified. There is no RIGHT hear t strain. No pericardial or pleural effusions. New 7 mm noncalcified pulmonary nodule in the LEFT upper lobe with adjacent satellite nodules. There are additional calcified granulomata. Micronodule RIGHT upper lobe. Additional micronodule periphery LEFT upper lobe. Pleural-based mass is reidentified in the RIGHT upper lobe measuring 2.2 x 2.6 cm wh ich has been present on multiple prior studies. 7 mm nodule RIGHT lung base. There are a few small mediastinal and hilar lymph nodes which are not significantly enlarged. Bilater al breast implants. No adrenal mass. No acute findings noted in the upper abdomen. Kyphosis with compression fractures at the thoracolumbar junction are reidentified. IMPRESSION: 1. No pulmonary embolism. 2. New, subcentimeter pulmonary nodules as described above. The largest is 7 mm in the LEFT upper lob e with adjacent satellite nodules. New since 01/30/2023. Early neoplasm is not excluded and needs to be followed up. There are additional granulomata also which are calcified. PET/CT may be of benefit or short-term, 3-month chest CT follow-up. No pneumonia. 3. Chronic emphysema. 4. No adenopathy.
--- NOTE | 2023-08-11 10:53 | ECG_ITS ---
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 [email or web address] [id number]
[2023-08-11] MEDS: HYDROmorphone 1 mg/mL INJ 1 mL 0.5 MG IVP ×2 (11:27→12:09)
[2023-08-11 12:09] VITALS: RESP 16; O2SAT 96
[2023-08-11] MEDS: iohexol 350 mg/mL 500 mL Btl (per mL) IV (12:31)
[2023-08-11 15:40] LABS: Add Urine Microscopic? YES; Bilirubin Urine Neg (Negative); Blood Urine Neg (Negative); Glucose Urine UA Norm (Normal); Ketones Urine 1+ (Negative); Leukocyte Esterase Urine Negative (Negative); Nitrate Urine Negative (Negative); Protein Urine Trace (Negative); Specific Gravity, Urine 1.005 (1.005-1.030); Urine Appearance Clear (CLEAR); Urine Color Yellow (Yellow); Urobilinogen Urine Norm (Negative); pH Urine 5 (5-7)
[2023-08-11 15:42] LABS: Add Urine Culture? No; Bacteria Urine TRACE /hpf; Squamous Epithelial Cell Urine 0-4 /hpf (0-5); WBC Urine RARE /hpf (0-5)
--- NOTE | 2023-08-11 16:34 | DCPLANNER ---
Referral was sent to pulmonology on 08/11/23 at 1634. Clinic to contact patient.
== END 2023-08-11 14:56 | disposition home or self-care (01) ==
PROVIDERS: Emergency Provider Family Medicine; PCP Family Medicine
DX: S22.060A Wedge compression fracture of T7-T8 vertebra, initial encounter for closed fracture (principal); S22.080A Wedge compression fracture of T11-T12 vertebra, initial encounter for closed fracture; S32.010A Wedge compression fracture of first lumbar vertebra, initial encounter for closed fracture; G89.29 Other chronic pain; R91.1 Solitary pulmonary nodule; Z79.01 Long term (current) use of anticoagulants; J44.9 Chronic obstructive pulmonary disease, unspecified; Z79.891 Long term (current) use of opiate analgesic; Z87.891 Personal history of nicotine dependence; I10 Essential (primary) hypertension; X58.XXXA Exposure to other specified factors, initial encounter
CPT/HCPCS: 36415; 71045; 71275; 72128; 80053; 81001; 84484; 85025; 93005; 96374; 96375; 96376; 99285; J1170; J1885; J2270; Q9967

== ENCOUNTER → 2023-08-17 14:29 | Outpatient (BNVA) | payer MEDICARE, OTHER, SELFPAY | PROVIDERS: PCP Family Medicine; Referring Provider Family Medicine; Visit Provider Physician Assistant | DX: M48.56XA Collapsed vertebra, not elsewhere classified, lumbar region, initial encounter for fracture (principal); M48.54XA Collapsed vertebra, not elsewhere classified, thoracic region, initial encounter for fracture; G89.29 Other chronic pain; Z46.89 Encounter for fitting and adjustment of other specified devices; M48.50XD Collapsed vertebra, not elsewhere classified, site unspecified, subsequent encounter for fracture with routine healing; X58.XXXD Exposure to other specified factors, subsequent encounter | CPT/HCPCS: 72070; 97760; 99213; L0456 ==

== ENCOUNTER 2023-08-17 16:21 | Outpatient (CLI) | payer MEDICARE, OTHER, SELFPAY | END 2023-08-17 16:22 | disposition home or self-care (01) | LOC: SPT 16:22 | PROVIDERS: PCP Family Medicine; Visit Provider Orthopaedic Surgery | DX: Z46.89 Encounter for fitting and adjustment of other specified devices (principal); M48.50XD Collapsed vertebra, not elsewhere classified, site unspecified, subsequent encounter for fracture with routine healing; X58.XXXD Exposure to other specified factors, subsequent encounter | CPT/HCPCS: 97760; L0456 ==

== ENCOUNTER → 2023-10-03 13:04 | Outpatient (BNVA) | payer MEDICARE, OTHER, SELFPAY | PROVIDERS: PCP Family Medicine; Referring Provider Family Medicine; Visit Provider Internal Medicine Pulmonary Disease | DX: R91.8 Other nonspecific abnormal finding of lung field (principal); J44.9 Chronic obstructive pulmonary disease, unspecified; Z09 Encounter for follow-up examination after completed treatment for conditions other than malignant neoplasm; J96.12 Chronic respiratory failure with hypercapnia; Z87.891 Personal history of nicotine dependence | CPT/HCPCS: 99204 ==

== ENCOUNTER 2023-10-19 12:52 | Outpatient (CLI) | payer MEDICARE, OTHER, SELFPAY ==
[2023-10-19 13:08] VITALS: PULSE 80; RESP 18
[2023-10-19] MEDS: albuterol 2.5 mg/3 mL Neb INHALATION (13:08)
== END 2023-10-19 12:53 | disposition home or self-care (01) ==
LOC: RT 12:53
PROVIDERS: PCP Family Medicine; Visit Provider Internal Medicine Pulmonary Disease
DX: J44.9 Chronic obstructive pulmonary disease, unspecified (principal)
CPT/HCPCS: 94060; 94729; J7613

== ENCOUNTER 2023-11-15 13:43 | Outpatient (CLI) | payer MEDICARE, OTHER, SELFPAY ==
--- NOTE | 2023-11-15 14:00 | CT_ITS ---
WS: [email or web address] CT chest wo con [id number] HISTORY: 3 month follow up TECHNIQUE: Axial imaging performed through the thorax. Coronal and sagittal reformats are submitted. All CT scans at [facility] use at least one of these dose optimization techniques: automated exposure control; mA and/or kV adjustment per patient size (includes targeted exams where dose is mat ched to clinical indication); or iterative reconstruction. CONTRAST: None DLP: 234.66 mGy.cm COMPARISON: 08/11/2023, 01/30/2023 Lungs and central airway: Previously described LEFT upper lobe pulmonary nodule has increased in size since 08/11/2023. This recently described nodule measures 7 mm on 08/11/2023. This is similar diamet er is now 17 mm. There are additional smaller adjacent satellite nodules which have increased also in size. The RIGHT upper lobe nodule described on the prior study is not definitely evident. There are several bilateral tiny micronodules and a few calcified granulomas. The pleural-based mass in the RIG HT upper lobe is stable at 1.7 x 2.5 cm. Hyperexpanded lungs and chronic emphysema. Pleura: Normal. No pleural effusion. Heart and pericardium: Normal size heart with no pericardial effusion. Mediastinum and lore: No mediastinum or hilar adenopathy. Vessels: Mild atherosclerosis aorta. Pulmonary artery size is equal to the aorta. Chest wall and lower neck: Bilateral breast implants. Small benign-appearing axillary lymph nodes. Upper abdomen: Mild atrophy of the pancreas. Osseous structures: Focal kyphosis at the thoracolumbar junction is reidentified. Anterior wedging an d fractures are T11, T12 and L1. There is a significant retropulsion of the posterior T11 and T12 dianna tebral bodies encroaching upon the thecal sac with stenosis. IMPRESSION: 1. LEFT upper lobe pulmonary nodule has increased in size from 7 to 17 mm at its maximum diameter. I ncreasing small satellite nodules in the LEFT upper lobe surrounding the dominant nodule. Recommend P ET/CT imaging at this time as these findings are suspicious for malignancy. 2. There are additional micronodules which are calcified and noncalcified within the lungs which are not increasing in size. 3. No mediastinal or hilar adenopathy. 4. Chronic emphysema.
== END 2023-11-15 13:44 | disposition home or self-care (01) ==
LOC: RAD 13:44
PROVIDERS: PCP Family Medicine; Visit Provider Internal Medicine Pulmonary Disease
DX: R91.8 Other nonspecific abnormal finding of lung field (principal); J43.9 Emphysema, unspecified
CPT/HCPCS: 71250

== ENCOUNTER 2023-11-29 06:25 | Outpatient (CLI) | payer MEDICARE, OTHER, SELFPAY ==
--- NOTE | 2023-11-28 10:00 | PETR_ITS ---
PROCEDURE INFORMATION: Exam: PET/CT Skull Base to Mid-thigh Exam date and time: 11/28/2023 10:41 AM Age: 78 years old Clinical indication: Abnormal findings; Left upper lobe pulmonary nodule has increased in size from 7 to 17 mm at its maximum diameter. Increasing small satellite nodules in the left upper lobe surrounding the dominant nodule. Recommend. Pet/ct imaging at this time as these findings are suspicious for malignancy. ; Additional info: Schedule on 11/28/23 LABS AND CLINICAL REPORTS: Glucose: 89 mg/dl Treatment strategy for malignancy (PET staging): Initial Staging (PI) TECHNIQUE: Imaging protocol: Following at least four-hour fasting and following the injection of radiopharmaceutical, low dose CT images were obtained. Then, PET images were obtained. Attenuation corrected images were constructed using the CT scan. Fused images of PET and CT were reviewed. The standardized uptake values (SUV) reported below are maximum values within a region of interest, expressed in gm/ml. Exam includes orbital meatal line to mid-thigh. Radiopharmaceutical: 12.19 mCi F-18 FDG (Fluorodeoxyglucose), IV. Time of imaging post radiopharmaceutical administration: 1 hour Injection site: Left wrist COMPARISON: CR (CHEST, ) 02/04/2023 3:56 PM FINDINGS: Brain: Visualized brain has normal physiologic uptake. Pharynx: No abnormal uptake. Larynx: No abnormal uptake. Lungs, pleura and trachea: Focal pleural thickening along the right posterolateral lung measuring 2.6 cm at its base series 3 image 80 and with a max SUV of 2.2. A spiculated mass is noted in the left upper lobe measuring 1.7 cm series 3, image 70 with adjacent satellite nodules. Max SUV measures 11.1. Heart: Normal physiologic uptake. Mediastinal space: No abnormal uptake. Liver: No abnormal uptake. Gallbladder and bile ducts: No abnormal uptake. Pancreas: No abnormal uptake. Spleen: No abnormal uptake. Adrenal glands: No abnormal uptake. Kidneys and ureters: Normal physiologic uptake. Stomach and bowel: No abnormal uptake. Vasculature: No abnormal uptake. Lymph nodes: Enlarged subcarinal lymph node measuring 1.3 cm in short axis series 3, image 84 with mild to moderate FDG uptake max SUV measures 2.0. Bones/joints: No abnormal uptake in the visualized axial and appendicular skeleton. Severe anterior wedging of T12. Soft tissues: No abnormal uptake in the visualized head, neck, chest, abdomen, pelvis, and extremities. PET/PET skulltothigh INITIAL [id number] IMPRESSION: 1. Spiculated 1.7 cm mass in the left upper lobe avid FDG uptake consistent with malignancy. 2. There is a focal area of pleural thickening in the right posterolateral lung with moderate FDG uptake suggestive of metastatic disease. 3. Enlarged subcarinal lymph node with [id number] FDG uptake most likely reflecting metastatic adenopathy.
== END 2023-11-29 06:26 | disposition home or self-care (01) ==
PROVIDERS: PCP Family Medicine; Visit Provider Internal Medicine Pulmonary Disease
DX: R91.1 Solitary pulmonary nodule (principal)
CPT/HCPCS: 78815; A9552

== ENCOUNTER → 2023-12-04 11:17 | Outpatient (BNVA) | payer MEDICARE, OTHER, SELFPAY | PROVIDERS: PCP Family Medicine; Visit Provider Internal Medicine Pulmonary Disease | DX: R91.8 Other nonspecific abnormal finding of lung field (principal); J43.2 Centrilobular emphysema; J96.12 Chronic respiratory failure with hypercapnia | CPT/HCPCS: 99214 ==

== ENCOUNTER 2023-12-06 15:30 | Outpatient (CLI) | payer MEDICARE, OTHER, SELFPAY | END 2023-12-06 15:31 | disposition home or self-care (01) | LOC: SLEEP 12-11 09:37 | PROVIDERS: PCP Family Medicine; Visit Provider Internal Medicine Pulmonary Disease | DX: G47.19 Other hypersomnia (principal) | CPT/HCPCS: G0399 ==

== ENCOUNTER 2023-12-12 09:20 | Day surgery (SDC) | payer MEDICARE, OTHER, SELFPAY ==
[2023-12-12 09:57] VITALS: BP 122/103; PULSE 73; RESP 16; TEMP 36.3; O2SAT 97; BMI 17.3
[2023-12-12] MEDS: sodium chloride 0.9% 1,000 ML 30 ML IV (10:09)
--- NOTE | 2023-12-12 10:34 | ANES.PREANE2 ---
Pre-Anesthetic Assessment Height/Weight: Height 1.65 m Weight 47.174 kg Temp Pulse Resp BP Pulse Ox O2 Del Method 97.4 F L 73 16 122/103 97 Room Air 12/12/23 09:57 12/12/23 09:57 12/12/23 09:57 12/12/23 09:57 12/12/23 09:57 12/12/23 09:57 Operation Date: 12/12/23 10:55 Proposed Procedures p ION, Ebus, 63024, 50251, 89749, 77464, 35392, 89233, 82165, 07764, 78050, 10902, 97774, 90855, 95002 ,R91.8(Not Applicable) - Kem Alcantara MD s Ebus(Not Applicable) - Kem ZavalarMD Familial anesthetic complications: None Was Beta Ramon taken within 24 hours: N/A Was Clonidine taken within 24 hours: N/A Last intake: Intake Last Liquid Date 12/11/23 Last Liquid Time 23:00 Last Solid Date 12/11/23 Last Solid Time 20:30 Social No alcohol and No tobacco former smoker Exam alert, oriented x 3, clear to auscultation bilaterally and regular rate & rhythm Airway Mallampati: Class II Pulmonary Chronic Obstructive Pulmonary Disease (emphysema severe - discussed possibility of prolonged intubation post procedure) CV/HEM Hypertension Cardiac arrest last january d/t presumed opiate overdose, recovered in 12 hours to nasal canula, and cardiac eval wnl after incident Anesthetic Plan ASA status: 4 Anesthesia: General Risk of > 500 ml blood loss (7ml/kg in children): No Medications/Allergies Home Medications Medication Instructions Recorded Confirmed Last Taken Type acetaminophen 500 mg tablet 500 mg PO Q4H PRN Pain 07/07/21 12/12/23 12/11/23 History albuterol sulfate 90 mcg/actuation 1 - 2 puff inhalation Q4H PRN 11/23/22 12/07/23 12/06/23 Rx aerosol inhaler Shortness Of Breath #6.7 grams naloxone 4 mg/actuation nasal 4 mg intranasal Q2M PRN opioid 02/15/23 12/07/23 Unknown Rx spray (Narcan) overdose #2 ea sodium chloride 1,000 mg soluble 1,000 mg PO DAILY #60 tabs 03/14/23 12/12/23 12/11/23 Rx tablet oxygen air delivery system #1 ea 07/24/23 12/04/23 Unknown Rx amlodipine 10 mg tablet 10 mg PO DAILY PRN HIGH BLOOD 08/11/23 12/12/23 12/12/23 History PRESSURE sertraline 50 mg tablet 50 mg PO QAM 08/11/23 12/12/23 12/11/23 History TLSO BRACE #1 ea 08/17/23 12/04/23 Unknown Rx tiotropium bromide 18 mcg capsule 1 cap inhalation DAILY #60 10/03/23 12/12/23 12/12/23 Rx with inhalation device (Spiriva inhalations with HandiHaler) fentanyl 12 mcg/hr transdermal 1 patch transdermal Q72H 30 days 11/30/23 12/12/23 12/11/23 Rx patch #10 ea fentanyl 25 mcg/hr transdermal 1 patch transdermal Q72H 30 days 11/30/23 12/12/23 12/12/23 Rx patch #10 ea apixaban 5 mg tablet (Eliquis) 5 mg PO DAILY 12/07/23 12/07/23 12/08/23 History bisacodyl 5 mg tablet,delayed 10 mg PO Q6H PRN Constipation 12/07/23 12/12/23 12/11/23 History release ferrous gluconate 324 mg (38 mg 324 mg PO DAILY 12/07/23 12/12/23 12/11/23 History iron) tablet hydroxyzine HCl 10 mg tablet 10 mg PO Q6H PRN Anxiety 12/07/23 12/12/23 12/11/23 History metoprolol tartrate 25 mg tablet 25 mg PO BID 12/07/23 12/12/23 12/11/23 History nortriptyline 50 mg capsule See Rx Instructions .Route .COMPLEX 12/07/23 12/12/23 12/11/23 History Allergies Allergy/AdvReac Type Severity Reaction Status Date / Time hydrochlorothiazide Allergy Severe hyponatremi Verified 12/07/23 10:53 a Current Medications Generic Name Dose Route Start Last Admin Trade Name Freq PRN Reason Stop Dose Admin Sodium Chloride 1,000 mls @ 30 mls/hr 12/12/23 09:30 12/12/23 10:09 Sodium Chloride 0.9% IV 12/13/23 09:29 30 mls/hr .Q24H SIMONA Administration PFSH Anesthesia Medical History Nocturnal hypoxemia Refeeding syndrome Hypophosphatemia Compression fracture Ptosis Altered mental status Diarrhea Volume overload Leukocytosis Hypomagnesemia Hypokalemia Acute exacerbation of chronic obstructive airways disease Hyponatremia PVC (premature ventricular contraction) History of meningitis 2006, hospitalized ~2 months, had pneumonia. 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 Compressed spine fracture Chronic back pain Hyponatremia Hypovolemic hyponatremia with low urine sodium responded to IV fluid, patient has poor p.o. intake SIADH (syndrome of inappropriate ADH production) COVID-19 07/2021 Hypertension DVT (deep venous thrombosis) Surgical History History of facelift History of breast augmentation History of total abdominal hysterectomy and bilateral salpingo-oophorectomy History of tonsillectomy Family History Father Cancer lung cancer Other Stroke Social History Smoking and tobacco/nicotine status: former use of tobacco/nicotine Quit status (tobacco/nicotine): has quit using Year quit tobacco: 1992 Former quit date comment: 1.5 ppd X 30 yr Alcohol intake: current Alcohol intake frequency: holidays/special occasions only Household members: spouse Marital status: Data Anesthesia Cardiac Studies: Echocardiogram 01/30/23 Sestamibi Stress Test (Cardiology) 02/02/23
--- NOTE | 2023-12-12 10:50 | W.PM.OPSUD ---
Surgery/Procedure H&P Update DATE OF PROCEDURE: December 12, 2023 DATE H&P PERFORMED: 12/04/23 H&P UPDATE INFORMATION: I have reviewed H&P completed within last 30 days, I have examined patient prior to procedure and No changes to prior documentation CHANGES TO PREVIOUS DOCUMENTATION: None PREOP DIAGNOSIS: Suspected malignancy PRIMARY INDICATION FOR PROCEDURE: Left upper lobe PET active lesion-suspected malignancy PLANNED PROCEDURE: Operation Date: 12/12/23 10:55 Proposed Procedures p ION, Ebus, 42357, 46223, 23421, 38039, 68922, 27314, 23331, 95651, 13461, 13077, 17355, 57909, 83813 ,R91.8(Not Applicable) - Kem Alcantara MD s Ebus(Not Applicable) - Kem Alcantara MD
--- NOTE | 2023-12-12 11:57 | SC_ITS ---
WS: [email or web address] C-ARM RADIOGRAPHS CHEST; 4 IMAGES HISTORY: ion COMPARISON: None available. Imaging provided during navigational bronchoscopy for biopsy of the LEFT upper lobe nodule. IMPRESSION: Intraoperative imaging provided during navigational bronchoscopy.
[2023-12-12] MEDS: lidocaine 1% INJ 10 mL (per mL) XX (13:21)
[2023-12-12 14:20] VITALS: BP 137/55; PULSE 88; RESP 16; TEMP 36.1; O2SAT 100
--- NOTE | 2023-12-12 14:22 | XR_ITS ---
WS: [email or web address] CHEST, 1 view. HISTORY: post ion COMPARISON: 11/15/2023 CT. No pneumothorax status post LEFT upper lobe lung biopsy. There is a pleural-based mass in the RIGHT lung which is stable over multiple prior studies. No pleur al effusion or pneumothorax. Cardiac size: Normal. Mediastinum/Aorta: Normal mediastinum. No osseous abnormality seen. IMPRESSION: No pneumothorax status post LEFT upper lobe lung biopsy.
[2023-12-12 14:26] VITALS: BP 119/57; PULSE 84; RESP 16; O2SAT 100
[2023-12-12 14:48] VITALS: BP 134/52; PULSE 82; RESP 16; O2SAT 96
[2023-12-12 14:49] LABS: Total Cells Counted Bronch 200
[2023-12-12 14:50] LABS: Cyto Order Verification Order Verified
--- NOTE | 2023-12-12 14:50 | ANE.PACU2 ---
Inpatient post-anesthesia follow up: Airway intact: Yes Vital signs: Temperature 97 F Pulse Rate 84 Respiratory Rate 16 Blood Pressure 105/54 Pulse Oximetry 94 Oxygen Delivery Me thod Nasal Cannula Oxygen Flow Rate 2 Fraction of Inspir ed Oxygen Hydration adequate: Yes Nausea and vomiting: No Pain level: 1 Mental status: Baseline
[2023-12-12 14:51] LABS: Color, Bronc Wash Slight Pink
[2023-12-12 14:52] VITALS: BP 118/60; PULSE 86; RESP 16; TEMP 36.1; O2SAT 97
[2023-12-12 14:53] LABS: Apprearance, Bronch Wash Hazy (CLEAR)
[2023-12-12] MEDS: ondansetron 2 mg/ML SDV 2 mL 4 MG IVP ×2 (15:11→15:35)
[2023-12-12 15:16] VITALS: BP 105/54; PULSE 84; RESP 16; O2SAT 94
--- NOTE | 2023-12-12 15:37 | P.OP_ITS ---
Operative Report Date of procedure: December 12, 2023 Pre-op diagnosis: Suspected lung malignancy Post-op diagnosis: Same Procedure done: -Dx Bronchoscope w/Washings or airway inspection -Dx Bronchoscope w/BAL -Bx Bronchoscope w/Brushings or protected brushings -Bronch with computer image guided Navigational Bronchoscopy -Bronchoscopy w/Transbronchial lung biopsy(s), single lobe using forceps -Bronchoscopy w/Transbronchial needle aspiration biopsy(s), tracheal, main stem, and/or lobar bronchus -Bronchoscopy w/ therapeutic aspiration of the tracheobronchial tree (clearance of airway secretions, removal of mucus plugs) -EBUS Sampling 2 lymph nodes Surgeon: Kem Alcantara MD Brief History: Ms. Eleni Miller is a 78-year-old female Referred by ER physician Dr Dorsey for pulmonary nodule. Former smoker with hx of. She is accompanied by her daughter. This patient has a pleural-based mass reidentified right upper lobe measuring 2.2 x 2.6 cm which has been present since 2016. Daughter reported that a similar pulmonary nodule on the right lung was seen on CT chest previously for which they were sent to [facility] for biopsy - they said there is a 50 percent chance where it was located and it would cause a collapsed lung, so they decided not to do that. She also had breast implants because of which she was told that obtaining a CT-guided biopsy is difficult. She had an ER visit 08/11/2023 for right-sided substernal chest pain behind her right breast. She had a CTA 08/11/2023 which showed subcentimeter pulmonary nodules largest 7 mm in left upper lobe with adjacent satellite nodules these are new since 01/30/2023. Early neoplasm is not excluded and needs to be followed up. 3-month CT chest repeated on 11/15/2023 showed left upper lobe pulmonary nodule increased in size from 7 mm to 9 mm diameter. Increasing small satellite nodules in the surrounding dominant nodule. Subsequent PET/CT scan 01/27/2024 showed a spiculated 1.7 cm mass in the left upper lobe FDG avid with SUV 11.1. There are enlarged subcarinal lymph nodes with mild to moderate FDG uptake most likely reflecting metastatic. There is a focal area of pleural thickening in the right posterolateral lung with FDG SUV 2.2 -however this right upper lobe pleural-based opacity has been there since 2016. Considering the chronicity may not be malignant. Today she is scheduled for navigational bronchoscopy guided biopsy of left upper lobe lesion as well as endobronchial ultrasound-guided biopsies of hilar/mediastinal lymph nodes Procedure: ROBOTIC BRONCHOSCOPY NOTE: Pre-procedure Verification: Prior to the procedure, the patient's identity was verified by full name, date of and medical record number. The patient's identity was verified on all pertinent medical records. Also prior to the procedure, a History and Physical was performed, and patient medications, allergies and sensitivities were reviewed. The patient's tolerance of previous anesthesia was reviewed. The risks and benefits of the procedure and the sedation options and risks were discussed with the patient. All questions were answered and informed consent was obtained. Planning: Using the [employer] planning software, this patient?s preoperative CT was loaded onto the system and then target and pathway mapping was performed. This was all done prior to the start of the procedure and appropriate plan verified prior to induction. Anesthesia: General anesthesia was used. Please see anesthesiology documentation for full details. A modified LNVP/Wilbur Protocol was used for robotic bronchoscopy with rapid Intubation, recruitment maneuvers, Tidal Volume around 8-10mL/Kg [place] Body Weight, and PEEP 10-15 as feasible. Time-Out: Prior to the start of the procedure, the patient's identification, proposed procedure, accurate signed consent, correctly labeled images and records, and need for prophylactic antibiotics were verified by the physician, the nurse, the anesthesiologist and the watch case polisher in the procedure room. Procedural Details: After obtaining informed consent, The procedure was accomplished without difficulty. The patient tolerated the procedure well. Patient preparation: Patient was placed under general anesthesia. An 8.5 ETT was placed for bronchoscopy. The larynx and vocal cords were not visualized. The trachea was anatomically normal The right sided airway was anatomically normal without endobronchial lesions. thin slightly mucoid appearing secretions. The left sided airway was anatomically normal without endobronchial lesions. thin slightly mucoid appearing secretions. Therapeutic aspiration of the airways, initial encounter, was performed at the left bronchial tree. The therapeutic bronchoscope was then removed. We communicated with the anesthesia team to ensure proper ventilator settings for optimal peripheral bronchoscopy. FIRST LOBE: The Ion Shape Sensing Robotic Assisted Bronchoscope was brought into the field and the process of registration was carried out. The guide catheter was used for peripheral navigational bronchoscopy using the planned pathway into the left upper lobe apical lesion and was able to be wedged peripherally at a distance of 4 mm away from the target. The mucosa appeared fibrinous and scarring. We locked the catheter position in, and removed the vision probe. We introduced the radial EBUS probe and obtained an good concentric signal [id number] image location relative to the lesion in the same lobe. We confirmed our location with a fluoroscopic C-arm. We then removed the R-EBUS and introduced the biopsy tools starting with a 21 G ION bronchoscopic peripheral needle for Transbronchial Needle Aspirations (TBNA). It was challenging to nesbitt the airway probably due to all the scarring in that area. We did not see much material and so I switched to a 23- gauge needle and was able to nesbitt on fluoroscopy. The first pass was not sent for Rapid On Site Evaluation (KARLO) as we do not have onsite pathology. We continued more biopsies in a cloud format. Transbronchial biopsies of left upper lobe apical segment lesion were made using forceps. Transbronchial biopsy technique was selected because the sampling site was not visible endoscopically. The sampling device penetrated the full t hickness of the bronchial wall to obtain the biopsy of lung tissue. 8 biopsy passes were performed, and the same number of biopsy samples were obtained. Endobronchial protective brushings were collected at the left upper lobe lesion using a cytology brush. Finally, we used a 20 cc syringe filled with normal saline connected to the proximal portion of the ION catheter and slowly injected and aspirated the contents for a bronchial alveolar lavage of the left upper lobe. The return was cloudy and blood tinged 13 cc . At this point and after confirming the absence of bleeding, we removed the channel. Minimal blood residue was cleared from the airway and the peripheral navigation portion of the procedure was concluded. Empiric cold saline was instilled through the catheter and tamponade held for 1-5 minutes. Next, we turned our attention to linear EBUS staging. An EBUS exam was performed: - Stations 4 R, station 7, were enlarged > 5mm and sampled. - Stations 4L, 10L, 11 R, 10 R, 11 R and were also scanned but no obvious lymph nodes were identified and thus did not meet criteria for sampling. Level 4R station was identified with the EBUS scope at the lateral RMSB and 3 passes were made using a 21G Olympus TBNA needle. Level 7 station was identified with the EBUS scope at the medial LMSB/RMSB and 4 passes were made using a 21 G Olympus TBNA needle. Rapid onsite path evaluation (KARLO) was not utilized for this case. Following completion of all diagnostic and therapeutic procedures, hemostasis was verified. The scope was removed and procedure concluded. Samples: A. Left upper lobe lesion 1. Total of 6-8 passes were made using needle aspiration using 21-gauge as well as 23-gauge needle; we do not have onsite pathology and so all the material was placed in formalin for histopathology 2. Targeting the same area 8 passes were made using forceps ; we do not have onsite pathology and so all the material was placed in formalin for histopathology 3. Bronchoscope was wedged at the entrance of the apical segment of left upper lobe, 20 mL of saline was instilled and returned 13 mL of bronchoalveolar lavage . The fluid was mixed with blood and specks of tissue. Samples for cell count, cytology, cultures B. EBUS guided Fine-needle aspiration biopsies were taken from Stations 11 R, station 7, 11 L 5. Total of 3 passes were made using needle aspiration from station 4 R; all the material was placed in formalin and sent for histopathology 6. Total of 3 passes were made using needle aspiration from station 7; all the material was placed in formalin and sent for histopathology Complications: None.The patient was extubated and brought to the PACU in stable condition. Postprocedure chest x-ray: There is no evidence of pneumothorax Disposition: Patient can be discharged home in stable condition. Pt, and family are aware that I am going to call them to update final biopsy results once available.
[2023-12-12] MEDS: diphenhydrAMINE 50 mg/mL SDV 1mL 12.5 MG IVP (16:07)
[2023-12-12 19:01] LABS: PATH Referral Yes
== END 2023-12-12 16:52 | disposition home or self-care (01) ==
PROVIDERS: PCP Family Medicine; Visit Provider Internal Medicine Pulmonary Disease
PROC: 0BJ08ZZ Inspection of Tracheobronchial Tree, Via Natural or Artificial Opening Endoscopic (ICD-10-PCS; CPT 31622; principal; 2023-12-12 10:45)
PROC: BB4BZZZ Ultrasonography of Pleura (ICD-10-PCS; 2023-12-12 10:45)
DX: C34.12 Malignant neoplasm of upper lobe, left bronchus or lung (principal); Z87.891 Personal history of nicotine dependence; R59.9 Enlarged lymph nodes, unspecified; J44.9 Chronic obstructive pulmonary disease, unspecified; I10 Essential (primary) hypertension; Z86.718 Personal history of other venous thrombosis and embolism; J96.12 Chronic respiratory failure with hypercapnia; J43.2 Centrilobular emphysema
CPT/HCPCS: 31623; 31624; 31627; 31628; 31629; 31645; 31652; 71045; 76000; 80503; 87070; 87205; 88112; 88173; 88305; 88309; 88342; 89050; J1100; J1200; J2405; J2704; J2710; J3010; J3490; J7030; P9045

== ENCOUNTER 2023-12-19 07:57 | Oncology outpatient (recurring) (ONCR) | payer MEDICARE, OTHER, SELFPAY ==
[2023-12-19 10:21] LABS: Basophils % 0.2 %; Eosinophils # 0.1 10^3/uL (0.0-0.8); Eosinophils % 2.1 %; Hematocrit 40.4 % (36-47); Lymphocytes % 44.6 %; Mean Corpuscular HGB Conc 30.9 g/dL (30-55); Mean Corpuscular Hemoglobin 29.1 pg (27-33); Mean Platelet Volume 8.9 fL (7.4-10.4); Monocytes # 0.9 10^3/uL (0.2-0.9); Monocytes % 19.7 %; Neutrophils # 1.46 10^3/uL (1.8-7.7); Neutrophils % 33.4 %; Nucleated Red Blood Cells % 0 %; Platelet Count 207 10^3/cmm (157-399); Red Cell Distribution Width 12.5 % (12.1-15.1); White Blood Count 4.37 10^3/uL (3.29-11.43)
[2023-12-19 10:42] LABS: Alanine Aminotransferase 8 U/L (0-33); Albumin Level 3.9 g/dL (3.5-5.2); Alkaline Phosphatase 46 U/L (35-105); Blood Urea Nitrogen 19 mg/dL (8-23); Carbon Dioxide 29 mmol/L (22-29); Chloride 93 mmol/L (98-107); Creatinine Clr Calc Pharmacy 48.4657; Globulin 2.8 g/dL (1.3-4.6); Glucose 90 mg/dL (65-115); Osmolality Calculated 272 mOsm/kg (285-295); Sodium 130 mmol/L (136-145); Total Bilirubin 0.2 mg/dL (0.15-1.2); Total Protein 6.7 g/dL (6.6-8.7)
[2023-12-19 10:44] LABS: Anion Gap 12.7 (5-19); Aspartate Amino Transferase 18 U/L (0-32); Potassium 4.7 mmol/L (3.5-5.1)
== END 2023-12-31 23:59 | disposition home or self-care (01) ==
PROVIDERS: Internal Medicine Medical Oncology; PCP Family Medicine; Visit Provider Internal Medicine Pulmonary Disease
DX: Z53.9 Procedure and treatment not carried out, unspecified reason (principal); C34.12 Malignant neoplasm of upper lobe, left bronchus or lung; J44.9 Chronic obstructive pulmonary disease, unspecified; Z87.891 Personal history of nicotine dependence; F41.9 Anxiety disorder, unspecified; R13.10 Dysphagia, unspecified
CPT/HCPCS: 80053; 85025; 99205

== ENCOUNTER → 2023-12-28 14:50 | Outpatient (BNVA) | payer MEDICARE, OTHER, SELFPAY | PROVIDERS: PCP Family Medicine; Referring Provider Internal Medicine Medical Oncology; Visit Provider Surgery | DX: R13.10 Dysphagia, unspecified (principal) | CPT/HCPCS: 99204 ==

== ENCOUNTER 2024-01-03 06:02 | Day surgery (SDC) | payer MEDICARE, OTHER, SELFPAY ==
[2024-01-03 06:33] VITALS: BP 117/79; PULSE 89; RESP 16; TEMP 36.3; O2SAT 96
--- NOTE | 2024-01-03 06:43 | ANES.PREANE2 ---
Pre-Anesthetic Assessment Height/Weight: Height 1.65 m Operation Date: 01/03/24 07:00 Proposed Procedures p EGD Dilation W/ Balloon(Not Applicable) - David Stauffer DO Familial anesthetic complications: None Was Beta Ramon taken within 24 hours: N/A Was Clonidine taken within 24 hours: N/A Last intake: > 8 hrs Social No alcohol and No tobacco Exam alert, oriented x 3, clear to auscultation bilaterally and regular rate & rhythm Airway Dentition: full Pulmonary Chronic Obstructive Pulmonary Disease On 2 L NC GI Gastroesophageal Reflux Disease Anesthetic Plan ASA status: 3 Anesthesia: MAC Risk of > 500 ml blood loss (7ml/kg in children): No Medications/Allergies Home Medications Medication Instructions Recorded Confirmed Last Taken Type acetaminophen 500 mg tablet 500 mg PO Q4H PRN Pain 07/07/21 01/01/24 01/02/24 History albuterol sulfate 90 mcg/actuation 1 - 2 puff inhalation Q4H PRN 11/23/22 01/01/24 01/02/24 Rx aerosol inhaler Shortness Of Breath #6.7 grams naloxone 4 mg/actuation nasal 4 mg intranasal Q2M PRN opioid 02/15/23 01/01/24 12/31/23 Rx spray (Narcan) overdose #2 ea sodium chloride 1,000 mg soluble 1,000 mg PO DAILY #60 tabs 03/14/23 01/01/24 01/02/24 Rx tablet oxygen air delivery system #1 ea 07/24/23 12/28/23 12/31/23 Rx amlodipine 10 mg tablet 10 mg PO DAILY PRN HIGH BLOOD 08/11/23 01/01/24 12/31/23 History PRESSURE sertraline 50 mg tablet 50 mg PO QAM 08/11/23 01/01/24 01/02/24 History TLSO BRACE #1 ea 08/17/23 12/28/23 12/31/23 Rx tiotropium bromide 18 mcg capsule 1 cap inhalation DAILY #60 10/03/23 01/01/24 01/02/24 Rx with inhalation device (Spiriva inhalations with HandiHaler) apixaban 5 mg tablet (Eliquis) 5 mg PO DAILY 12/07/23 01/01/24 12/31/23 History bisacodyl 5 mg tablet,delayed 10 mg PO Q6H PRN Constipation 12/07/23 01/01/24 01/02/24 History release ferrous gluconate 324 mg (38 mg 324 mg PO DAILY 12/07/23 01/01/24 01/02/24 History iron) tablet hydroxyzine HCl 10 mg tablet 10 mg PO Q6H PRN Anxiety 12/07/23 01/01/24 01/03/24 05:15 History metoprolol tartrate 25 mg tablet 25 mg PO BID 12/07/23 01/01/24 01/03/24 05:15 History nortriptyline 50 mg capsule See Rx Instructions .Route .COMPLEX 12/07/23 01/01/24 01/02/24 History ipratropium 0.5 mg-albuterol 3 mg 3 ml inhalation 6XD 12/19/23 01/01/24 01/02/24 History (2.5 mg base)/3 mL nebulization soln lorazepam 1 mg tablet 1 mg PO ONCE PRN anxiety #1 tab 12/19/23 01/01/24 12/31/23 Rx pantoprazole 40 mg tablet,delayed 40 mg PO BID 6 weeks #84 tabs 12/28/23 01/01/24 01/02/24 Rx release (Protonix) fentanyl 12 mcg/hr transdermal 1 patch transdermal Q72H 30 days 01/02/24 01/03/24 12/30/23 Rx patch #10 ea fentanyl 25 mcg/hr transdermal 1 patch transdermal Q72H 30 days 01/02/24 01/03/24 01/02/24 Rx patch #10 ea Allergies Allergy/AdvReac Type Severity Reaction Status Date / Time hydrochlorothiazide Allergy Severe hyponatremi Verified 01/01/24 10:05 a [facility] Anesthesia Medical History Small cell lung cancer Depression with anxiety Generalized anxiety disorder with panic attacks Nocturnal hypoxemia Refeeding syndrome Hypophosphatemia Compression fracture Ptosis Altered mental status Diarrhea Volume overload Leukocytosis Hypomagnesemia Hypokalemia Acute exacerbation of chronic obstructive airways disease PVC (premature ventricular contraction) History of meningitis 2006, hospitalized ~2 months, had pneumonia. 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 Compressed spine fracture Chronic back pain SIADH (syndrome of inappropriate ADH production) COVID-19 07/2021 Hypertension DVT (deep venous thrombosis) Surgical History History of facelift History of breast augmentation History of total abdominal hysterectomy and bilateral salpingo-oophorectomy History of tonsillectomy Family History Father Lung cancer Mother Heart disease Other Stroke Social History (Updated 12/28/23 @ 15:09 by Laurie Lindquist LPN) Smoking and tobacco/nicotine status: former use of tobacco/nicotine Quit status (tobacco/nicotine): has quit using Year quit tobacco: 1992 Former quit date comment: 1.5 ppd X 30 yr Alcohol intake: former Household members: spouse Marital status: Data Anesthesia Cardiac Studies: Echocardiogram 01/30/23 Sestamibi Stress Test (Cardiology) 02/02/23
--- NOTE | 2024-01-03 06:54 | W.PM.OPSUD ---
Surgery/Procedure H&P Update DATE OF PROCEDURE: January 03, 2024 DATE H&P PERFORMED: 12/28/23 H&P UPDATE INFORMATION: I have reviewed H&P completed within last 30 days, I have examined patient prior to procedure and No changes to prior documentation PLANNED PROCEDURE: Operation Date: 01/03/24 07:00 Proposed Procedures p EGD Dilation W/ Balloon(Not Applicable) - David Stauffer DO
[2024-01-03] MEDS: sodium chloride 0.9% 1,000 ML 30 ML IV (07:09)
[2024-01-03] MEDS: EPINEPHrine 1 mg/mL INJ XX (07:25)
[2024-01-03 07:27] VITALS: BP 167/68; PULSE 82; RESP 18; TEMP 36.1; O2SAT 100
[2024-01-03 07:40] VITALS: BP 141/95; PULSE 98; RESP 18; O2SAT 90
[2024-01-03 07:48] VITALS: BP 141/95; PULSE 68; RESP 18; O2SAT 94
--- NOTE | 2024-01-03 10:04 | ANE.PACU2 ---
Inpatient post-anesthesia follow up: Airway intact: Yes Vital signs: Temperature 97.0 F Pulse Rate 68 Respiratory Rate 18 Blood Pressure 141/95 Pulse Oximetry 94 Oxygen Delivery Me thod Nasal Cannula Oxygen Flow Rate 4 Fraction of Inspir ed Oxygen Hydration adequate: Yes Nausea and vomiting: No Pain level: 1 Mental status: Baseline
[2024-01-11 07:06] LABS: PD-L1 (Clone 22C3) by IHC BBPL See Report
== END 2024-01-03 08:09 | disposition home or self-care (01) ==
PROVIDERS: PCP Family Medicine; Visit Provider Surgery
DX: R13.10 Dysphagia, unspecified (principal); K29.50 Unspecified chronic gastritis without bleeding; C15.9 Malignant neoplasm of esophagus, unspecified; J44.9 Chronic obstructive pulmonary disease, unspecified; K31.89 Other diseases of stomach and duodenum; K20.90 Esophagitis, unspecified without bleeding; Z99.81 Dependence on supplemental oxygen; K21.9 Gastro-esophageal reflux disease without esophagitis; Z79.891 Long term (current) use of opiate analgesic; I10 Essential (primary) hypertension; Z86.718 Personal history of other venous thrombosis and embolism; Z87.891 Personal history of nicotine dependence
CPT/HCPCS: 43239; 88305; 88341; 88342; J0171; J2704; J7030

== ENCOUNTER → 2024-01-08 14:59 | Outpatient (BNVA) | payer MEDICARE, OTHER, SELFPAY | PROVIDERS: PCP Family Medicine; Visit Provider Surgery | DX: R63.0 Anorexia (principal); R13.10 Dysphagia, unspecified; Z09 Encounter for follow-up examination after completed treatment for conditions other than malignant neoplasm; C15.9 Malignant neoplasm of esophagus, unspecified; R62.7 Adult failure to thrive | CPT/HCPCS: 99214 ==

== ENCOUNTER 2024-01-12 12:04 | Day surgery (SDC) | payer MEDICARE, OTHER, SELFPAY ==
[2024-01-12] MEDS: sodium chloride 0.9% 1,000 ML 30 ML IV (12:30)
--- NOTE | 2024-01-12 12:44 | P.ANESASSM_ITS ---
Pre-Anesthetic Assessment Height/Weight: Height 1.65 m Operation Date: 01/12/24 13:10 Proposed Procedures p PEG Tube Insertion(Not Applicable) - David Stauffer DO Familial anesthetic complications: None Was Beta Ramon taken within 24 hours: N/A Was Clonidine taken within 24 hours: N/A Last intake: > 8hrs Social No alcohol and No tobacco Exam alert, oriented x 3, clear to auscultation bilaterally and regular rate & rhythm Airway Mallampati: Class II Pulmonary Chronic Obstructive Pulmonary Disease (2 L NC) SCC CV/HEM Deep Vein Thrombosis and Hypertension GI Gastroesophageal Reflux Disease Anesthetic Plan ASA status: 3 Anesthesia: MAC Risk of > 500 ml blood loss (7ml/kg in children): No Medications/Allergies Home Medications Medication Instructions Recorded Confirmed Last Taken Type acetaminophen 500 mg tablet 500 mg PO Q4H PRN Pain 07/07/21 01/11/24 01/11/24 History albuterol sulfate 90 mcg/actuation 1 - 2 puff inhalation Q4H PRN 11/23/22 01/11/24 01/11/24 Rx aerosol inhaler Shortness Of Breath #6.7 grams naloxone 4 mg/actuation nasal 4 mg intranasal Q2M PRN opioid 02/15/23 01/11/24 01/11/24 Rx spray (Narcan) overdose #2 ea sodium chloride 1,000 mg soluble 1,000 mg PO DAILY #60 tabs 03/14/23 01/11/24 01/11/24 Rx tablet oxygen air delivery system #1 ea 07/24/23 01/10/24 12/31/23 Rx amlodipine 10 mg tablet 10 mg PO DAILY PRN HIGH BLOOD 08/11/23 01/11/24 01/11/24 History PRESSURE sertraline 50 mg tablet 50 mg PO QAM 08/11/23 01/11/24 01/11/24 History TLSO BRACE #1 ea 08/17/23 01/10/24 12/31/23 Rx tiotropium bromide 18 mcg capsule 1 cap inhalation DAILY #60 10/03/23 01/11/24 01/11/24 Rx with inhalation device (Spiriva inhalations with HandiHaler) apixaban 5 mg tablet (Eliquis) 5 mg PO DAILY 12/07/23 01/11/24 01/08/24 History bisacodyl 5 mg tablet,delayed 10 mg PO Q6H PRN Constipation 12/07/23 01/11/24 01/11/24 History release ferrous gluconate 324 mg (38 mg 324 mg PO DAILY 12/07/23 01/11/24 01/11/24 History iron) tablet hydroxyzine HCl 10 mg tablet 10 mg PO Q6H PRN Anxiety 12/07/23 01/11/24 01/11/24 History metoprolol tartrate 25 mg tablet 25 mg PO BID 12/07/23 01/11/24 01/11/24 History nortriptyline 50 mg capsule See Rx Instructions .Route .COMPLEX 12/07/23 01/11/24 01/11/24 History ipratropium 0.5 mg-albuterol 3 mg 3 ml inhalation 6XD 12/19/23 01/11/24 01/11/24 History (2.5 mg base)/3 mL nebulization soln lorazepam 1 mg tablet 1 mg PO ONCE PRN anxiety #1 tab 12/19/23 01/11/24 01/11/24 Rx pantoprazole 40 mg tablet,delayed 40 mg PO BID 6 weeks #84 tabs 12/28/23 01/11/24 01/11/24 Rx release (Protonix) fentanyl 25 mcg/hr transdermal 1 patch transdermal Q72H 30 days 01/02/24 01/11/24 01/11/24 Rx patch #10 ea metoclopramide HCl 5 mg tablet 5 mg PO Q6H 30 days #120 tabs 01/08/24 01/11/24 01/11/24 Rx (Reglan) lubiprostone 24 mcg capsule 24 mcg PO BID #60 caps 01/10/24 01/11/24 01/11/24 Rx (Amitiza) fentanyl 12 mcg/hr transdermal 1 patch transdermal Q72H 30 days 01/11/24 Unknown Rx patch #20 ea Allergies Allergy/AdvReac Type Severity Reaction Status Date / Time hydrochlorothiazide Allergy Severe hyponatremi Verified 01/11/24 13:22 a [facility] Anesthesia Medical History Small cell lung cancer Depression with anxiety Generalized anxiety disorder with panic attacks Nocturnal hypoxemia Refeeding syndrome Hypophosphatemia Compression fracture Ptosis Altered mental status Diarrhea Volume overload Leukocytosis Hypomagnesemia Hypokalemia Acute exacerbation of chronic obstructive airways disease PVC (premature ventricular contraction) History of meningitis 2006, hospitalized ~2 months, had pneumonia. 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 Compressed spine fracture Chronic back pain SIADH (syndrome of inappropriate ADH production) COVID-19 07/2021 Hypertension DVT (deep venous thrombosis) Surgical History History of facelift History of breast augmentation History of total abdominal hysterectomy and bilateral salpingo-oophorectomy History of tonsillectomy Family History Father Lung cancer Mother Heart disease Other Stroke Social History Smoking and tobacco/nicotine status: former use of tobacco/nicotine Quit status (tobacco/nicotine): has quit using Year quit tobacco: 1992 Former quit date comment: 1.5 ppd X 30 yr Alcohol intake: former Household members: spouse Marital status: Data Anesthesia Cardiac Studies: Echocardiogram 01/30/23 Sestamibi Stress Test (Cardiology) 02/02
[2024-01-12 12:45] VITALS: BP 155/79; PULSE 80; RESP 18; TEMP 37.2; O2SAT 93
--- NOTE | 2024-01-12 13:36 | W.PM.OPSUD ---
Surgery/Procedure H&P Update DATE OF PROCEDURE: January 12, 2024 DATE H&P PERFORMED: 01/08/24 H&P UPDATE INFORMATION: I have reviewed H&P completed within last 30 days, I have examined patient prior to procedure and No changes to prior documentation PLANNED PROCEDURE: Operation Date: 01/12/24 13:10 Proposed Procedures p PEG Tube Insertion(Not Applicable) - David Stauffer DO
--- NOTE | 2024-01-12 13:52 | PC.NUTR ---
Consult for PEG tube feed recommendations received. Recommend consideration of Jevity 1.5 bolus feedings, with 60 mls FWF before and after. Day 1: 120mls or 1/2 carton @ 8am/ noon/ 4pm/ 8pm Day 2: if tolerated, 240mls or 1 carton@ 8am/ noon/ 4pm/ 8pm Day 3: if tolerated, 240mls @8am/ 360mls @noon/ 240mls @4pm/ 360mls @8pm. *If wt loss occurs and Pt can tolerate, recommend increasing to 1.5 cartons Jevity 1.5 @ 8am/noon/4pm/8pm Details in RD assessment.
[2024-01-12 14:19] VITALS: BP 183/76; PULSE 92; RESP 20; TEMP 36.9; O2SAT 98
[2024-01-12] MEDS: acetaminophen 1,000 MG/100 ML PIGGYBACK 400 MG IV (14:31)
[2024-01-12 14:36] VITALS: BP 172/86; PULSE 92; RESP 20; O2SAT 98
--- NOTE | 2024-01-12 14:43 | PC.SOCIAL ---
Home Health Received a HH order on patient. Attempted to call patients and daughter to obtain choices for HH, no answer. Left message. New Referral faxed to [facility] @ this time due to availability for HH.
[2024-01-12] MEDS: ketorolac 30 mg/mL INJ 15 MG IVP (14:47)
--- NOTE | 2024-01-12 15:13 | PC.SOCIAL ---
Home Health Krishan from [facility] calls and reports that they can accept patient. Updated unsure if tube feeding will be delivered by Monday. He reports that he will at least have his nurse call and check on patient.
--- NOTE | 2024-01-12 15:15 | ANE.PACU2 ---
Inpatient post-anesthesia follow up: Airway intact: Yes Vital signs: Temperature 98.5 F Pulse Rate 92 Respiratory Rate 20 Blood Pressure 172/86 Pulse Oximetry 98 Oxygen Delivery Me thod Nasal Cannula Oxygen Flow Rate 5 Fraction of Inspir ed Oxygen Hydration adequate: Yes Nausea and vomiting: No Pain level: 1 Mental status: Baseline
--- NOTE | 2024-01-12 15:20 | PC.SOCIAL ---
Tube feed orders faxed to [facility] in [place].
--- NOTE | 2024-01-12 15:35 | PC.SOCIAL ---
JESSICA spoke to Talat at [facility] she stated she has received the feeding order and will try to overnight some for patient, but if unable to they wont receive till monday. Called and informed daughter that had accepted and [facility] would try to get something delivered tomorrow if not, it will be monday when delivered.
== END 2024-01-12 15:14 | disposition home or self-care (01) ==
PROVIDERS: PCP Family Medicine; Visit Provider Surgery
PROC: 0DH63UZ Insertion of Feeding Device into Stomach, Percutaneous Approach (ICD-10-PCS; CPT 43246; principal; 2024-01-12 13:00)
DX: C15.9 Malignant neoplasm of esophagus, unspecified (principal); R13.10 Dysphagia, unspecified; R62.7 Adult failure to thrive; Z09 Encounter for follow-up examination after completed treatment for conditions other than malignant neoplasm; C34.90 Malignant neoplasm of unspecified part of unspecified bronchus or lung; J44.9 Chronic obstructive pulmonary disease, unspecified; I10 Essential (primary) hypertension; Z86.718 Personal history of other venous thrombosis and embolism; Z87.891 Personal history of nicotine dependence; K44.9 Diaphragmatic hernia without obstruction or gangrene; Z99.81 Dependence on supplemental oxygen
CPT/HCPCS: 43235; 43246; J0131; J1885; J2704; J7030

== ENCOUNTER 2024-01-17 14:55 | Oncology outpatient (recurring) (ONCR) | payer MEDICARE, OTHER, SELFPAY ==
--- NOTE | 2024-01-01 16:45 | MR_ITS ---
WS: [id number] MRI BRAIN WITH AND WITHOUT CONTRAST HISTORY: small cell carcinoma COMPARISON: 10/10/2014 TECHNIQUE: Multiplanar imaging performed through the brain with MultiHance 9 ml's IV. Study quality is limited by motion artifact throughout the examination. No acute infarct. Diffusion images normal. There is extensive T2 and FLAIR signal hyperintensity thro ughout the white matter which has progressed since 2014. This is bilateral and symmetric. There is ad ditional moderate volume loss and atrophy involving the cerebellum and cerebrum. No midline shift. No susceptibility artifacts or prior lacunar infarcts. Ventricles and extra-axial spaces are prominent on the basis of atrophy. Negative pituitary gland. Mild inferior displacement of the cerebellar tonsils as on the prior study. No Chiari malformation. No enhancing nodules or masses identified. Small areas of enhancement would easily be obscured with t his amount of motion. Patient was unable to remain still for this examination. There is no large area of enhancement. Dural venous sinuses are not well visualized due to motion. Paranasal sinuses: Well aerated with no significant disease. Mastoid air cells: Normal. Calvarium and scalp: Normal. IMPRESSION: 1. Quality of this examination is compromised by motion artifact. 2. No metastatic disease to the brain is identified. Small metastatic lesions would be obscured with this amount of motion. 3. No midline shift or mass effect. 4. Moderate atrophy with mild progression of small vessel ischemic disease since 2014. 5. Mild inferior displacement of the cerebellar tonsils.
[2024-01-01] MEDS: gadobenate dimeglumine 20 mL vial IV (17:35)
--- NOTE | 2024-01-02 08:47 | N.ONRAD NP_ITS ---
Radiation Oncology New Patient Visit Patient: Eleni Miller MR#: [id number] : 1945> Age: 78> Sex: Female> Dictated by: Dr. Annamaria Palumbo Date of Service: 01/01/2024 Referring Physician(s) : Dr. Jones Diagnosis: C34.12 - malignant neoplasm of upper lobe, left bronchus or lung, Diagnosed 12/12/2023 (active). Radiotherapy to date: Summary > No prior radiation therapy. Chief Complaint / History of Present Illness: Patient is a 78-year-old lady who last spring became quite ill. She was hypoxic and her CO2 was elevated. She was admitted to the hospital and actually had CPR performed at 1 point. During that hospitalization they thought there was a spot on her x-ray. Once she had recovered from all of this she was sent to Dr. Alcantara and pulmonary for evaluation. A PET scan was obtained which did show a mass in the left upper lobe. It measured approximately 7 mm. Secondary to her overall poor health she was set up for pulmonary function tests and follow-up. Her FEV1 was 0.46. She had a repeat CT scan in August which showed the spot in her lung had gone from 7 mm in August to 17 mm. Subsequent PET scan in November also showed this 17 mm lesion had an SUV of 11. All other changes on her scans were found to have SUVs of less than 2. She then subsequently had a biopsy which confirmed this was small cell carcinoma. She is here today to discuss treatment options. She is visited with Dr. Jones previously to discuss the possibility of chemotherapy. He is hesitant to proceed with chemotherapy because of her overall health as well. She is scheduled today for an MRI of her head and an EGD on Monday as there was uptake in the esophagus on her PET scan. She is also having some difficulty swallowing which she has had for about a month. Current Medications: acetaminophen 500 mg PO Q4H PRN albuterol sulfate 90 mcg/actuation 1 - 2 puffs inhalation Q4H PRN amlodipine 10 mg PO DAILY PRN apixaban (Eliquis) 5 mg PO DAILY bisacodyl 10 mg PO Q6H PRN fentanyl 25 mcg/hr 1 patch transdermal Q72H 30 days fentanyl 12 mcg/hr 1 patch transdermal Q72H 30 days ferrous gluconate 324 mg PO DAILY hydroxyzine HCl 10 mg PO Q6H PRN ipratropium-albuterol 0.5 mg-3 mg(2.5 mg base)/3 mL 3 mL inhalation 6XD metoprolol tartrate 25 mg PO BID naloxone 4 mg/actuation (Narcan) 4 mg intranasal Q2M PRN nortriptyline take 1 to 2 capsules BY MOUTH EVERY DAY NEEDED FOR INSOMNIA [oxygen air delivery system Please issue oxygen concentrator, tanks, cannula, humidifier, etc. ] sertraline 50 mg PO QAM sodium chloride 1,000 mg PO DAILY tiotropium bromide (Spiriva with HandiHaler) 1 cap inhalation DAILY [TLSO BRACE As directed] Allergies: hydrochlorothiazide Allergy (Severe, Verified 12/19/23 08:11) hyponatremia Medical History: Medical History (Updated 12/19/23 @ 11:12 by Teja Jones MD) Small cell lung cancer Depression with anxiety Generalized anxiety disorder with panic attacks Nocturnal hypoxemia Refeeding syndrome Hypophosphatemia Compression fracture Ptosis Altered mental status Diarrhea Volume overload Leukocytosis Hypomagnesemia Hypokalemia Acute exacerbation of chronic obstructive airways disease PVC (premature ventricular contraction) History of meningitis 2006, hospitalized ~2 months, had pneumonia. 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 Compressed spine fracture Chronic back pain SIADH (syndrome of inappropriate ADH production) COVID-19 07/2021 Hypertension DVT (deep venous thrombosis). Surgical History: History of facelift History of breast augmentation History of total abdominal hysterectomy and bilateral salpingo-oophorectomy History of tonsillectomy Family History: Father Lung cancer Mother Heart disease Other Stroke Social History: Smoking and tobacco/nicotine status: former use of tobacco/nicotine Quit status (tobacco/nicotine): has quit using Year quit tobacco: 1992 Former quit date comment: 1.5 ppd X 30 yr Alcohol intake: current Alcohol intake frequency: holidays/special occasions only Household members Current Complaints / Review of Systems: . Vital Signs: Performed on 01/01/2024 3:48 PM BMI - 17.406 kg/m2 (low), Height - 65 in, Weight - 104.6 lbs, Temperature - 97.1 f, Pulse - 78 /min, Respiration - 18 /min, O2 Sat - 98 %, Pain - 0, Fatigue - 0 and BP - 151/ 81 mm(hg)(high/). Physical Exam: General patient is sitting comfortably in her chair. She is accompanied today by her and her daughter. HEENT: Normocephalic atraumatic. Pupils are equal, sclera clear, extraocular muscles intact Pulmonary: Respiratory rate is regular and unlabored. Patient is wearing her oxygen. Cardiovascular: Regular rate and rhythm Abdomen: Patient is quite cachectic with no adipose tissue. Extremities: No lower extremity edema was noted at this time. Skin: She is quite pale Neurological: Alert and oriented x 3. She does appear to have a fairly flat affect. She was able to answer questions but she was more inclined to let her family do so. Performance Status: 70 Pathology: Small cell carcinoma of the lung Imaging: See HPI Impression: Small cell carcinoma of the lung Plan: I reviewed with her and her family the findings on her PET scan. We talked about the reasoning behind the MRI of her head and the EGD. At this point I have recommended that we obtain the rest of this information and then proceed with talking about a possible treatment plan. We talked about the poor status of her lung function and how any treatment would have to be delivered with extreme care in order to not make her worse. We did review how small cell carcinoma of the lung is typically a disease that spreads quite early. Even if we treated this about her lung it would only be a matter of time before additional areas would reveal themselves. At the completion of her encounter her questions and her family questions were answered. I have made a tentative appointment at 2:00 on to talk with them by phone. In the meantime of asked him to write down any additional questions once they get home. Signed by: 01/02/2024 8:44:47 AM <<Signature on File>> Time spent with patient:60 CPT Code: CPT Code:
[2024-01-10 09:18] LABS: Basophils % 0.3 %; Eosinophils # 0.1 10^3/uL (0.0-0.8); Eosinophils % 1.1 %; Hematocrit 41.1 % (36-47); Lymphocytes # 2.2 10^3/uL (0.8-4.8); Lymphocytes % 33.7 %; Mean Corpuscular HGB Conc 30.2 g/dL (30-55); Mean Corpuscular Volume 96.3 fl (85-98); Mean Platelet Volume 8.6 fL (7.4-10.4); Monocytes % 15.7 %; Neutrophils # 3.16 10^3/uL (1.8-7.7); Nucleated Red Blood Cells % 0 %; Platelet Count 223 10^3/cmm (157-399); Red Blood Count 4.27 10^6/uL (3.85-5.65); Red Cell Distribution Width 12.4 % (12.1-15.1); White Blood Count 6.44 10^3/uL (3.29-11.43)
[2024-01-10 09:39] LABS: Alanine Aminotransferase 12 U/L (0-33); Albumin Level 3.4 g/dL (3.5-5.2); Alkaline Phosphatase 51 U/L (35-105); Blood Urea Nitrogen 12 mg/dL (8-23); Calcium 8.8 mg/dL (8.5-10.5); Carbon Dioxide 26 mmol/L (22-29); Chloride 88 mmol/L (98-107); Globulin 3.3 g/dL (1.3-4.6); Glucose 96 mg/dL (65-115); Osmolality Calculated 260 mOsm/kg (285-295); Sodium 125 mmol/L (136-145); Total Bilirubin 0.4 mg/dL (0.15-1.2); Total Protein 6.7 g/dL (6.6-8.7)
[2024-01-10 09:44] LABS: Aspartate Amino Transferase 18 U/L (0-32)
--- NOTE | 2024-01-10 15:05 | ONCRAD EPV_ITS ---
Radiation Oncology Established Patient Visit Patient: Paul Knowles [id number] : 1945> Age: 78> Sex: Female> Dictated by: Dr. Annamaria Palumbo Date of Service: 01/10/2024 Referring Physician(s) : Diagnosis: C34.12 - Malignant neoplasm of upper lobe, left bronchus or lung, Diagnosed 12/12/2023 (Active) Squamous of carcinoma of the esophagus, mid thoracic Radiotherapy to Date: none Current History: Current Medications: Allergies: Current Complaints / Review of Systems: . Patient is here today to get the results of her biopsy Vital Signs: Performed on 01/10/2024 11:18 AM BMI - 18.023 kg/m2 (low), Height - 64 in, Weight - 105 lbs, Temperature - 98.5 f, Pulse - 86 /min, Respiration - 17 /min, O2 Sat - 93 % (low), Pain - 7, Fatigue - 0 and BP - 173/ 85 mm(hg)(high/). Physical Exam: General: Alert and oriented x 3. No acute distress. Performance Status: 60 Lab: None pending. Pathology: Primary, c34.12 - malignant neoplasm of upper lobe, left bronchus or lung, Diagnosed 12/12/2023 (active) . 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 We talked about how this was squamous cell carcinoma and was different in the spot in her lung. At this point they are both stage I disease as no adenopathy has been detected. There were no other signs of metastatic disease at this point. We talked about how she was not able to tolerate any chemotherapy so that left radiation is her only tool to manage these diseases. I reviewed with her the simulation process. We talked about the daily treatment regiment. We reviewed the risks and side effects of both treatments to the lung and the esophagus. We spoke frankly how the small cell lung cancer is actually the more problematic and that it will be the most likely first to develop metastatic disease. At this point all of her questions were answered as were her daughters. She is elected to proceed with treatment at this point. She will undergo simulation today and then will begin her treatments shortly thereafter. The initial plan is to proceed with SBRT to the lung lesion. Concurrently we can begin treatment to the esophageal cancer. She understands that the treatment to the esophageal cancer will come with significant toxicity and she was still willing to proceed. Signed by: 01/10/2024 3:03:56 PM <<Signature on File>> Time spent with patient:20 CPT Code: CPT Code:
== END 2024-01-17 23:59 | disposition home or self-care (01) ==
PROVIDERS: Internal Medicine Medical Oncology; PCP Family Medicine; Visit Provider Internal Medicine Pulmonary Disease
DX: Z51.0 Encounter for antineoplastic radiation therapy (principal); C34.12 Malignant neoplasm of upper lobe, left bronchus or lung; C15.4 Malignant neoplasm of middle third of esophagus; Z87.891 Personal history of nicotine dependence
CPT/HCPCS: 36415; 70553; 77300; 77301; 77334; 77338; 77373; 80053; 85025; 99024; 99205; 99214; A9577

== ENCOUNTER 2024-01-30 09:59 | Oncology outpatient (recurring) (ONCR) | payer MEDICARE, OTHER, SELFPAY ==
--- NOTE | 2024-01-18 12:10 | ONCRAD TMN_ITS ---
Radiation Oncology Weekly Treatment Management Patient: Paul Knowles> MR#: [id number] : 1945> Attending Physician: Dr. 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 ID: [id number], Energy: 6X, Dose/Fx (cGy): 1,250, #Fx: , Dose Correction (cGy): 0, Total Dose Delivered (cGy): 5,000, Start Date: 01/15/2024, Elapsed Days: 3 Reason for visit: The patient is being seen today as part of their regularly scheduled weekly on treatment visits to assess for acute toxicities from radiotherapy. Review of Systems: Patient has had no changes Vital Signs: Performed on 01/18/2024 11:48 AM BMI - 18.139 kg/m2 (low), Height - 65 in, Weight - 109 lbs, Temperature - 96.9 f, Pulse - 106 /min (high), Respiration - 18 /min, O2 Sat - 96 %, Pain - 0, Fatigue - 0 and BP - 110/ 70 mm(hg). Physical Exam: No changes on exam Imaging: Radiation therapy imaging related to accurate target localization (i.e. KV, MV and CBCT) was reviewed. Appropriate changes, if any, were made to ensure treatment accuracy. Plan: Will continue with her treatments starting Monday with esophageal cancer Signed by: Dr. Annamaria Palumbo 01/18/2024 12:08:54 PM
--- NOTE | 2024-01-18 12:10 | N.ONRD TS_ITS ---
Radiation Oncology Treatment Summary Patient: Paul>Eleni> MR#: [id number] : 1945> Age: 78> Sex: Female Dictated by: Dr. 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 ID: [id number], Energy: 6X, Dose/Fx (cGy): 1,250, #Fx: , Dose Correction (cGy): 0, Total Dose Delivered (cGy): 5,000, Start Date: 01/15/2024, End Date: 01/18/2024, Elapsed Days: 3 Clinical Summary: The patient tolerated RT well. She completed her 4 treatments of SBRT with no toxicity. She will continue under treatment for her esophageal cancer. Down the line will have her undergo additional scans. Plan: End of treatment today. Continue on the above medication until the skin reaction resolves. Start esophagus tx 01-22-24. Signed by: Dr. Annamaria Palumbo>01/18/2024 12:08:10 PM <<Signature on File>>
--- NOTE | 2024-01-23 11:05 | ONCRAD TMN_ITS ---
Radiation Oncology Weekly Treatment Management Patient: Eleni Miller MR#: [id number] : 1945> Attending Physician: Dr. 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 ID: [id number], Energy: 6X, Dose/Fx (cGy): 1,250, #Fx: 4 / 4, Dose Correction (cGy): 0, Total Dose Delivered (cGy): 5,000, Start Date: 01/15/2024, End Date: 01/18/2024, Elapsed Days: 3 LungEsopha 2023, Treatment Site: [id number], Ref. ID: [id number], Energy: 6X, Dose/Fx (cGy): 200, #Fx: 2 25, Dose Correction (cGy): 0, Total Dose Delivered (cGy): 400, Start Date: 01/22/2024, Elapsed Days: 1 Reason for visit: The patient is being seen today as part of their regularly scheduled weekly on treatment visits to assess for acute toxicities from radiotherapy. Review of Systems: Patient has had no changes as yet. She has no difficulty swallowing. She is becoming increasingly fatigued. Vital Signs: Performed on 01/23/2024 9:49 AM BMI - 17.739 kg/m2 (low), Height - 65 in, Weight - 106.6 lbs, Temperature - 96.8 f, Pulse - 75 /min, Respiration - 16 /min, O2 Sat - 97 %, Pain - 5, Fatigue - 5 and BP - 134/ 66 mm(hg). Physical Exam: No changes on exam Imaging: Radiation therapy imaging related to accurate target localization (i.e. KV, MV and CBCT) was reviewed. Appropriate changes, if any, were made to ensure treatment accuracy. Plan: We talked today about how just coming for treatment may be causing her to have some increased fatigue and even some difficulty with shortness of breath because of the fatigue. I have asked her that if she should ever feel like she is just too worn out to come for treatment to just call and let us know and she could skip her treatment. Signed by: Dr. Annamaria Palumbo 01/23/2024 11:03:55 AM
== END 2024-01-30 23:59 | disposition home or self-care (01) ==
PROVIDERS: PCP Family Medicine; Visit Provider Radiology Radiation Oncology
DX: Z51.0 Encounter for antineoplastic radiation therapy (principal); C34.12 Malignant neoplasm of upper lobe, left bronchus or lung; C15.4 Malignant neoplasm of middle third of esophagus; Z87.891 Personal history of nicotine dependence
CPT/HCPCS: 77336; 77373; 77386; 99024; 99214

== ENCOUNTER 2024-01-31 11:43 | Emergency (ER) | payer MEDICARE, OTHER, SELFPAY ==
--- NOTE | 2024-01-31 11:49 | ECG_ITS ---
[facility] Test Date: 2024-01-31 Pat Name: Eleni Miller Department: Room: Gender: Female Custody Officer: : 1945 Requested By: Alexei Zacarias Order Number: [id number] Olga MD: Juan Henderson M.D. Measurements Intervals [place] Rate: 84 P: 86 CT: 179 QRS: 74 QRSD: 93 T: 76 QT: 345 QTc: 410 Interpretive Statements SINUS RHYTHM POSSIBLE LEFT ATRIAL ENLARGEMENT [-0.1mV P-WAVE IN V1/V2] Compared to ECG 08/11/2023 10:52:32 Sinus tachycardia no longer present Ventricular premature complex(es) no longer present Electronically Signed On 01-31-2024 16:49:13 CDT by Juan Henderson M.D. [email or web address]
[2024-01-31 11:51] VITALS: BP 158/74; PULSE 86; RESP 21; TEMP 36.5; O2SAT 96; BMI 18.5
--- NOTE | 2024-01-31 11:59 | XR_ITS ---
WS: [id number] XR chest 1V portable [id number] REASON FOR EXAM: dyspnea, lung cancer FINDINGS: The chest is unchanged compared to 12/12/2023. Mild tortuosity of the thoracic aorta. Normal heart size. Calcified granulomas disease in both hemithoraces. Stable right extrapleural mass and left upper lung nodule. No acute pulmonary parenchymal or pleural abnormality is identified. XR/XR chest 1V portable [id number] IMPRESSION: Stable abnormal chest with no acute abnormality.
--- NOTE | 2024-01-31 12:24 | W.ED.SOB ---
HPI - SOB/Dyspnea General: Chief Complaint: Shortness of Breath/Dyspnea Stated Complaint: sob Time Seen by Provider: 01/31/24 12:12 History of Present Illness: HPI Narrative: 78-year-old female with a history of COPD, chronic hypoxemic respiratory failure on 2 to 3 L at all times esophageal and small cell lung cancers, hypertension, DVT on Eliquis, chronic pain syndrome and currently receiving radiation therapy for her esophageal cancer but no chemotherapy and is receiving feeds by feeding tube who presents the emergency room with worsening shortness of breath. She did talk to the hat designer today and they were coming to get a chest x-ray, but family felt her breathing was such that she needed evaluated in the emergency room. Family states she went from 1.5 to 3 L oxygen requirements. Here in the emergency room she is stable on 2 to 3 L. Mild increased work of breathing. Some scattered wheeze. Family states no change in her mentation. She is oriented to the family member. She answers questions appropriately. She reports no chest pain at this time. No nausea or vomiting. No abdominal pain. Review of Systems Narrative: Constitutional symptoms: Negative except as documented in HPI. Skin symptoms: Negative except as documented in HPI. Eye symptoms: Negative except as documented in HPI. ENMT symptoms: Negative except as documented in HPI. Respiratory symptoms: Negative except as documented in HPI. Cardiovascular symptoms: Negative except as documented in HPI. Gastrointestinal symptoms: Negative except as documented in HPI. Genitourinary symptoms: Negative except as documented in HPI. Musculoskeletal symptoms: Negative except as documented in HPI. Neurologic symptoms: Negative except as documented in HPI. Psychiatric symptoms: Negative except as documented in HPI. Endocrine symptoms: Negative except as documented in HPI. PFS ED PFSH: Medical History Esophageal cancer Small cell lung cancer Depression with anxiety Generalized anxiety disorder with panic attacks Nocturnal hypoxemia Refeeding syndrome Hypophosphatemia Compression fracture Ptosis Altered mental status Diarrhea Volume overload Leukocytosis Hypomagnesemia Hypokalemia Acute exacerbation of chronic obstructive airways disease PVC (premature ventricular contraction) History of meningitis 2006, hospitalized ~2 months, had pneumonia. 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 Compressed spine fracture Chronic back pain SIADH (syndrome of inappropriate ADH production) COVID-19 07/2021 Hypertension DVT (deep venous thrombosis) Surgical History History of facelift History of breast augmentation History of total abdominal hysterectomy and bilateral salpingo-oophorectomy History of tonsillectomy Family History Father Lung cancer Mother Heart disease Other Stroke Social History Smoking and tobacco/nicotine status: former use of tobacco/nicotine Quit status (tobacco/nicotine): has quit using Year quit tobacco: 1992 Former quit date comment: 1.5 ppd X 30 yr Alcohol intake: former Household members: spouse Marital status: Physical Exam Narrative: EXAM NARRATIVE: General: Alert, no acute distress. Skin: Warm, dry. Head: Normocephalic, atraumatic. Neck: Supple, trachea midline. Eye: Extraocular movements are intact. Ears, nose, mouth and throat: Oral mucosa moist. Cardiovascular: Regular rate and rhythm, Normal peripheral perfusion. Respiratory: coarse, scattered wheeze, mild increased wob. tachypnea, breath sounds are equal, Symmetrical chest wall expansion. Gastrointestinal: Soft, Nontender, Non distended, Normal bowel sounds. Musculoskeletal: Normal ROM, no deformity. Neurological: Alert and oriented to person, place, time, and situation, No focal neurological deficit observed. Psychiatric: Cooperative, appropriate mood & affect. Course Vital Signs: Vital signs: Vital Signs Temperature 97.7 F 01/31/24 11:51 Pulse Rate 82 01/31/24 13:01 Respiratory Rate 18 01/31/24 12:55 Blood Pressure 158/74 01/31/24 11:51 Pulse Oximetry 93 01/31/24 12:55 Oxygen Delivery Me thod Nasal Cannula 01/31/24 12:55 Oxygen Flow Rate 3 01/31/24 12:55 MDM - SOB/Dyspnea Medical Decision Making Differential diagnosis for patient with shortness of breath includes but is not limited to and based on the above HPI, review of systems and physical exam: Pneumonia. Bronchitis. Asthma or COPD with acute exacerbation. Acute coronary syndrome / NE. Pulmonary embolism. Anxiety. Congestive heart failure. Viral infections including influenza and Covid-19. Atrial fibrillation. Anxiety. Pleural effusion. Pneumothorax. Workup: Lab work, chest X-ray and EKG ordered to evaluate, rule in and rule out above pathologies Lab Review: Laboratory results were reviewed and interpreted by myself the emergency room physician. No leukocytosis. No anemia. Platelets are 294. Sodium is a bit low at 129. CO2 was elevated at 36 and on her ABG she has elevated pCO2 but is compensated with a pH of 7.4. BUN and creatinine are 8 and 0.2. Chest x-ray: Results as below. Nothing acute. Stable abnormalities.. This was reviewed and interpreted by myself the ER physician. The chest is unchanged compared to 12/12/2023. Mild tortuosity of the thoracic aorta. Normal heart size. Calcified granulomas disease in both hemithoraces. Stable right extrapleural mass and left upper lung nodule. No acute pulmonary parenchymal or pleural abnormality is identified. AB.3 965/123 on 3 L nasal cannula 100% O2 sat. I reviewed the patient's medical record. Reexamination: Patient sounds quite a bit improved. Wheezing has improved. Her work of breathing is improved. I discussed at length the findings with family and treatment options. At this point we think it is best for her to go home. She has no altered mental status. No focal motor deficits. Assessment and plan: COPD with acute exacerbation Chronic hypoxemic respiratory failure -Patient remained stable on 2 to 3 L. Oxygen sats in the low 90s which is appropriate -DuoNeb, albuterol updrafts, IV Solu-Medrol. - Discharged home - Discussed findings and plan with patient. Answered any questions. - All laboratory values were reviewed and interpreted personally by myself, the ER physician - All imaging was reviewed and interpreted personally by myself, the ER physician. - Evaluation and treatment of this problem were appropriate in the emergency setting Lab Data 01/31/24 13:35 01/31/24 13:35 Labs/Radiology: Radiology Impressions Chest X-Ray 01/31/24 11:59 IMPRESSION: Stable abnormal chest with no acute abnormality. Laboratory Results WBC 4.92 10^3/uL (3.29-11.43) 01/31/24 13:35 RBC 3.39 10^6/uL (3.85-5.65) L 01/31/24 13:35 Hgb 9.90 g/dL (11.27-16.99) L 01/31/24 13:35 Hct 30.6 % (36-47) L 01/31/24 13:35 MCV 90.3 fl (85-98) 01/31/24 13:35 MCH 29.2 pg (27-33) 01/31/24 13:35 MCHC 32.4 g/dL (30-55) 01/31/24 13:35 RDW 12.4 % (12.1-15.1) 01/31/24 13:35 Plt Count 294 10^3/cmm (157-399) 01/31/24 13:35 MPV 9.0 fL (7.4-10.4) 01/31/24 13:35 Neut % (Auto) 63.7 % 01/31/24 13:35 Lymph % (Auto) 18.5 % 01/31/24 13:35 [place] % (Auto) 15.2 % 01/31/24 13:35 Eos % (Auto) 2.0 % 01/31/24 13:35 Baso % (Auto) 0.2 % 01/31/24 13:35 Neut # (Auto) 3.13 10^3/uL (1.8-7.7) 01/31/24 13:35 Lymph # (Auto) 0.9 10^3/uL (0.8-4.8) 01/31/24 13:35 [place] # (Auto) 0.8 10^3/uL (0.2-0.9) 01/31/24 13:35 Eos # (Auto) 0.1 10^3/uL (0.0-0.8) 01/31/24 13:35 Baso # (Auto) 0.0 10^3/uL (0.0-0.1) 01/31/24 13:35 Nucleated RBC % (auto) 0 % 01/31/24 13:35 Nucleated RBCs # 0.0 /100WBC 01/31/24 13:35 PT 13.80 SECONDS (12.1-14.9) 01/31/24 13:35 INR 1.03 (0.8-1.2) 01/31/24 13:35 Specimen Type Arterial 01/31/24 13:00 Sample Site Radial, left 01/31/24 13:00 ABG pH 7.39 (7.35-7.45) 01/31/24 13:00 ABG pCO2 64.9 mmHg (35-45) H* 01/31/24 13:00 ABG pO2 123.0 mmHg (80.0-100.0) H 01/31/24 13:00 ABG PO2/FiO2 Ratio 0 01/31/24 13:00 ABG HCO3 39.1 mmol/L (22-26) H 01/31/24 13:00 ABG O2 Saturation 99.2 01/31/24 13:00 ABG Base Excess 12.1 mmol/L (-2.0-2.0) H 01/31/24 13:00 Panda Test Pos 01/31/24 13:00 A-a O2 Gradient 3.2 mmHg (5-10) L 01/31/24 13:00 Hematocrit 30.4 % (37-47) L 01/31/24 13:00 Hgb O2 Saturation 98.2 % (95-100) 01/31/24 13:00 Carboxyhemoglobin 0.9 %THgb (0.4-20.1) 01/31/24 13:00 Methemoglobin 0.2 % (0.4-1.5) L 01/31/24 13:00 Total Hemoglobin 9.9 g/dL (12-16) L 01/31/24 13:00 Sodium 127.0 mmol/L (131-143) L 01/31/24 13:00 Potassium 3.5 mmol/L (3.5-5.0) 01/31/24 13:00 Glucose 83.0 mg/dL (70-115) 01/31/24 13:00 Ionized Calcium 1.2 mmol/L (1.1-1.4) 01/31/24 13:00 O2 Delivery Device Nc 01/31/24 13:00 O2 Liters/Min 3.0 % 01/31/24 13:00 FiO2 32.0 % 01/31/24 13:00 Reimbursement Counselor ID Cak 01/31/24 13:00 Sodium 129 mmol/L (136-145) L 01/31/24 13:35 Potassium 3.9 mmol/L (3.5-5.1) 01/31/24 13:35 Chloride 86 mmol/L (98-107) L 01/31/24 13:35 Carbon Dioxide 36 mmol/L (22-29) H 01/31/24 13:35 Anion Gap 10.9 (5-19) 01/31/24 13:35 BUN 8 mg/dL (8-23) 01/31/24 13:35 Creatinine 0.2 mg/dL (0.5-0.9) L 01/31/24 13:35 GFR Calculation Not Reportable 01/31/24 13:35 Glucose 91 mg/dL (65-115) 01/31/24 13:35 Calculated Osmolality 266 mOsm/kg (285-295) L 01/31/24 13:35 Lactic Acid 0.4 mmol/L (0.5-2.2) L 01/31/24 13:35 Calcium 8.5 mg/dL (8.5-10.5) 01/31/24 13:35 Total Bilirubin 0.2 mg/dL (0.15-1.2) 01/31/24 13:35 AST 25 U/L (0-32) 01/31/24 13:35 ALT 13 U/L (0-33) 01/31/24 13:35 Alkaline Phosphatase 52 U/L (35-105) 01/31/24 13:35 Troponin T Baseline 26 ng/L (0-10) H 01/31/24 13:35 C-Reactive Protein 6.3 mg/L (0.0-4.9) H 01/31/24 13:35 NT-Pro-B Natriuret Pep 1101 pg/mL (0-450) H 01/31/24 13:35 Total Protein 6.8 g/dL (6.6-8.7) 01/31/24 13:35 Albumin 3.7 g/dL (3.5-5.2) 01/31/24 13:35 Globulin 3.1 g/dL (1.3-4.6) 01/31/24 13:35 All radiology interpretation(s) finalized by discharge Discharge Plan Discharge Patient Disposition: Home Clinical Impression: COPD with acute exacerbation, Chronic hypoxemic respiratory failure Condition: Stable Prescriptions: New Zithromax Z-Huey 250 mg tablet See Rx Instructions .ROUTE .COMPLEX Qty: 6 0RF Rx Instructions: For 250 mg dose pack: take 500 mg today (day 1), then 250 mg for 4 days (days 2-5) prednisone 20 mg tablet 60 mg PO DAILY Qty: 20 0RF Rx Instructions: 3 tabs (60 mg) x 3 days. 2 tabs (40 mg) x 3 days. 1 tab (20 mg) x 3 days. 1/2 tab (10 mg) x 4 days No Action sodium chloride 1,000 mg tablet,soluble 1,000 mg PO DAILY Qty: 60 5RF tiotropium bromide [Spiriva with HandiHaler] 18 mcg capsule, w/inhalation device 1 cap inhalation DAILY Qty: 60 3RF Rx Instructions: puncture 1 cap using device; one dose = 2 inhalations pantoprazole [Protonix] 40 mg tablet,delayed release (DR/EC) 40 mg PO BID 42 Days Qty: 84 1RF (DME) TLSO BRACE See Rx Instructions .Route .MEDSUPPLY Qty: 1 0RF Rx Instructions: As directed ipratropium-albuterol 0.5 mg-3 mg(2.5 mg base)/3 mL solution for nebulization 3 ml inhalation 6XD PRN (Reason: Shortness Of Breath) lubiprostone [Amitiza] 24 mcg capsule 24 mcg PO BID Qty: 60 0RF Linzess 290 mcg capsule 290 mcg PO DAILY Qty: 30 0RF naloxone [Narcan] 4 mg/actuation spray,non-aerosol 4 mg intranasal Q2M PRN (Reason: opioid overdose) Qty: 2 1RF Rx Instructions: spray 1 dose into ONE nostril; alt nostrils w ea dose until help arrives (DME) oxygen air delivery system See Rx Instructions .Route .MEDSUPPLY Qty: 1 0RF Rx Instructions: Please issue oxygen concentrator, tanks, cannula, humidifier, etc. albuterol sulfate 90 mcg/actuation HFA aerosol inhaler 1 - 2 puff INHALATION Q4H PRN (Reason: Shortness Of Breath) Qty: 6.7 11RF fentanyl 25 mcg/hr patch 72 hour 1 patch transdermal Q72H 30 Days Qty: 10 0RF Rx Instructions: Administer 25mcg and 12 mcg patch on day 1, then additional 12 mcg on day 2. acetaminophen 500 mg Tablet 500 mg PO Q4H PRN (Reason: Pain) amlodipine 10 mg tablet 10 mg PO DAILY PRN (Reason: HIGH BLOOD PRESSURE) sertraline 50 mg tablet 50 mg PO QAM hydroxyzine HCl 10 mg tablet 10 mg PO Q6H PRN (Reason: Anxiety) nortriptyline 50 mg capsule 50 - 100 mg PO BEDTIME PRN (Reason: Insomnia) metoprolol tartrate 25 mg tablet 25 mg PO BID ferrous gluconate 324 mg (38 mg iron) tablet 324 mg PO BID Eliquis 5 mg tablet 5 mg PO BID Hold Instructions: Resume on 01/14/24. fentanyl 12 mcg/hr patch 72 hour See Rx Instructions .ROUTE .COMPLEX Rx Instructions: Administer 25mcg and 12 mcg patch on day 1, then additional 12 mcg on day 2. ondansetron 4 mg tablet,disintegrating 4 mg PO Q6H PRN (Reason: Nausea And Vomiting) Reglan 5 mg tablet 5 mg PO Q6H PRN (Reason: Nausea) Discharge Orders: Discharge ED (Routine); Ordered 01/31/24 Ordered By: Norah Garnica Referrals: Armani Hooker, [Primary Care Provider] - 4-7 days (You have been screened and evaluated and felt safe for discharge. Health conditions do change or evolve sometimes and as such it is important that you follow up with your Primary Doctor to be re checked, 3-5 days is a general good time frame for follow up. You are always welcome to return to the ED for re assessment if your symptoms are worsening or you have new concerns) Discharge Diet: Usual diet Discharge Activity: Increase activity as tolerated Patient Instructions: COPD (Chronic Obstructive Pulmonary Disease) (ED) Coding Level of Care Code ED Litigation Claim Representative for Jami Nguyen
--- NOTE | 2024-01-31 12:35 | PC.PHAR ---
PER DAUGHTER, PT APPLIES FENTANYL 25 MCG PATCH PLUS 12 MCG PATCH ON ONE DAY, THEN ADDS ADDITIONAL 12MCG PATCH ON DAY 2.
[2024-01-31 12:55] VITALS: PULSE 86; RESP 18; O2SAT 93
[2024-01-31] MEDS: albuterol 2.5 mg/3 mL Neb INHALATION (12:55)
[2024-01-31] MEDS: ipratropium-albuterol 3 mL Neb INHALATION (12:55)
[2024-01-31 13:00] VITALS: BP 154/71; PULSE 87; O2SAT 96
[2024-01-31 13:01] VITALS: PULSE 82
[2024-01-31 13:12] LABS: ABG PCO2 64.9 mmHg (35-45); ABG PH Result 7.39 (7.35-7.45); Alveolar-Arterial Oxygen Gradi 3.2 mmHg (5-10); Arterial Blood Gas Hematocrit 30.4 % (37-47); Base Excess ABG 12.1 mmol/L (-2.0-2.0); Blood Gas Allen Test Pos; Blood Gas Operator Identificat CAK; Blood Gas Sample Site Radial, left; Blood Gas Sample Type Arterial; Carboxyhemoglobin 0.9 %THgb (0.4-20.1); HCO3 ABG 39.1 mmol/L (22-26); HGB O2 Sat 98.2 % (95-100); Ionized Calcium Level - ABG 1.2 mmol/L (1.1-1.4); Methemoglobin 0.2 % (0.4-1.5); Oxygen Device NC; Oxygen Saturation ABG 99.2; PO2 FiO2 Ratio Arterial Blood 0; Potassium Level - ABG 3.5 mmol/L (3.5-5.0); Total Hemoglobin 9.9 g/dL (12-16)
[2024-01-31] MEDS: methylPREDNISolone sod succ 125 mg/2 mL INJ IVP (13:12)
--- NOTE | 2024-01-31 14:04 | ECG_ITS ---
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 Measurements Intervals [place] Rate: 91 P: 72 ID: [id number] QRS: 76 QRSD: 98 T: 79 QT: 342 QTc: 422 Interpretive Statements SINUS RHYTHM POSSIBLE LEFT ATRIAL ENLARGEMENT [-0.1mV P-WAVE IN V1/V2] Compared to ECG 01/31/2024 11:49:51 No significant changes Electronically Signed On 01-31-2024 16:56:46 CDT by Juan Henderson M.D. [id number]
[2024-01-31 14:07] LABS: Basophils % 0.2 %; Eosinophils # 0.1 10^3/uL (0.0-0.8); Hematocrit 30.6 % (36-47); Lymphocytes # 0.9 10^3/uL (0.8-4.8); Lymphocytes % 18.5 %; Mean Corpuscular HGB Conc 32.4 g/dL (30-55); Mean Corpuscular Hemoglobin 29.2 pg (27-33); Mean Corpuscular Volume 90.3 fl (85-98); Monocytes # 0.8 10^3/uL (0.2-0.9); Monocytes % 15.2 %; Neutrophils # 3.13 10^3/uL (1.8-7.7); Neutrophils % 63.7 %; Nucleated Red Blood Cells % 0 %; Platelet Count 294 10^3/cmm (157-399); Red Blood Count 3.39 10^6/uL (3.85-5.65); Red Cell Distribution Width 12.4 % (12.1-15.1); White Blood Count 4.92 10^3/uL (3.29-11.43)
[2024-01-31 14:17] LABS: INR 1.03 (0.8-1.2)
[2024-01-31 14:23] LABS: Troponin(5th) Baseline 26 ng/L (0-10)
[2024-01-31 14:26] LABS: Lactic Sepsis W/Reflex 0.4 mmol/L (0.5-2.2)
[2024-01-31 14:30] VITALS: BP 189/74; PULSE 92; O2SAT 98
[2024-01-31 14:38] LABS: Alanine Aminotransferase 13 U/L (0-33); Albumin Level 3.7 g/dL (3.5-5.2); Alkaline Phosphatase 52 U/L (35-105); Anion Gap 10.9 (5-19); Aspartate Amino Transferase 25 U/L (0-32); Blood Urea Nitrogen 8 mg/dL (8-23); C Reactive Protein 6.3 mg/L (0.0-4.9); Calcium 8.5 mg/dL (8.5-10.5); Carbon Dioxide 36 mmol/L (22-29); Chloride 86 mmol/L (98-107); Creatinine Clr Calc Pharmacy 47.1828; Globulin 3.1 g/dL (1.3-4.6); Glucose 91 mg/dL (65-115); NT Pro B Type Natriuretic Pept 1101 pg/mL (0-450); Osmolality Calculated 266 mOsm/kg (285-295); Potassium 3.9 mmol/L (3.5-5.1); Sodium 129 mmol/L (136-145); Total Bilirubin 0.2 mg/dL (0.15-1.2); Total Protein 6.8 g/dL (6.6-8.7)
[2024-01-31 15:53] LABS: Adenovirus Not Detected (NOT DETECT); Chlamydia Pneumoniae Not Detected (NOT DETECT); Coronavirus 229E,HKU1,NL63,OC4 Not Detected (NOT DETECT); Human Metapneumovirus Not Detected (NOT DETECT); Human Rhinovirus/Enterovirus Not Detected (NOT DETECT); Influenza A Not Detected (NOT DETECT); Influenza A H1 Not Detected (NOT DETECT); Influenza A H1-2009 Not Detected (NOT DETECT); Influenza A H3 Not Detected (NOT DETECT); Influenza B Not Detected (NOT DETECT); Mycoplasma Pneumoniae Not Detected (NOT DETECT); Parainfluenza Virus Type 1 Not Detected (NOT DETECT); Parainfluenza Virus Type 2 Not Detected (NOT DETECT); Parainfluenza Virus Type 3 Not Detected (NOT DETECT); Parainfluenza Virus Type 4 Not Detected (NOT DETECT); Respiratory Syncytial Virus A Not Detected (NOT DETECT); Respiratory Syncytial Virus B Not Detected (NOT DETECT); SARS-COV-2 Not Detected (NOT DETECT)
== END 2024-01-31 16:12 | disposition home or self-care (01) ==
PROVIDERS: Emergency Medicine; Emergency Provider Emergency Medicine; PCP Family Medicine
DX: J44.1 Chronic obstructive pulmonary disease with (acute) exacerbation (principal); J96.11 Chronic respiratory failure with hypoxia; Z79.01 Long term (current) use of anticoagulants; Z87.891 Personal history of nicotine dependence; Z85.01 Personal history of malignant neoplasm of esophagus; Z85.118 Personal history of other malignant neoplasm of bronchus and lung; I10 Essential (primary) hypertension
CPT/HCPCS: 36415; 36600; 71045; 80051; 80053; 82330; 82805; 83605; 83880; 84484; 85025; 85610; 86140; 87486; 87581; 87633; 93005; 94640; 96374; 99285; J2919; J7613

== ENCOUNTER 2024-02-22 09:54 | Oncology outpatient (recurring) (ONCR) | payer MEDICARE, OTHER, SELFPAY ==
--- NOTE | 2024-02-05 10:56 | ONCRAD TMN_ITS ---
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 ID: [id number], Energy: 6X, Dose/Fx (cGy): 1,250, #Fx: , Dose Correction (cGy): 0, Total Dose Delivered (cGy): 5,000, Start Date: 01/15/2024, End Date: 01/18/2024, Elapsed Days: 3 LungEsopha 2023, Treatment Site: [id number], Ref. ID: [id number], Energy: 6X, Dose/Fx (cGy): 200, #Fx: , Dose Correction (cGy): 0, Total Dose Delivered (cGy): 1,400, Start Date: 01/22/2024, Elapsed Days: 8 Reason for visit: The patient is being seen today as part of their regularly scheduled weekly on treatment visits to assess for acute toxicities from radiotherapy. Review of Systems: She was on break since 01/31/2024. Seen in ER for SOB treated with nebulizer and steroids for exacerbation of COPD. Now feeling better. Eating via PEG tube and orally. No sore throat. Appetite is better. Lives with and also getting 24 hr home care. Daughter nearby. Vital Signs: Performed on 02/05/2024 10:12 AM BMI - 17.739 kg/m2 (low), Height - 65 in, Weight - 106.6 lbs, Temperature - 98.6 f, Pulse - 86 /min, Respiration - 16 /min, O2 Sat - 97 %, Pain - 0, Fatigue - 8 and BP - 143/ 66 mm(hg)(high/). Physical Exam: No oral candidiasis. Imaging: Radiation therapy imaging related to accurate target localization (i.e. KV, MV and CBCT) was reviewed. Appropriate changes, if any, were made to ensure treatment accuracy. Plan: Good recovery following treatment break. COPD improved with treatment in ER. Will resume treatment. Discussed need to minimize future treatment breaks. Also discussed treatment of oral candidiasis and esophagitis. Signed by: Sajan Willis 02/05/2024 10:54:27 AM
--- NOTE | 2024-02-13 22:49 | ONCRAD TMN_ITS ---
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 ID: [id number], Energy: 6X, Dose/Fx (cGy): 1,250, #Fx: , Dose Correction , (cGy): 0, Total Dose Delivered (cGy): 5,000, Start Date: 01/15/2024, Elapsed Days: 3 Course: LungEsopha 2023,Treatment Site: [id number],Ref. ID: [id number], Energy: 6X, Dose/Fx (cGy): 200, #Fx: , Dose Correction (cGy): 0, Total Dose Delivered (cGy): 2,600, Start Date: 01/22/2024, Elapsed Days: 21 Reason for visit: The patient is being seen today as part of their regularly scheduled weekly on treatment visits to assess for acute toxicities from radiotherapy. Review of Systems: Tired eating better than before. Having occasional heartburn. Vital Signs: Performed on 02/12/2024 10:05 AM BMI - 17.639 kg/m2 (low), Height - 65 in, Weight - 106 lbs, Temperature - 96.8 f, Pulse - 90 /min, Respiration - 18 /min, O2 Sat - 90 % (low), Pain - 0, Fatigue - 5 and BP - 131/ 56 mm(hg)(/low). Physical Exam: Imaging: Radiation therapy imaging related to accurate target localization (i.e. KV, MV and CBCT) was reviewed. Appropriate changes, if any, were made to ensure treatment accuracy. Plan: Gand with ood tolerance of treatment. Add magic mouthwash. Add Duragesic patch. Continue treatment in general. 10 minutes spent with patient Signed by: Sajan Willis 02/13/2024 10:47:23 PM
--- NOTE | 2024-02-20 10:43 | ONCRAD TMN_ITS ---
Radiation Oncology Weekly Treatment Management Patient: Eleni Miller MR#: [id number] : 1945 Attending Physician: Dr. 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 ID: [id number], Energy: 6X, Dose/Fx (cGy): 1,250, #Fx: , Dose Correction (cGy): 0, Total Dose Delivered (cGy): 5,000, Start Date: 01/15/2024, End Date: 01/18/2024, Elapsed Days: 3 Course: LungEsopha 2023, Treatment Site: [id number], Ref. ID: [id number], Energy: 6X, Dose/Fx (cGy): 200, #Fx: , Dose Correction (cGy): 0, Total Dose Delivered (cGy): 3,800, Start Date: 01/22/2024, Elapsed Days: 29 Reason for visit: The patient is being seen today as part of their regularly scheduled weekly on treatment visits to assess for acute toxicities from radiotherapy. Review of Systems: Patient says she does not have any trouble swallowing. She does has a decreased appetite. Her respiratory status has remained stable. Vital Signs: Performed on 02/20/2024 10:08 AM BMI - 18.072 kg/m2 (low), Height - 65 in, Weight - 108.6 lbs, Temperature - 97.9 f, Pulse - 93 /min, Respiration - 17 /min, O2 Sat - 92 % (low), Pain - 3, Fatigue - 5 and BP - 120/ 62 mm(hg)(/low). Physical Exam: No changes on exam Imaging: Radiation therapy imaging related to accurate target localization (i.e. KV, MV and CBCT) was reviewed. Appropriate changes, if any, were made to ensure treatment accuracy. Plan: Will continue with her treatments as planned. She only has 6 more treatments remaining. Signed by: Dr. Annamaria Palumbo 02/20/2024 10:42:52 AM
== END 2024-02-22 23:59 | disposition home or self-care (01) ==
PROVIDERS: PCP Family Medicine; Visit Provider Radiology Radiation Oncology
DX: C80.1 Malignant (primary) neoplasm, unspecified (principal); Z51.0 Encounter for antineoplastic radiation therapy
CPT/HCPCS: 77336; 77386; 99024

== ENCOUNTER 2024-02-29 10:01 | Oncology outpatient (recurring) (ONCR) | payer MEDICARE, OTHER, SELFPAY ==
--- NOTE | 2024-02-27 10:28 | ONCRAD TMN_ITS ---
Radiation Oncology Weekly Treatment Management Patient: Eleni Miller MR#: [id number] : 1945 Attending Physician: Dr. 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 ID: [id number], Energy: 6X, Dose/Fx (cGy): 1,250, #Fx: 4 / 4, Dose Correction (cGy): 0, Total Dose Delivered (cGy): 5,000Start Date: 01/15/2024, End Date: 01/18/2024, Elapsed Days: 3 Lunga 2023, Treatment Site: [id number], Ref. ID: [id number], Energy: 6X, Dose/Fx (cGy): 200, #Fx: 25, Dose Correction (cGy): 0, Total Dose Delivered (cGy): 4,600, Start Date: 01/22/2024, Elapsed Days: 36 Reason for visit: The patient is being seen today as part of their regularly scheduled weekly on treatment visits to assess for acute toxicities from radiotherapy. Review of Systems: Patient is feeling quite poorly today. When I asked her what was bothering her she was experiencing arthritic aches and pains throughout. She commented how she was quite ill before she started all this treatment to begin with. Vital Signs: Performed on 02/27/2024 10:06 AM BMI - 20.369 kg/m2, Height - 65 in, Weight - 122.4 lbs, Temperature - 96.8 f, Pulse - 95 /min, Respiration - 18 /min, O2 Sat - 96 %, Pain - 10, Fatigue - 10 and BP - 136/ 64 mm(hg)(/low). Physical Exam: On examination her pulse ox today was 95. No other changes were noted. Imaging: Radiation therapy imaging related to accurate target localization (i.e. KV, MV and CBCT) was reviewed. Appropriate changes, if any, were made to ensure treatment accuracy. Plan: Will continue with her treatments. She only has 2 treatments left. Will then see if we can set up a follow-up in a month or 2 so she can have some time to recuperate. Signed by: Dr. Annamaria Palumbo 02/27/2024 11:08:21 AM
--- NOTE | 2024-02-29 10:35 | N.ONRD TS_ITS ---
Radiation Oncology Treatment Summary Patient: Eleni Miller MR#: [id number] : 1945 Age: 78 Sex: Female Dictated by: Dr. 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 ID: [id number], Energy: 6X, Dose/Fx (cGy): 1,250, #Fx: 4 / 4, Dose Correction (cGy): 0, Total Dose Delivered (cGy): 5,000, Start Date: 01/15/2024, End Date: 01/18/2024, Elapsed Days: 3 Lung2023, Treatment Site: [id number], Ref. ID: [id number], Energy: 6X, Dose/Fx (cGy): 200, #Fx: 25 / 25, Dose Correction (cGy): 0, Total Dose Delivered (cGy): 5,000, Start Date: 01/22/2024, End Date: 02/29/2024, Elapsed Days: 38 Clinical Summary: Patient tolerated treatment remarkably well considering her overall performance status. She had an occasional episode of heartburn. She used her feeding tube and maintained her weight. She is now eating eating cheesecake. Plan: End of treatment today. Continue on the above medication until the skin reaction resolves. Follow up in one month. Signed by: Dr. Annamaria Palumbo>02/29/2024 10:34:27 AM <<Signature on File>>
== END 2024-03-01 23:59 | disposition home or self-care (01) ==
PROVIDERS: PCP Family Medicine; Visit Provider Radiology Radiation Oncology
DX: Z51.0 Encounter for antineoplastic radiation therapy; C15.4 Malignant neoplasm of middle third of esophagus; C34.12 Malignant neoplasm of upper lobe, left bronchus or lung
CPT/HCPCS: 77336; 77386; 99024

== ENCOUNTER 2024-03-15 04:45 | Inpatient (IN) | payer MEDICARE, OTHER, SELFPAY ==
[2024-03-15] VITALS (14 sets, daily range): BP systolic 149–189; BP diastolic 79–99; PULSE 78–120; RESP 15–22; TEMP 36.4–37; O2SAT 92–99; BMI 19.8
--- NOTE | 2024-03-15 05:15 | XRR_ITS ---
PROCEDURE INFORMATION: Exam: XR Abdomen Exam date and time: 03/15/2024 6:28 AM Age: 78 years old Clinical indication: Bloating; Abdominal pain; Generalized; Additional info: Abd pain, bloating, TECHNIQUE: Imaging protocol: Radiologic exam of the abdomen. Views: Frontal supine view of the abdomen. 1 View. COMPARISON: PT PET skull to thigh INIT [id number] 11/28/2023 10:41 AM FINDINGS: Tubes, catheters and devices: G-tube present silhouetting the left upper quadrant gastric shadow. Gastrointestinal tract: Numerous loops of air dilated large and small bowel are appreciated. Mild to moderate colonic stool burden. Intraperitoneal space: Nonspecific crenulated radiopacity appreciated in the leftr upper quadrant measuring 9.0 x 3.0 cm, likely artifactual and extracorporal. Bones/joints: Diffuse degenerative change of the visualized osseous structures. XR/XR abdomen 1V* [id number] IMPRESSION: 1. Nonspecific crenulated radiopacity appreciated in the left upper quadrant as detailed above this is likely artifactual and outside the patient body wall, however cannot be entirely excluded for intra-abdominal pathology. CT of the abdomen and pelvis with contrast would be the best next modality for assessment. 2. Nonspecific air dilated loops of bowel, again CT of the abdomen and pelvis with contrast would be the next best modality for assessment. 3. Additional findings as above.
--- NOTE | 2024-03-15 05:15 | XRR_ITS ---
PROCEDURE INFORMATION: Exam: XR Chest Exam date and time: 03/15/2024 5:30 AM Age: 78 years old Clinical indication: Cardiovascular condition or disease; Other: Tachycardia TECHNIQUE: Imaging protocol: Radiologic exam of the chest. Views: 1 view. COMPARISON: CR XR chest 1V portable [id number] 01/31/2024 12:12 PM FINDINGS: Tubes, catheters and devices: Gastric tube is present with balloon silhouetting the left upper quadrant gastric shadow. Lungs: Stable right costophrenic angle lung nodule. Pleural spaces: No pleural effusion, no pneumothorax. Heart/Mediastinum: Unremarkable. No cardiomegaly. Vasculature: Calcified atherosclerotic disease of the aortic arch. Bones/joints: Scattered degenerative change of the visualized osseous structures. XR/XR chest 1V portable [id number] IMPRESSION: 1. No acute cardiopulmonary findings. 2. Additional findings as above.
--- NOTE | 2024-03-15 05:20 | ED_ITS ---
Documented by User: Alexei Zacarias DO 03/15/24 05:27 HPI - General Adult 2 General: Chief complaint: General Medical Stated complaint: feeding tube leaking stomach sloshing bp high ill Time Seen by Provider: 03/15/24 04:49 History of Present Illness: Patient presents to the ER with complaints of just not feeling good all over. 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 They say she just has not felt good for a while but the last 2 days she is went downhill quite a bit. Patient has known esophageal cancer and small cell lung cancer, she just finished radiation treatment a couple weeks ago. Patient has a PEG tube and is tube fed 4 times a day. They noticed today when he rolled her over her abdomen/like it had a whole bunch of liquid in it and there was liquid draining out around the PEG tube. Patient does have daily bowel movements says she is on a daily regimen and she said this is working good. Patient does see Dr. Stauffer. Patient does use Durogesic for pain and usually works pretty good now but patient is having more low back pain. Review of Systems 2 General: Reports: 10 or more systems reviewed and unremarkable except in HPI and below PFSH ED 2 PFSH: Medical History (Updated 03/15/24 @ 11:15 by Ramone Dorsey DO) Esophageal cancer Small cell lung cancer Depression with anxiety Generalized anxiety disorder with panic attacks Nocturnal hypoxemia Refeeding syndrome Hypophosphatemia Compression fracture Ptosis Altered mental status Diarrhea Volume overload Leukocytosis Hypomagnesemia Hypokalemia Acute exacerbation of chronic obstructive airways disease PVC (premature ventricular contraction) History of meningitis 2006, hospitalized ~2 months, had pneumonia. 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 Compressed spine fracture Chronic back pain SIADH (syndrome of inappropriate ADH production) COVID-19 07/2021 Hypertension DVT (deep venous thrombosis) Surgical History History of facelift History of breast augmentation History of total abdominal hysterectomy and bilateral salpingo-oophorectomy History of tonsillectomy Family History Father Lung cancer Mother Heart disease Other Stroke Social History Smoking and tobacco/nicotine status: former use of tobacco/nicotine Quit status (tobacco/nicotine): has quit using Year quit tobacco: 1992 Former quit date comment: 1.5 ppd X 30 yr Alcohol intake: former Household members: spouse Marital status: Physical Exam 2 Const: COMMON NORMALS: no acute distress, patient oriented x3 and alert HENMT: COMMON NORMALS: normocephalic, atraumatic, hearing grossly normal bilaterally, external ears normal, Normal external nose present and moist oral mucous membranes HEAD & SCALP: normocephalic and atraumatic NOSE: Normal external nose present EXTERNAL EAR: Yes external ears normal Neck/C-Spine: COMMON NORMALS: no JVD Chest: COMMONS NORMALS: normal inspection of the chest and normal palpation of entire chest wall Resp: COMMON NORMALS: normal respiratory effort, No retractions, No use of accessory muscles and clear to auscultation bilaterally (Decreased bilaterally) AUSCULTATION: clear to auscultation bilaterally (Decreased bilaterally) Cardio: COMMON NORMALS: no JVD, regular rate, regular rhythm, S1 normal heart sound present, S2 normal heart sound present, No gallops present (Cardio), No clicks present (Cardio), No murmurs present (Cardio) and No rub (Cardio) R ATE: regular rate RHYTHM: regular rhythm HEART SOUNDS: S1 normal heart sound present and S2 normal heart sound present GI: OTHER: Abdomen soft to palpation diffusely tender mildly distended PEG tube is in place there is yellowish fluid leaking around PEG tube, positive bowel sounds in all 4 quadrants. Neuro: COMMON NORMALS: patient oriented x3 SENSORIUM/ORIENTATION: Yes alert Course 2 Vital Signs: Vital signs: Vital Signs Temperature 97.6 F 03/15/24 04:52 Pulse Rate 117 H 03/15/24 10:38 Respiratory Rate 18 03/15/24 08:49 Blood Pressure 161/88 03/15/24 10:38 Pulse Oximetry 95 03/15/24 10:38 Oxygen Delivery Me thod Room Air 03/15/24 04:52 [facility] - General Adult Medical Records I reviewed the patient's medical records. Lab Data I reviewed the patient's lab results. 03/15/24 06:10 03/15/24 08:14 Radiology Impressions Abdomen X-Ray 03/15/24 05:15 IMPRESSION: 1. Nonspecific crenulated radiopacity appreciated in the left upper quadrant as detailed above this is likely artifactual and outside the patient body wall, however cannot be entirely excluded for intra-abdominal pathology. CT of the abdomen and pelvis with contrast would be the best next modality for assessment. 2. Nonspecific air dilated loops of bowel, again CT of the abdomen and pelvis with contrast would be the next best modality for assessment. 3. Additional findings as above. Chest X-Ray 03/15/24 05:15 IMPRESSION: 1. No acute cardiopulmonary findings. 2. Additional findings as above. Abdomen/Pelvis CT 03/15/24 07:47 IMPRESSION: 1. Gastrostomy tube with fluid distended stomach with air-fluid level. 2. Fluid distended loops of small bowel throughout the abdomen extending to the distal ileum suspicious for adynamic ileus versus early developing partial small bowel obstruction although no transition point identified. Persistent air within the colon. 3. No hydronephrosis in either kidney. 4. Urine distended bladder. 5. Chronic compression fracture with anterior wedging at T11-L1 unchanged. 6. Prior hysterectomy. Laboratory Results WBC 12.10 10^3/uL (3.29-11.43) H 03/15/24 06:10 RBC 4.32 10^6/uL (3.85-5.65) 03/15/24 06:10 Hgb 12.90 g/dL (11.27-16.99) 03/15/24 06:10 Hct 38.7 % (36-47) 03/15/24 06:10 MCV 89.6 fl (85-98) 03/15/24 06:10 MCH 29.9 pg (27-33) 03/15/24 06:10 MCHC 33.3 g/dL (30-55) 03/15/24 06:10 RDW 12.8 % (12.1-15.1) 03/15/24 06:10 Plt Count 282 10^3/cmm (157-399) 03/15/24 06:10 MPV 9.4 fL (7.4-10.4) 03/15/24 06:10 Neut % (Auto) 85.6 % 03/15/24 06:10 Lymph % (Auto) 3.6 % 03/15/24 06:10 Evans % (Auto) 10.5 % 03/15/24 06:10 Eos % (Auto) 0.0 % 03/15/24 06:10 Baso % (Auto) 0.1 % 03/15/24 06:10 Neut # (Auto) 10.36 10^3/uL (1.8-7.7) H 03/15/24 06:10 Lymph # (Auto) 0.4 10^3/uL (0.8-4.8) L 03/15/24 06:10 Evans # (Auto) 1.3 10^3/uL (0.2-0.9) H 03/15/24 06:10 Eos # (Auto) 0.0 10^3/uL (0.0-0.8) 03/15/24 06:10 Baso # (Auto) 0.0 10^3/uL (0.0-0.1) 03/15/24 06:10 Nucleated RBC % (auto) 0 % 03/15/24 06:10 Nucleated RBCs # 0.0 /100WBC 03/15/24 06:10 Sodium 129 mmol/L (136-145) L 03/15/24 08:14 Potassium 4.0 mmol/L (3.5-5.1) 03/15/24 08:14 Chloride 83 mmol/L (98-107) L 03/15/24 08:14 Carbon Dioxide 30 mmol/L (22-29) H 03/15/24 08:14 Anion Gap 20.0 (5-19) H 03/15/24 08:14 BUN 13 mg/dL (8-23) 03/15/24 08:14 Creatinine 0.3 mg/dL (0.5-0.9) L 03/15/24 08:14 GFR Calculation Not Reportable 03/15/24 08:14 Glucose 166 mg/dL (65-115) H 03/15/24 08:14 Calculated Osmolality 272 mOsm/kg (285-295) L 03/15/24 08:14 Lactic Acid 1.6 mmol/L (0.5-2.2) 03/15/24 06:24 Calcium 9.9 mg/dL (8.5-10.5) 03/15/24 08:14 Phosphorus 3.4 mg/dL (2.5-4.5) 03/15/24 08:14 Magnesium 1.5 mg/dL (1.7-2.3) L 03/15/24 08:14 Total Bilirubin 0.3 mg/dL (0.15-1.2) 03/15/24 08:14 AST 36 U/L (0-32) H 03/15/24 08:14 ALT 24 U/L (0-33) 03/15/24 08:14 Alkaline Phosphatase 87 U/L (35-105) 03/15/24 08:14 Creatine Kinase 154 U/L (26-192) 03/15/24 08:14 Troponin T Baseline 26 ng/L (0-10) H 03/15/24 06:10 Troponin T 120 Minute 25.46 ng/L (0-10) H 03/15/24 08:14 Delta Troponin T -0.54 ABS# (0-10) L 03/15/24 08:14 Total Protein 8.3 g/dL (6.6-8.7) 03/15/24 08:14 Albumin 4.8 g/dL (3.5-5.2) 03/15/24 08:14 Globulin 3.5 g/dL (1.3-4.6) 03/15/24 08:14 Lipase 36 U/L (13-60) 03/15/24 08:14 Procalcitonin 0.14 ng/mL (0-0.5) 03/15/24 08:14 Urine Color Yellow (Yellow) 03/15/24 07:30 Urine Appearance Cloudy (CLEAR) A 03/15/24 07:30 Urine pH 8 (5-7) H 03/15/24 07:30 Ur Specific [place] 1.010 (1.005-1.030) 03/15/24 07:30 Urine Protein 3+ (Negative) H 03/15/24 07:30 Urine Glucose (UA) Norm (Normal) 03/15/24 07:30 Urine Ketones Negative (Negative) 03/15/24 07:30 Urine Blood Neg (Negative) 03/15/24 07:30 Urine Nitrate Negative (Negative) 03/15/24 07:30 Urine Bilirubin Neg (Negative) 03/15/24 07:30 Prot Sulfosalicylic Acd Positive (Negative) 03/15/24 07:30 Urine Urobilinogen Norm mg/dL (Negative) 03/15/24 07:30 Ur Leukocyte Esterase Negative (Negative) 03/15/24 07:30 Urine RBC None /hpf (0-2) 03/15/24 07:30 Urine WBC 0-4 /hpf (0-5) H 03/15/24 07:30 Ur Squamous Epith Cells Rare /hpf (0-5) 03/15/24 07:30 Amorphous Sediment Trace /hpf 03/15/24 07:30 Urine Bacteria Trace /hpf (NONE) 03/15/24 07:30 All radiology interpretation(s) finalized by discharge Discharge Plan Discharge Patient Disposition: Admitted As Inpatient Clinical Impression: Small bowel obstruction, 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 Patient's care was discussed, and care was transferred from Alexei Zacarias DO to Ramone Dorsey DO. Coding Level of Care Code ED Implant Coordinator for Chg Fwd Documented by User: Ramone Dorsey DO 03/15/24 11:16 HPI - General Adult 2 General: Chief complaint: General Medical Stated complaint: feeding tube leaking stomach sloshing bp high ill Time Seen by Provider: 03/15/24 04:49 [facility] ED 2 [facility]: Medical History (Updated 03/15/24 @ 11:15 by Ramone Dorsey DO) Esophageal cancer Small cell lung cancer Depression with anxiety Generalized anxiety disorder with panic attacks Nocturnal hypoxemia Refeeding syndrome Hypophosphatemia Compression fracture Ptosis Altered mental status Diarrhea Volume overload Leukocytosis Hypomagnesemia Hypokalemia Acute exacerbation of chronic obstructive airways disease PVC (premature ventricular contraction) History of meningitis 2006, hospitalized ~2 months, had pneumonia. 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 Compressed spine fracture Chronic back pain SIADH (syndrome of inappropriate ADH production) COVID-19 07/2021 Hypertension DVT (deep venous thrombosis) Surgical History History of facelift History of breast augmentation History of total abdominal hysterectomy and bilateral salpingo-oophorectomy History of tonsillectomy Family History Father Lung cancer Mother Heart disease Other Stroke Social History Smoking and tobacco/nicotine status: former use of tobacco/nicotine Quit status (tobacco/nicotine): has quit using Year quit tobacco: 1992 Former quit date comment: 1.5 ppd X 30 yr Alcohol intake: former Household members: spouse Marital status: Course 2 Vital Signs: Vital signs: Vital Signs Temperature 97.6 F 03/15/24 04:52 Pulse Rate 117 H 03/15/24 10:38 Respiratory Rate 18 03/15/24 08:49 Blood Pressure 161/88 03/15/24 10:38 Pulse Oximetry 95 03/15/24 10:38 Oxygen Delivery Me thod Room Air 03/15/24 04:52 MDM - General Adult Medical Decision Making Care assumed at change of shift from Dr. Zacarias. Over the last 24 hours patient has had bloating increased abdominal discomfort and distention. He started to notice some leakage from around her PEG tube. Plain abdominal film ordered by Dr. Zacarias showed nonspecific dilations of the bowel. The CT was done shows early small bowel obstruction in combination with her reported history suspect she does have a bowel obstruction at this point. I did discuss with Dr. Stauffer he felt we could decompress her PEG tube. We initially were can replace it with an NG tube however we attempted to drain it with the currently in place PEG tube and it actually did pull off a fair amount of fluid so for the moment we will continue decompressing through that Dr. Stauffer it indicated it could be removed and replaced with a NG tube and that be secured in place externally if the other tube does not adequately decompressed. Admit to hospitalist orders written consult Dr. Stauffer Lab Data 03/15/24 06:10 03/15/24 08:14 Radiology Impressions Abdomen X-Ray 03/15/24 05:15 IMPRESSION: 1. Nonspecific crenulated radiopacity appreciated in the left upper quadrant as detailed above this is likely artifactual and outside the patient body wall, however cannot be entirely excluded for intra-abdominal pathology. CT of the abdomen and pelvis with contrast would be the best next modality for assessment. 2. Nonspecific air dilated loops of bowel, again CT of the abdomen and pelvis with contrast would be the next best modality for assessment. 3. Additional findings as above. Chest X-Ray 03/15/24 05:15 IMPRESSION: 1. No acute cardiopulmonary findings. 2. Additional findings as above. Abdomen/Pelvis CT 03/15/24 07:47 IMPRESSION: 1. Gastrostomy tube with fluid distended stomach with air-fluid level. 2. Fluid distended loops of small bowel throughout the abdomen extending to the distal ileum suspicious for adynamic ileus versus early developing partial small bowel obstruction although no transition point identified. Persistent air within the colon. 3. No hydronephrosis in either kidney. 4. Urine distended bladder. 5. Chronic compression fracture with anterior wedging at T11-L1 unchanged. 6. Prior hysterectomy. Laboratory Results WBC 12.10 10^3/uL (3.29-11.43) H 03/15/24 06:10 RBC 4.32 10^6/uL (3.85-5.65) 03/15/24 06:10 Hgb 12.90 g/dL (11.27-16.99) 03/15/24 06:10 Hct 38.7 % (36-47) 03/15/24 06:10 MCV 89.6 fl (85-98) 03/15/24 06:10 MCH 29.9 pg (27-33) 03/15/24 06:10 MCHC 33.3 g/dL (30-55) 03/15/24 06:10 RDW 12.8 % (12.1-15.1) 03/15/24 06:10 Plt Count 282 10^3/cmm (157-399) 03/15/24 06:10 MPV 9.4 fL (7.4-10.4) 03/15/24 06:10 Neut % (Auto) 85.6 % 03/15/24 06:10 Lymph % (Auto) 3.6 % 03/15/24 06:10 Evans % (Auto) 10.5 % 03/15/24 06:10 Eos % (Auto) 0.0 % 03/15/24 06:10 Baso % (Auto) 0.1 % 03/15/24 06:10 Neut # (Auto) 10.36 10^3/uL (1.8-7.7) H 03/15/24 06:10 Lymph # (Auto) 0.4 10^3/uL (0.8-4.8) L 03/15/24 06:10 Evans # (Auto) 1.3 10^3/uL (0.2-0.9) H 03/15/24 06:10 Eos # (Auto) 0.0 10^3/uL (0.0-0.8) 03/15/24 06:10 Baso # (Auto) 0.0 10^3/uL (0.0-0.1) 03/15/24 06:10 Nucleated RBC % (auto) 0 % 03/15/24 06:10 Nucleated RBCs # 0.0 /100WBC 03/15/24 06:10 Sodium 129 mmol/L (136-145) L 03/15/24 08:14 Potassium 4.0 mmol/L (3.5-5.1) 03/15/24 08:14 Chloride 83 mmol/L (98-107) L 03/15/24 08:14 Carbon Dioxide 30 mmol/L (22-29) H 03/15/24 08:14 Anion Gap 20.0 (5-19) H 03/15/24 08:14 BUN 13 mg/dL (8-23) 03/15/24 08:14 Creatinine 0.3 mg/dL (0.5-0.9) L 03/15/24 08:14 GFR Calculation Not Reportable 03/15/24 08:14 Glucose 166 mg/dL (65-115) H 03/15/24 08:14 Calculated Osmolality 272 mOsm/kg (285-295) L 03/15/24 08:14 Lactic Acid 1.6 mmol/L (0.5-2.2) 03/15/24 06:24 Calcium 9.9 mg/dL (8.5-10.5) 03/15/24 08:14 Phosphorus 3.4 mg/dL (2.5-4.5) 03/15/24 08:14 Magnesium 1.5 mg/dL (1.7-2.3) L 03/15/24 08:14 Total Bilirubin 0.3 mg/dL (0.15-1.2) 03/15/24 08:14 AST 36 U/L (0-32) H 03/15/24 08:14 ALT 24 U/L (0-33) 03/15/24 08:14 Alkaline Phosphatase 87 U/L (35-105) 03/15/24 08:14 Creatine Kinase 154 U/L (26-192) 03/15/24 08:14 Troponin T Baseline 26 ng/L (0-10) H 03/15/24 06:10 Troponin T 120 Minute 25.46 ng/L (0-10) H 03/15/24 08:14 Delta Troponin T -0.54 ABS# (0-10) L 03/15/24 08:14 Total Protein 8.3 g/dL (6.6-8.7) 03/15/24 08:14 Albumin 4.8 g/dL (3.5-5.2) 03/15/24 08:14 Globulin 3.5 g/dL (1.3-4.6) 03/15/24 08:14 Lipase 36 U/L (13-60) 03/15/24 08:14 Procalcitonin 0.14 ng/mL (0-0.5) 03/15/24 08:14 Urine Color Yellow (Yellow) 03/15/24 07:30 Urine Appearance Cloudy (CLEAR) A 03/15/24 07:30 Urine pH 8 (5-7) H 03/15/24 07:30 Ur Specific [place] 1.010 (1.005-1.030) 03/15/24 07:30 Urine Protein 3+ (Negative) H 03/15/24 07:30 Urine Glucose (UA) Norm (Normal) 03/15/24 07:30 Urine Ketones Negative (Negative) 03/15/24 07:30 Urine Blood Neg (Negative) 03/15/24 07:30 Urine Nitrate Negative (Negative) 03/15/24 07:30 Urine Bilirubin Neg (Negative) 03/15/24 07:30 Prot Sulfosalicylic Acd Positive (Negative) 03/15/24 07:30 Urine Urobilinogen Norm mg/dL (Negative) 03/15/24 07:30 Ur Leukocyte Esterase Negative (Negative) 03/15/24 07:30 Urine RBC None /hpf (0-2) 03/15/24 07:30 Urine WBC 0-4 /hpf (0-5) H 03/15/24 07:30 Ur Squamous Epith Cells Rare /hpf (0-5) 03/15/24 07:30 Amorphous Sediment Trace /hpf 03/15/24 07:30 Urine Bacteria Trace /hpf (NONE) 03/15/24 07:30 Discharge Plan Discharge Patient Disposition: Admitted As Inpatient Clinical Impression: Small bowel obstruction, 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 Patient's care was discussed, and care was transferred from Alexei Zacarias DO to Ramone Dorsey DO. Coding Level of Care Code ED Implant Coordinator for Jami Nguyen
--- NOTE | 2024-03-15 05:30 | ECG_ITS ---
[facility] Test Date: 2024-03-15 Pat Name: Eleni Miller Department: Room: Gender: Female Parts Cataloger: : 1945 Requested By: Alexei Zacarias Order Number: [id number] Olga MD: Gloria Keenan M.D. Measurements Intervals [place] Rate: 112 P: 61 TN: 136 QRS: 72 QRSD: 85 T: 81 QT: 329 QTc: 451 Interpretive Statements SINUS TACHYCARDIA ABNORMAL RHYTHM ECG Compared to ECG 03/15/2024 07:16:42 Ventricular premature complex(es) no longer present Electronically Signed On 03-15-2024 19:04:47 CDT by Gloria Keenan M.D. [id number]
[2024-03-15 06:18] LABS: Basophils % 0.1 %; Hematocrit 38.7 % (36-47); Lymphocytes # 0.4 10^3/uL (0.8-4.8); Lymphocytes % 3.6 %; Mean Corpuscular HGB Conc 33.3 g/dL (30-55); Mean Corpuscular Hemoglobin 29.9 pg (27-33); Mean Corpuscular Volume 89.6 fl (85-98); Mean Platelet Volume 9.4 fL (7.4-10.4); Monocytes # 1.3 10^3/uL (0.2-0.9); Monocytes % 10.5 %; Neutrophils # 10.36 10^3/uL (1.8-7.7); Neutrophils % 85.6 %; Nucleated Red Blood Cells % 0 %; Platelet Count 282 10^3/cmm (157-399); Red Blood Count 4.32 10^6/uL (3.85-5.65); Red Cell Distribution Width 12.8 % (12.1-15.1)
[2024-03-15] MEDS: sodium chloride 0.9% 1,000 ML 999 ML IV (06:21)
[2024-03-15] MEDS: fentaNYL 50 mcg/mL INJ 2mL IVP (06:21)
[2024-03-15] MEDS: ondansetron 2 mg/ML SDV 2 mL 4 MG IVP ×2 (06:21→08:49)
[2024-03-15 06:37] LABS: Troponin(5th) Baseline 26 ng/L (0-10)
[2024-03-15 06:43] LABS: Lactic Sepsis W/Reflex 1.6 mmol/L (0.5-2.2)
[2024-03-15] MEDS: morphine 4 mg/mL SDV 1 mL 2 MG IVP (07:19)
--- NOTE | 2024-03-15 07:30 | ECG_ITS ---
[facility] Test Date: 2024-03-15 Pat Name: Eleni Miller Department: Room: Gender: Female Consumer Banker: : 1945 Requested By: Alexei Zacarias Order Number: [id number] Olga MD: Gloria Keenan M.D. Measurements Intervals [place] Rate: 110 P: 67 [place]: 155 QRS: 75 QRSD: 92 T: 79 QT: 333 QTc: 451 Interpretive Statements SINUS TACHYCARDIA WITH OCCASIONAL VENTRICULAR PREMATURE COMPLEXES ABNORMAL RHYTHM ECG Compared to ECG 01/31/2024 14:04:08 Ventricular premature complex(es) now present Sinus rhythm no longer present Electronically Signed On 03-15-2024 19:15:39 CDT by Gloria Keenan M.D. [id number]
--- NOTE | 2024-03-15 07:47 | CT_ITS ---
WS: [id number] CT ABDOMEN PELVIS TECHNIQUE: Noncontrast CT of the abdomen and pelvis with coronal and sagittal reformatted images. CLINICAL INFORMATION: Abdominal pain COMPARISON: CT 2007 PET/CT 2023 DLP: 330.[address] scans at [facility] use at least one of these dose optimization techniques: automated e xposure control; mA and/or kV adjustment per patient size (includes targeted exams where dose is matc hed to clinical indication); or iterative reconstruction. FINDINGS: Prior hysterectomy and appendectomy. Gastrostomy tube. Fluid distended stomach with air-fluid level. Fluid distended loops of small bowel throughout the abd omen. Persistent air within the colon. Small bowel loops are dilated to the ileum. No focal transitio n point. Findings suspicious for adynamic ileus versus early partial small bowel obstruction. Lung bases are well aerated. Noncontrast liver appears normal. Atrophic spleen. No hydronephrosis in either kidney. Normal caliber abdominal aorta. Aortic calcification. Urine distended bladder. Thoraco lumbar kyphosis with chronic compression fractures and anterior wedging T11-L1. CT/CT abdomen pelvis con [id number] IMPRESSION: 1. Gastrostomy tube with fluid distended stomach with air-fluid level. 2. Fluid distended loops of small bowel throughout the abdomen extending to th e distal ileum suspicious for adynamic ileus versus early developing partial sm all bowel obstruction although no transition point identified. Persistent air w ithin the colon. 3. No hydronephrosis in either kidney. 4. Urine distended bladder. 5. Chronic compression fracture with anterior wedging at T11-L1 unchanged. 6. Prior hysterectomy.
[2024-03-15 08:09] LABS: Add Urine Microscopic? YES; Bacteria Urine TRACE /hpf; Bilirubin Urine Neg (Negative); Blood Urine Neg (Negative); Glucose Urine UA Norm (Normal); Ketones Urine Negative (Negative); Leukocyte Esterase Urine Negative (Negative); Nitrate Urine Negative (Negative); Protein Urine 3+ (Negative); Squamous Epithelial Cell Urine RARE /hpf (0-5); Sulfosalicylic Acid Urine Positive (Negative); Urine Appearance Cloudy (CLEAR); Urine Color Yellow (Yellow); Urobilinogen Urine Norm (Negative); WBC Urine 0-4 /hpf (0-5); pH Urine 8 (5-7)
[2024-03-15 08:10] LABS: Add Urine Culture? No; Amorphous Sediment Urine TRACE /hpf
[2024-03-15 08:36] LABS: Troponin 5 2HR 25.46 ng/L (0-10)
[2024-03-15 08:37] LABS: Alanine Aminotransferase 24 U/L (0-33); Albumin Level 4.8 g/dL (3.5-5.2); Alkaline Phosphatase 87 U/L (35-105); Aspartate Amino Transferase 36 U/L (0-32); Blood Urea Nitrogen 13 mg/dL (8-23); Calcium 9.9 mg/dL (8.5-10.5); Carbon Dioxide 30 mmol/L (22-29); Chloride 83 mmol/L (98-107); Creatine Phosphokinase 154 U/L (26-192); Creatinine Clr Calc Pharmacy 50.2214; Globulin 3.5 g/dL (1.3-4.6); Glucose 166 mg/dL (65-115); Lipase 36 U/L (13-60); Magnesium 1.5 mg/dL (1.7-2.3); Osmolality Calculated 272 mOsm/kg (285-295); Phosphorus 3.4 mg/dL (2.5-4.5); Sodium 129 mmol/L (136-145); Total Bilirubin 0.3 mg/dL (0.15-1.2); Total Protein 8.3 g/dL (6.6-8.7)
[2024-03-15 08:41] LABS: Troponin 5 2HR Delta -0.54 ABS# (0-10)
[2024-03-15 08:44] LABS: Procalcitonin 0.14 ng/mL (0-0.5)
[2024-03-15] MEDS: morphine 4 mg/mL SDV 1 mL IVP (08:49)
--- NOTE | 2024-03-15 10:07 | P.HP_ITS ---
Providers/Chief Complaint 2 Admitting Physician: Rick Barnett MD Primary Care Provider: Armani Hooker DO Chief Complaint: feeding tube leaking stomach sloshing bp high ill History of Present Illness Eleni Miller is a 78 year old female with no squamous cell [place] of the lung, and esophagus who presents to the hospital with abdominal and back discomfort, noted over the last 2 days. She has not vomited. She does have a PEG tube through which she is fed. She has recently been getting radiation to her lung and I believe esophagus area. Caregiver reports that with increased pain she noticed a sloshing sound and drainage around her PEG tube concerning her. Therefore they brought her into the emergency department where CAT scan suggests a partial small bowel obstruction. Caregiver, daughter, and patient report no blood in drainage from PEG tube, no fever, shortness of breath is at baseline and she is typically on 2 to 3 L of oxygen. Last bowel movement was about a day ago, and did not seem hard. Review of Systems 2 General: Reports: 10 or more systems reviewed and unremarkable except in HPI and below Card: Denies: chest pain Resp: Denies: dyspnea GI: Reports: abdominal pain; Denies: vomiting or hematochezia Medications/Allergies Home Medications Medication Instructions Recorded Confirmed Last Taken Type acetaminophen 500 mg tablet 500 mg PO Q4H PRN Pain 07/07/21 03/15/24 01/11/24 History naloxone 4 mg/actuation nasal 4 mg intranasal Q2M PRN opioid 02/15/23 03/15/24 01/11/24 Rx spray (Narcan) overdose #2 ea oxygen air delivery system #1 ea 07/24/23 03/15/24 12/31/23 Rx amlodipine 10 mg tablet 10 mg PO DAILY PRN HIGH BLOOD 08/11/23 03/15/24 01/11/24 History PRESSURE sertraline 50 mg tablet 50 mg PO QAM 08/11/23 03/15/24 03/14/24 History TLSO BRACE #1 ea 08/17/23 03/15/24 12/31/23 Rx tiotropium bromide 18 mcg capsule 1 cap inhalation DAILY #60 10/03/23 03/15/24 03/14/24 Rx with inhalation device (Spiriva inhalations with HandiHaler) apixaban 5 mg tablet (Eliquis) 5 mg PO BID 12/07/23 03/15/24 03/14/24 History metoprolol tartrate 25 mg tablet 25 mg PO BID 12/07/23 03/15/24 03/14/24 History ipratropium 0.5 mg-albuterol 3 mg 3 ml inhalation 6XD PRN Shortness 12/19/23 03/15/24 01/11/24 History (2.5 mg base)/3 mL nebulization Of Breath soln pantoprazole 40 mg tablet,delayed 40 mg PO BID 6 weeks #84 tabs 12/28/23 03/15/24 03/14/24 Rx release (Protonix) lubiprostone 24 mcg capsule 24 mcg PO BID #60 caps 01/10/24 03/15/24 03/14/24 Rx (Amitiza) metoclopramide HCl 5 mg tablet 5 mg PO Q6H PRN Nausea 01/31/24 03/15/24 Unknown History (Reglan) lidocaine HCl 2 % mucosal solution 5 ml PO Q6H #100 mL 02/12/24 03/15/24 Unknown Rx (Lidocaine Viscous) linaclotide 290 mcg capsule 290 mcg PO DAILY #30 caps 02/22/24 03/15/24 03/14/24 Rx (Linzess) fentanyl 12 mcg/hr transdermal 1 patch transdermal Q72H 30 days 03/04/24 03/15/24 03/14/24 Rx patch #10 ea albuterol sulfate 90 mcg/actuation 1 - 2 puff inhalation Q4H PRN 03/15/24 03/15/24 Unknown History aerosol inhaler (Ventolin HFA) Shortness Of Breath budesonide-formoterol HFA 80 2 puff inhalation BID 03/15/24 03/15/24 03/14/24 History mcg-4.5 mcg/actuation aerosol inhaler fentanyl 25 mcg/hr transdermal See Rx Instructions .Route .COMPLEX 03/15/24 03/15/24 Unknown History patch ferrous gluconate 324 mg (38 mg 324 mg PO BID 03/15/24 03/15/24 03/14/24 History iron) tablet hydroxyzine HCl 10 mg tablet 10 mg PO Q6H PRN Anxiety 03/15/24 03/15/24 Unknown History nortriptyline 50 mg capsule 50 - 100 mg PO QPM PRN Insomnia 03/15/24 03/15/2403/14/24 History ondansetron 4 mg disintegrating 4 mg PO Q6H PRN Nausea 03/15/24 03/15/24 Unknown History tablet sodium chloride 1,000 mg soluble 1,000 mg PO DAILY 03/15/24 03/15/24 03/14/24 History tablet Allergies Allergy/AdvReac Type Severity Reaction Status Date / Time hydrochlorothiazide Allergy Severe hyponatremi Verified 02/08/24 11:16 a PFSH Acute 2 PFSH: Medical History (Updated 03/15/24 @ 10:23 by Rick Barnett MD) Esophageal cancer Small cell lung cancer Depression with anxiety Generalized anxiety disorder with panic attacks Nocturnal hypoxemia Refeeding syndrome Hypophosphatemia Compression fracture Ptosis Altered mental status Diarrhea Volume overload Leukocytosis Hypomagnesemia Hypokalemia Acute exacerbation of chronic obstructive airways disease PVC (premature ventricular contraction) History of meningitis 2006, hospitalized ~2 months, had pneumonia. 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 Compressed spine fracture Chronic back pain SIADH (syndrome of inappropriate ADH production) COVID-19 07/2021 Hypertension DVT (deep venous thrombosis) Surgical History History of facelift History of breast augmentation History of total abdominal hysterectomy and bilateral salpingo-oophorectomy History of tonsillectomy Family History Father Lung cancer Mother Heart disease Other Stroke Social History Smoking and tobacco/nicotine status: former use of tobacco/nicotine Quit status (tobacco/nicotine): has quit using Year quit tobacco: 1992 Former quit date comment: 1.5 ppd X 30 yr Alcohol intake: former Household members: spouse Marital status: Vitals/I&O/Wt Last Vital Signs Temp 97.6 F 03/15/24 04:52 Pulse 114 H 03/15/24 04:52 Resp 18 03/15/24 08:49 BP 158/82 03/15/24 09:35 Pulse Ox 98 06/14/24 08:49 O2 Del Method Room Air 03/15/24 04:52 03/14/24 03/15/24 03/15/24 22:59 06:59 14:59 Intake Total 1000 / 1000 Balance 1000 / 1000 Weight last 48 hrs Weight 53.977 kg Physical Exam 2 Narrative: General exam is complaining of some abdominal discomfort, but able to answer few questions without difficulty HEENT: Atraumatic normocephalic. Neck is supple Cardiovascular regular rate and rhythm, no murmur Lungs distant, decreased breath sounds bilaterally. No wheezing. Abdomen is distended, tympanic. PEG tube noted. exam is deferred Extremities no cyanosis clubbing edema, cap refill brisk Skin no rash Neuro no obvious focal deficits. Data 03/15/24 06:10 03/15/24 08:14 Other Labs: Magnesium 1.5, LFTs normal with the exception of AST of 36. Troponin at 26 with repeat of 25. Urinalysis negative. Abdomen pelvis CT demonstrates likely partial small bowel obstruction. I reviewed this as well. Some fecal content as well. Bladder appeared somewhat distended. Chest x-ray per my review no infiltrate, right pulmonary nodule EKG per my review sinus tachycardia, normal axis, nonspecific ST-T wave changes A&P Assessment and plan (1) Partial small bowel obstruction: Patient presents with a partial small bowel obstruction. NG being placed, possibly in PEG tube orifice Surgical consult IV fluids D5 NS with 20 of K to run at 125 cc an hour. Follow sodium closely as she has chronically hyponatremic. Supplement magnesium, recheck CBC, CMP, magnesium daily N.p.o. except chips and meds Pain control. Continue patient's fentanyl. Dilaudid for breakthrough pain. Monitor closely for oversedation. (2) Hyponatremia: Repeat sodium tomorrow considering IV fluids needed for partial small bowel obstruction (3) COPD (chronic obstructive pulmonary disease): Budesonide twice daily DuoNeb every 6 hours Qualifiers: COPD type: emphysema Emphysema type: centrilobular Qualified Code(s): J43.2 - Centrilobular emphysema (4) Hypomagnesemia: Supplement magnesium, recheck tomorrow (5) Squamous cell carcinoma, esophagus: Patient with history of esophageal and lung cancer. Recently finished up radiation treatments end of January. Has PEG tube for feeding. Plan On chronic anticoagulation for DVT history. Changed to Lovenox from Eliquis as there is a potential for need for surgical procedure. Hypertension. Continue home medications. Hydralazine as needed Other medical problems as outlined in past medical history Bladder distended on CT scan. Place [place]. Full code SCDs for DVT prophylaxis Attestations 2 Medical Necessity Statement*: Will need greater than 2 midnight stay for evaluation and treatment of partial small bowel obstruction with conservative management. Diagnoses Partial small bowel obstruction K56.600 Hyponatremia E87.1 Centrilobular emphysema J43.2 COPD type: emphysema Emphysema type: centrilobular Hypomagnesemia E83.42 Squamous cell carcinoma, esophagus C15.9 Time Spent (min) 46
--- NOTE | 2024-03-15 10:37 | PC.NURSE ---
per Dr. Dorsey to hold on NG tube insertion; gave verbal orders to connect G-tube to suction. this nurse connected G-tube to intermittent suction, currently patent and draining.
[2024-03-15] MEDS: magnesium sulfate premix 2 GM/50 ML PIGGYBACK IV (10:48)
--- NOTE | 2024-03-15 11:51 | ECG_ITS ---
[facility] Test Date: 2024-03-15 Pat Name: Eleni Miller Department: Room: Gender: Female Applications Processor: : 1945 Requested By: Alexei Zacarias Order Number: [id number] Olag MD: Gloria Keenan M.D. Measurements Intervals [place] Rate: 114 P: 66 UT: 161 QRS: 59 QRSD: 86 T: 74 QT: 254 QTc: 350 Interpretive Statements SINUS TACHYCARDIA NONSPECIFIC T-WAVE ABNORMALITY ABNORMAL RHYTHM ECG Compared to ECG 03/15/2024 09:08:04 T-wave abnormality now present Electronically Signed On 03-15-2024 19:16:04 CDT by Gloria Kenean M.D. [id number]
--- NOTE | 2024-03-15 12:01 | PC.NURSE ---
report called to [place], no further questions at end of report.
[2024-03-15 12:22] LABS: Troponin 5 6HR 30.28 ng/L (0-10); Troponin 5 6HR Delta 4.28 ng/L (0-12)
--- NOTE | 2024-03-15 12:23 | PM.CONSULT ---
Providers/Reason For Consult Consulting Physician/Specialty*: Dr. David Stauffer DO/General surgery Reason for Consult*: ileus versus SBO Attending Physician: Rick Barnett MD Primary Care Provider: Armani Hooker DO History of Present Illness History of Present Illness Eleni Miller is a 78 year old female with lung cancer and esophageal cancer along with chronic respiratory failure and chronic idiopathic constipation on max dose Linzess, who presents to the hospital with diffuse abdominal pain. She reports that her last bowel movement was yesterday and she is passing minimal flatus. Her abdominal pain is dull diffuse and constant. The pain does not radiate. Palpation makes pain worse. Nothing makes pain better. She denies any hematochezia and/or melena. A CT abdomen pelvis shows diffuse ileus Review of Systems General: Reports: 10 or more systems reviewed and unremarkable except in HPI and below Medications/Allergies Home Medications Medication Instructions Recorded Confirmed Last Taken Type acetaminophen 500 mg tablet 500 mg PO Q4H PRN Pain 07/07/21 03/15/24 01/11/24 History naloxone 4 mg/actuation nasal 4 mg intranasal Q2M PRN opioid 02/15/23 03/15/24 01/11/24 Rx spray (Narcan) overdose #2 ea oxygen air delivery system #1 ea 07/24/23 03/15/24 12/31/23 Rx amlodipine 10 mg tablet 10 mg PO DAILY PRN HIGH BLOOD 08/11/23 03/15/24 01/11/24 History PRESSURE sertraline 50 mg tablet 50 mg PO QAM 08/11/23 03/15/24 03/14/24 History TLSO BRACE #1 ea 08/17/23 03/15/24 12/31/23 Rx tiotropium bromide 18 mcg capsule 1 cap inhalation DAILY #60 10/03/23 03/15/24 03/14/24 Rx with inhalation device (Spiriva inhalations with HandiHaler) apixaban 5 mg tablet (Eliquis) 5 mg PO BID 12/07/23 03/15/24 03/14/24 History metoprolol tartrate 25 mg tablet 25 mg PO BID 12/07/23 03/15/24 03/14/24 History ipratropium 0.5 mg-albuterol 3 mg 3 ml inhalation 6XD PRN Shortness 12/19/23 03/15/24 01/11/24 History (2.5 mg base)/3 mL nebulization Of Breath soln pantoprazole 40 mg tablet,delayed 40 mg PO BID 6 weeks #84 tabs 12/28/23 03/15/24 03/14/24 Rx release (Protonix) lubiprostone 24 mcg capsule 24 mcg PO BID #60 caps 01/10/24 03/15/24 03/14/24 Rx (Amitiza) metoclopramide HCl 5 mg tablet 5 mg PO Q6H PRN Nausea 01/31/24 03/15/24 Unknown History (Reglan) lidocaine HCl 2 % mucosal solution 5 ml PO Q6H #100 mL 02/12/24 03/15/24 Unknown Rx (Lidocaine Viscous) linaclotide 290 mcg capsule 290 mcg PO DAILY #30 caps 02/22/24 03/15/24 03/14/24 Rx (Linzess) fentanyl 12 mcg/hr transdermal 1 patch transdermal Q72H 30 days 03/04/24 03/15/24 03/14/24 Rx patch #10 ea albuterol sulfate 90 mcg/actuation 1 - 2 puff inhalation Q4H PRN 03/15/24 03/15/24 Unknown History aerosol inhaler (Ventolin HFA) Shortness Of Breath budesonide-formoterol HFA 80 2 puff inhalation BID 03/15/24 03/15/24 03/14/24 History mcg-4.5 mcg/actuation aerosol inhaler fentanyl 25 mcg/hr transdermal See Rx Instructions .Route .COMPLEX 03/15/24 03/15/24 Unknown History patch ferrous gluconate 324 mg (38 mg 324 mg PO BID 03/15/24 03/15/24 03/14/24 History iron) tablet hydroxyzine HCl 10 mg tablet 10 mg PO Q6H PRN Anxiety 03/15/24 03/15/24 Unknown History nortriptyline 50 mg capsule 50 - 100 mg PO QPM PRN Insomnia 03/15/24 03/15/24 03/14/24 History ondansetron 4 mg disintegrating 4 mg PO Q6H PRN Nausea 03/15/24 03/15/24 Unknown History tablet sodium chloride 1,000 mg soluble 1,000 mg PO DAILY 03/15/24 03/15/24 03/14/24 History tablet Allergies Allergy/AdvReac Type Severity Reaction Status Date / Time hydrochlorothiazide Allergy Severe hyponatremi Verified 02/08/24 11:16 a PFSH Acute PFSH: Medical History Esophageal cancer Small cell lung cancer Depression with anxiety Generalized anxiety disorder with panic attacks Nocturnal hypoxemia Refeeding syndrome Hypophosphatemia Compression fracture Ptosis Altered mental status Diarrhea Volume overload Leukocytosis Hypomagnesemia Hypokalemia Acute exacerbation of chronic obstructive airways disease PVC (premature ventricular contraction) History of meningitis 2006, hospitalized ~2 months, had pneumonia. 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 Compressed spine fracture Chronic back pain SIADH (syndrome of inappropriate ADH production) COVID-19 07/2021 Hypertension DVT (deep venous thrombosis) Surgical History History of facelift History of breast augmentation History of total abdominal hysterectomy and bilateral salpingo-oophorectomy History of tonsillectomy Family History Father Lung cancer Mother Heart disease Other Stroke Social History Smoking and tobacco/nicotine status: former use of tobacco/nicotine Quit status (tobacco/nicotine): has quit using Year quit tobacco: 1992 Former quit date comment: 1.5 ppd X 30 yr Alcohol intake: former Household members: spouse Marital status: Vitals/I&O/Wt Last Vital Signs Temp 97.6 F 03/15/24 04:52 Pulse 117 H 03/15/24 12:17 Resp 18 03/15/24 08:49 BP 161/88 03/15/24 12:17 Pulse Ox 95 03/15/24 12:17 O2 Del Method Room Air 03/15/24 04:52 03/14/24 03/15/24 03/15/24 22:59 06:59 14:59 Intake Total 1000 / 1000 Balance 1000 / 1000 Weight last 48 hrs Weight 119 lb Physical Exam Narrative: General : Patient is well developed , no acute distress, oriented x3 Head : Normal cephalic, a-traumatic. Ears : Pinnae and external canal are normal. Hearing is normal. Eyes : PERRLA, Sclera and injection are normal. No conjunctival discharge. Nose : Mucous membranes are without erythema. Throat : buccal mucosa is normal, gums are without significant recession or hypertrophy. Lungs : Equal chest rise bilaterally, no use of accessory muscles, trachea is midline. Cor : Rate and rhythm are normal. Abdomen : Soft, distended, mild tenderness diffusely, no g/r/m Extremities : No edema, no cyanosis or clubbing, dorsalis pedis pulses are present bilaterally, non-tender to palpation of calves. Upper extremities are normal bilaterally. Back : non-tender to palpation, no CVA tenderness. 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
[2024-03-15] MEDS: HYDROmorphone 1 mg/mL INJ 1 mL 0.400000000000000022 MG IVP ×2 (12:47→20:53)
--- NOTE | 2024-03-15 14:28 | PC.NURSE ---
Medication Note: 3 Fentanyl patches removed from right side of pt's back. 1 12 mcg patch dated 03/12 1 12 mcg ptach dated 03/13 1 25 mcg patch dated 03/14 Fentanyl patches disposed of in [employer] container. Mari Olmedo RN charge witnessed waste
[2024-03-15] MEDS: fentaNYL 25 mcg Patch 1 PATCH TRANSDERMA (14:32)
[2024-03-15] MEDS: enoxaparin 40 mg/0.4 mL Syringe 50 MG SUBCUT (14:33)
[2024-03-15] MEDS: fentaNYL 12 mcg Patch 1 PATCH TRANSDERMA (14:33)
[2024-03-15] MEDS: ipratropium-albuterol 3 mL Neb INHALATION ×2 (15:20→21:09)
[2024-03-15] MEDS: pantoprazole 40 mg SDV IVP (15:24)
[2024-03-15] MEDS: dextrose 5%-ns + KCl 20 20 MEQ/1,000 ML BAG 125 MEQ IV ×2 (15:36→23:43)
--- NOTE | 2024-03-15 17:49 | PC.NURSE ---
Medication Note: Dr. Barnett called. Family wanting to bring in home dose of Hydroxyzine for anxiety and sleep. Dr. Barnett okay with this. Pt and family wanted to know if pt could have home medication of medical marijuana gummies could be brought in as well. Dr. Barnett denied this request per hospital protocol. Family notified and agreeable but also stating, We might bring them in and give her one anyways so she can sleep better. carpentry supervisor notified. Dr. Barnett notified.
[2024-03-15] MEDS: metoprolol tartrate 25 mg Tablet PO (17:50)
[2024-03-15] MEDS: ALPRAZolam 0.5 mg Tablet PO (20:53)
[2024-03-15] MEDS: budesonide 0.5 mg/2 mL Neb INHALATION (21:09)
--- NOTE | 2024-03-15 21:50 | PC.NURSE ---
Friend at bedside with patient states that she has the patient's cannibas gummies and that I need to pause the suction so that she can give her one. I notified Dr. Muñoz who states that we cannot order or administer these. Patient says why did you have to tell her, I was just going to take them and friend at bedside states well, she has to pause the suction, otherwise I wouldn't have told her. supervisor case loading and security confiscated the gummies. Dr. Muñoz notified that the patient is asking for something for anxiety. PRN Xanax ordered. Dr. Muñoz notified that the patient has a G-tube to suction and he ordered that it was okay to pause the suction to administer PO medications in the G-tube. Patient states her main concerns are her pain and anxiety without the gummies. Patient given PRN Xanax and Dialudid. Patient also asking for Nortriptyliene that she takes at home. Dr. Muñoz said that the patient's day shift physician needs to be asked about this tomorrow. Dr. Muñoz notified that the patient likely will be upset that we do not give her her home Nortriptyliene. Dr. Muñoz stated okay.
[2024-03-16] VITALS (16 sets, daily range): BP systolic 125–196; BP diastolic 65–102; PULSE 67–111; RESP 14–20; TEMP 36.4–37.1; O2SAT 92–99
[2024-03-16] MEDS: pantoprazole 40 mg SDV IVP ×3 (00:05→23:43)
[2024-03-16] MEDS: enoxaparin 60 mg/0.6 mL Syringe 50 MG SUBCUT ×3 (00:05→23:43)
[2024-03-16] MEDS: HYDROmorphone 1 mg/mL INJ 1 mL 0.400000000000000022 MG IVP ×4 (00:06→12:12)
[2024-03-16 05:53] LABS: Basophils % 0.2 %; Eosinophils % 0.4 %; Hematocrit 34.5 % (36-47); Lymphocytes # 0.9 10^3/uL (0.8-4.8); Lymphocytes % 17.5 %; Mean Corpuscular HGB Conc 31.3 g/dL (30-55); Mean Corpuscular Hemoglobin 30.1 pg (27-33); Mean Corpuscular Volume 96.1 fl (85-98); Mean Platelet Volume 9.8 fL (7.4-10.4); Monocytes # 1.1 10^3/uL (0.2-0.9); Monocytes % 21.9 %; Neutrophils % 59.6 %; Nucleated Red Blood Cells % 0 %; Platelet Count 223 10^3/cmm (157-399); Red Blood Count 3.59 10^6/uL (3.85-5.65); Red Cell Distribution Width 13.2 % (12.1-15.1); White Blood Count 5.03 10^3/uL (3.29-11.43)
[2024-03-16 06:16] LABS: Alanine Aminotransferase 20 U/L (0-33); Albumin Level 3.6 g/dL (3.5-5.2); Alkaline Phosphatase 57 U/L (35-105); Blood Urea Nitrogen 12 mg/dL (8-23); Calcium 8.6 mg/dL (8.5-10.5); Carbon Dioxide 34 mmol/L (22-29); Chloride 93 mmol/L (98-107); Creatinine Clr Calc Pharmacy 49.4051; Globulin 2.9 g/dL (1.3-4.6); Glucose 124 mg/dL (65-115); Magnesium 1.6 mg/dL (1.7-2.3); Osmolality Calculated 277 mOsm/kg (285-295); Sodium 133 mmol/L (136-145); Total Bilirubin 0.3 mg/dL (0.15-1.2); Total Protein 6.5 g/dL (6.6-8.7)
[2024-03-16 06:17] LABS: Anion Gap 9.9 (5-19); Potassium 3.9 mmol/L (3.5-5.1)
[2024-03-16 06:18] LABS: Aspartate Amino Transferase 31 U/L (0-32)
[2024-03-16] MEDS: metoprolol tartrate 25 mg Tablet PO ×2 (08:45→17:01)
[2024-03-16] MEDS: sertraline 50 mg Tablet PO (08:45)
[2024-03-16] MEDS: ipratropium-albuterol 3 mL Neb INHALATION ×3 (09:17→19:24)
[2024-03-16] MEDS: budesonide 0.5 mg/2 mL Neb INHALATION ×2 (09:17→19:24)
[2024-03-16] MEDS: dextrose 5%-ns + KCl 20 20 MEQ/1,000 ML BAG 125 MEQ IV ×2 (09:56→23:44)
--- NOTE | 2024-03-16 14:21 | P.PN_ITS ---
Subjective 2 Subjective: Patient seen and examined. She reports she is feeling much better. Has not had a bowel movement yet. Denies any nausea or emesis Vitals/I&O/Wt Last Vital Signs Temp 97.8 F 03/16/24 12:00 Pulse 99 03/16/24 13:51 Resp 18 03/16/24 13:51 BP 179/90 03/16/24 12:00 Pulse Ox 99 03/16/24 13:51 O2 Del Method Nasal Cannula 03/16/24 13:51 O2 Flow Rate 3 03/16/24 13:51 03/15/24 03/16/24 03/16/24 22:59 06:59 14:59 Intake Total 1200 / 2250 1240 / 1240 Output Total 1000 / 1000 1050 / 0 Balance -1000 / 50 150 / 200 1240 / 1240 Weight last 48 hrs Weight 114 lb Weight 119 lb Weight 119 lb Physical Exam 2 Narrative: General: No acute distress, awake alert and oriented x 3 Abdomen: Soft, mildly distended, nontender, no guarding rebound or masses Urinary Catheter Management: [place]: Cath Placed During This Visit: yes Reason for Continuing Indwelling Catheter: Other Urinary Catheter Date of Insertion: 03/15/24 Urinary Catheter Time of Insertion: 10:36 Data 03/16/24 04:54 03/16/24 04:54 A&P Assessment and plan (1) Ileus: (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: (3) 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: (4) Squamous cell carcinoma, esophagus: (5) Therapeutic opioid-induced constipation (OIC): Plan 18 [place] nasogastric tube placed through PEG tube site and put to low remittent wall suction Clear liquids for comfort Await return of bowel function Ativan as needed sleep or anxiety Relistor Aggressive electrolyte replacement No acute surgical intervention Medical management per primary Attestations 2 Medical Necessity Statement*: Per primary Coding Level of Care Code 88803 Diagnoses Ileus K56.7 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
[2024-03-16] MEDS: methylnaltrexone 12 /0.6 mL INJ 12 MG SUBCUT (17:03)
--- NOTE | 2024-03-16 17:12 | P.PN_ITS ---
Subjective 2 Subjective: Patient reports ongoing abdominal pains. Describes them as severe at times. Denies flatus. She had a very small bowel movement this morning. Endorses generalized malaise and fatigue. Denies emesis overnight. Family member and caregiver at bedside and supportive. Medications: Reviewed: Yes Vitals/I&O/Wt Last Vital Signs Temp 97.6 F 03/16/24 16:00 Pulse 101 H 03/16/24 16:00 Resp 18 03/16/24 13:51 BP 190/98 03/16/24 16:00 Pulse Ox 98 03/16/24 16:00 O2 Del Method Room Air, Nasal Cannula 03/16/24 16:00 O2 Flow Rate 3 03/16/24 16:00 03/16/24 03/16/24 03/16/24 06:59 14:59 22:59 Intake Total 1200 / 2250 1240 / 1240 714.583 / 1954.583 Output Total 1050 / 2050 Balance 150 / 200 1240 / 1240 714.583 / 1954.583 Weight last 48 hrs Weight 51.71 kg Weight 53.977 kg Weight 53.977 kg Physical Exam 2 Narrative: General: Patient is awake. Frail but very pleasant. Head: Normocephalic. Atraumatic. EOM intact. Neck: No JVD. Cardiovascular: RRR. No gallops. No murmurs. Lungs: Breath sounds slightly diminished, no use of accessory muscles, no crackles or wheezes. Skin: No jaundice. No rashes. Abdomen: No bowel sounds on auscultation. Slightly tender to palpation in all quadrants. PEG tube to wall suction. Genito Urinary: Urinary catheter present. Extremities: No cyanosis or clubbing. Musculoskeletal: No swollen or erythematous joints. Neurological: Moves all 4 extremities. No myoclonus. Urinary Catheter Management: [place]: Cath Placed During This Visit: yes Reason for Continuing Indwelling Catheter: Other Urinary Catheter Date of Insertion: 03/15/24 Urinary Catheter Time of Insertion: 10:36 Data 03/16/24 04:54 03/16/24 04:54 A&P Assessment and plan (1) Partial small bowel obstruction: Presentation most consistent with ileus Gastric decompression via NG tube through PEG with wall suction Monitor electrolytes General surgery following, appreciate recommendations Continue IV fluids Antiemetics as needed Adjusting analgesics attempt better control Okay with clear liquids for comfort only (2) Hyponatremia: Continue IV fluids Daily labs for now (3) COPD (chronic obstructive pulmonary disease): No wheezing on exam Continue current breathing treatments Monitor for exacerbations Qualifiers: COPD type: emphysema Emphysema type: centrilobular Qualified Code(s): J43.2 - Centrilobular emphysema (4) Hypomagnesemia: Magnesium remains low, IV replacements been ordered Will recheck level in a.m. (5) Squamous cell carcinoma, esophagus: History of esophageal and lung cancer Status post recent radiation with completion around January She does have a PEG tube which were utilizing for GI decompression (6) Bladder distention: Status post [place] catheter placement (7) History of DVT (deep vein thrombosis): Home apixaban has been held Continue with Lovenox Plan DVT prophylaxis: Lovenox CODE STATUS: Full code Attestations 2 Medical Necessity Statement*: Patient requires ongoing hospitalization for bowel rest, gastric decompression, serial labs, IV fluids, IV analgesics, antiemetics, general surgery evaluation, and supportive care. Coding Level of Care Code Acute Code for Chg Fwd Diagnoses Partial small bowel obstruction K56.600 Hyponatremia E87.1 Centrilobular emphysema J43.2 COPD type: emphysema Emphysema type: centrilobular Hypomagnesemia E83.42 Squamous cell carcinoma, esophagus C15.9 Bladder distention N32.89 History of DVT (deep vein thrombosis) Z86.718
[2024-03-16] MEDS: HYDROmorphone 1 mg/mL INJ 1 mL 0.800000000000000044 MG IVP ×3 (17:15→23:33)
[2024-03-16] MEDS: LORazepam 2 mg/mL INJ 10 mL MDV 1 MG IVP (19:54)
[2024-03-16] MEDS: hyDRALAzine 20 mg/mL INJ 1 mL 10 MG IVP (22:01)
[2024-03-16] MEDS: ALPRAZolam 0.5 mg Tablet 0.25 MG PO (23:33)
[2024-03-17] VITALS (13 sets, daily range): BP systolic 161–193; BP diastolic 72–86; PULSE 88–108; RESP 16–20; TEMP 36.6–36.9; O2SAT 91–100
[2024-03-17] MEDS: ipratropium-albuterol 3 mL Neb INHALATION ×3 (01:26→19:41)
[2024-03-17] MEDS: HYDROmorphone 1 mg/mL INJ 1 mL 0.800000000000000044 MG IVP ×3 (05:14→13:11)
[2024-03-17 05:40] LABS: Basophils % 0.2 %; Eosinophils # 0.1 10^3/uL (0.0-0.8); Eosinophils % 0.9 %; Hematocrit 32.9 % (36-47); Lymphocytes % 16.8 %; Mean Corpuscular HGB Conc 32.2 g/dL (30-55); Mean Corpuscular Hemoglobin 30.6 pg (27-33); Mean Corpuscular Volume 95.1 fl (85-98); Mean Platelet Volume 9.5 fL (7.4-10.4); Monocytes # 1.4 10^3/uL (0.2-0.9); Monocytes % 24.4 %; Neutrophils # 3.31 10^3/uL (1.8-7.7); Neutrophils % 57.4 %; Nucleated Red Blood Cells % 0 %; Platelet Count 235 10^3/cmm (157-399); Red Blood Count 3.46 10^6/uL (3.85-5.65); Red Cell Distribution Width 13.2 % (12.1-15.1); White Blood Count 5.77 10^3/uL (3.29-11.43)
[2024-03-17 06:09] LABS: Alanine Aminotransferase 25 U/L (0-33); Albumin Level 3.5 g/dL (3.5-5.2); Alkaline Phosphatase 61 U/L (35-105); Anion Gap 11.5 (5-19); Aspartate Amino Transferase 33 U/L (0-32); Blood Urea Nitrogen 7 mg/dL (8-23); Calcium 8.4 mg/dL (8.5-10.5); Carbon Dioxide 35 mmol/L (22-29); Chloride 89 mmol/L (98-107); Creatinine Clr Calc Pharmacy 49.4051; Globulin 3.1 g/dL (1.3-4.6); Glucose 126 mg/dL (65-115); Magnesium 1.8 mg/dL (1.7-2.3); Osmolality Calculated 274 mOsm/kg (285-295); Phosphorus 2.8 mg/dL (2.5-4.5); Potassium 3.5 mmol/L (3.5-5.1); Sodium 132 mmol/L (136-145); Total Bilirubin 0.4 mg/dL (0.15-1.2); Total Protein 6.6 g/dL (6.6-8.7)
[2024-03-17] MEDS: budesonide 0.5 mg/2 mL Neb INHALATION ×2 (08:14→19:41)
[2024-03-17] MEDS: sertraline 50 mg Tablet PO (08:37)
[2024-03-17] MEDS: dextrose 5%-ns + KCl 20 20 MEQ/1,000 ML BAG 125 MEQ IV ×2 (08:37→17:28)
[2024-03-17] MEDS: metoprolol tartrate 25 mg Tablet PO ×2 (08:37→17:28)
[2024-03-17] MEDS: LORazepam 2 mg/mL INJ 10 mL MDV 1 MG IVP (10:19)
[2024-03-17] MEDS: enoxaparin 60 mg/0.6 mL Syringe 50 MG SUBCUT (11:56)
[2024-03-17] MEDS: pantoprazole 40 mg SDV IVP (12:31)
--- NOTE | 2024-03-17 13:12 | P.PN_ITS ---
Subjective 2 Subjective: Patient seen and examined. Still no bowel movement. No nausea on suction Vitals/I&O/Wt Last Vital Signs Temp 98.2 F 03/22/24 11:30 Pulse 95 03/22/24 11:30 Resp 17 03/22/24 11:30 BP 137/75 03/22/24 11:30 Pulse Ox 95 03/22/24 11:30 O2 Del Method Nasal Cannula 03/22/24 11:30 O2 Flow Rate 2 03/22/24 07:37 03/21/24 03/22/24 03/22/24 22:59 06:59 14:59 Intake Total 1110 / 1110 100 / 1210 320 / 320 Output Total 1200 / 1200 550 / 1750 Balance -90 / -90 -450 / -540 320 / 320 Weight last 48 hrs Weight 119 lb 14.4 oz Weight 122 lb 8 oz Physical Exam 2 Narrative: General: No acute distress, awake alert and oriented x 3 Abdomen: Soft, mildly distended, nontender, no guarding rebound or masses Urinary Catheter Management: [place]: Cath Placed During This Visit: yes Reason for Continuing Indwelling Catheter: Accurate Measurement of Urinary Output in Critically Ill Patients Urinary Catheter Date of Insertion: 03/15/24 Urinary Catheter Time of Insertion: 10:36 Data 03/22/24 04:10 03/22/24 05:52 A&P Assessment and plan (1) Ileus: (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: (3) 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: (4) Squamous cell carcinoma, esophagus: (5) Therapeutic opioid-induced constipation (OIC): Plan 18 [place] nasogastric tube placed through PEG tube site and put to low remittent wall suction Clear liquids for comfort Await return of bowel function Ativan as needed sleep or anxiety Relistor Aggressive electrolyte replacement No acute surgical intervention Medical management per primary Attestations 2 Medical Necessity Statement*: Per primary Coding Level of Care Code 44824 Diagnoses Ileus K56.7 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
[2024-03-17] MEDS: HYDROmorphone 1 mg/mL INJ 1 mL 1.19999999999999996 MG IVP ×3 (16:16→22:31)
--- NOTE | 2024-03-17 16:28 | P.PN_ITS ---
Subjective 2 Subjective: Patient reports overall she feels terrible. She continues to have nausea and abdominal pains. She reports she was able to get out of bed walk in the [place] a little bit. Denies fevers or chills. A different caregivers bedside today, reports some light flatus. No additional bowel movements. Medications: Reviewed: Yes Vitals/I&O/Wt Last Vital Signs Temp 98.0 F 03/17/24 15:47 Pulse 97 03/17/24 15:47 Resp 20 H 03/17/24 15:47 BP 176/84 03/17/24 15:47 Pulse Ox 91 03/17/24 15:47 O2 Del Method Nasal Cannula 03/17/24 15:47 O2 Flow Rate 3 03/17/24 08:14 03/17/24 03/17/24 03/17/24 06:59 14:59 22:59 Intake Total 1000 / 1000 Output Total 2000 / 2000 Balance 1000 / 1000 -2000 / -1000 Weight last 48 hrs Weight 51.71 kg Weight 51.71 kg Physical Exam 2 Narrative: General: Patient is awake. Frail appearing. Appears fatigued. Head: Normocephalic. Atraumatic. EOM intact. Neck: No JVD. Cardiovascular: RRR. No gallops. No murmurs. Lungs: Breath sounds slightly diminished, no use of accessory muscles, no crackles or wheezes. Skin: No jaundice. No rashes. Abdomen: Hypoactive bowel sounds are present. Slightly tender to palpation in all quadrants. PEG tube to wall suction with bilious output. Genito Urinary: Urinary catheter. Extremities: No cyanosis or clubbing. Left hand swelling with bruising. Musculoskeletal: No swollen or erythematous joints. Neurological: Moves all 4 extremities. No myoclonus. Urinary Catheter Management: [place]: Cath Placed During This Visit: yes Reason for Continuing Indwelling Catheter: Acute Urinary Retention or Obstruction Urinary Catheter Date of Insertion: 03/15/24 Urinary Catheter Time of Insertion: 10:36 Data 03/17/24 05:11 03/17/24 05:11 A&P Assessment and plan (1) Partial small bowel obstruction: Presentation consistent with ileus Gastric decompression via NG tube through PEG with wall suction Monitor electrolytes closely, correct as needed General surgery following, appreciate recommendations Okay with clear liquids for comfort only per general surgery Continue IV fluids Antiemetics as needed Continue home fentanyl patches IV hydromorphone dose adjusted (2) Hyponatremia: Continue IV fluids Daily labs (3) COPD (chronic obstructive pulmonary disease): No wheezing on exam Continue current breathing treatments Monitor for exacerbations Qualifiers: COPD type: emphysema Emphysema type: centrilobular Qualified Code(s): J43.2 - Centrilobular emphysema (4) Hypomagnesemia: Check magnesium level daily until ileus resolves (5) Squamous cell carcinoma, esophagus: History of esophageal and lung cancer Status post recent radiation with completion around January She does have a PEG tube which were utilizing for GI decompression (6) Bladder distention: Status post [place] catheter placement (7) History of DVT (deep vein thrombosis): Home apixaban has been held Continue with Lovenox Plan DVT prophylaxis: Lovenox CODE STATUS: Full code Attestations 2 Medical Necessity Statement*: Patient requires ongoing hospitalization for ongoing gastric decompression, serial labs, IV fluids, IV analgesics, antiemetics, general surgery support, and supportive care. Coding Level of Care Code Acute Code for Chg Fwd Diagnoses Partial small bowel obstruction K56.600 Hyponatremia E87.1 Centrilobular emphysema J43.2 COPD type: emphysema Emphysema type: centrilobular Hypomagnesemia E83.42 Squamous cell carcinoma, esophagus C15.9 Bladder distention N32.89 History of DVT (deep vein thrombosis) Z86.718
[2024-03-17] MEDS: LORazepam 2 mg/mL INJ 10 mL MDV 0.5 MG IVP (22:04)
[2024-03-18] VITALS (50 sets, daily range): BP systolic 164–202; BP diastolic 67–81; PULSE 88–116; RESP 14–19; TEMP 36.3–36.8; O2SAT 94–99
[2024-03-18] MEDS: enoxaparin 60 mg/0.6 mL Syringe 50 MG SUBCUT ×3 (01:26→22:42)
[2024-03-18] MEDS: pantoprazole 40 mg SDV IVP ×2 (01:26→11:17)
[2024-03-18] MEDS: dextrose 5%-ns + KCl 20 20 MEQ/1,000 ML BAG 125 MEQ IV ×2 (01:27→11:16)
[2024-03-18] MEDS: HYDROmorphone 1 mg/mL INJ 1 mL 1.19999999999999996 MG IVP ×4 (01:30→11:28)
[2024-03-18 03:55] LABS: Basophils % 0.2 %; Eosinophils % 0.3 %; Hematocrit 35.1 % (36-47); Lymphocytes # 0.7 10^3/uL (0.8-4.8); Lymphocytes % 12.2 %; Mean Corpuscular HGB Conc 30.5 g/dL (30-55); Mean Corpuscular Volume 98.3 fl (85-98); Mean Platelet Volume 10.1 fL (7.4-10.4); Monocytes # 1.4 10^3/uL (0.2-0.9); Monocytes % 24.8 %; Neutrophils # 3.56 10^3/uL (1.8-7.7); Neutrophils % 62.2 %; Nucleated Red Blood Cells % 0 %; Platelet Count 212 10^3/cmm (157-399); Red Blood Count 3.57 10^6/uL (3.85-5.65); Red Cell Distribution Width 12.9 % (12.1-15.1); White Blood Count 5.73 10^3/uL (3.29-11.43)
[2024-03-18 04:26] LABS: Alanine Aminotransferase 27 U/L (0-33); Albumin Level 3.6 g/dL (3.5-5.2); Alkaline Phosphatase 62 U/L (35-105); Blood Urea Nitrogen 6 mg/dL (8-23); Calcium 8.5 mg/dL (8.5-10.5); Carbon Dioxide 29 mmol/L (22-29); Chloride 91 mmol/L (98-107); Creatinine Clr Calc Pharmacy 49.4051; Globulin 3.1 g/dL (1.3-4.6); Glucose 128 mg/dL (65-115); Magnesium 1.4 mg/dL (1.7-2.3); Osmolality Calculated 271 mOsm/kg (285-295); Phosphorus 2.9 mg/dL (2.5-4.5); Sodium 131 mmol/L (136-145); Total Bilirubin 0.6 mg/dL (0.15-1.2); Total Protein 6.7 g/dL (6.6-8.7)
[2024-03-18 04:27] LABS: Anion Gap 14.9 (5-19); Aspartate Amino Transferase 35 U/L (0-32); Potassium 3.9 mmol/L (3.5-5.1)
[2024-03-18] MEDS: ipratropium-albuterol 3 mL Neb INHALATION (08:16)
[2024-03-18] MEDS: budesonide 0.5 mg/2 mL Neb INHALATION (08:16)
[2024-03-18] MEDS: amlodipine 10 mg Tablet PO (09:21)
[2024-03-18] MEDS: metoprolol tartrate 25 mg Tablet PO ×2 (09:21→17:35)
[2024-03-18] MEDS: sertraline 50 mg Tablet PO (09:21)
[2024-03-18] MEDS: NON-FORMULARY MEDICATION (Hydroxyzine Hcl 10 mg tablet) 10 EACH PO ×2 (09:22→15:09)
[2024-03-18] MEDS: magnesium sulfate premix 2 GM/50 ML PIGGYBACK IV (11:13)
[2024-03-18] MEDS: lidocaine 1% 5 ML in potassium chloride premix 100 ML 25 ML IV (11:15)
[2024-03-18] MEDS: hyDRALAzine 20 mg/mL INJ 1 mL 10 MG IVP (11:27)
--- NOTE | 2024-03-18 12:29 | P.PN_ITS ---
Subjective 2 Subjective: This morning patient was drowsy Will be redirectable NG tube has been clamped PEG tube in place Patient is complaining of pain hurting all over Had a detailed discussion with her daughter who is at the bedside stating that she gets 3 fentanyl patches 25, 12 and 12 and then a location today, she was questioning whether Dilaudid is needed I can de-escalate her Dilaudid to hydrocodone at this time Vitals/I&O/Wt Last Vital Signs Temp 97.5 F L 03/18/24 11:36 Pulse 91 03/18/24 11:36 Resp 16 03/18/24 11:36 BP 186/67 03/18/24 12:21 Pulse Ox 97 03/18/24 11:36 O2 Del Method Nasal Cannula 03/18/24 11:36 O2 Flow Rate 3 03/18/24 08:10 03/17/24 03/18/24 03/18/24 22:59 06:59 14:59 Intake Total 1060 / 2060 997.917 / 3057.917 1120 / 1120 Output Total 2000 / 1999 1000 / 3000 1100 / 1100 Balance -940 / 60 -2.083 / 57.917 20 / 20 Weight last 48 hrs Weight 58.173 kg Weight 51.71 kg Physical Exam 2 Narrative: Cachectic, malnourished Verbal redirectable Drowsy Hemodynamically stable NG has been clamped PEG tube in place Lower extremity significant muscle mass loss Sarcopenia Family is at the bedside S1, S2 Currently on 2 L nasal cannula Hypertensive Urinary Catheter Management: [place]: Cath Placed During This Visit: yes Reason for Continuing Indwelling Catheter: Other Urinary Catheter Date of Insertion: 03/15/24 Urinary Catheter Time of Insertion: 10:36 Data 03/18/24 02:24 03/18/24 02:24 A&P Assessment and plan (1) Dysphagia: (2) Ileus: (3) Adult failure to thrive: (4) Generalized anxiety disorder with panic attacks: (5) Depression with anxiety: (6) senior living prescription opiate use: (7) Essential hypertension: (8) History of DVT (deep vein thrombosis): (9) Hypomagnesemia: (10) Hyponatremia: (11) Squamous cell carcinoma, esophagus: (12) 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: (13) Chronic back pain: (14) Pressure injury of thoracic region of back: (15) Compressed spine fracture: (16) COPD (chronic obstructive pulmonary disease): Qualifiers: COPD type: emphysema Emphysema type: centrilobular Qualified Code(s): J43.2 - Centrilobular emphysema Plan Ileus: Opioid-induced versus electrolyte abnormality Hypomagnesemia hypokalemia: Replenished NG tube has been clamped Continue clear liquid diet Once we notice active bowel movement will start PEG tube feeding NG tube has been clamped Active bowel sounds Will repeat KUB today Patient is getting 1.5 Natan, cans 4 times a day Continue IV fluids Hyponatremia related to poor p.o. intake In the past she has required urea tablets as well she has required hypertonic saline in the past as well Change dextrose IV fluids to normal saline with Accu-Cheks every 4 hours Opiate dependent Uses fentanyl 25 then 12 and 12 then medication off day I will de-escalate Dilaudid to hydrocodone Failure to thrive, cachectic, malnourished sarcopenia Full code We discussed guarded prognosis and what other markers of poor prognosis and when hospice should be considered, Daughter at the bedside Full code Attestations 2 Medical Necessity Statement*: Continue medical management Diagnoses Dysphagia R13.10 Ileus K56.7 Adult failure to thrive R62.7 Generalized anxiety disorder with panic attacks F41.1; F41.0 Depression with anxiety F41.8 senior living prescription opiate use Z79.891 Essential hypertension I10 History of DVT (deep vein thrombosis) Z86.718 Hypomagnesemia E83.42 Hyponatremia E87.1 Squamous cell carcinoma, esophagus C15.9 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
--- NOTE | 2024-03-18 12:29 | XRR_ITS ---
PROCEDURE INFORMATION: Exam: XR Abdomen Exam date and time: 03/18/2024 1:05 PM Age: 78 years old Clinical indication: Other: Ileus TECHNIQUE: Imaging protocol: Radiologic exam of the abdomen. Views: Frontal supine view of the abdomen. 1 View. COMPARISON: CT abdomen pelvis con [id number] 03/15/2024 7:58 AM FINDINGS: Tubes, catheters and devices: Gastrostomy tube in the left upper quadrant. Gastrointestinal tract: Gas within dilated loops of small bowel, I cannot evaluate for gas fluid levels, no erect image was obtained. Bones/joints: Unremarkable. XR/XR KUB portable [id number] IMPRESSION: Dilated small bowel loops.
--- NOTE | 2024-03-18 14:15 | P.PN_ITS ---
Subjective 2 Subjective: Patient seen and examined. Still no bowel movement. Still having some abdominal pain Vitals/I&O/Wt Last Vital Signs Temp 98.2 F 03/22/24 11:30 Pulse 95 03/22/24 11:30 Resp 17 03/22/24 11:30 BP 137/75 03/22/24 11:30 Pulse Ox 95 03/22/24 11:30 O2 Del Method Nasal Cannula 03/22/24 11:30 O2 Flow Rate 2 03/22/24 07:37 03/21/24 03/22/24 03/22/24 22:59 06:59 14:59 Intake Total 1110 / 1110 100 / 1210 320 / 320 Output Total 1200 / 1200 550 / 1750 Balance -90 / -90 -450 / -540 320 / 320 Weight last 48 hrs Weight 119 lb 14.4 oz Weight 122 lb 8 oz Physical Exam 2 Narrative: General: No acute distress, awake alert and oriented x 3 Abdomen: Soft, mildly distended, nontender, no guarding rebound or masses Urinary Catheter Management: [place]: Cath Placed During This Visit: yes Reason for Continuing Indwelling Catheter: Accurate Measurement of Urinary Output in Critically Ill Patients Urinary Catheter Date of Insertion: 03/15/24 Urinary Catheter Time of Insertion: 10:36 Data 03/22/24 04:10 03/22/24 05:52 A&P Assessment and plan (1) Ileus: (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: (3) 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: (4) Squamous cell carcinoma, esophagus: (5) Therapeutic opioid-induced constipation (OIC): Plan Clamp NG tube Clear liquids for comfort Await return of bowel function Ativan as needed sleep or anxiety Relistor Aggressive electrolyte replacement No acute surgical intervention Medical management per primary Attestations 2 Medical Necessity Statement*: Per primary Coding Level of Care Code 09353 Diagnoses Ileus K56.7 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
[2024-03-18] MEDS: fentaNYL 25 mcg Patch 1 PATCH TRANSDERMA (14:53)
[2024-03-18] MEDS: fentaNYL 12 mcg Patch 1 PATCH TRANSDERMA (14:54)
[2024-03-18] MEDS: sodium chloride 0.9% 1,000 ML 30 ML IV (14:54)
[2024-03-18] MEDS: urea 15 gm Powder 10 GM PO (14:54)
--- NOTE | 2024-03-18 15:32 | PC.SOCIAL ---
IMM Update IMM updated, copy given to patient and placed in chart.
[2024-03-18 16:47] LABS: Glucose Point of Care 121 mg/dL (70-110)
[2024-03-18] MEDS: HYDROcodone-acetaminophen 5-325 mg Tablet 1 TAB PO ×2 (17:35→22:38)
[2024-03-18] MEDS: acetaminophen 325 mg Tablet 650 MG PO (20:19)
[2024-03-18 20:42] LABS: Glucose Point of Care 127 mg/dL (70-110)
[2024-03-19] VITALS (11 sets, daily range): BP systolic 108–180; BP diastolic 54–102; PULSE 84–99; RESP 14–18; TEMP 36.2–36.6; O2SAT 93–97
[2024-03-19 00:07] LABS: Glucose Point of Care 111 mg/dL (70-110)
[2024-03-19] MEDS: pantoprazole 40 mg SDV IVP ×2 (00:07→13:32)
[2024-03-19] MEDS: HYDROcodone-acetaminophen 5-325 mg Tablet 1 TAB PO ×3 (02:23→11:17)
[2024-03-19 04:11] LABS: Basophils % 0.2 %; Eosinophils % 0.4 %; Hematocrit 32.9 % (36-47); Lymphocytes % 18.5 %; Mean Corpuscular HGB Conc 32.2 g/dL (30-55); Mean Corpuscular Hemoglobin 29.7 pg (27-33); Mean Corpuscular Volume 92.2 fl (85-98); Mean Platelet Volume 9.5 fL (7.4-10.4); Monocytes # 1.1 10^3/uL (0.2-0.9); Monocytes % 20.7 %; Neutrophils # 3.29 10^3/uL (1.8-7.7); Neutrophils % 59.7 %; Nucleated Red Blood Cells % 0 %; Platelet Count 234 10^3/cmm (157-399); Red Blood Count 3.57 10^6/uL (3.85-5.65); Red Cell Distribution Width 12.7 % (12.1-15.1); White Blood Count 5.51 10^3/uL (3.29-11.43)
[2024-03-19 04:38] LABS: Glucose Point of Care 97 mg/dL (70-110)
[2024-03-19 04:38] LABS: Anion Gap 14.9 (5-19); Blood Urea Nitrogen 6 mg/dL (8-23); Calcium 8.5 mg/dL (8.5-10.5); Carbon Dioxide 34 mmol/L (22-29); Chloride 81 mmol/L (98-107); Glucose 93 mg/dL (65-115); Osmolality Calculated 261 mOsm/kg (285-295); Sodium 127 mmol/L (136-145)
[2024-03-19 05:01] LABS: Creatinine Clr Calc Pharmacy 49.4213; Potassium 2.9 mmol/L (3.5-5.1)
--- NOTE | 2024-03-19 07:59 | PC.NURSE ---
Physician orders to replace potassium with 40 MEQ and 20 MEQ oral.
[2024-03-19] MEDS: budesonide 0.5 mg/2 mL Neb INHALATION ×2 (08:13→20:05)
[2024-03-19] MEDS: ipratropium-albuterol 3 mL Neb INHALATION (08:13)
[2024-03-19] MEDS: sodium chloride 1 gm Tablet PO ×3 (08:35→19:59)
[2024-03-19] MEDS: metoprolol tartrate 25 mg Tablet PO ×2 (08:36→19:59)
[2024-03-19] MEDS: NON-FORMULARY MEDICATION (Linaclotide [Linzess] 290 mcg capsule) 290 EACH PO (08:37)
[2024-03-19] MEDS: potassium chloride oral liq 20 mEq/15 mL UDC PO (08:37)
[2024-03-19] MEDS: sertraline 50 mg Tablet PO (08:37)
[2024-03-19] MEDS: potassium chloride oral liq 20 mEq/15 mL UDC 40 MEQ PO (08:37)
--- NOTE | 2024-03-19 09:13 | XRR_ITS ---
PROCEDURE INFORMATION: Exam: XR Complete Acute Abdomen Series Including Chest Exam date and time: 03/19/2024 9:25 AM Age: 78 years old Clinical indication: Condition or disease; Other: --ileus; Additional info: Ileus vs sbo TECHNIQUE: Imaging protocol: Radiologic exam. Complete acute abdomen series, including 2 or more views of the abdomen and a single view chest. COMPARISON: 1. CR XR KUB portable [id number] 03/18/2024 1:05 PM 2. PT PET skull to thigh INIT [id number] 11/28/2023 10:41 AM FINDINGS: Lungs: Redemonstrated left pleural-based measuring approximately 3.4 cm, likely increased in size from prior PET-CT. No consolidation. Pleural spaces: Normal. No pleural effusions. No pneumothorax. Heart/Mediastinum: Normal. No cardiomegaly. Gastrointestinal tract: Gaseous distension of bowel loops in the abdomen and pelvis. Intraperitoneal space: Unchanged position of left upper quadrant drain. Bones/joints: Normal. No acute fracture. Soft tissues: Normal. Other findings: XR/XR acute abdomen series [id number] IMPRESSION: 1. Gaseous distension of bowel loops in the abdomen and pelvis, not significantly changed from prior. 2. Redemonstrated left pleural-based measuring approximately 3.4 cm, likely increased in size from prior PET-CT.
--- NOTE | 2024-03-19 11:09 | P.PN_ITS ---
Subjective 2 Subjective: Patient hyponatremic Currently on urea and salt tablets D5 fluids discontinued yesterday Still no bowel movement Requested abdominal and chest x-ray series Which is showing similar bowel distention without significant improvement Daughter at the bedside claiming and endorsing that she probably heard from the nursing staff yesterday that her mother passed flatus But patient herself is not endorsing any She is still getting IV fluids, on clear liquid diet which she is not drinking very much secondary to poor appetite Patient is asking me to advance her opioids to oxycodone however I am still reluctant to increase potency of opioids from hydrocodone to oxycodone Daughter is in agreement with hydrocodone for now Vitals/I&O/Wt Last Vital Signs Temp 97.4 F L 03/19/24 08:00 Pulse 97 03/19/24 08:14 Resp 16 03/19/24 08:14 BP 180/102 03/19/24 08:00 Pulse Ox 96 03/19/24 08:14 O2 Del Method Nasal Cannula 03/19/24 08:14 O2 Flow Rate 3 03/19/24 08:14 03/18/24 03/19/24 03/19/24 22:59 06:59 14:59 Intake Total 1275 / 2395 50 / 50 Output Total 1750 / 2850 400 / 3250 Balance -475 / -455 -400 / -855 50 / 50 Weight last 48 hrs Weight 51.755 kg Weight 58.173 kg Physical Exam 2 Narrative: Patient clinically looks dehydrated Awake and alert this morning Complaining of pain hurting all over Nonfocal neuroexam Sarcopenia Hypertensive Currently on 3 L Abdomen soft PEG tube in place Bowel sound present but sluggish today Urinary Catheter Management: [place]: Cath Placed During This Visit: yes Reason for Continuing Indwelling Catheter: Accurate Measurement of Urinary Output in Critically Ill Patients Urinary Catheter Date of Insertion: 03/15/24 Urinary Catheter Time of Insertion: 10:36 Data 03/19/24 03:19 03/19/24 03:19 A&P Assessment and plan (1) Generalized anxiety disorder with panic attacks: (2) Depression with anxiety: (3) Essential hypertension: (4) Adult failure to thrive: (5) Hyponatremia: (6) Ileus: (7) Therapeutic opioid-induced constipation (OIC): (8) Hypomagnesemia: (9) Squamous cell carcinoma, esophagus: (10) 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: (11) Chronic back pain: (12) Pressure injury of thoracic region of back: (13) Compressed spine fracture: (14) COPD (chronic obstructive pulmonary disease): Qualifiers: COPD type: emphysema Emphysema type: centrilobular Qualified Code(s): J43.2 - Centrilobular emphysema (15) Insomnia: Plan Acute on chronic hyponatremia I have discontinued D5 IV fluids Currently on normal saline added urea tablets along salt tablets Chronic history of hyponatremia Could be opioid induced SIADH Ileus: No significant improvement Patient has received Relistor Currently on clear liquid diet No plan to advance her diet through feeding tube as of now Will touch with Dr. Stauffer, who has requested chest abdominal x-ray today Opiate dependent Continue fentanyl patch I have used hydrocodone which seems to be working better patient is not drowsy today Patient keeps asking me to increase her opioid potency Hypertensive urgency: Adjust antihypertensive regimen Currently on therapeutic Lovenox History of PE, Eliquis is on hold 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
[2024-03-19] MEDS: enoxaparin 60 mg/0.6 mL Syringe 50 MG SUBCUT (11:17)
--- NOTE | 2024-03-19 11:56 | XR_ITS ---
WS: [id number] PORTABLE CHEST HISTORY: PICC PLACEMENT COMPARISON: 03/19/2024 Right-sided PICC line in good position with tip towards the mid SVC. No change in the nodule RIGHT upper lobe. The LEFT upper lobe mass is not identified on today's exam. Probably due to imaging technique. No pleural effusion or pneumothorax. Cardiac size: Normal. Mediastinum/Aorta: Mild atherosclerosis aorta. No osseous abnormality seen. XR/XR chest 1V portable [id number] IMPRESSION: 1. Satisfactory position right-sided PICC line.
[2024-03-19 12:18] LABS: Glucose Point of Care 170 mg/dL (70-110)
--- NOTE | 2024-03-19 13:16 | PM.PN ---
Subjective Subjective: Patient seen and examined. Still no bowel movement but tolerating clear liquids Vitals/I&O/Wt Last Vital Signs Temp 98.2 F 03/22/24 11:30 Pulse 95 03/22/24 11:30 Resp 17 03/22/24 11:30 BP 137/75 03/22/24 11:30 Pulse Ox 95 03/22/24 11:30 O2 Del Method Nasal Cannula 03/22/24 11:30 O2 Flow Rate 2 03/22/24 07:37 03/21/24 03/22/24 03/22/24 22:59 06:59 14:59 Intake Total 1110 / 1110 100 / 1210 320 / 320 Output Total 1200 / 1200 550 / 1750 Balance -90 / -90 -450 / -540 320 / 320 Weight last 48 hrs Weight 119 lb 14.4 oz Weight 122 lb 8 oz Physical Exam Narrative: General: No acute distress, awake alert and oriented x 3 Abdomen: Soft, mildly distended, nontender, no guarding rebound or masses Urinary Catheter Management: [place]: Cath Placed During This Visit: yes Reason for Continuing Indwelling Catheter: Accurate Measurement of Urinary Output in Critically Ill Patients Urinary Catheter Date of Insertion: 03/15/24 Urinary Catheter Time of Insertion: 10:36 Data 03/22/24 04:10 03/22/24 05:52 A&P Assessment and plan (1) Ileus: (2) 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: (3) 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: (4) Squamous cell carcinoma, esophagus: (5) Therapeutic opioid-induced constipation (OIC): Plan Clamp NG tube Clear liquids for comfort Small bowel follow-through tomorrow if no return of bowel function Await return of bowel function Ativan as needed sleep or anxiety Relistor Aggressive electrolyte replacement No acute surgical intervention Medical management per primary Attestations Medical Necessity Statement*: Per primary Coding Level of Care Code 76818 Diagnoses Ileus K56.7 long-term prescription 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
--- NOTE | 2024-03-19 13:54 | PICC.NOTE ---
5Fr Dual lumen PICC placed to rt brachial vein. Referred to vascular access nurse for PICC placement due to poor peripheral access. Risks and benefits discussed and informed consent obtained. Rt arm assessed with brachial vein straight, and apparent best choice for placement. Using sterile technique and MST, Brachial vein accessed x 1 stick. Mid-arm circumference measured 10 cm from rt AC 21 cm. Trimmed cath 34 cm with 0 cm external length noted. CXR shows tip in mid SVC, in good position for use per radiologist. Line secured with stat-lock. Insertion site covered with Biopatch and TSM. Report given to bedside nurse.
--- NOTE | 2024-03-19 15:06 | USR_ITS ---
PROCEDURE INFORMATION: Exam: US Duplex Left Upper Extremity Veins, Limited Exam date and time: 03/19/2024 4:46 PM Age: 78 years old Clinical indication: Swelling (edema) of limb; Upper extremity, left; Additional info: R/O dvt TECHNIQUE: Imaging protocol: Real-time duplex ultrasound of the left extremity with 2-D mckenzie scale, color Doppler flow and spectral waveform analysis including responses to compression and other maneuvers (when performed) with image documentation. Limited exam focused on the left upper extremity veins. COMPARISON: CT chest wo con [id number] 11/15/2023 1:52 PM FINDINGS: Left deep veins: Unremarkable. Axillary and brachial veins are patent throughout without thrombus. Normal Doppler waveforms. Normal compressibility and/or augmentation response. Visualized internal jugular and subclavian veins are patent. Superficial veins: Unremarkable. Visualized cephalic and basilic veins are patent without thrombus. Soft tissues: Unremarkable. US/[place] [id number] IMPRESSION: No evidence of deep vein thrombosis.
[2024-03-19] MEDS: magnesium citrate Btl 296 mL PO (15:46)
[2024-03-19] MEDS: AA-Dex 5%-20% w/Lytes 1,000 ML with multivitamin inj 10 ML 22 ML IV (16:22)
[2024-03-19] MEDS: ondansetron 2 mg/ML SDV 2 mL 4 MG IVP ×2 (16:23→20:01)
[2024-03-19] MEDS: oxyCODONE-APAP 10-325 mg Tablet 1 TAB PO (16:23)
--- NOTE | 2024-03-19 16:42 | PC.NURSE ---
Manually entered Zofran, Oxycodone, and TPN due to scanner malfunction.
[2024-03-19 17:42] LABS: Glucose Point of Care 135 mg/dL (70-110)
[2024-03-19 18:09] LABS: Anion Gap 13.2 (5-19); Blood Urea Nitrogen 8 mg/dL (8-23); Calcium 8.9 mg/dL (8.5-10.5); Carbon Dioxide 35 mmol/L (22-29); Chloride 83 mmol/L (98-107); Creatinine Clr Calc Pharmacy 49.4213; Glucose 134 mg/dL (65-115); Osmolality Calculated 266 mOsm/kg (285-295); Potassium 3.2 mmol/L (3.5-5.1); Sodium 128 mmol/L (136-145)
[2024-03-19 21:01] LABS: Glucose Point of Care 139 mg/dL (70-110)
[2024-03-19] MEDS: hyDRALAzine 20 mg/mL INJ 1 mL 10 MG IVP (22:16)
[2024-03-19] MEDS: LORazepam 2 mg/mL INJ 1 mL 0.5 MG IVP (22:16)
[2024-03-19] MEDS: sodium chloride 0.9% 1,000 ML 30 ML IV (22:20)
[2024-03-20] VITALS (15 sets, daily range): BP systolic 117–152; BP diastolic 65–79; PULSE 84–108; RESP 12–21; TEMP 36.5–37; O2SAT 94–98
[2024-03-20 00:24] LABS: Glucose Point of Care 116 mg/dL (70-110)
[2024-03-20] MEDS: ondansetron 2 mg/ML SDV 2 mL 4 MG IVP ×4 (04:11→20:55)
[2024-03-20] MEDS: oxyCODONE-APAP 10-325 mg Tablet 1 TAB PO ×5 (04:11→20:55)
[2024-03-20 04:36] LABS: Glucose Point of Care 151 mg/dL (70-110)
[2024-03-20 05:30] LABS: Basophils % 0.2 %; Eosinophils # 0.1 10^3/uL (0.0-0.8); Eosinophils % 1.2 %; Hematocrit 31.6 % (36-47); Lymphocytes # 0.8 10^3/uL (0.8-4.8); Mean Corpuscular HGB Conc 32.9 g/dL (30-55); Mean Corpuscular Hemoglobin 30.4 pg (27-33); Mean Corpuscular Volume 92.4 fl (85-98); Mean Platelet Volume 9.7 fL (7.4-10.4); Monocytes % 19.9 %; Neutrophils # 3.24 10^3/uL (1.8-7.7); Neutrophils % 63.3 %; Nucleated Red Blood Cells % 0 %; Platelet Count 197 10^3/cmm (157-399); Red Blood Count 3.42 10^6/uL (3.85-5.65); Red Cell Distribution Width 12.9 % (12.1-15.1); White Blood Count 5.12 10^3/uL (3.29-11.43)
[2024-03-20 05:52] LABS: Anion Gap 11.8 (5-19); Blood Urea Nitrogen 10 mg/dL (8-23); Calcium 8.4 mg/dL (8.5-10.5); Carbon Dioxide 39 mmol/L (22-29); Chloride 85 mmol/L (98-107); Glucose 127 mg/dL (65-115); Osmolality Calculated 275 mOsm/kg (285-295); Potassium 3.8 mmol/L (3.5-5.1); Sodium 132 mmol/L (136-145)
[2024-03-20 05:53] LABS: Creatinine Clr Calc Pharmacy 49.4213
[2024-03-20] MEDS: NON-FORMULARY MEDICATION (Linaclotide [Linzess] 290 mcg capsule) 290 EACH PO (07:32)
[2024-03-20] MEDS: lanolin oint 7 gm 1 APPLIC TOPICAL (07:33)
[2024-03-20] MEDS: sodium chloride 1 gm Tablet PO ×2 (07:33→18:07)
[2024-03-20] MEDS: metoprolol tartrate 25 mg Tablet PO ×2 (07:33→18:07)
[2024-03-20] MEDS: sertraline 50 mg Tablet PO (07:33)
[2024-03-20] MEDS: budesonide 0.5 mg/2 mL Neb INHALATION (09:48)
[2024-03-20] MEDS: ipratropium-albuterol 3 mL Neb INHALATION (09:48)
--- NOTE | 2024-03-20 11:03 | PC.NURSE ---
Patient's daughter at bedside. Daughter is inquiring about another abdominal xray and possible discharge with [facility]. Informed Dr Gallegos.
--- NOTE | 2024-03-20 11:41 | PC.SOCIAL ---
IMM Updated Updated pt on IMM. No questions voiced. Provided pt a copy. Initialed, dated, & timed a copy & placed in chart.
[2024-03-20] MEDS: pantoprazole 40 mg SDV IVP ×2 (11:51)
[2024-03-20] MEDS: enoxaparin 60 mg/0.6 mL Syringe 50 MG SUBCUT ×2 (11:52)
[2024-03-20 12:05] LABS: Glucose Point of Care 156 mg/dL (70-110)
--- NOTE | 2024-03-20 12:23 | XR_ITS ---
WS: [id number] Exam: XR KUB portable [id number] Date/Time of Exam: 03/20/2024 12:27 PM Reason For Exam: ileus There is mild gaseous distention of both large and small bowel loops most likely representing ileus. No pneumoperitoneum noted. No sign of organ enlargement. Apparent surgical drain tube ending in the u pper LEFT quadrant of the abdomen. Additional leads superimpose the upper abdomen. Bony structures ar e intact. XR/XR KUB portable [id number] IMPRESSION: 1. Mild gaseous distention of both large and small bowel loops most likely repr esenting adynamic ileus. Other findings as indicated above.
--- NOTE | 2024-03-20 12:37 | P.PN_ITS ---
Subjective 2 Subjective: Patient is stating that she had couple of bowel movements with small pellets she was given enema yesterday TPN started yesterday Sodium and potassium improved Patient is stating that current opiate regimen is working and her fever her pain is well-managed today Hemodynamic stable Repeat KUB today No plan to start feeding tube diet as of now Vitals/I&O/Wt Last Vital Signs Temp 98.5 F 03/20/24 11:07 Pulse 90 03/20/24 11:07 Resp 19 H 03/20/24 11:51 BP 152/75 03/20/24 11:07 Pulse Ox 97 03/20/24 11:51 O2 Del Method Nasal Cannula 03/20/24 11:07 O2 Flow Rate 2 03/20/24 09:40 03/19/24 03/20/24 03/20/24 22:59 06:59 14:59 Intake Total 943 / 1068 290.133 / 1358.133 240 / 240 Output Total 350 / 1300 250 / 1550 Balance 593 / -232 40.133 / -191.867 240 / 240 Weight last 48 hrs Weight 54.204 kg Weight 51.755 kg Physical Exam 2 Narrative: Dehydration slightly better Awake and alert Able to communicate Family at bedside GCS 15 Nonfocal neuroexam PEG tube in place Urinary Catheter Management: [place]: Cath Placed During This Visit: yes Reason for Continuing Indwelling Catheter: Acute Urinary Retention or Obstruction Urinary Catheter Date of Insertion: 03/15/24 Urinary Catheter Time of Insertion: 10:36 Data 03/20/24 04:40 03/20/24 04:40 A&P Assessment and plan (1) Generalized anxiety disorder with panic attacks: (2) Depression with anxiety: (3) Essential hypertension: (4) Adult failure to thrive: (5) Hyponatremia: (6) Ileus: (7) Therapeutic opioid-induced constipation (OIC): (8) Hypomagnesemia: (9) Squamous cell carcinoma, esophagus: (10) 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: (11) Chronic back pain: (12) Pressure injury of thoracic region of back: (13) Compressed spine fracture: (14) COPD (chronic obstructive pulmonary disease): Qualifiers: COPD type: emphysema Emphysema type: centrilobular Qualified Code(s): J43.2 - Centrilobular emphysema (15) Insomnia: Plan Acute on chronic hyponatremia Sodium is better today Continue urea tablets and salt tablets Discontinue normal saline IV fluid Ileus: Small bowel movement which could be related to enema Patient endorsing 2 small bowel movement with passage of pellets Opiate dependent Current opioid regimen of oxycodone and fentanyl patch seems to be working better for the patient Hypertensive urgency: Blood pressure slightly better Currently on therapeutic Lovenox History of PE, Eliquis is on hold Left extremity swelling no signs of DVT 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 Jones planning to do some investigation to evaluate for recurrence of cancer Family is deciding to pursue hospice care with [facility] in near future but they are not ready as of now Full code No plan to advance diet as per general surgeon At home Via feeding tube patient gets 1.5 Natan 4 cans a day which are currently on hold Repeat KUB today Plan to discharge her once she is able to tolerate PEG tube feeding Attestations 2 Medical Necessity Statement*: Continue medical management Diagnoses Generalized anxiety disorder with panic attacks F41.1; F41.0 Depression with anxiety F41.8 Essential hypertension I10 Adult failure to thrive R62.7 Hyponatremia E87.1 Ileus K56.7 Therapeutic opioid-induced constipation (OIC) K59.03; T40.2X5A Hypomagnesemia E83.42 Squamous cell carcinoma, esophagus C15.9 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
[2024-03-20] MEDS: AA-Dex 5%-20% w/Lytes 1,000 ML with multivitamin inj 10 ML 42 ML IV (15:47)
[2024-03-20 16:59] LABS: Glucose Point of Care 144 mg/dL (70-110)
[2024-03-20 20:18] LABS: Glucose Point of Care 158 mg/dL (70-110)
[2024-03-20] MEDS: LORazepam 2 mg/mL INJ 10 mL MDV 0.5 MG IVP (21:09)
[2024-03-21] VITALS (19 sets, daily range): BP systolic 125–181; BP diastolic 70–120; PULSE 82–106; RESP 14–24; TEMP 36.3–36.7; O2SAT 89–97; BMI 20.3
[2024-03-21] MEDS: pantoprazole 40 mg SDV IVP ×2 (00:22→11:26)
[2024-03-21] MEDS: oxyCODONE-APAP 10-325 mg Tablet 1 TAB PO ×5 (00:22→21:01)
[2024-03-21] MEDS: enoxaparin 60 mg/0.6 mL Syringe 50 MG SUBCUT ×2 (00:22→11:27)
[2024-03-21] MEDS: acetaminophen 325 mg Tablet 650 MG PO (02:55)
[2024-03-21] MEDS: ondansetron 2 mg/ML SDV 2 mL 4 MG IVP ×4 (02:56→21:01)
[2024-03-21 03:45] LABS: Glucose Point of Care 125 mg/dL (70-110)
[2024-03-21 05:33] LABS: Basophils % 0.2 %; Eosinophils # 0.1 10^3/uL (0.0-0.8); Eosinophils % 1.8 %; Hematocrit 30.9 % (36-47); Lymphocytes # 0.8 10^3/uL (0.8-4.8); Lymphocytes % 14.3 %; Mean Corpuscular HGB Conc 29.8 g/dL (30-55); Mean Corpuscular Hemoglobin 30.1 pg (27-33); Mean Platelet Volume 9.5 fL (7.4-10.4); Monocytes # 1.1 10^3/uL (0.2-0.9); Neutrophils # 3.56 10^3/uL (1.8-7.7); Neutrophils % 64.3 %; Nucleated Red Blood Cells % 0 %; Platelet Count 254 10^3/cmm (157-399); Red Blood Count 3.06 10^6/uL (3.85-5.65); Red Cell Distribution Width 13.1 % (12.1-15.1); White Blood Count 5.53 10^3/uL (3.29-11.43)
[2024-03-21] MEDS: NON-FORMULARY MEDICATION (Linaclotide [Linzess] 290 mcg capsule) 290 EACH PO (07:39)
[2024-03-21] MEDS: sertraline 50 mg Tablet PO (07:40)
[2024-03-21] MEDS: amlodipine 10 mg Tablet PO (07:40)
[2024-03-21] MEDS: sodium chloride 1 gm Tablet PO ×2 (07:40→17:38)
[2024-03-21] MEDS: metoprolol tartrate 25 mg Tablet PO ×2 (07:40→17:39)
[2024-03-21] MEDS: budesonide 0.5 mg/2 mL Neb INHALATION ×2 (08:00→20:00)
[2024-03-21] MEDS: ipratropium-albuterol 3 mL Neb INHALATION (08:00)
[2024-03-21 08:03] LABS: Glucose Point of Care 126 mg/dL (70-110)
[2024-03-21 08:12] LABS: Anion Gap 8.7 (5-19); Blood Urea Nitrogen 10 mg/dL (8-23); Calcium 8.4 mg/dL (8.5-10.5); Carbon Dioxide 40 mmol/L (22-29); Chloride 88 mmol/L (98-107); Creatinine Clr Calc Pharmacy 50.7932; Glucose 135 mg/dL (65-115); Osmolality Calculated 277 mOsm/kg (285-295); Potassium 3.7 mmol/L (3.5-5.1); Sodium 133 mmol/L (136-145)
--- NOTE | 2024-03-21 09:28 | FL_ITS ---
WS: [id number] Exam: [place] small bowel [place] gastro [id number] Date/Time of Exam: 03/21/2024 9:28 AM Reason For Exam: Ileus vs. SBO Fluoroscopy time: minutes # of spot films: Small bowel follow-through was performed by injection of water-soluble contrast through an indwelling G-tube. Opacification of the stomach shows no obvious abnormality. Barium courses through the small bowel wit hout obstruction. There is contrast identified in the RIGHT colon at 2 hours post contrast injection. No sign of small bowel obstruction. No sign of bowel loop displacement or herniation. No contrast ex travasation outside the confines of the bowel. FL/FL small bowel [place] gastro [id number] IMPRESSION: 1. Patent small bowel with contrast identified in the RIGHT colon at [address] contrast injection into the stomach.
--- NOTE | 2024-03-21 10:10 | PC.NURSE ---
Patient required to be NPO for now. Spoke with Dr Gallegos related to pain control. Received telephone order for 0.2mg Dilaudid IVP every 4 hours as needed for severe pain x 2doses only. Will resume oral regimen after abdominal testing and npo status completed.
--- NOTE | 2024-03-21 11:09 | P.PN_ITS ---
Subjective 2 Subjective: Patient was asking if her pain medication doses could be readjusted because she was not able to sleep last night Her pain medication was delayed for about 30 minutes only We are doing abdominal series this morning Patient is currently on TPN Sodium 133 Potassium 3.7 Patient not noticing pressure flatus, no bowel movement in last 24 hours Had discussion with her daughter at the bedside regarding hospice care, she is in agreement, she would like to follow-up with today's GI series then probably make her final decision If anything she would opt for hospice at home Vitals/I&O/Wt Last Vital Signs Temp 97.9 F 03/21/24 07:58 Pulse 100 03/21/24 08:00 Resp 16 03/21/24 08:00 BP 181/120 03/21/24 07:58 Pulse Ox 93 03/21/24 08:00 O2 Del Method Nasal Cannula 03/21/24 08:00 O2 Flow Rate 2 03/21/24 08:00 03/20/24 03/21/24 03/21/24 22:59 06:59 14:59 Intake Total 1138.7 / 1936.2 0 / 0 Output Total 800 / 800 400 / 1200 Balance 338.7 / 1136.2 -400 / 736.2 0 / 0 Weight last 48 hrs Weight 55.565 kg Weight 54.204 kg Physical Exam 2 Narrative: Patient laying supine Complaining of pain however falls asleep while asking for increasing dose of pain medications tachycardic and hypertensive as well Able to respond to my questions Family is at the bedside Currently on TPN at 40, per hour Bowel sounds present but sluggish Nontender abdomen Currently on 2 L nasal cannula Urinary Catheter Management: [place]: Cath Placed During This Visit: yes Reason for Continuing Indwelling Catheter: Accurate Measurement of Urinary Output in Critically Ill Patients Urinary Catheter Date of Insertion: 03/15/24 Urinary Catheter Time of Insertion: 10:36 Data 03/21/24 04:26 03/21/24 07:35 A&P Assessment and plan (1) Generalized anxiety disorder with panic attacks: (2) Depression with anxiety: (3) Essential hypertension: (4) Adult failure to thrive: (5) Hyponatremia: (6) Ileus: (7) Therapeutic opioid-induced constipation (OIC): (8) Hypomagnesemia: (9) Squamous cell carcinoma, esophagus: (10) 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 cannot take p.o. 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 Spoke with the family: They are leaning toward hospice at home but would like to follow-up with GI series today Family is deciding to pursue hospice care with [facility] in near future Full code No plan to advance diet as per general surgeon At home Via feeding tube patient gets 1.5 Natan 4 cans a day which are currently on hold Guarded prognosis Attestations 2 Medical Necessity Statement*: Continue medical management Diagnoses Generalized anxiety disorder with panic attacks F41.1; F41.0 Depression with anxiety F41.8 Essential hypertension I10 Adult failure to thrive R62.7 Hyponatremia E87.1 Ileus K56.7 Therapeutic opioid-induced constipation (OIC) K59.03; T40.2X5A Hypomagnesemia E83.42 Squamous cell carcinoma, esophagus C15.9 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
[2024-03-21] MEDS: HYDROmorphone 1 mg/mL INJ 1 mL 0.200000000000000011 MG IVP ×2 (11:23→14:58)
[2024-03-21 12:33] LABS: Glucose Point of Care 164 mg/dL (70-110)
[2024-03-21] MEDS: diatrizoate meglumine 120 mL Sol PO (13:41)
[2024-03-21] MEDS: fentaNYL 25 mcg Patch 1 PATCH TRANSDERMA (14:06)
[2024-03-21] MEDS: fentaNYL 12 mcg Patch 1 PATCH TRANSDERMA (14:07)
--- NOTE | 2024-03-21 14:11 | P.PN_ITS ---
Subjective 2 Subjective: Patient seen and examined. Still no bowel movement. Tolerating liquid diet. Vitals/I&O/Wt Last Vital Signs Temp 97.9 F 03/21/24 07:58 Pulse 90 03/21/24 12:00 Resp 15 03/21/24 12:00 BP 152/72 03/21/24 12:00 Pulse Ox 97 03/21/24 12:00 O2 Del Method Nasal Cannula 03/21/24 12:00 O2 Flow Rate 2 03/21/24 08:00 03/20/24 03/21/24 03/21/24 22:59 06:59 14:59 Intake Total 1138.7 / 1936.2 0 / 0 Output Total 800 / 800 400 / 1200 Balance 338.7 / 1136.2 -400 / 736.2 0 / 0 Weight last 48 hrs Weight 122 lb 8 oz Weight 119 lb 8 oz Physical Exam 2 Narrative: General: No acute distress, awake alert and oriented x 3 Abdomen: Soft, mildly distended, nontender, no guarding rebound or masses Urinary Catheter Management: [place]: Cath Placed During This Visit: yes Reason for Continuing Indwelling Catheter: Accurate Measurement of Urinary Output in Critically Ill Patients Urinary Catheter Date of Insertion: 03/15/24 Urinary Catheter Time of Insertion: 10:36 Data 03/22/24 04:10 03/22/24 05:52 A&P Assessment and plan (1) Ileus: (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: (3) 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: (4) Squamous cell carcinoma, esophagus: (5) Therapeutic opioid-induced constipation (OIC): Plan Small bowel follow-through Await return of bowel function Ativan as needed sleep or anxiety Relistor Aggressive electrolyte replacement No acute surgical intervention Medical management per primary Attestations 2 Medical Necessity Statement*: Per primary Coding Level of Care Code 05747 Diagnoses Ileus K56.7 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
[2024-03-21] MEDS: AA-Dex 5%-20% w/Lytes 1,000 ML with multivitamin inj 10 ML 42 ML IV (15:24)
--- NOTE | 2024-03-21 15:59 | PC.NURSE ---
Tube feeding initiated as recommended. TPN will continue for now per Dr Gallegos. Instructed patient on both tube feed and TPN. Patient verbalized understanding. Patient did produce small liquid brown bowel movement.
[2024-03-21 17:05] LABS: Glucose Point of Care 144 mg/dL (70-110)
[2024-03-21] MEDS: NON-FORMULARY MEDICATION (Hydroxyzine Hcl 10 mg tablet) 10 EACH PO (17:38)
[2024-03-21] MEDS: LORazepam 2 mg/mL INJ 10 mL MDV 0.5 MG IVP (21:01)
[2024-03-21 21:56] LABS: Glucose Point of Care 131 mg/dL (70-110)
[2024-03-22] VITALS (15 sets, daily range): BP systolic 127–173; BP diastolic 65–106; PULSE 68–106; RESP 13–20; TEMP 36.6–36.8; O2SAT 91–99
[2024-03-22] MEDS: enoxaparin 60 mg/0.6 mL Syringe 50 MG SUBCUT ×2 (00:45→13:17)
[2024-03-22] MEDS: oxyCODONE-APAP 10-325 mg Tablet 1 TAB PO ×5 (00:46→18:26)
[2024-03-22] MEDS: pantoprazole 40 mg SDV IVP ×2 (00:47→13:17)
[2024-03-22 01:42] LABS: Glucose Point of Care 146 mg/dL (70-110)
[2024-03-22 05:02] LABS: Basophils % 0.4 %; Eosinophils # 0.1 10^3/uL (0.0-0.8); Eosinophils % 2.1 %; Hematocrit 29.7 % (36-47); Lymphocytes # 0.9 10^3/uL (0.8-4.8); Lymphocytes % 16.8 %; Mean Corpuscular HGB Conc 31.3 g/dL (30-55); Mean Corpuscular Hemoglobin 29.9 pg (27-33); Mean Corpuscular Volume 95.5 fl (85-98); Mean Platelet Volume 9.4 fL (7.4-10.4); Monocytes # 0.9 10^3/uL (0.2-0.9); Monocytes % 17.8 %; Neutrophils # 3.32 10^3/uL (1.8-7.7); Neutrophils % 62.7 %; Nucleated Red Blood Cells % 0 %; Platelet Count 280 10^3/cmm (157-399); Red Blood Count 3.11 10^6/uL (3.85-5.65); Red Cell Distribution Width 12.8 % (12.1-15.1); White Blood Count 5.29 10^3/uL (3.29-11.43)
[2024-03-22 06:10] LABS: Glucose Point of Care 138 mg/dL (70-110)
[2024-03-22 06:33] LABS: Anion Gap 10.9 (5-19); Blood Urea Nitrogen 12 mg/dL (8-23); Calcium 8.9 mg/dL (8.5-10.5); Carbon Dioxide 39 mmol/L (22-29); Chloride 86 mmol/L (98-107); Glucose 121 mg/dL (65-115); Osmolality Calculated 275 mOsm/kg (285-295); Potassium 3.9 mmol/L (3.5-5.1); Sodium 132 mmol/L (136-145)
[2024-03-22 06:40] LABS: Creatinine Clr Calc Pharmacy 50.7932
[2024-03-22] MEDS: ipratropium-albuterol 3 mL Neb INHALATION (07:37)
[2024-03-22] MEDS: budesonide 0.5 mg/2 mL Neb INHALATION (07:37)
[2024-03-22 07:39] LABS: Glucose Point of Care 145 mg/dL (70-110)
[2024-03-22] MEDS: amlodipine 10 mg Tablet PO (08:23)
[2024-03-22] MEDS: metoprolol tartrate 25 mg Tablet PO (08:23)
[2024-03-22] MEDS: ondansetron 2 mg/ML SDV 2 mL 4 MG IVP ×2 (08:23→14:16)
[2024-03-22] MEDS: sertraline 50 mg Tablet PO (08:24)
[2024-03-22] MEDS: sodium chloride 1 gm Tablet PO (08:24)
[2024-03-22] MEDS: magnesium citrate Btl 296 mL PEG-TUBE (08:25)
[2024-03-22] MEDS: NON-FORMULARY MEDICATION (Linaclotide [Linzess] 290 mcg capsule) 290 EACH PO (08:25)
--- NOTE | 2024-03-22 09:15 | P.PN_ITS ---
Subjective 2 Subjective: Patient is stating that she had 1 bowel movement She greeted me with a smile today Stated that her pain is under control Hemodynamically stable Currently on TPN and feeding tube Patient tolerating full liquid diet, Vitals/I&O/Wt Last Vital Signs Temp 98.2 F 03/22/24 08:00 Pulse 106 H 03/22/24 08:00 Resp 19 H 03/22/24 08:00 BP 135/65 03/22/24 08:00 Pulse Ox 93 03/22/24 08:00 O2 Del Method Nasal Cannula 03/22/24 08:00 O2 Flow Rate 2 03/22/24 07:37 03/21/24 03/22/24 03/22/24 22:59 06:59 14:59 Intake Total 1110 / 1110 100 / 1210 320 / 320 Output Total 1200 / 1200 550 / 1750 Balance -90 / -90 -450 / -540 320 / 320 Weight last 48 hrs Weight 54.386 kg Weight 55.565 kg Physical Exam 2 Narrative: Patient is very pleasant today Greeted me with a smile Still have sinus dehydration Bowel sound present but sluggish Abdomen nondistended Hemodynamically stable S1, S2 Tachycardia still present Urinary Catheter Management: [place]: Cath Placed During This Visit: yes Reason for Continuing Indwelling Catheter: Accurate Measurement of Urinary Output in Critically Ill Patients Urinary Catheter Date of Insertion: 03/15/24 Urinary Catheter Time of Insertion: 10:36 Data 03/22/24 04:10 03/22/24 05:52 A&P Assessment and plan (1) Generalized anxiety disorder with panic attacks: (2) History of DVT (deep vein thrombosis): (3) Adult failure to thrive: (4) Hyponatremia: (5) Ileus: (6) Therapeutic opioid-induced constipation (OIC): (7) Squamous cell carcinoma, esophagus: (8) 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: (9) Chronic back pain: (10) Compressed spine fracture: (11) Insomnia: Plan Hyponatremia: Improved Diet advanced to full liquid patient is tolerating Stating that she had 1 bowel movement yesterday Started on feeding tube 03/21 Currently on TPN Sign of dehydration improving she is still has contraction alkalosis History of DVT Eliquis on hold she is currently getting therapeutic Lovenox I will continue salt tablets pulmonary tablet discontinue Renew fentanyl patch along with oxycodone regimen patient is tolerating this regimen very well Attestations 2 Medical Necessity Statement*: Continue medical management Diagnoses Generalized anxiety disorder with panic attacks F41.1; F41.0 History of DVT (deep vein thrombosis) Z86.718 Adult failure to thrive R62.7 Hyponatremia E87.1 Ileus K56.7 Therapeutic opioid-induced constipation (OIC) K59.03; T40.2X5A Squamous cell carcinoma, esophagus C15.9 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
[2024-03-22 11:42] LABS: Glucose Point of Care 150 mg/dL (70-110)
--- NOTE | 2024-03-22 13:18 | P.PN_ITS ---
Subjective 2 Subjective: Patient seen and examined. She has had a bowel movement now. Pain controlled Vitals/I&O/Wt Last Vital Signs Temp 98.2 F 03/22/24 11:30 Pulse 95 03/22/24 11:30 Resp 17 03/22/24 11:30 BP 137/75 03/22/24 11:30 Pulse Ox 95 03/22/24 11:30 O2 Del Method Nasal Cannula 03/22/24 11:30 O2 Flow Rate 2 03/22/24 07:37 03/21/24 03/22/24 03/22/24 22:59 06:59 14:59 Intake Total 1110 / 1110 100 / 1210 320 / 320 Output Total 1200 / 1200 550 / 1750 Balance -90 / -90 -450 / -540 320 / 320 Weight last 48 hrs Weight 119 lb 14.4 oz Weight 122 lb 8 oz Physical Exam 2 Narrative: General: No acute distress, awake alert and oriented x 3 Abdomen: Soft, nontender, nondistended Urinary Catheter Management: [place]: Cath Placed During This Visit: yes Reason for Continuing Indwelling Catheter: Accurate Measurement of Urinary Output in Critically Ill Patients Urinary Catheter Date of Insertion: 03/15/24 Urinary Catheter Time of Insertion: 10:36 Data 03/22/24 04:10 03/22/24 05:52 A&P Assessment and plan (1) Ileus: (2) skilled nursing prescription opiate use: (3) 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
--- NOTE | 2024-03-22 13:20 | PM.ACPR ---
Acute Procedures Feeding Tube Replacement: Additional comments: A nasogastric tube was placed through her PEG tube site. I remove this and placed a 20 [place] feeding tube. Blew the balloon up to 10 cc. Patient tolerated procedure well
--- NOTE | 2024-03-22 14:25 | PC.SOCIAL ---
IMM Updated Updated pt & family on IMM. No questions voiced. Provided pt a copy. Initialed, dated, & timed copy in chart.
--- NOTE | 2024-03-22 14:50 | P.DS_ITS ---
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: Status: Acute (4) Squamous cell carcinoma, esophagus: Status: Acute (5) Therapeutic opioid-induced constipation (OIC): Status: Acute Reason for Visit Reason for Visit: feeding tube leaking stomach sloshing bp high ill Hospital Course Hospital Course 78-year-old very pleasant female with established diagnosis of small cell lung cancer, esophageal cancer, dysphagia, PEG tube in place, opiate dependent get fentanyl patches which gets changed every 72 hours, presented to the hospital for worsening abdominal pain she was diagnosed with ileus, general surgery was consulted initially there was concern for obstruction there were no sign obstru ction at all, patient was managed conservatively initially with placement of NG tube, gastric decompression was achieved NGT was clamped, patient received 1 dose of Relistor, GI series was done which showed no active sign of obstruction,, patient was started on tube feeds, patient is having bowel movements before her discharge from the hospital, distention of bowel has decreased to mild extent, after multiple family meetings and discussion with the patient, daughter and Dr. Jones decision was made to discharge patient home on hospice, we have arranged hospital bed as well, I have asked Dr. Mayes to represcribe fentanyl patches I will add oxycodone 10/325 mg which patient tolerated very well for breakthrough pain in the hospital. Please note patient was kept on TPN via PICC line which we will remove before discharge. Hyponatremia improved after reinitiated salt tablets and TPN. For tube feeds she will go back to 1.5 Natan 4 cans daily along 120 mL flushes of water 4 times a day Daughters are well aware of guarded prognosis, patient is taking time to except but willing to go with home hospice option for now. We are resuming her medications such as antidepressants, anticoagulating agent for history of DVT Dr. Stauffer has placed BLANCA button feeding tube before discharge. Physical Exam Narrative: Signs of dehydration present but improving Awake and alert able to carry a decent conversation S1, S2 sinus rhythm Has a [place] catheter in place 2 L nasal cannula in place Urinary Catheter Management: [place]: Cath Placed During This Visit: yes Reason for Continuing Indwelling Catheter: Accurate Measurement of Urinary Output in Critically Ill Patients Urinary Catheter Date of Insertion: 03/15/24 Urinary Catheter Time of Insertion: 10:36 Discharge Data Studies Completed and Pending Completed Studies During Hospitalization Category Date Time Status CT abdomen pelvis wo con [id number] Stat Cat Scan 03/15/24 07:47 Completed CXRP [XR chest 1V portable [id number]] Routine Exams 03/19/24 11:56 Completed FL small bowel [place] gastro [id number] Routine Exams 03/21/24 09:28 Completed XR KUB portable [id number] Routine Exams 03/18/24 12:29 Completed XR KUB portable [id number] Routine Exams 03/20/24 12:23 Completed XR abdomen 1V* [id number] Stat Exams 03/15/24 05:15 Completed XR acute abdomen series [id number] Routine Exams 03/19/24 09:13 Completed XR chest 1V portable [id number] Stat Exams 03/15/24 05:15 Completed US venous duplex upper extremity LT [CV venous duplex Ultrasound 03/19/24 15:06 [place] [id number]] Routine Pending at discharge Category Date Time Status Basic Metabolic Panel AM LABS Lab 03/23/24 04:00 Ordered Radiology Impressions Abdomen X-Ray 03/15/24 05:15 IMPRESSION: 1. Nonspecific crenulated radiopacity appreciated in the left upper quadrant as detailed above this is likely artifactual and outside the patient body wall, however cannot be entirely excluded for intra-abdominal pathology. CT of the abdomen and pelvis with contrast would be the best next modality for assessment. 2. Nonspecific air dilated loops of bowel, again CT of the abdomen and pelvis with contrast would be the next best modality for assessment. 3. Additional findings as above. Abdomen/Pelvis CT 03/15/24 07:47 IMPRESSION: 1. Gastrostomy tube with fluid distended stomach with air-fluid level. 2. Fluid distended loops of small bowel throughout the abdomen extending to the distal ileum suspicious for adynamic ileus versus early developing partial small bowel obstruction although no transition point identified. Persistent air within the colon. 3. No hydronephrosis in either kidney. 4. Urine distended bladder. 5. Chronic compression fracture with anterior wedging at T11-L1 unchanged. 6. Prior hysterectomy. Chest/Abdomen X-ray 03/19/24 09:13 IMPRESSION: 1. Gaseous distension of bowel loops in the abdomen and pelvis, not significantly changed from prior. 2. Redemonstrated left pleural-based measuring approximately 3.4 cm, likely increased in size from prior PET-CT. Chest X-Ray 03/19/24 11:56 IMPRESSION: 1. Satisfactory position right-sided PICC line. Venous Duplex 03/19/24 15:06 IMPRESSION: No evidence of deep vein thrombosis. KUB X-Ray 03/20/24 12:23 IMPRESSION: 1. Mild gaseous distention of both large and small bowel loops most likely representing adynamic ileus. Other findings as indicated above. Small Bowel X-Ray 03/21/24 09:28 IMPRESSION: 1. Patent small bowel with contrast identified in the RIGHT colon at 2 hours post contrast injection into the stomach. Laboratory Results WBC 5.29 10^3/uL (3.29-11.43) 03/22/24 04:10 RBC 3.11 10^6/uL (3.85-5.65) L 03/22/24 04:10 Hgb 9.30 g/dL (11.27-16.99) L 03/22/24 04:10 Hct 29.7 % (36-47) L 03/22/24 04:10 MCV 95.5 fl (85-98) D 03/22/24 04:10 MCH 29.9 pg (27-33) 03/22/24 04:10 MCHC 31.3 g/dL (30-55) D 03/22/24 04:10 RDW 12.8 % (12.1-15.1) 03/22/24 04:10 Plt Count 280 10^3/cmm (157-399) 03/22/24 04:10 MPV 9.4 fL (7.4-10.4) 03/22/24 04:10 Neut % (Auto) 62.7 % 03/22/24 04:10 Lymph % (Auto) 16.8 % 03/22/24 04:10 [place] % (Auto) 17.8 % 03/22/24 04:10 Eos % (Auto) 2.1 % 03/22/24 04:10 Baso % (Auto) 0.4 % 03/22/24 04:10 Neut # (Auto) 3.32 10^3/uL (1.8-7.7) 03/22/24 04:10 Lymph # (Auto) 0.9 10^3/uL (0.8-4.8) 03/22/24 04:10 [place] # (Auto) 0.9 10^3/uL (0.2-0.9) 03/22/24 04:10 Eos # (Auto) 0.1 10^3/uL (0.0-0.8) 03/22/24 04:10 Baso # (Auto) 0.0 10^3/uL (0.0-0.1) 03/22/24 04:10 Nucleated RBC % (auto) 0 % 03/22/24 04:10 Nucleated RBCs # 0.0 /100WBC 03/22/24 04:10 Sodium 132 mmol/L (136-145) L 03/22/24 05:52 Potassium 3.9 mmol/L (3.5-5.1) 03/22/24 05:52 Chloride 86 mmol/L (98-107) L 03/22/24 05:52 Carbon Dioxide 39 mmol/L (22-29) H 03/22/24 05:52 Anion Gap 10.9 (5-19) 03/22/24 05:52 BUN 12 mg/dL (8-23) 03/22/24 05:52 Creatinine 0.3 mg/dL (0.5-0.9) L 03/22/24 05:52 GFR Calculation Not Reportable 03/22/24 05:52 Glucose 121 mg/dL (65-115) H 03/22/24 05:52 POC Glucose 150 mg/dL (70-110) H 03/22/24 11:39 Calculated Osmolality 275 mOsm/kg (285-295) L 03/22/24 05:52 Lactic Acid 1.6 mmol/L (0.5-2.2) 03/15/24 06:24 Calcium 8.9 mg/dL (8.5-10.5) 03/22/24 05:52 Phosphorus 2.9 mg/dL (2.5-4.5) 03/18/24 02:24 Magnesium 1.4 mg/dL (1.7-2.3) L 03/18/24 02:24 Total Bilirubin 0.6 mg/dL (0.15-1.2) 03/18/24 02:24 AST 35 U/L (0-32) H 03/18/24 02:24 ALT 27 U/L (0-33) 03/18/24 02:24 Alkaline Phosphatase 62 U/L (35-105) 03/18/24 02:24 Creatine Kinase 154 U/L (26-192) 03/15/24 08:14 Troponin T Baseline 26 ng/L (0-10) H 03/15/24 06:10 Troponin T 120 Minute 25.46 ng/L (0-10) H 03/15/24 08:14 Delta Troponin T -0.54 ABS# (0-10) L 03/15/24 08:14 Troponin T Hi Sens 6Hr 30.28 ng/L (0-10) H 03/15/24 11:56 Troponin T Hi Sens 6Hr Delta 4.28 ng/L (0-12) 03/15/24 11:56 Total Protein 6.7 g/dL (6.6-8.7) 03/18/24 02:24 Albumin 3.6 g/dL (3.5-5.2) 03/18/24 02:24 Globulin 3.1 g/dL (1.3-4.6) 03/18/24 02:24 Lipase 36 U/L (13-60) 03/15/24 08:14 Procalcitonin 0.14 ng/mL (0-0.5) 03/15/24 08:14 Urine Color Yellow (Yellow) 03/15/24 07:30 Urine Appearance Cloudy (CLEAR) A 03/15/24 07:30 Urine pH 8 (5-7) H 03/15/24 07:30 Ur Specific [place] 1.010 (1.005-1.030) 03/15/24 07:30 Urine Protein 3+ (Negative) H 03/15/24 07:30 Urine Glucose (UA) Norm (Normal) 03/15/24 07:30 Urine Ketones Negative (Negative) 03/15/24 07:30 Urine Blood Neg (Negative) 03/15/24 07:30 Urine Nitrate Negative (Negative) 03/15/24 07:30 Urine Bilirubin Neg (Negative) 03/15/24 07:30 Prot Sulfosalicylic Acd Positive (Negative) 03/15/24 07:30 Urine Urobilinogen Norm mg/dL (Negative) 03/15/24 07:30 Ur Leukocyte Esterase Negative (Negative) 03/15/24 07:30 Urine RBC None /hpf (0-2) 03/15/24 07:30 Urine WBC 0-4 /hpf (0-5) H 03/15/24 07:30 Ur Squamous Epith Cells Rare /hpf (0-5) 03/15/24 07:30 Amorphous Sediment Trace /hpf 03/15/24 07:30 Urine Bacteria Trace /hpf (NONE) 03/15/24 07:30 Vitals Last Vital Signs Temp 98.2 F 03/22/24 11:30 Pulse 95 03/22/24 11:30 Resp 18 03/22/24 14:16 BP 137/75 03/22/24 11:30 Pulse Ox 99 03/22/24 14:16 O2 Del Method Nasal Cannula 03/22/24 11:30 O2 Flow Rate 2 03/22/24 07:37 Discharge Plan Discharge Patient Disposition: Hospice - Home Condition: Fair Prescriptions: New oxycodone-acetaminophen 10-325 mg tablet 1 tab PO Q6H PRN (Reason: pain) Qty: 20 0RF Continued tiotropium bromide [Spiriva with HandiHaler] 18 mcg capsule, w/inhalation device 1 cap inhalation DAILY Qty: 60 3RF Rx Instructions: puncture 1 cap using device; one dose = 2 inhalations pantoprazole [Protonix] 40 mg tablet,delayed release (DR/EC) 40 mg PO BID 42 Days Qty: 84 1RF (DME) TLSO BRACE See Rx Instructions .Route .MEDSUPPLY Qty: 1 0RF Rx Instructions: As directed ipratropium-albuterol 0.5 mg-3 mg(2.5 mg base)/3 mL solution for nebulization 3 ml inhalation 6XD PRN (Reason: Shortness Of Breath) lubiprostone [Amitiza] 24 mcg capsule 24 mcg PO BID Qty: 60 0RF naloxone [Narcan] 4 mg/actuation spray,non-aerosol 4 mg intranasal Q2M PRN (Reason: opioid overdose) Qty: 2 1RF Rx Instructions: spray 1 dose into ONE nostril; alt nostrils w ea dose until help arrives (DME) oxygen air delivery system See Rx Instructions .Route .MEDSUPPLY Qty: 1 0RF Rx Instructions: Please issue oxygen concentrator, tanks, cannula, humidifier, etc. lidocaine HCl [Lidocaine Viscous] 2 % solution 5 ml PO Q6H Qty: 100 0RF Rx Instructions: 5 mL orally every 6 hours; Mix in equal volume with 100ml of antacid and 100 ml Benadryl elixir. Linzess 290 mcg capsule 290 mcg PO DAILY Qty: 30 1RF fentanyl 12 mcg/hr patch 72 hour 1 patch transdermal Q72H 30 Days Qty: 10 0RF Rx Instructions: For Dr. Hooker in his absence bisacodyl 10 mg suppository 10 mg CA DAILY PRN (Reason: constipation) Qty: 5 0RF Rx Instructions: 1 suppository per rectum every day PRN for constipation. atropine 1 % drops 4 drp sublingual Q4H PRN (Reason: secretions) Qty: 5 0RF Rx Instructions: 4 drops SL q 4 hours PRN for terminal congestion/excessive secretions. ondansetron 4 mg tablet,disintegrating 4 mg translingual Q4H PRN (Reason: nausea) Qty: 5 0RF Rx Instructions: Dissolve 1 tablet under tongue every 4 hours PRN for nausea lorazepam 2 mg/mL concentrate 2 mg sublingual Q4H PRN (Reason: Anxiety/Seizure) Qty: 30 0RF Rx Instructions: 0.25ml-1ml q4H PRN Anxiety/Seizure Start 0.25ml may increase to 0.5ml-1ml q4H acetaminophen 500 mg Tablet 500 mg PO Q4H PRN (Reason: Pain) amlodipine 10 mg tablet 10 mg PO DAILY PRN (Reason: HIGH BLOOD PRESSURE) sertraline 50 mg tablet 50 mg PO QAM fentanyl 25 mcg/hr patch 72 hour See Rx Instructions .ROUTE .COMPLEX Rx Instructions: Apply 25mcg and 12 mcg patch transdermally on day 1, then additional 12 mcg on day 2. Ventolin HFA 90 mcg/actuation HFA aerosol inhaler 1 - 2 puff inhalation Q4H PRN (Reason: Shortness Of Breath) Rx Instructions: inhale 1-2 puffs EVERY 4 HOURS NEEDED FOR SHORTNESS OF BREATH hydroxyzine HCl 10 mg tablet 10 mg PO Q6H PRN (Reason: Anxiety) ondansetron 4 mg tablet,disintegrating 4 mg PO Q6H PRN (Reason: Nausea) nortriptyline 50 mg capsule 50 - 100 mg PO QPM PRN (Reason: Insomnia) sodium chloride 1,000 mg tablet,soluble 1,000 mg PO DAILY ferrous gluconate 324 mg (38 mg iron) tablet 324 mg PO BID metoprolol tartrate 25 mg tablet 25 mg PO BID Eliquis 5 mg tablet 5 mg PO BID Hold Instructions: Resume on 01/14/24. metoclopramide HCl [Reglan] 5 mg tablet 5 mg PO Q6H PRN (Reason: Nausea) Discontinued morphine concentrate 100 mg/5 mL (20 mg/mL) solution 20 mg sublingual DIRECTED PRN (Reason: Pain/SOB) 14 Days Qty: 30 0RF Rx Instructions: 0.25ml-1ml q1H PRN may increase to 0.5ml-1ml Q1H PRN Discharge Orders: Discharge Order (Routine); Ordered 03/22/24 Ordered By: Marquise Gallegos Referrals: Armani Hooker DO [Primary Care Provider] - 04/02/24 10:00 am Patient Instructions: Oxycodone/Acetaminophen (By mouth) (Percocet, Roxicet) Activity Restrictions/Additional Instructions: Caregiver is well aware of tube feed regimen She is also aware of water flushes, In agreement with the current tube feeding regimen Discharge Attestations Time Spent in Discharge Care*: greater than 30 min Status at Discharge: Cognitive status at discharge: cognitively intact , Behavioral status at discharge: cooperative , Quality Metrics Clinical Quality Measures [ No reported AMI, CVA or VTE this stay] Coding Level of Care Code Acute Code for Chg Fwd Diagnoses Ileus K56.7 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
[2024-03-22 15:50] LABS: Glucose Point of Care 125 mg/dL (70-110)
--- NOTE | 2024-03-22 19:01 | PC.NURSE ---
Patient discharged to home with [facility]. Provided instruction to patient's daughter and caregiver discharge plan. PICC line removed and moraes catheter remained in place per Dr Gallegos. Patient provided pain medication as documented for the ride by [facility]. Caregiver at bedside. Daughter arrived as patient being transported. electric deicer assembler Robert has been notified.
== END 2024-03-22 18:10 | disposition hospice, home (50) | DRG 389 ==
LOC: ER 11:15 → MEDSURG 11:54 → CSU 03-18 20:07
PROVIDERS: Emergency Medicine; Internal Medicine; Admitting Provider Internal Medicine; Emergency Provider Family Medicine; PCP Family Medicine; Visit Provider Internal Medicine
DX: K56.7 Ileus, unspecified (principal); C15.9 Malignant neoplasm of esophagus, unspecified; C34.12 Malignant neoplasm of upper lobe, left bronchus or lung; J96.10 Chronic respiratory failure, unspecified whether with hypoxia or hypercapnia; R64 Cachexia; E46 Unspecified protein-calorie malnutrition; E87.1 Hypo-osmolality and hyponatremia; Z79.891 Long term (current) use of opiate analgesic; K59.03 Drug induced constipation; T40.2X5A Adverse effect of other opioids, initial encounter; Y99.9 Unspecified external cause status; Z99.81 Dependence on supplemental oxygen; E83.42 Hypomagnesemia; N32.89 Other specified disorders of bladder; R62.7 Adult failure to thrive; Z68.20 Body mass index [BMI] 20.0-20.9, adult; M62.84 Sarcopenia; I16.0 Hypertensive urgency; I10 Essential (primary) hypertension; Z93.1 Gastrostomy status; E86.0 Dehydration; Z79.01 Long term (current) use of anticoagulants; Z87.891 Personal history of nicotine dependence; J44.9 Chronic obstructive pulmonary disease, unspecified; F41.9 Anxiety disorder, unspecified; F32.A Depression, unspecified; Z86.718 Personal history of other venous thrombosis and embolism; Z51.5 Encounter for palliative care
CPT/HCPCS: 36415; 36416; 36573; 36592; 51702; 71045; 74018; 74022; 74176; 74250; 80048; 80053; 81001; 82550; 82962; 83605; 83690; 83735; 84100; 84145; 84484; 85025; 93005; 93971; 94640; 96365; 96372; 96375; 96376; 99285; C9113; J0360; J1170; J1650; J2060; J2212; J2270; J2405; J3010; J3475; J3480; J7030; J7626; Q9963